=== PATIENT | male | born 1945 | race Caucasian/White ===

== ENCOUNTER 2018-10-17 07:55 | Inpatient (IN) ==
--- NOTE | 2018-10-09 17:42 | PAT Medication Instructions ---
Medication Instructions Date of Service October 09, 2018 Home Medications finasteride 5 mg PO QPM fluticasone furoate-vilanterol [Breo Ellipta] 1 inh INHALATION QAM meloxicam 15 mg PO DAILY PRN pantoprazole 40 mg PO QPM tamsulosin 0.8 mg PO QPM tiotropium bromide [Spiriva Respimat] 2 puff INHALATION QAM ASK your surgeon for instructions meloxicam 15 mg PO DAILY PRN Take morning of surgery OTHERWISE NOTHING TO EAT OR DRINK AFTER MIDNIGHT: fluticasone furoate-vilanterol [Breo Ellipta] 1 inh INHALATION QAM tiotropium bromide [Spiriva Respimat] 2 puff INHALATION QAM Take evening before surgery finasteride 5 mg PO QPM pantoprazole 40 mg PO QPM tamsulosin 0.8 mg PO QPM Other Notes If you have any questions please call us at [phone] or [phone] or [phone] or [phone]
--- NOTE | 2018-10-10 08:50 | Anesthesiology Consultation ---
Date of Service October 10, 2018 Assessment & Plan (1) Encounter for pre-operative examination: - Patient has transportation issues due to his only means of transportation being [place]. Knows that he can be here by 8:30 the day of surgery, and may be able to be here sooner, but cannot guarantee it and won't know for sure until the night before. This was discussed with OR scheduling office here at the hospital who will discuss with patient and plan accordingly. - No previous anesthesia records Chart Review Chart Review: Acceptable Risk for Surgery and Patient seen in Pre Admission Testing Consults Requested medical (Dr. Milian (10/15)) Patient was seen by his PCP on 10/15 for preoperative evaluation. Per note from that visit, his main issue is his pulmonary emphysema. "Due to the patient's history he is moderate to high risk for the proposed procedure. He has severe emphysema, and runs the risks of not being able to be weaned from the intubation. We did have a long discussion with the patient. He still would like to go through with the surgery, and understands the risks, which include ." Teaching & Discussion Pre-Anesthesia Teaching/Discussion Notes: Instructed NPO after midnight before surgery, except medications with 15 cc of water. Medication instructions provided according to the PAT guidelines. History Surgery Operation Date: 10/17/18 10:25 Proposed Procedures p C4 Corpectomy, C5-C6 Discectomy and Fusion, Spinal Cord Monitoring - Alli Mojica, Height/Weight Height: 5 ft 3 in Weight: 62.9 kg Allergies Allergy/AdvReac Type Severity Reaction Status Date / Time chlordiazepoxide Allergy Unknown Hives Verified 10/03/18 11:01 [From Librax (with clidinium)] clidinium Allergy Unknown Hives Verified 10/03/18 11:01 [From Librax (with clidinium)] nitroglycerin Allergy Unknown CARDIAC Verified 10/03/18 11:01 ARREST aspirin AdvReac Unknown GI BLEED Verified 10/03/18 11:01 Medications Home Medications Medication Instructions Recorded Confirmed Last Taken finasteride 5 mg PO QPM 10/03/18 10/03/18 Unknown fluticasone furoate-vilanterol 1 inh INHALATION QAM 10/03/18 10/03/18 Unknown [Breo Ellipta] meloxicam 15 mg PO DAILY PRN 10/03/18 10/03/18 Unknown pantoprazole 40 mg PO QPM 10/03/18 10/03/18 Unknown tamsulosin 0.8 mg PO QPM 10/03/18 10/03/18 Unknown tiotropium bromide [Spiriva 2 puff INHALATION QAM 10/03/18 10/03/18 Unknown Respimat] Past Medical History Medical History Abdominal aortic aneurysm Followed by PCP Ambulatory dysfunction BPH (benign prostatic hyperplasia) Cervical disc disease Chronic obstructive pulmonary disease EMPHYSEMA GERD (gastroesophageal reflux disease) Lung nodules 2 Stable, 2 new ones being followed Memory change PER DAUGHTER Neuropathy BLE Exercise / Class Metabolic Activity III < 4 Walking/Shop/Light housework (Walks outside 2-3 times per day. Walks around town. Denies CP or SOB. Able to climb FOS. ) Past Family History Family History Grandmother (Paternal) Family history of diabetes mellitus Past Surgical History Surgical History H/O colonoscopy History of bronchoscopy Hx of cardiac cath TYRA 2016 Past Anesthesia History No Hx of Anesthesia Complications and No Family Hx of Anesthesia Complications History of PONV No Hx of PONV and No Hx of Motion Sickness Social History Smoking Status: Former smoker Smoking cigarettes per day: 1ppd x 60 Do You Dip or Chew Tobacco: No Smoking End Date: 11/2016 Hx Alcohol Use: No Hx Substance Use: No Review of Systems Patient denies chest pain, shortness of breath, dyspnea on exertion, palpitations. + Joint Pain (Neck, Back) +Acid Reflux (Controlled with medications) +Cough/Wheezing (COPD) Physical Exam Vital Signs BP: 142/87 P: 85 R: 18 T: 98.2 SPO2: 96% on RA ENMT Mouth: + edentulous (On top ) and + poor dentition (few teeth on bottom) Thyromental Distance: < 3.5 Finger Breadths (3) Mallampati Class: I Neck normal visual inspection and + facial hair (Advised); neck extension not limited Respiratory normal respiratory effort Auscultation: + wheezes (rare scattered expiratory wheezes) Cardiovascular Rate/Rhythm: regular rate and regular rhythm Heart Sounds: no murmur Vessels: no carotid bruit Neurologic moves all extremities Psychiatric Orientation: alert and oriented x 3 Testing Laboratory Results 10/10/18 09:18 10/10/18 09:18 PT 11.0 Seconds (9.0-12.0) 10/10/18 09:18 INR 1.1 (0.9-1.1) 10/10/18 09:18 APTT 30.3 Seconds (21.0-31.0) 10/10/18 09:18 Urine Color Yellow 10/10/18 09:18 Urine Appearance Clear (Clear) 10/10/18 09:18 Urine pH 6.0 (4.5-7.5) 10/10/18 09:18 Ur Specific [place] 1.016 (1.000-1.030) 10/10/18 09:18 Urine Protein Negative (Negative) 10/10/18 09:18 Urine Glucose (UA) Negative (Negative) 10/10/18 09:18 Urine Ketones Negative (Negative) 10/10/18 09:18 Urine Nitrite Negative (Negative) 10/10/18 09:18 Ur Leukocyte Esterase Negative (Negative) 10/10/18 09:18 Blood Type A Positive 10/10/18 09:18 Antibody Screen NEGATIVE 10/10/18 09:18 Electrocardiogram Date: 10/10/18 Findings: + NSR @ (76) Rightward axis Chest X-Ray Date: 10/10/18 Findings: + NAD Echocardiogram Date: 04/03/18 EF: 55-59% The LV wall thickness is mildly increased (concentric). There is a moderate sized septal and anteroseptal wall motion abnormality with hypokinesis of the segments. The left ventricular diastolic function is mildly abnormal (grade I). Intermediate IVC size and collapsability. Right atrial pressure estimated at 8 mmHg. Normal pulmonary pressures are suggested by 2-D echo findings Cardiac Catheterization Date: 09/10/16 Conclusion: 1. Nonobstructive coronary artery disease as noted above. 2. Normal LV systolic function 3. Normal LV filling pressures 4. No significant MR by this technique. 5. No significant aortic stenosis by this technique. Recommendations: 1. Maximize medical therapy for primary prevention. 2. Diet exercise and lifestyle modification were discussed. Of particular importance is smoking cessation. 3. Consider noncardiac causes of chest pain. Included in the differential would be musculoskeletal, pericarditis, or pleuritis given the pleuritic nature. 4. Follow-up with cardiology within 4-6 weeks. Other Testing ABDOMINAL AORTA DUPLEX EXAMINATION 07/09/18: There is evidence of a 3.9cm abdominal aortic aneurysm. Color Doppler imaging demonstrates flow consistent with a patent lumen at and distal to the aortic aneurysm. CAROTID DUPLEX 11/09/17: Mild bilateral carotid system plaque, but without hemodynamically significant stenosis. Less than 50% proximal ICA narrowing on each side.
--- NOTE | 2018-10-10 09:38 | XRay Report ---
XR chest Pre-admission PA/Lat CLINICAL HISTORY: pat preoperative evaluation COMPARISON STUDY: No previous studies for comparison. FINDINGS: The bones soft tissues and hemidiaphragms are normal. The cardiomediastinal silhouette is n ormal. The lungs are clear. The pulmonary vasculature is normal. IMPRESSION: Negative chest. The above report was generated using voice recognition software. It may contain grammatical, syntax or spelling errors. Electronically signed by: Denny Butler M.D. 10/10/2018 9:37 AM
[2018-10-10 09:50] LABS: Basophils # (auto) 0.09 K/uL (0-0.2); Basophils % (auto) 0.8 %; Eosinophils # (auto) 0.11 K/uL (0-0.5); Eosinophils % (auto) 0.9 %; Hematocrit (blood only) 43.6 % (42-52); Hemoglobin 15.2 g/dL (14.0-18.0); Immature Granulocytes # (auto) 0.03 K/uL (0.00-0.02); Immature Granulocytes % (auto) 0.3 %; Lymphocytes % (auto) 12.9 %; Mean Corpuscular Hemoglobin 29.9 pg (25-34); Mean Corpuscular Hgb Conc 34.9 g/dL (32-36); Mean Corpuscular Volume 85.8 fL (80-100); Mean Platelet Volume 9.2 fL (7.4-10.4); Monocytes # (auto) 1.18 K/uL (0.11-0.59); Monocytes % (auto) 10.2 %; Neutrophils % (auto) 74.9 %; Platelet Count 266 K/uL (130-400); RDW Coefficient of Variation 13.6 % (11.5-14.5); RDW Standard Deviation 43.1 fL (36.4-46.3); Red Blood Count 5.08 M/uL (4.7-6.1); White Blood Count 11.61 K/uL (4.8-10.8)
[2018-10-10 09:55] LABS: Appearance Urine Clear (Clear); Bilirubin Urine Negative (Negative); Blood Urine Negative (Negative); Color Urine Yellow; Glucose Urine UA Negative (Negative); Ketones Urine Negative (Negative); Leukocyte Esterase Urine Negative (Negative); Nitrite Urine Negative (Negative); Protein Urine Negative (Negative); Specific Gravity Urine 1.016 (1.000-1.030); Urobilinogen Urine Negative (Negative)
[2018-10-10 10:02] LABS: INR 1.1 (0.9-1.1); Partial Thromboplastin Ratio 1.1; Partial Thromboplastin Time 30.3 Seconds (21.0-31.0)
[2018-10-10 11:57] LABS: BUN Creatinine Ratio 14.6 (10-20); Calcium 8.9 mg/dl (8.5-10.1); Creatinine Clr Calc Pharmacy 46.7 ml/min; Est GFR (African American) 73.3; Est GFR (Non-African American) 63.2; Potassium 4.3 mmol/L (3.5-5.1)
[~2018-10-17 07:55] MED LIST: CEFAZOLIN 1000MG 1,000 MG/7.5 ML SYR IV SCH; LR 15ML/HR IV SCH
[2018-10-17] MEDS ORDERED: HYDROmorphone INJ 2 MG/ML SYR/VIAL ONE ×2 (09:02→10:55)
[2018-10-17] MEDS ORDERED: fentaNYL citrate 100 MCG/2 ML VIAL ONE ×7 (09:02→13:18)
[2018-10-17] MEDS ORDERED: MIDAZOLAM HCL 1 MG/ML 2ML VIAL ONE (09:02)
[2018-10-17] MEDS ORDERED: ATROPINE SULFATE 0.1 MG/ML 10ML SYR IV PRN (10:00)
[2018-10-17] MEDS ORDERED: ePHEDrine sulfate 50 MG/ML AMP IV PRN (10:00)
[2018-10-17] MEDS ORDERED: ONDANSETRON INJ 2 MG/ML 2 ML VIAL IV PRN ×2 (10:00→15:10)
[2018-10-17] MEDS ORDERED: ALBUTEROL 0.083% NEBU SOLN 3 ML VIAL INH PRN (10:00)
[2018-10-17] MEDS ORDERED: HYDROmorphone INJ 2 MG/ML SYR/VIAL IV PRN (10:00)
[2018-10-17] MEDS ORDERED: ALBUTEROL 0.5% NEB SOLN 2.5 MG/0.5 ML VIAL NEB STA (10:18)
--- NOTE | 2018-10-17 10:40 | History & Physical Bridge Note ---
Date of Service October 17, 2018 History & Physical Bridge Note I have examined the patient, reviewed the History & Physical and in the interval since the performance of the History & Physical I have noted the following changes of clinical significance: no changes noted
--- NOTE | 2018-10-17 10:41 | History & Physical Report ---
Date of Service October 17, 2018 Assessment & Plan (1) Cervical stenosis of spinal canal: C4 corpectomy C5-6 discectomy and fusion C3-C6 Present on Admission?: Yes History of Present Illness Chief Complaint: Neck and arm pain Primary Care Provider: Korina Milian DO This is a 73-year-old male who presents with worsening neck and arm symptoms. After failing extensive course of nonoperative care is here for surgical intervention. Allergies Allergy/AdvReac Type Severity Reaction Status Date / Time chlordiazepoxide Allergy Unknown Hives Verified 10/17/18 08:26 [From Librax (with clidinium)] clidinium Allergy Unknown Hives Verified 10/17/18 08:26 [From Librax (with clidinium)] nitroglycerin Allergy Unknown CARDIAC Verified 10/17/18 08:26 ARREST aspirin AdvReac Unknown GI BLEED Verified 10/17/18 08:26 Home Medications Home Medications Medication Instructions Recorded Confirmed Type finasteride 5 mg PO QPM 10/03/18 10/17/18 History fluticasone furoate-vilanterol 1 inh INHALATION QAM 10/03/18 10/17/18 History [Breo Ellipta] meloxicam 15 mg PO DAILY PRN 10/03/18 10/17/18 History pantoprazole 40 mg PO QPM 10/03/18 10/17/18 History tamsulosin 0.8 mg PO QPM 10/03/18 10/17/18 History tiotropium bromide [Spiriva 2 puff INHALATION QAM 10/03/18 10/17/18 History Respimat] Past Med/Surg History Medical History Abdominal aortic aneurysm Followed by PCP BPH (benign prostatic hyperplasia) Cervical disc disease Chronic obstructive pulmonary disease EMPHYSEMA GERD (gastroesophageal reflux disease) Lung nodules 2 Stable, 2 new ones being followed Memory change PER DAUGHTER Neuropathy BLE Ambulatory dysfunction Surgical History Hx of cardiac cath TYRA 2016 H/O colonoscopy History of bronchoscopy Family History Grandmother (Paternal) Family history of diabetes mellitus Social History Preferred Language: Vietnamese Communication Ability: Effective Beliefs That Will Affect Care: None Current Living Situation: Family Feels Safe at Home: Yes Smoking Status: Former smoker Cigarettes Per Day: 1ppd x 60 ; Do You Dip or Chew Tobacco: No ; Smoking End Date: 11/2016 ; Second Hand Exposure: Yes (DAILY) ; Hx Alcohol Use: No Hx Substance Use: No Physical Exam Physical Exam: Patient is alert and oriented neurologically intact. Results & Data Vital Signs (Past 12 Hours) Vital Signs Temp Pulse Resp BP Pulse Ox 10/17/18 10:25 71 16 97 10/17/18 08:31 37 C 87 20 129/89 96
[2018-10-17] MEDS ORDERED: PROPOFOL IV EMULSION 10 MG/ML 100 ML VIAL IV ONE (10:55)
[2018-10-17] MEDS ORDERED: BACITRACIN INJ 50,000 UNIT VIAL ONE (10:59)
[2018-10-17] MEDS ORDERED: GLYCOPYRROLATE 0.2 MG/ML VIAL ONE (11:59)
[2018-10-17] MEDS ORDERED: LARYING-O-JET KIT (LTA) ONE (11:59)
[2018-10-17] MEDS ORDERED: ONDANSETRON INJ 2 MG/ML 2 ML VIAL ONE (11:59)
[2018-10-17] MEDS ORDERED: DEXAMETHASONE SOD INJ 4 MG/ML VIAL ONE (11:59)
[2018-10-17] MEDS ORDERED: LIDOCAINE HCL 2% 2 ML VIAL/AMP(20MG/ML) INFIL ONE (11:59)
[2018-10-17] MEDS ORDERED: PROPOFOL IV EMULSION 10 MG/ML 20 ML VIAL IV ONE (11:59)
[2018-10-17] MEDS ORDERED: NEOSTIGMINE METHYLSULFATE 1 MG/ML 10ML VIAL ONE (11:59)
[2018-10-17] MEDS ORDERED: ROCURONIUM BROMIDE 10 MG/ML 5 ML VIAL ONE (11:59)
[2018-10-17] MEDS ORDERED: SUCCINYLCHOLINE CHLORIDE 20 MG/ML 10 ML VIAL ONE (12:43)
[2018-10-17] MEDS ORDERED: ALBUTEROL HFA INHALER 8.5 GM ONE (13:07)
[2018-10-17] MEDS ORDERED: FLOSEAL HEMOSTATIC MATRIX 10ML TOP ONE (13:10)
--- NOTE | 2018-10-17 13:19 | Operative Report ---
Post Operative Report Pre & Post Diagnosis Operation Date: 10/17/18 10:25 Pre-Op Diagnosis: Other Spondylosis with Myelopathy, Cervical Region Post-Op Diagnosis: Other Spondylosis with Myelopathy, Cervical Region Procedure Operation Date: 10/17/18 10:25 Actual Procedures #1 anterior cervical corpectomy with bilateral foraminotomies C4. #2 anterior cervical discectomy with bilateral foraminotomies C5-6. #3 anterior cervical arthrodesis C3-C5 and C5-C6. #4 placement of titanium cage 27 mm in height C3- C5 and 7 mm at C5-C6. #5 placement of locally harvested morselized autograft combined with DBM and interbody cages. #6 placement of mary plate and screws from C3 to see 6. Surgeon Alli Mojica, Business Trainer Pat Jay Estimated Blood Loss 50 Findings Consistent with Post-Op Diagnosis Specimens None Indications This is a 73-year-old female that presents with above-mentioned diagnosis after failing extensive course of nonoperative care is here for surgical intervention. Description of Procedure Patient was met with identified and informed consent obtained. He was then taken to the operative suite underwent intubation placed in a supine position the Balaji table the head Shen gang head saw operator. All bony prominences well- padded eyes inspected to ensure no external pressure placed upon but this point the anterior cervical spine was prepped and draped in the normal sterile fashion. The assistance of fluoroscopy identified the see 4 5 disc patient placed a transverse incision along the right anterior aspect of the cervical spine overlying this region. Sharp dissection with the assistance of bipolar cautery was performed down to and exposing the anterior cervical spine from C3- C6. Self-retaining retractors placed. Then performed a complete discectomy of C3-4 out to the uncovertebral joints bilaterally followed by C4-5. [place] distracting pins were then placed in C3 and C5 distract across the C4 vertebral body. A complete corpectomy of C4 was then performed including removal of all posterior annular fibers longitudinal ligament bilateral foraminotomies. Endplates were then burred to subcortical bleeding bone and a 27 mm titanium cage filled with local autograft and DBM tapped in position. Then performed a complete discectomy of C5-6 to the uncovertebral joints bilaterally. Again [place] distracting pins utilized. Removed all posterior annular fibers longitudinal ligament bilateral foraminotomies were. Endplates were then burred to subcortical bleeding bone and a 7 mm titanium cage filled with local autograft and DBM tamped in position. Distraction apparatus was removed all anterior osteophytes burred with smooth cortical surface and a mary plate and screws applied with the assistance of fluoroscopy. Incision was then copiously irrigated explored to ensure no damage to surrounding structures remaining bleeding. 10 round NICOLE drain inserted. Incision was then closed with 2-0 Vicryl in the fashion of 4 Monocryl for final skin closure. Steri-Strip sterile dressings placed. Patient will continue to PACU stable condition. Please note Pat Jay present at the entire procedure involved in patient positioning complex portions of the surgery and final skin closure. Lastly spinal cord monitoring was utilized that procedure no changes noted. I attest to the content of the Intraoperative Record and any orders documented therein. Any exceptions are noted below.
[2018-10-17] MEDS ORDERED: ESMOLOL HCL INJ 10 MG/ML 10ML VIAL IV ONE (13:26)
--- NOTE | 2018-10-17 13:33 | Fluoroscopy Report ---
FL cervical 2-3V HISTORY: 73 years-old Male C4 CORPECTOMY, C3-C6 DISCECTOMY AND FUSION COMPARISON: None available TECHNIQUE: 2 spot fluoroscopic images of the cervical spine were obtained utilizing 10.8 seconds fluo roscopy time FINDINGS: Anterior plate and screw fusion is noted extending from the C3-C6 levels. Alignment appears satisfact ory. Corpectomy changes at C4. Discectomy changes at C5-C6. Alignment appears satisfactory on these 2 images. Multilevel spondylitic spurring and facet arthrosis. IMPRESSION: Fluoroscopic assistance as above. Please see operative report for further details. The above report was generated using voice recognition software. It may contain grammatical, syntax o r spelling errors. Electronically signed by: Teofilo Guevara M.D. 10/17/2018 1:32 PM
[2018-10-17] MEDS: fentaNYL citrate 100 MCG/2 ML VIAL IV PRN ×2 (13:48→13:56)
[2018-10-17] MEDS ORDERED: HYDROmorphone INJ 1 MG/ML SYRINGE ONE ×2 (14:01→14:22)
--- NOTE | 2018-10-17 14:27 | Anesthesiology Progress Note ---
Date of Service October 17, 2018 Anesthesia Post Procedure Vital Signs Vital Signs: Temp Pulse Pulse Resp BP Pulse Ox 10/17/18 14:10 89 11 L 146/87 H 99 10/17/18 14:00 90 12 157/93 H 100 10/17/18 13:50 90 12 165/85 H 100 10/17/18 13:40 92 H 17 155/92 H 100 10/17/18 13:32 36.4 C L 86 13 151/83 H 100 10/17/18 10:25 71 16 97 10/17/18 08:31 37 C 87 20 129/89 96 Pain Intensity Medial Neck: Pain Intensity: 5 Anterior Medial Neck: Pain Intensity: 5 Transfer of Care Handoff Completed per policy Notes Mental Status: alert / awake / arousable and participated in evaluation Patient Amnestic to Procedure: Yes Nausea / Vomiting: adequately controlled Pain: adequately controlled Airway Patency, RR, SpO2: stable & adequate BP & HR: stable & adequate Hydration State: stable & adequate Anesthetic Complications: no major complications apparent and Pt Satisfied with anesthetic care
[2018-10-17] MEDS ORDERED: MAGNESIUM HYDROXIDE SUSP 30 ML UDC PO PRN (15:10)
[2018-10-17] MEDS ORDERED: DO NOT ADMINISTER PNEUMOCOCCAL VACCINE PRN (15:10)
[2018-10-17] MEDS ORDERED: LORazepam 0.5 MG/1 ML VIAL IV PRN (15:10)
[2018-10-17] MEDS ORDERED: RACEPINEPHRINE 2.25% NEBU SOLN 0.5 ML VIAL INH PRN (15:10)
[2018-10-17] MEDS ORDERED: LORazepam 0.5 MG TAB PO PRN (15:10)
[2018-10-17] MEDS ORDERED: DO NOT ADMINISTER FLU VACCINE PRN (15:10)
[2018-10-17] MEDS ORDERED: NALOXONE HCL 0.4 MG/1 ML VIAL/CARP IV PRN (15:10)
[2018-10-17] MEDS ORDERED: OXYCODONE/ACETAMINOPHEN 5mg/325mg TAB PO PRN (15:10)
[2018-10-17] MEDS ORDERED: DEXAMETHASONE SOD PHOSPHATE 8 MG in SYRINGE 0 ML IV PRN (15:10)
[2018-10-17] MEDS ORDERED: SCOPOLAMINE 1.5 MG TDSY TD SCH (16:00)
[2018-10-17] MEDS: CHECK SCOPOLAMINE PATCH PLACEMENT SCH (17:16)
[2018-10-17] MEDS: CEFAZOLIN 1000MG 1,000 MG/7.5 ML SYR IV SCH (18:31)
[2018-10-17] MEDS: OXYCODONE HCL IR 5 MG TAB (IMMEDIATE RELEASE) PO PRN (18:33)
[2018-10-17] MEDS: LACTATED RINGER'S 1,000 ML IV SCH (18:33)
[2018-10-17] MEDS: TAMSULOSIN HCL 0.4 MG CAP PO SCH (20:12)
[2018-10-17] MEDS: PANTOprazole 40 MG TAB PO SCH (20:13)
[2018-10-17] MEDS: FINASTERIDE 5 MG TAB PO SCH (20:13)
[2018-10-17] MEDS ORDERED: ALBUTEROL HFA 8 GM INHALER INH PRN (20:42)
--- NOTE | 2018-10-17 21:03 | Consultation ---
Date of Consultation October 17, 2018 Assessment & Plan (1) S/P cervical spinal fusion: Post op day# 0 S/P C4 corpectomy, C5-C6 discectomy and fusion C3-C6 today by Dr Mojica [id number] Post op pt with neck pain, and some pain with swallowing with no reported choking -pain management per ortho -wound management per ortho -PT/OT as appropriate -DVT prophylaxis per ortho -incentive spirometry -monitor H&H for acute blood loss anemia (2) Chronic obstructive pulmonary disease: No SOB or wheezing -Continue Breo, Spiriva -Albuterol prn (3) BPH (benign prostatic hyperplasia): -Continue finasteride, tamsulosin (4) GERD (gastroesophageal reflux disease): -Continue PPI DVT Prophylaxis -SCDs Full Code as per discussion with pt Follows with Dr Milian for routine care Pt was seen and care coordinated with Dr Bunn. See addendum Supervising Physician Co-Signing Physician Notes Care coordinated with Ksenia Segovia PA-C. Agree with above note. Patient seen and examined. Please refer to her notes for full details. Vital signs reviewed. Physical exam: General exam: Alert and oriented. Not in acute distress. Neck: In collar CVS: S1 and S2 heard, regular rate and rhythm, no murmurs. RS: Clear to auscultation, no wheezing or crackles. ABD: Soft, bowel sounds present, nontender, no distention. CITRIX ARCHITECT: Nonfocal.speech clear, alert and oriented x 3 EXT: No edema, no erythema. Labs: Reviewed. Assessment and plan: s/p Cervical spine surgery management as per surgery dizziness dificulty swallowing says not able to swallow because of pain CITRIX ARCHITECT exam unremarkable CT head unremarkable CT soft tissue neck -mild anterior soft tissue edema(post surgical?) otherwise unremarkable Notified Ortho-plan to start on steroids. Other diagnosis and plan of care as per Ksenia Segovia PA-C. Enrique underwood MD. History of Present Illness Reason for Consultation: Post op medical management Attending Physician: Alli Mojica DO History of Present Illness Pt is 73 y/o M with PMH COPD, BPH, GERD seen in medical consultation for post op medical management s/p C4 corpectomy, C5-C6 discectomy and fusion C3-C6 today by Dr Mojica. Post op pt reports neck pain. He reports had left arm pain greater than right arm pain prior to surgery and post op pt states feels arm pain has decreased some but not completely resolved. Denies paresthesias. Is in [place] J collar and tolerating. Drinking clear fluids and reports no choking but some discomfort with swallowing. Denies fever/chills, diaphoresis, N/V/D/C, BIRD, dizziness, vision changes, CP, SOB, palpitations, cough, abdominal pain, extremity weakness, extremity edema, rashes, urinary symptoms. Allergies Allergy/AdvReac Type Severity Reaction Status Date / Time chlordiazepoxide Allergy Unknown Hives Verified 10/17/18 08:26 [From Librax (with clidinium)] clidinium Allergy Unknown Hives Verified 10/17/18 08:26 [From Librax (with clidinium)] nitroglycerin Allergy Unknown CARDIAC Verified 10/17/18 08:26 ARREST aspirin AdvReac Unknown GI BLEED Verified 10/17/18 08:26 Home Medications Home Medications Medication Instructions Recorded Confirmed Type finasteride 5 mg PO QPM 10/03/18 10/17/18 History fluticasone furoate-vilanterol 1 inh INHALATION QAM 10/03/18 10/17/18 History [Breo Ellipta] meloxicam 15 mg PO DAILY PRN 10/03/18 10/17/18 History pantoprazole 40 mg PO QPM 10/03/18 10/17/18 History tamsulosin 0.8 mg PO QPM 10/03/18 10/17/18 History tiotropium bromide [Spiriva 2 puff INHALATION QAM 10/03/18 10/17/18 History Respimat] albuterol sulfate 2 puff INHALATION QID PRN 10/17/18 10/17/18 History Patient History Medical History Chronic obstructive pulmonary disease (Chronic) EMPHYSEMA Lung nodules (Chronic) 2 Stable, 2 new ones being followed Memory change (Chronic) PER DAUGHTER GERD (gastroesophageal reflux disease) (Chronic) BPH (benign prostatic hyperplasia) (Chronic) Cervical disc disease (Chronic) Abdominal aortic aneurysm (Chronic) Followed by PCP Neuropathy (Chronic) BLE Ambulatory dysfunction (Chronic) Surgical History Hx of cardiac cath (Chronic) TYRA [id number] H/O colonoscopy (Chronic) History of bronchoscopy (Chronic) Family History Grandmother (Paternal) Family history of diabetes mellitus Social History Preferred Language: Mozambican Communication Ability: Effective Beliefs That Will Affect Care: None Current Living Situation: Family Feels Safe at Home: Yes Smoking Status: Former smoker Cigarettes Per Day: 1ppd x 60 ; Do You Dip or Chew Tobacco: No ; Smoking End Date: 11/2016 ; Second Hand Exposure: Yes (DAILY) ; Hx Alcohol Use: No Hx Substance Use: No Review of Systems Review of Systems: All systems reviewed & are unremarkable except as noted in HPI & below Physical Exam Physical Exam: General: chronic ill appearing in no distress, moderately developed, moderately nourished Head: normocephalic, atraumatic Eyes: conjunctiva non-injected, anicteric ENT: normal inspection external ears, nose, mucous membranes moist Neck: supple, trachea midline, in [place] J collar, +dressing anterior neck is dry and intact Lungs: clear, no respiratory distress, no wheezing/rhonchi/rales CV: RRR, no murmur, no pretibial edema Abd: normal BS, soft, non-tender Ext: no cyanosis, no calf tenderness; distal pulses palpable, upper and lower extremities with sensation to light touch intact Neuro: A&O x 3, no focal deficits noted, normal affect Skin: warm, dry Results & Data Vital Signs (Past 12 Hours) Vital Signs Temp Pulse Pulse Resp BP Pulse Ox Pulse Ox 10/17/18 20:36 159/97 H 10/17/18 20:15 36.1 C L 94 H 16 172/99 H 99 10/17/18 18:00 36.5 C 100 H 16 165/94 H 97 10/17/18 17:00 36.6 C 97 H 16 156/88 H 98 10/17/18 16:00 102 H 16 98 10/17/18 15:58 36.6 C 94 H 16 162/92 H 98 10/17/18 15:31 36.3 C L 98 H 16 147/82 H 98 10/17/18 15:00 36.6 C 88 16 139/87 96 96 10/17/18 14:40 36.7 C 88 15 139/92 100 10/17/18 14:30 90 16 148/86 H 100 10/17/18 14:20 89 16 146/87 H 100 10/17/18 14:10 89 11 L 146/87 H 99 10/17/18 14:00 90 12 157/93 H 100 10/17/18 13:50 90 12 165/85 H 100 10/17/18 13:40 92 H 17 155/92 H 100 10/17/18 13:32 36.4 C L 86 13 151/83 H 100 10/17/18 10:25 71 16 97
[2018-10-17] MEDS: HYDROmorphone INJ 0.5 MG/0.5 ML SYR IV PRN (21:16)
[2018-10-18] MEDS: CHECK SCOPOLAMINE PATCH PLACEMENT SCH ×2 (00:53→07:53)
[2018-10-18] MEDS: CEFAZOLIN 1000MG 1,000 MG/7.5 ML SYR IV SCH ×2 (02:04→09:38)
[2018-10-18] MEDS: HYDROmorphone INJ 0.5 MG/0.5 ML SYR IV PRN ×4 (04:44→21:39)
[2018-10-18] MEDS: LACTATED RINGER'S 1,000 ML IV SCH ×2 (04:47→16:51)
[2018-10-18] MEDS ORDERED: COUGH DROP (SUGAR FREE) LOZ 24 LOZ/1 BOX BUCCAL PRN (05:51)
--- NOTE | 2018-10-18 06:51 | CT Scan Report ---
CT soft tissue neck wo con CT DOSE: 1098.04 mGy.cm CLINICAL HISTORY: History of neck surgery. Difficulty swallowing. Possible hematoma. TECHNIQUE: The study was performed without intravenous contrast. Helical images were acquired in the transverse plane. A dose lowering technique was utilized adhering to the principles of ALARA. COMPARISON STUDY: None. FINDINGS: The visualized portions lung apices reveal pulmonary emphysema. No thyroid abnormalities are visualized in this noncontrast study. No salivary gland masses are visualized on this noncontrast study. There is no evidence of pathologic adenopathy. There is no evidence of airway compromise. No mucosal space masses are visualized in this noncontrast study. Trauma to soft tissue gas in the right neck, are likely postsurgical. There are postsurgical changes of a C4 corpectomy, and C5-C6 discectomy and interbody fusion. There i s a C3-C6 anterior cervical spinal fusion. There is anterior soft tissue edema likely postsurgical. T here is anterior cervical drainage catheter. There is no evidence for airway compromise IMPRESSION: 1. Examination limited due to the lack of intravenous contrast 2. Postsurgical changes within the cervical spine at C3-C6 level. Associated anterior soft tissue erica ma, likely postsurgical. 3. No evidence for abscess in this noncontrast study 4. No evidence of airway compromise 5. No evidence of pathologic adenopathy Electronically signed by: Abdoulaye Davila M.D. 10/18/2018 6:50 AM
--- NOTE | 2018-10-18 06:54 | CT Scan Report ---
CT OF THE HEAD WITHOUT CONTRAST CLINICAL HISTORY: Dizziness. Difficulty swallowing. Recent neck surgery. Evaluate for stroke. COMPARISON STUDY: No previous studies for comparison. TECHNIQUE: Helical axial images of the head were obtained without IV contrast. Automated exposure con trol was utilized for the study. A dose lowering technique was utilized adhering to the principles o f ALARA. FINDINGS: No acute intracranial hemorrhage, midline shift or mass effect is present. The ventricular system is unremarkable. The basilar cisterns are patent. No extra-axial collections are present. Ther e are no findings to suggest acute dural sinus thrombosis or acute territorial infarct. No significan t calvarial abnormalities are present. Visualized portions of the sinuses and mastoid air cells are c lear. IMPRESSION: No acute intracranial findings. Electronically signed by: Dashawn Lim M.D. 10/18/2018 6:53 AM
--- NOTE | 2018-10-18 07:42 | Anesthesiology Progress Note ---
Date of Service October 18, 2018 Anesthesia Post Procedure Vital Signs Vital Signs: Temp Pulse Pulse Resp BP Pulse Ox Pulse Ox 10/18/18 07:36 82 18 91 10/18/18 06:00 36.5 C 82 18 128/73 98 10/18/18 04:10 36.8 C 95 H 18 125/76 97 10/18/18 02:00 36.5 C 91 H 16 129/75 98 10/18/18 01:13 36.5 C 95 H 16 149/86 H 98 10/17/18 23:35 93 H 14 98 10/17/18 21:12 93 H 16 98 10/17/18 20:36 159/97 H 10/17/18 20:15 36.1 C L 94 H 16 172/99 H 99 10/17/18 20:05 98 10/17/18 18:00 36.5 C 100 H 16 165/94 H 97 10/17/18 17:00 36.6 C 97 H 16 156/88 H 98 10/17/18 16:00 102 H 16 98 10/17/18 15:58 36.6 C 94 H 16 162/92 H 98 10/17/18 15:31 36.3 C L 98 H 16 147/82 H 98 10/17/18 15:00 36.6 C 88 16 139/87 96 96 10/17/18 14:40 36.7 C 88 15 139/92 100 10/17/18 14:30 90 16 148/86 H 100 10/17/18 14:20 89 16 146/87 H 100 10/17/18 14:10 89 11 L 146/87 H 99 10/17/18 14:00 90 12 157/93 H 100 10/17/18 13:50 90 12 165/85 H 100 10/17/18 13:40 92 H 17 155/92 H 100 10/17/18 13:32 36.4 C L 86 13 151/83 H 100 10/17/18 10:25 71 16 97 10/17/18 08:31 37 C 87 20 129/89 96 Pain Intensity Medial Neck: Pain Intensity: 3 Anterior Medial Neck: Pain Intensity: 3 Notes Mental Status: alert / awake / arousable and participated in evaluation Patient Amnestic to Procedure: Yes Nausea / Vomiting: adequately controlled Pain: adequately controlled Airway Patency, RR, SpO2: stable & adequate BP & HR: stable & adequate Hydration State: stable & adequate Anesthetic Complications: no major complications apparent
--- NOTE | 2018-10-18 08:15 | Orthopedic Progress Note ---
Date of Service October 18, 2018 Assessment & Plan (1) S/P cervical spinal fusion: This time we will maintain the NICOLE drain. Have initiated IV Decadron to help with this as swallowing and swelling. I suspect he will require another 24 to 48 hours of sedation. Present on Admission?: Yes Subjective Patient states his arm symptoms are markedly improved. He still has some swallowing difficulty. Physical Exam Physical Exam: On exam is excellent strength testing. He does have some modest hoarseness when discuss his case. He does appear comfortable overall. Results & Data Vital Signs (Past 12 Hours) Vital Signs Temp Pulse Resp BP Pulse Ox 10/18/18 07:59 36.5 C 89 18 132/74 94 10/18/18 07:36 82 18 91 10/18/18 06:00 36.5 C 82 18 128/73 98 10/18/18 04:10 36.8 C 95 H 18 125/76 97 10/18/18 02:00 36.5 C 91 H 16 129/75 98 10/18/18 01:13 36.5 C 95 H 16 149/86 H 98 10/17/18 23:35 93 H 14 98 10/17/18 21:12 93 H 16 98 10/17/18 20:36 159/97 H 10/17/18 20:15 36.1 C L 94 H 16 172/99 H 99
[2018-10-18] MEDS: TIOTROPIUM BROMIDE 5 PUFF/90 MCG INH INH SCH (08:29)
[2018-10-18] MEDS ORDERED: Nursing to Pharmacy Communication ONE (08:50)
[2018-10-18] MEDS: DEXAMETHASONE SOD PHOSPHATE 8 MG in SYRINGE 0 ML IV SCH ×2 (09:31→16:49)
--- NOTE | 2018-10-18 10:46 | Hospitalist Progress Note ---
Date of Service October 18, 2018 Assessment & Plan (1) S/P cervical spinal fusion: Post op day# 1 S/P C4 corpectomy, C5-C6 discectomy and fusion C3-C6 today by Dr Mojica EBL 50ml; NICOLE drain 85ml Post op complains of difficulty swallowing CT soft tissue neck reveals anterior soft tissue edema, no airway comprise, post surgical changes, no abscess Started on decadron per surgery pain/wound management per ortho PT/OT as appropriate DVT prophylaxis per ortho incentive spirometry monitor H&H (2) Chronic obstructive pulmonary disease: No SOB or wheezing no acute exac Continue Breo, Spiriva Albuterol prn (3) BPH (benign prostatic hyperplasia): Continue finasteride, tamsulosin Pt required straight cath x 2, monitor may need to re-insert stevenson until up and ambulating more (4) GERD (gastroesophageal reflux disease): Continue PPI DVT Prophylaxis SCDs Disposition: per primary Follow up: PCP Dr Milian for routine care Patient was seen and examined in collaboration with Dr. Mallory, please see addendum Thank you for this consultation. We will follow the patient with you during their hospital stay. You [facility] via pager @ [phone]. Supervising Physician Co-Signing Physician Notes Care coordinated with Jeannine Zheng PA-C. Patient seen in his room this afternoon. He has been having neck discomfort and difficulty swallowing, but symptoms improved since initiation of dexamethasone. Occasional nonproductive cough. No shortness of breath. General-no distress Neck-wearing cervical collar Lungs-clear Heart-regular Abdomen-normal bowel sounds, soft, nontender Extremities-no edema or calf tenderness Assessment/Plan: Status post anterior cervical decompression. Receiving dexamethasone for postoperative edema and difficulty swallow. Please see ROGE Zheng's documentation regarding management of other problems. Thank you for this consultation. We will follow the patient with you during their hospital stay. My cell # is [phone]. You can reach a member of the [facility] Medicine Team 19/09 via pager @ [phone]. Subjective Patient was seen and examined in room 302-1 Follow-up C4 corpectomy, C3-C6 discectomy and fusion POD #[address] Mojica. Patient elicits continued difficulty swallowing and swelling of neck. Unchanged from last evening. Tolerating clear liquids. Denies fever, chills, sweats, chest pain, shortness of breath, nausea, vomiting or abdominal pain. Passing flatus. Was unable to urinate twice required straight catheterization. Review of Systems Review of Systems: All systems reviewed & are unremarkable except as noted in HPI & below Physical Exam Physical Exam: Gen: WD/WN, M, NAD, A&O x3, sitting up in bed HEENT: Normocephalic, atraumatic, conjunctivae moist, sclerae anicteric, mucous membranes moist, poor dentition. Neck: Anterior dressing in place, NICOLE drain with serosanginous drainage Lung: Clear to Auscultation bilaterally, no wheezes/rales/rhonchi Heart: Regular rate, regular rhythm, no murmurs, rubs, or gallops Abdomen: Soft, NT, ND +BS x 4 Extremities: No edema Skin: Warm, no rash, negative turgor. Results & Data Vital Signs (Past 12 Hours) Vital Signs Temp Pulse Resp BP Pulse Ox Pulse Ox 10/18/18 10:06 36.5 C 94 H 16 134/76 94 10/18/18 08:00 94 10/18/18 07:59 36.5 C 89 18 132/74 94 10/18/18 07:36 82 18 91 10/18/18 06:00 36.5 C 82 18 128/73 98 10/18/18 04:10 36.8 C 95 H 18 125/76 97 10/18/18 02:00 36.5 C 91 H 16 129/75 98 10/18/18 01:13 36.5 C 95 H 16 149/86 H 98 10/17/18 23:35 93 H [address] Neck: IMPRESSION: 1. Examination limited due to the lack of intravenous contrast 2. Postsurgical changes within the cervical spine at C3-C6 level. Associated anterior soft tissue edema, likely postsurgical. 3. No evidence for abscess in this noncontrast study 4. No evidence of airway compromise 5. No evidence of pathologic adenopathy Head CT: FINDINGS: No acute intracranial hemorrhage, midline shift or mass effect is present. The ventricular system is unremarkable. The basilar cisterns are patent. No extra-axial collections are present. There are no findings to suggest acute dural sinus thrombosis or acute territorial infarct. No significant calvarial abnormalities are present. Visualized portions of the sinuses and mastoid air cells are clear. IMPRESSION: No acute intracranial findings. Medications Administered Finasteride (Proscar) 5 mg PO QPM [facility] Stop: 11/16/18 20:59 Last Admin: 10/17/18 20:13 Dose: 5 mg Documented by: [id number] Hydromorphone HCl (Dilaudid) 0.5 mg IV Q3H PRN PRN Reason: moderate pain (scale 4-6) Stop: 10/31/18 15:09 Last Admin: 10/18/18 04:44 Dose: 0.5 mg Documented by: [id number] Admin: 10/17/18 21:16 Dose: 0.5 mg Documented by: [id number] Lactated Ringer's (Lr) 1,000 mls @ 80 mls/hr IV .[id number] [facility] Stop: 11/16/18 15:09 Last Admin: 10/18/18 04:47 Dose: 80 mls/hr Documented by: [id number] Infusion: 10/18/18 04:47 Dose: 80 mls/hr Documented by: [id number] Admin: 10/17/18 18:33 Dose: 80 mls/hr Documented by: [id number] Dexamethasone Sodium Phosphate (8 mg/ Syringe) 2 mls @ 1 mls/min IV Q8H [facility] Stop: 11/17/18 08:59 Last Admin: 10/18/18 09:31 Dose: 1 mls/min Documented by: [id number] Miscellaneous (Order Awaiting Action) 1 ea N/A QS [facility] Stop: 11/16/18 15:59 Last Admin: 10/18/18 07:53 Dose: Not Given Documented by: [id number] Admin: 10/18/18 00:53 Dose: Not Given Documented by: [id number] Admin: 10/17/18 17:15 Dose: Not Given Documented by: [id number] Ondansetron HCl (Zofran) 4 mg IV Q6H PRN PRN Reason: Nausea And Vomiting Stop: 11/16/18 15:09 Last Admin: 10/17/18 19:13 Dose: 4 mg Documented by: [id number] Oxycodone HCl (Roxicodone Immediate Rel) 5 - 10 mg PO Q4H PRN PRN Reason: Pain Stop: 10/31/18 15:09 Last Admin: 10/17/18 18:33 Dose: 10 mg Documented by: [id number] Pantoprazole Sodium (Protonix) 40 mg PO QPM [facility] Stop: 11/16/18 20:59 Last Admin: 10/17/18 20:13 Dose: 40 mg Documented by: [id number] Tamsulosin HCl (Flomax) 0.8 mg PO QPM [facility] Stop: 11/16/18 20:59 Last Admin: 10/17/18 20:12 Dose: 0.8 mg Documented by: [id number] Tiotropium [place] (Spiriva) 1 puffs INH DAILY [facility] Stop: 11/17/18 08:59 Last Admin: 10/18/18 08:29 Dose: 1 puffs Documented by: [id number] Discontinued Medications Albuterol (Ventolin 0.5% 2.5mg/0.5ml) 2.5 mg NEB NOW STA Stop: 10/17/18 10:19 Last Admin: 10/17/18 10:25 Dose: 2.5 mg Documented by: [id number] Bacitracin (Bacitracin) Confirm Administered Dose 50,000 units .ROUTE .STK-MED ONE Stop: 10/17/18 11:00 Last Admin: 10/17/18 15:16 Dose: Not Given Documented by: [id number] Fentanyl Citrate (Fentanyl Citrate) 50 mcg IV Q5M PRN PRN Reason: PACU Use Only-Pain Stop: 10/17/18 15:01 Last Admin: 10/17/18 13:56 Dose: 50 mcg Documented by: [id number] Admin: 10/17/18 13:48 Dose: 50 mcg Documented by: [id number] Hydromorphone HCl (Dilaudid) 0.5 mg IV Q5M PRN PRN Reason: PACU Use Only-Pain Stop: 10/17/18 15:17 Last Admin: 10/17/18 14:02 Dose: 0.5 mg Documented by: [id number] Hydromorphone HCl (Dilaudid) Confirm Administered Dose 1 mg .ROUTE .STK-MED ONE Stop: 10/17/18 14:02 Last Increment: 10/17/18 14:22 Dose: 0.5 mg Documented by: [id number] Increment: 10/17/18 14:13 Dose: 0.5 mg Documented by: [id number] Hydromorphone HCl (Dilaudid) Confirm Administered Dose 1 mg .ROUTE .STK-MED ONE Stop: 10/17/18 14:23 Last Admin: 10/17/18 15:17 Dose: Not Given Documented by: [id number] Lactated Ringer's (Lr) 1,000 mls @ 15 mls/hr IV .Q24H [facility] Stop: 10/18/18 05:59 Last Infusion: 10/17/18 11:15 Dose: 0 mls/hr Documented by: [id number] Admin: 10/17/18 09:11 Dose: 15 mls/hr Documented by: [id number] Cefazolin Sodium (Ancef 1000mg) 1,000 mg in 7.5 mls @ 2.5 mls/min IV PREOP [facility] Stop: 10/18/18 05:59 Last Admin: 10/17/18 11:12 Dose: 2.5 mls/min Documented by: [id number] Cefazolin Sodium (Ancef 1000mg) 1,000 mg in 7.5 mls @ 2.5 mls/min IV Q8H [facility]; Protocol Stop: 10/18/18 10:02 Last Admin: 10/18/18 09:38 Dose: 2.5 mls/min Documented by: [id number] Admin: 10/18/18 02:04 Dose: 2.5 mls/min Documented by: [id number] Admin: 10/17/18 18:31 Dose: 2.5 mls/min Documented by: [id number] Miscellaneous (Floseal Hemostatic Matrix 10ml) 10 ml TOP ONCE ONE Stop: 10/17/18 13:11 Last Admin: 10/17/18 15:18 Dose: Not Given Documented by: [id number] Carlinecellaneous (Check Scopolamine Patch Placement) 1 ea N/A QS [facility] Stop: 11/16/18 15:59 Last Admin: 10/18/18 07:53 Dose: 1 ea Documented by: [id number] Admin: 10/18/18 00:53 Dose: 1 ea Documented by: [id number] Admin: 10/17/18 17:16 Dose: 1 ea Documented by: [id number] Scopolamine (Transderm-Scop) 1.5 mg TD Q3D@0900 [facility] Stop: 11/16/18 15:59 Last Admin: 10/17/18 17:15 Dose: 1.5 mg Documented by: [id number]
[2018-10-18] MEDS: TAMSULOSIN HCL 0.4 MG CAP PO SCH (20:51)
[2018-10-18] MEDS: PANTOprazole 40 MG TAB PO SCH (20:51)
[2018-10-18] MEDS: FINASTERIDE 5 MG TAB PO SCH (20:51)
[2018-10-19] MEDS: DEXAMETHASONE SOD PHOSPHATE 8 MG in SYRINGE 0 ML IV SCH ×3 (00:53→18:00)
[2018-10-19] MEDS: LACTATED RINGER'S 1,000 ML IV SCH ×2 (05:21→18:00)
[2018-10-19] MEDS ORDERED: bisacodyL 5 MG TABEC PO PRN (06:00)
[2018-10-19 06:09] LABS: Hematocrit (blood only) 40.7 % (42-52); Hemoglobin 13.8 g/dL (14.0-18.0); Mean Corpuscular Hgb Conc 33.9 g/dL (32-36); Mean Corpuscular Volume 85.5 fL (80-100); Mean Platelet Volume 9.4 fL (7.4-10.4); Platelet Count 282 K/uL (130-400); RDW Coefficient of Variation 13.6 % (11.5-14.5); RDW Standard Deviation 42.8 fL (36.4-46.3); Red Blood Count 4.76 M/uL (4.7-6.1)
[2018-10-19 06:40] LABS: BUN Creatinine Ratio 18.3 (10-20); Calcium 8.7 mg/dl (8.5-10.1); Creatinine Clr Calc Pharmacy 55.4 ml/min; Est GFR (African American) 92.3; Est GFR (Non-African American) 79.7; Potassium 4.2 mmol/L (3.5-5.1)
[2018-10-19] MEDS: TIOTROPIUM BROMIDE 5 PUFF/90 MCG INH INH SCH (08:08)
--- NOTE | 2018-10-19 12:23 | Orthopedic Progress Note ---
Date of Service October 19, 2018 Assessment & Plan (1) S/P cervical spinal fusion: This time we will maintain his drain. He will be placed on n.p.o. He is having IV fluids. We will continue IV Decadron in hopes that the swelling is somewhat resolved the next 24 hours and we can begin starting a clear liquid diet. Present on Admission?: Yes Subjective Patient complaining of swelling. He is not really struggling with hoarseness. He states his arm symptoms and leg symptoms are markedly improved. Physical Exam Physical Exam: On exam is neck is soft there is no evidence of gross swelling. NICOLE drain is intact and still putting out some modest fluid. He is neurologically intact. Results & Data Vital Signs (Past 12 Hours) Vital Signs Temp Pulse Pulse Resp BP Pulse Ox Pulse Ox 10/19/18 11:15 86 18 93 10/19/18 11:00 36.5 C 85 18 172/89 H 93 10/19/18 07:36 36.6 C 87 16 163/88 H 92 10/19/18 07:31 107 H 18 92 10/19/18 07:10 92 10/19/18 03:27 72 15 93 10/19/18 03:10 36.4 C L 79 18 149/83 H 93
[2018-10-19] MEDS ORDERED: POLYETHYLENE (MIRALAX) 17 GM PACK PO PRN (13:23)
[2018-10-19] MEDS: HYDROmorphone INJ 0.5 MG/0.5 ML SYR IV PRN (13:24)
--- NOTE | 2018-10-19 18:58 | Hospitalist Progress Note ---
Date of Service October 19, 2018 Assessment & Plan (1) S/P cervical spinal fusion: POD # 2. Management per Ortho Spine. (2) Dysphagia: Unable to swallow saliva / clear liquids. No stridor or resp distress. Receiving IV dexamethasone. Best to keep NPO until postop swelling improved. (3) Chronic obstructive pulmonary disease: Pulmonary status stable. (4) GERD (gastroesophageal reflux disease): Continue PPI. (5) BPH (benign prostatic hyperplasia): Need to hold tamsulosin and finasteride while NPO. Has Saini cath. Voiding trial once BPH meds resumed. (6) DVT prophylaxis: Per Ortho protocol. (7) Encounter for consultation: Thank you for this consultation. We will follow the patient with you during their hospital stay. My cell # is [phone]. You can reach a member of the [facility] Medicine Team 19/09 via pager @ [phone]. Subjective Recheck for perioperative medical management. Patient seen in their room around 1100. Persistent difficulty swallowing. Coughs whenever he eats or drinks. No shortness of breath. Postoperative neck pain improved. Review of Systems: Constitutional- no fever. Cardiac- no chest pain. Pulmonary- as noted above. GI- no nausea, vomiting, diarrhea, melena, hematochezia. - no urinary symptoms. Otherwise, as noted above. Physical Exam Constitutional: no acute distress Neck: + abnormal visual inspection (mild postoperative swelling anteriorly; surgical drain) no stridor Respiratory: no respiratory distress Auscultation: lungs clear to auscultation bilaterally Cardiovascular: Rate/Rhythm: regular rate and regular rhythm Heart Sounds: no gallop, no murmur and no cardiac rub Vessels: no JVD Extremities: no calf tenderness and no edema Gastrointestinal (Abdomen): normal bowel sounds, soft, nontender, no hepatosplenomegaly Skin: no rashes, warm and dry Psychiatric: Orientation: alert and oriented x 3 Genitourinary: Saini cath Results & Data Vital Signs (Past 12 Hours) Vital Signs Temp Pulse Pulse Resp BP Pulse Ox Pulse Ox 10/19/18 15:30 36.6 C 82 20 162/93 H 93 10/19/18 14:51 78 18 94 10/19/18 14:18 81 157/95 H 10/19/18 11:15 86 18 93 10/19/18 11:00 36.5 C 85 18 172/89 H 93 10/19/18 07:36 36.6 C 87 16 163/88 H 92 10/19/18 07:31 107 H 18 92 10/19/18 07:10 92 Laboratory Results 10/19/18 05:48 10/19/18 05:48
[2018-10-19] MEDS: D5W AND LACTATED RINGERS 1,000 ML IV SCH (19:13)
--- NOTE | 2018-10-19 21:56 | XRay Report ---
XR chest 1V portable CLINICAL HISTORY: cough COMPARISON STUDY: Chest radiograph October 10, 2018. FINDINGS: Lung volumes are normal. Lungs are clear. There is no pneumothorax or pleural effusion. Car diac size is normal. Mediastinal contours are normal. There is no evidence for pulmonary edema. Anter ior cervical spine fusion is incidentally noted. Surgical drain is in place. IMPRESSION: No acute cardiopulmonary findings. Electronically signed by: Dashawn Lim M.D. 10/19/2018 9:55 PM
[2018-10-20] MEDS: DEXAMETHASONE SOD PHOSPHATE 8 MG in SYRINGE 0 ML IV SCH ×3 (00:51→17:05)
[2018-10-20] MEDS: HYDROmorphone INJ 0.5 MG/0.5 ML SYR IV PRN ×2 (01:04→14:11)
[2018-10-20] MEDS: D5W AND LACTATED RINGERS 1,000 ML IV SCH ×3 (02:41→18:37)
[2018-10-20 06:47] LABS: BUN Creatinine Ratio 20.2 (10-20); Calcium 8.7 mg/dl (8.5-10.1); Creatinine Clr Calc Pharmacy 56.6 ml/min; Est GFR (African American) 94.7; Est GFR (Non-African American) 81.7; Potassium 4.4 mmol/L (3.5-5.1)
[2018-10-20] MEDS: ACETAMINOPHEN 1,000 MG/100 ML VIAL IV PRN (07:41)
[2018-10-20] MEDS: TIOTROPIUM BROMIDE 5 PUFF/90 MCG INH INH SCH (09:19)
--- NOTE | 2018-10-20 10:10 | Orthopedic Progress Note ---
Date of Service October 20, 2018 Assessment & Plan (1) S/P cervical spinal fusion: At this time we will maintain n.p.o. and hydration. He may ambulate as tolerated. If he fails to improve over the next 24 hours we may consider exploration of the incision. We will maintain the NICOLE drain today. Present on Admission?: Yes Subjective Patient still struggling with swallowing today. His arm and leg symptoms are markedly improved. He has been ambulating with assistance. Physical Exam Physical Exam: On exam he sits up in bed without difficulty. I did have him attempt to swallow a small bit of water. He was unable to tolerate this. Neurologically intact. Results & Data Vital Signs (Past 12 Hours) Vital Signs Temp Pulse Pulse Resp BP Pulse Ox 10/20/18 08:41 165/91 H 10/20/18 07:28 36.6 C 74 16 176/91 H 95 10/20/18 06:58 76 16 93 10/20/18 04:30 36.4 C L 73 16 168/94 H 94 10/20/18 03:09 68 15 95 10/20/18 00:50 36.4 C L 76 16 169/90 H 94 10/19/18 23:07 88 18 94
--- NOTE | 2018-10-20 13:47 | Hospitalist Progress Note ---
Date of Service October 20, 2018 Assessment & Plan (1) S/P cervical spinal fusion: POD # 3. Management per Ortho Spine. (2) Dysphagia: Still unable to swallow saliva / clear liquids. No stridor or resp distress. Receiving IV dexamethasone. Best to keep NPO until postop swelling improved. (3) Chronic obstructive pulmonary disease: Pulmonary status stable. (4) GERD (gastroesophageal reflux disease): Continue PPI. (5) BPH (benign prostatic hyperplasia): Need to hold tamsulosin and finasteride while NPO. Has Saini cath. Voiding trial once BPH meds resumed. (6) DVT prophylaxis: Per Ortho protocol. (7) Encounter for consultation: Thank you for this consultation. We will follow the patient with you during their hospital stay. My cell # is [phone]. You can reach a member of the [facility] Medicine Team 19/09 via pager @ [phone]. Subjective Recheck for perioperative medical management. Patient seen in their room around 1130. Made NPO yesterday because of dysphagia and frequent coughing. Persistent difficulty swallowing. Cough somewhat better since NPO. No shortness of breath. Right neck more swollen. Feels hoarse. Ambulating. Review of Systems: Constitutional- no fever. Cardiac- no chest pain. Pulmonary- as noted above. GI- no nausea, vomiting, diarrhea, melena, hematochezia. - no urinary symptoms. Otherwise, as noted above. Physical Exam Constitutional: no acute distress Neck: + abnormal visual inspection (mild postoperative swelling anteriorly R > L; surgical drain) Respiratory: no respiratory distress Auscultation: lungs clear to auscultation bilaterally Cardiovascular: Rate/Rhythm: regular rate and regular rhythm Heart Sounds: no gallop, no murmur and no cardiac rub Vessels: no JVD Extremities: no calf tenderness and no edema Gastrointestinal (Abdomen): normal bowel sounds, soft, nontender, no hepatosplenomegaly Skin: no rashes, warm and dry Psychiatric: Orientation: alert and oriented x 3 Results & Data Vital Signs (Past 12 Hours) Vital Signs Temp Pulse Pulse Resp BP Pulse Ox 10/20/18 11:56 36.8 C 74 16 169/97 H 95 10/20/18 10:17 73 16 94 10/20/18 08:41 165/91 H 10/20/18 07:28 36.6 C 74 16 176/91 H 95 10/20/18 06:58 76 16 93 10/20/18 04:30 36.4 C L 73 16 168/94 H 94 10/20/18 03:09 68 15 95 Laboratory Results 10/19/18 05:48 10/20/18 05:49 Diagnostic Findings PORT CHEST X-RAY 10/19 FINDINGS: Lung volumes are normal. Lungs are clear. There is no pneumothorax or pleural effusion. Cardiac size is normal. Mediastinal contours are normal. There is no evidence for pulmonary edema. Anterior cervical spine fusion is incidentally noted. Surgical drain is in place. IMPRESSION: No acute cardiopulmonary findings. Electronically signed by: Dashawn Lim M.D. 10/19/2018 9:55 PM
[2018-10-21] MEDS: ACETAMINOPHEN 1,000 MG/100 ML VIAL IV PRN ×2 (00:14→18:47)
[2018-10-21] MEDS: DEXAMETHASONE SOD PHOSPHATE 8 MG in SYRINGE 0 ML IV SCH ×3 (00:39→17:39)
[2018-10-21] MEDS: D5W AND LACTATED RINGERS 1,000 ML IV SCH ×3 (02:52→18:46)
[2018-10-21] MEDS: HYDROmorphone INJ 0.5 MG/0.5 ML SYR IV PRN ×3 (04:28→23:14)
[2018-10-21 06:24] LABS: BUN Creatinine Ratio 19.8 (10-20); Calcium 8.3 mg/dl (8.5-10.1); Creatinine Clr Calc Pharmacy 62.7 ml/min; Est GFR (African American) 101.4; Est GFR (Non-African American) 87.5; Potassium 3.7 mmol/L (3.5-5.1)
[2018-10-21] MEDS: TIOTROPIUM BROMIDE 5 PUFF/90 MCG INH INH SCH (08:12)
--- NOTE | 2018-10-21 08:19 | Orthopedic Progress Note ---
Date of Service October 21, 2018 Assessment & Plan (1) Cervical disc disease: Patient is stable postoperative day #4 he is maintaining oxygen saturations however he still having difficulty swallowing. We will keep him n.p.o. at this point and the plan is to likely explore his incision tomorrow in the operating room. We will continue with GI DVT prophylaxis and will see him in the morning to make final decision in terms of the operative plan. Subjective Patient was seen bedside postoperative day #4 in room 302. He continues have difficulty swallowing. Is having a hard time handling his own secretions. The arm pain is much better than prior to surgery. He is not having too much in way of neck pain. He denies any other numbness, tingling, or paresthesias. Physical Exam Physical Exam: On exam the dressing is clean dry and intact. The NICOLE drain is holding suction as placed 20 cc out on this past shift and 10 on the previous. There is no noticeable swelling or ecchymosis around the incision itself. The patient is alert and oriented. Results & Data Vital Signs (Past 12 Hours) Vital Signs Temp Pulse Pulse Resp BP Pulse Ox 10/21/18 07:16 66 16 95 10/21/18 07:11 36.4 C L 63 18 166/92 H 96 10/21/18 04:15 36.3 C L 61 14 159/97 H 96 10/21/18 00:00 36.3 C L 89 16 167/95 H 96 10/20/18 23:15 64 14 94 10/20/18 23:05 36.7 C 67 18 167/99 H 95
--- NOTE | 2018-10-21 13:19 | Hospitalist Progress Note ---
Date of Service October 21, 2018 Assessment & Plan (1) S/P cervical spinal fusion: POD # 4. Management per Ortho Spine. (2) Dysphagia: Still unable to swallow saliva / clear liquids. No stridor or resp distress. Receiving IV dexamethasone. Best to keep NPO until postop swelling improved. (3) Chronic obstructive pulmonary disease: Pulmonary status stable. (4) GERD (gastroesophageal reflux disease): Continue PPI. (5) BPH (benign prostatic hyperplasia): Need to hold tamsulosin and finasteride while NPO. Has Saini cath. Voiding trial once BPH meds resumed. (6) Hyperglycemia: Fasting blood sugar today = 160. Steroid-induced hyperglycemia secondary to dexamethasone. No need for insulin coverage unless sugars rise further. Taper steroids as able. (7) DVT prophylaxis: Per Ortho protocol. (8) Encounter for consultation: Thank you for this consultation. We will follow the patient with you during their hospital stay. My cell # is [phone]. You can reach a member of the [facility] Medicine Team 19/09 via pager @ [phone]. Subjective Recheck for perioperative medical management. Patient seen in their room around 1125. Persistent difficulty swallowing. Still NPO. Coughing less. No shortness of breath. Right neck swelling about the same. Review of Systems: Constitutional- no fever. Cardiac- no chest pain. Pulmonary- as noted above. GI- + BM; no nausea, vomiting, diarrhea, melena, hematochezia. - no urinary symptoms. Otherwise, as noted above. Physical Exam Constitutional: no acute distress Neck: + abnormal visual inspection (mild postoperative swelling anteriorly R > L; surgical drain) cervical swelling about the same as yesterday Respiratory: no respiratory distress Auscultation: lungs clear to auscultation bilaterally Cardiovascular: Rate/Rhythm: regular rate and regular rhythm Heart Sounds: no gallop, no murmur and no cardiac rub Vessels: no JVD Extremities: no calf tenderness and no edema Gastrointestinal (Abdomen): normal bowel sounds, soft, nontender, no hepatosplenomegaly Skin: no rashes, warm and dry Psychiatric: Orientation: alert and oriented x 3 Results & Data Vital Signs (Past 12 Hours) Vital Signs Temp Pulse Resp BP Pulse Ox 10/21/18 12:41 36.3 C L 66 16 178/93 H 96 10/21/18 10:59 64 16 97 10/21/18 07:16 66 16 95 10/21/18 07:11 36.4 C L 63 18 166/92 H 96 10/21/18 04:15 36.3 C L 61 14 159/97 H 96 Laboratory Results 10/19/18 05:48 10/21/18 05:21
[2018-10-22] MEDS: DEXAMETHASONE SOD PHOSPHATE 8 MG in SYRINGE 0 ML IV SCH (00:54)
[2018-10-22] MEDS: D5W AND LACTATED RINGERS 1,000 ML IV SCH ×3 (02:57→19:31)
[2018-10-22] MEDS: ACETAMINOPHEN 1,000 MG/100 ML VIAL IV PRN ×2 (04:15→15:42)
[2018-10-22 05:19] LABS: BUN Creatinine Ratio 23.1 (10-20); Calcium 8.2 mg/dl (8.5-10.1); Creatinine Clr Calc Pharmacy 67.5 ml/min; Est GFR (African American) 104.5; Est GFR (Non-African American) 90.2; Potassium 3.9 mmol/L (3.5-5.1)
[2018-10-22] MEDS: TIOTROPIUM BROMIDE 5 PUFF/90 MCG INH INH SCH (08:08)
[2018-10-22] MEDS: HYDROmorphone INJ 0.5 MG/0.5 ML SYR IV PRN ×2 (08:08→18:52)
--- NOTE | 2018-10-22 12:44 | XRay Report ---
XR cervical spine 2 or 3V CLINICAL HISTORY: 73 years-old Male presenting with postop. TECHNIQUE: Lateral, frontal, and open mouth odontoid views of the cervical spine were obtained. COMPARISON: Comparison made to CT neck from 10/18/2018. FINDINGS: Postsurgical changes of anterior cervical discectomy and fusion of C3-C6 with C4 corpectomy and inter body cage placement. Alignment is unchanged from recent CT with normal cervical lordosis. Incomplete visualization of C6 and C7 limits evaluation. Allowing for this, no radiographic evidence of fracture or hardware malalignment. Normal predental interval. No prevertebral soft tissue swelling. Lateral m asses of C1 articulate normally with C2. IMPRESSION: Stable appearance of postsurgical changes of C3-C6 fusion. Limited evaluation due to incomplete visua lization of C6 and C7. Electronically signed by: Abram Marcano M.D. 10/22/2018 12:43 PM
--- NOTE | 2018-10-22 13:14 | Orthopedic Progress Note ---
Date of Service October 22, 2018 Assessment & Plan (1) Cervical stenosis of spinal canal: This time we will change his dressing DC drain. Obtain some x-rays of cervical spine that demonstrate no changes in alignment. Consult speech therapy. We are considering possible expiration of the surgical area perhaps revision of the plate. He understands and agrees. Present on Admission?: Yes Subjective Patient continues to complain of some swallowing difficulty. Is unable to tolerate even water at this time. He is up and ambulating with assistance. Physical Exam Physical Exam: On exam his voice is much improved. He is sitting up without difficulty. Is good strength testing. There is no evidence of swelling in the simeon-surgical area. He was unable to tolerate a sip of water today. Results & Data Vital Signs (Past 12 Hours) Vital Signs Temp Pulse Pulse Resp BP Pulse Ox 10/22/18 11:44 36.2 C L 59 L 16 171/98 H 97 10/22/18 07:23 36.2 C L 71 16 171/98 H 95 10/22/18 07:10 70 18 96 10/22/18 04:00 36.3 C L 59 L 14 164/94 H 95 10/22/18 03:18 56 L 14 94
--- NOTE | 2018-10-22 19:34 | Anesthesiology Consultation ---
Date of Service October 22, 2018 Assessment & Plan (1) Encounter for pre-operative examination: Chart Review Chart Review: Acceptable Risk for Surgery and Patient NOT seen in Pre Admission Testing Consults Requested none History Surgery Operation Date: 10/17/18 10:25 Proposed Procedures p C4 Corpectomy, C3-C6 Discectomy and Fusion, Spinal Cord Monitoring - Alli Mojica DO Operation Date: 10/23/18 07:00 Proposed Procedures p Incision and Drainage Cervical Spine Evacuation Hematoma - Alli Mojica DO Height/Weight Height: 5 ft 2.5 in Weight: 63.106 kg Allergies Allergy/AdvReac Type Severity Reaction Status Date / Time chlordiazepoxide Allergy Unknown Hives Verified 10/17/18 08:26 [From Librax (with clidinium)] clidinium Allergy Unknown Hives Verified 10/17/18 08:26 [From Librax (with clidinium)] nitroglycerin Allergy Unknown CARDIAC Verified 10/17/18 08:26 ARREST aspirin AdvReac Unknown GI BLEED Verified 10/17/18 08:26 Medications Home Medications Medication Instructions Recorded Confirmed Last Taken finasteride 5 mg PO QPM 10/03/18 10/17/18 10/16/18 23:00 fluticasone furoate-vilanterol 1 inh INHALATION QAM 10/03/18 10/17/18 10/16/18 11:00 [Breo Ellipta] meloxicam 15 mg PO DAILY PRN 10/03/18 10/17/18 10/13/18 pantoprazole 40 mg PO QPM 10/03/18 10/17/18 10/16/18 23:00 tamsulosin 0.8 mg PO QPM 10/03/18 10/17/18 10/16/18 23:00 tiotropium bromide [Spiriva 2 puff INHALATION QAM 10/03/18 10/17/18 10/16/18 11:00 Respimat] albuterol sulfate 2 puff INHALATION QID PRN 10/17/18 10/17/18 Unknown oxycodone-acetaminophen [Percocet] 1 tab PO Q4H PRN #20 tab 10/19/18 Unknown Active Medications Generic Name Dose Route Start Last Admin Trade Name Freq PRN Reason Stop Dose Admin Finasteride 5 mg 10/17/18 21:00 10/18/18 20:51 Proscar PO 11/16/18 20:59 5 mg QPM DAVID Administration Hydromorphone HCl 0.5 mg 10/17/18 15:10 10/22/18 18:52 Dilaudid IV 10/31/18 15:09 0.5 mg Q3H PRN Administration moderate pain (scale 4-6) Acetaminophen 1,000 mg in 100 mls @ 400 mls/hr 10/17/18 15:10 10/22/18 16:00 Ofirmev IV 11/16/18 15:09 Infused Q8H PRN Infusion pain rating 1-3 Dextrose/Lactated Ringer's 1,000 mls @ 125 mls/hr 10/19/18 19:00 10/22/18 19:31 D5w And Lactated Ringers IV 11/18/18 18:59 125 mls/hr .Q8H DAVID Administration Miscellaneous 1 ea 10/17/18 16:00 10/22/18 15:50 Order Awaiting Action N/A 11/16/18 15:59 Not Given QS DAVID Ondansetron HCl 4 mg 10/17/18 15:10 10/17/18 19:13 Zofran IV 11/16/18 15:09 4 mg Q6H PRN Administration Nausea And Vomiting Oxycodone HCl 5 - 10 mg 10/17/18 15:10 10/17/18 18:33 Roxicodone Immediate Rel PO 10/31/18 15:09 10 mg Q4H PRN Administration Pain Pantoprazole Sodium 40 mg 10/17/18 21:00 10/18/18 20:51 Protonix PO 11/16/18 20:59 40 mg QPM DAVID Administration Tamsulosin HCl 0.8 mg 10/17/18 21:00 10/18/18 20:51 Flomax PO 11/16/18 20:59 0.8 mg QPM DAVID Administration Tiotropium Marshall 1 puffs 10/18/18 09:00 10/22/18 08:08 Spiriva INH 11/17/18 08:59 Not Given DAILY DAVID NPO Date Last Intake of Fluids: 10/19/18 Time Last Intake of Fluids: 09:44 Date Last Intake of Solids: 10/16/18 Time Last Intake of Solids: 23:59 Past Medical History Medical History Chronic obstructive pulmonary disease (Chronic) EMPHYSEMA Lung nodules (Chronic) 2 Stable, 2 new ones being followed Memory change (Chronic) PER DAUGHTER GERD (gastroesophageal reflux disease) (Chronic) BPH (benign prostatic hyperplasia) (Chronic) Cervical disc disease (Chronic) Abdominal aortic aneurysm (Chronic) Followed by PCP Neuropathy (Chronic) BLE Ambulatory dysfunction (Chronic) Exercise / Class Metabolic Activity III < 4 Walking/Shop/Light housework Past Family History Family History Grandmother (Paternal) Family history of diabetes mellitus Past Surgical History Surgical History Hx of cardiac cath (Chronic) TYRA IVONE - 2016 H/O colonoscopy (Chronic) History of bronchoscopy (Chronic) H/O cervical spine surgery 10/17/2018. Anesthesia record not yet available. Past Anesthesia History No Hx of Anesthesia Complications and No Family Hx of Anesthesia Complications Social History Smoking Status: Former smoker Smoking cigarettes per day: 1ppd x 60 Do You Dip or Chew Tobacco: No Smoking End Date: 11/2016 Hx Alcohol Use: No Hx Substance Use: No Physical Exam Vital Signs Last Vital Signs Temp 36.3 C L 10/22/18 15:23 Pulse 64 10/22/18 15:39 Resp 18 10/22/18 15:39 BP 179/81 H 10/22/18 15:23 Pulse Ox 94 10/22/18 15:39 Testing Laboratory Results 10/19/18 05:48 10/22/18 04:42 PT 11.0 Seconds (9.0-12.0) 10/10/18 09:18 INR 1.1 (0.9-1.1) 10/10/18 09:18 APTT 30.3 Seconds (21.0-31.0) 10/10/18 09:18 Urine Color Yellow 10/10/18 09:18 Urine Appearance Clear (Clear) 10/10/18 09:18 Urine pH 6.0 (4.5-7.5) 10/10/18 09:18 Ur Specific [place] 1.016 (1.000-1.030) 10/10/18 09:18 Urine Protein Negative (Negative) 10/10/18 09:18 Urine Glucose (UA) Negative (Negative) 10/10/18 09:18 Urine Ketones Negative (Negative) 10/10/18 09:18 Urine Nitrite Negative (Negative) 10/10/18 09:18 Ur Leukocyte Esterase Negative (Negative) 10/10/18 09:18 Blood Type A Positive 10/17/18 08:41 Antibody Screen NEGATIVE 10/17/18 08:41 Electrocardiogram Date: 10/10/18 Findings: + NSR @ (76) Rightward axis Chest X-Ray Date: 10/10/18 Findings: + NAD Echocardiogram Date: 04/03/18 EF: 55-59% The LV wall thickness is mildly increased (concentric). There is a moderate sized septal and anteroseptal wall motion abnormality with hypokinesis of the segments. The left ventricular diastolic function is mildly abnormal (grade I). Intermediate IVC size and collapsability. Right atrial pressure estimated at 8 mmHg. Normal pulmonary pressures are suggested by 2-D echo findings Cardiac Catheterization Date: 09/10/16 Conclusion: 1. Nonobstructive coronary artery disease as noted above. 2. Normal LV systolic function 3. Normal LV filling pressures 4. No significant MR by this technique. 5. No significant aortic stenosis by this technique. Recommendations: 1. Maximize medical therapy for primary prevention. 2. Diet exercise and lifestyle modification were discussed. Of particular importance is smoking cessation. 3. Consider noncardiac causes of chest pain. Included in the differential would be musculoskeletal, pericarditis, or pleuritis given the pleuritic nature. 4. Follow-up with cardiology within 4-6 weeks. Other Testing ABDOMINAL AORTA DUPLEX EXAMINATION 07/09/18: There is evidence of a 3.9cm abdominal aortic aneurysm. Color Doppler imaging demonstrates flow consistent with a patent lumen at and distal to the aortic aneurysm. CAROTID DUPLEX 11/09/17: Mild bilateral carotid system plaque, but without hemodynamically significant stenosis. Less than 50% proximal ICA narrowing on each side.
--- NOTE | 2018-10-22 23:03 | Hospitalist Progress Note ---
Date of Service October 22, 2018 Assessment & Plan (1) S/P cervical spinal fusion: POD # 5. Management per Ortho Spine. (2) Dysphagia: Still unable to swallow saliva / clear liquids. No stridor or resp distress. Receiving IV dexamethasone. Best to keep NPO until postop swelling improved. Seen by THEATRICAL DRESSER. (3) Chronic obstructive pulmonary disease: Pulmonary status stable. (4) GERD (gastroesophageal reflux disease): Continue PPI. (5) BPH (benign prostatic hyperplasia): Need to hold tamsulosin and finasteride while NPO. Has Saini cath. Voiding trial once BPH meds resumed. (6) Hyperglycemia: Fasting blood sugar today = 154. Steroid-induced hyperglycemia secondary to dexamethasone. No need for insulin coverage unless sugars rise further. Taper steroids as able. (7) Nutritional assessment: Has been essentially NPO since surgery. Hopefully, dysphagia will resolve soon and PO diet can be resumed. May need nutritional support. Probably best to avoid NG enteral feedings in light of cervical surgery. Consider TPN. Will order baseline labs for TPN in case it is needed. (8) DVT prophylaxis: Per Ortho protocol. (9) Encounter for consultation: Thank you for this consultation. We will follow the patient with you during their hospital stay. My cell # is [phone]. You can reach a member of the [facility] Medicine Team 19/09 via pager @ [phone]. Subjective Recheck for perioperative medical management. Patient seen in their room around 1700. Persistent difficulty swallowing. Seen today by THEATRICAL DRESSER for bedside swallowing eval. Trying ice chips without too much difficulty. Coughing less. No shortness of breath. Right neck swelling about the same. Review of Systems: Constitutional- no fever. Cardiac- no chest pain. Pulmonary- as noted above. GI- + BM yesterday; no nausea, vomiting, diarrhea, melena, hematochezia. - no urinary symptoms. Otherwise, as noted above. Physical Exam Constitutional: no acute distress Neck: + abnormal visual inspection (mild postoperative swelling anteriorly R > L; surgical drain) Respiratory: no respiratory distress Auscultation: lungs clear to auscu ltation bilaterally Cardiovascular: Rate/Rhythm: regular rate and regular rhythm Heart Sounds: no gallop, no murmur and no cardiac rub Vessels: no JVD Extremities: no calf tenderness and no edema Gastrointestinal (Abdomen): normal bowel sounds, soft, nontender, no hepatosplenomegaly Skin: no rashes, warm and dry Psychiatric: Orientation: alert and oriented x 3 Genitourinary: + bladder abnormality (Saini cath) Results & Data Vital Signs (Past 12 Hours) Vital Signs Temp Pulse Pulse Resp BP Pulse Ox 10/22/18 20:20 61 18 95 10/22/18 15:39 64 18 94 10/22/18 15:23 36.3 C L 62 17 179/81 H 97 10/22/18 11:44 36.2 C L 59 L 16 171/98 H 97 Laboratory Results 10/19/18 05:48 10/22/18 04:42
[2018-10-23] MEDS: HYDROmorphone INJ 0.5 MG/0.5 ML SYR IV PRN ×4 (01:54→23:55)
[2018-10-23] MEDS: D5W AND LACTATED RINGERS 1,000 ML IV SCH ×3 (03:22→21:53)
[2018-10-23 05:12] LABS: Hematocrit (blood only) 44.2 % (42-52); Hemoglobin 15.2 g/dL (14.0-18.0); Mean Corpuscular Hemoglobin 29.1 pg (25-34); Mean Corpuscular Hgb Conc 34.4 g/dL (32-36); Mean Corpuscular Volume 84.7 fL (80-100); Mean Platelet Volume 9.8 fL (7.4-10.4); Platelet Count 251 K/uL (130-400); RDW Coefficient of Variation 13.2 % (11.5-14.5); RDW Standard Deviation 40.2 fL (36.4-46.3); Red Blood Count 5.22 M/uL (4.7-6.1); White Blood Count 13.12 K/uL (4.8-10.8)
[2018-10-23 05:33] LABS: Albumin Level 2.4 gm/dl (3.4-5.0); BUN Creatinine Ratio 19.9 (10-20); Bilirubin Direct 0.2 mg/dl (0-0.2); Calcium 7.8 mg/dl (8.5-10.1); Creatinine Clr Calc Pharmacy 62.7 ml/min; Est GFR (African American) 101.4; Est GFR (Non-African American) 87.5; Potassium 3.4 mmol/L (3.5-5.1)
[2018-10-23 05:36] LABS: Albumin Globulin Ratio 0.9 (0.9-2); Globulin 2.7 gm/dl (2.5-4.0); Phosphorus 2.1 mg/dl (2.5-4.9); Total Protein 5.1 gm/dl (6.4-8.2)
[2018-10-23] MEDS: ACETAMINOPHEN 1,000 MG/100 ML VIAL IV PRN (06:19)
[2018-10-23] MEDS: TIOTROPIUM BROMIDE 5 PUFF/90 MCG INH INH SCH (08:23)
--- NOTE | 2018-10-23 15:09 | History & Physical Bridge Note ---
Date of Service October 23, 2018 History & Physical Bridge Note I have examined the patient, reviewed the History & Physical and in the interval since the performance of the History & Physical I have noted the following changes of clinical significance: no changes noted
--- NOTE | 2018-10-23 15:09 | Orthopedic Progress Note ---
Date of Service October 23, 2018 Assessment & Plan (1) S/P cervical spinal fusion: This time he is failed to respond with the passage of time and a short course of Decadron. Subsequently we are electing to undergo exploration of the cervical incision. We will order to evacuate any hematoma identified possible revision of instrumentation. Patient understands and agrees. Present on Admission?: Yes Subjective Patient still notes marked improvement in his arm and leg symptoms but struggling with swallowing even modest amounts of liquid. Physical Exam Physical Exam: On exam he is neurologically intact. He did have some small small complex portions of water. He is unable to do so. Results & Data Vital Signs (Past 12 Hours) Vital Signs Temp Pulse Pulse Resp BP Pulse Ox 10/23/18 14:56 36.5 C 62 18 148/89 H 96 10/23/18 11:24 36.5 C 61 15 154/87 H 96 10/23/18 11:07 65 16 96 10/23/18 06:57 62 16 97 10/23/18 06:56 36.2 C L 62 16 141/89 H 98 10/23/18 03:14 57 L 16 98
[2018-10-23] MEDS ORDERED: fentaNYL citrate 100 MCG/2 ML VIAL ONE ×2 (15:28→17:11)
[2018-10-23] MEDS ORDERED: PROPOFOL IV EMULSION 10 MG/ML 20 ML VIAL IV ONE (15:29)
[2018-10-23] MEDS ORDERED: ONDANSETRON INJ 2 MG/ML 2 ML VIAL ONE (15:29)
[2018-10-23] MEDS ORDERED: ROCURONIUM BROMIDE 10 MG/ML 5 ML VIAL ONE (15:29)
[2018-10-23] MEDS ORDERED: LIDOCAINE HCL 2% 2 ML VIAL/AMP(20MG/ML) INFIL ONE (15:29)
[2018-10-23] MEDS ORDERED: DEXAMETHASONE SOD INJ 4 MG/ML VIAL ONE (15:29)
[2018-10-23] MEDS ORDERED: PROMETHAZINE HCL 6.25 MG in SODIUM CHLORIDE 0.9% 50 ML IV PRN (15:39)
[2018-10-23] MEDS ORDERED: ONDANSETRON INJ 2 MG/ML 2 ML VIAL IV PRN (15:39)
[2018-10-23] MEDS ORDERED: ePHEDrine sulfate 50 MG/ML AMP IV PRN (15:39)
[2018-10-23] MEDS ORDERED: ATROPINE SULFATE 0.1 MG/ML 10ML SYR IV PRN (15:39)
[2018-10-23] MEDS ORDERED: CEFAZOLIN 2,000 MG/15 ML IV PUSH IV ONE (15:44)
[2018-10-23] MEDS ORDERED: BACITRACIN INJ 50,000 UNIT VIAL ONE (15:47)
[2018-10-23] MEDS ORDERED: SODIUM CHLORIDE 0.9% INJ 10 ML VIAL ONE (16:16)
[2018-10-23] MEDS ORDERED: GENTAMICIN SULFATE 40 MG/ML 2 ML VIAL ONE ×2 (16:16→16:49)
[2018-10-23] MEDS ORDERED: ePHEDrine sulfate 50 MG/ML AMP ONE (16:16)
[2018-10-23] MEDS ORDERED: PHENYLEPHRINE 100MCG/ML 5ML SYR ONE (16:16)
[2018-10-23] MEDS ORDERED: VANCOMYCIN HCL 1000MG/20ML VIAL ONE ×2 (16:17→16:50)
[2018-10-23] MEDS ORDERED: NEOSTIGMINE METHYLSULFATE 1 MG/ML 10ML VIAL ONE (16:49)
[2018-10-23] MEDS ORDERED: GLYCOPYRROLATE 0.2 MG/ML VIAL ONE (16:49)
--- NOTE | 2018-10-23 17:21 | Operative Report ---
Post Operative Report Pre & Post Diagnosis Operation Date: 10/17/18 10:25 Pre-Op Diagnosis: Other Spondylosis with Myelopathy, Cervical Region Post-Op Diagnosis: Other Spondylosis with Myelopathy, Cervical Region Operation Date: 10/23/18 07:00 Pre-Op Diagnosis: Other Spondylosis with Myelopathy, Cervical Region Post-Op Diagnosis: Other Spondylosis with Myelopathy, Cervical Region Procedure Operation Date: 10/17/18 10:25 Actual Procedures p C4 Corpectomy, C3-C6 Discectomy and Fusion, Spinal Cord Monitoring, and Application of Xemplifi Allograft - Alli Mojica DO Operation Date: 10/23/18 07:00 Actual Procedures #1 removal of anterior cervical plate C3-C6. #2 revision C4 corpectomy. #3 fusion C3-C5. #4 placement of DBM in the interbody cage. #5 placement of mary plate and screws from C3-C6. #6 placement of stimulant beads impregnated with vancomycin and gentamicin in the incision. Surgeon Alli Mojica DO Customer Sales Specialist None Estimated Blood Loss 10 Findings Consistent with Post-Op Diagnosis Specimens None Indications Patient was brought back to the OR with concerns of postoperative swallowing issues. Description of Procedure Patient was met with identified and informed consent obtained. Was then taken to the operative suite underwent intubation placed in supine position Balaji table the head Shen morgan. Anterior cervical spine was then prepped and draped in normal sterile fashion. Utilizing the previous incision site I dissected down to and exposing the anterior cervical spine from C3-C6. Obvious displacement of the superior aspect of the plate was identified. No significant hematoma was noted. Structures were all intact without evidence of damage. I proceeded to remove the plate and the corpectomy cage at C4. The inferior endplate of C3 demonstrated evidence of collapse and I revised the endplate to a smooth surface. I then placed new DBM in the interbody Spira titanium cage and placed it back in the corpectomy site. With much better fit was noted. The plate was then reinserted with rescue screws from C3-C6. The incision was then copiously irrigated and approximately 3 cc of stimulant beads impregnated with gentamicin vancomycin sprinkled throughout the wound. A 10 round NICOLE drain was then inserted and incision was closed with 2-0 Vicryl in the fashion of 4 Monocryl for final skin closure. Steri-Strip sterile dressings placed. Patient awakened taken to PACU in stable condition. I attest to the content of the Intraoperative Record and any orders documented therein. Any exceptions are noted below.
--- NOTE | 2018-10-23 17:29 | Fluoroscopy Report ---
FL cervical 2-3V HISTORY: 73 years-old Male I D PLATE MANIPULATION chronic neck pain COMPARISON: Radiographs 10/22/2018 TECHNIQUE: One lateral spot fluoroscopic image of the cervical spine was obtained utilizing 4.8 secon ds fluoroscopy time FINDINGS: Anterior plate and screw fusion hardware with discectomy changes redemonstrated extending from what a ppears to be the to C3-C6 levels. Alignment is difficult to evaluate on this single image and also se condary to overlying soft tissue. IMPRESSION: Fluoroscopic assistance as above. Please see operative report for further details. The above report was generated using voice recognition software. It may contain grammatical, syntax o r spelling errors. Electronically signed by: Teofilo Guevara M.D. 10/23/2018 5:28 PM
[2018-10-23] MEDS: fentaNYL citrate 100 MCG/2 ML VIAL IV PRN ×2 (17:40→17:45)
--- NOTE | 2018-10-23 18:06 | Anesthesiology Progress Note ---
Date of Service October 23, 2018 Anesthesia Post Procedure Vital Signs Vital Signs: Temp Pulse Pulse Pulse Resp BP Pulse Ox 10/23/18 18:00 71 18 156/78 H 100 10/23/18 17:50 69 18 159/82 H 100 10/23/18 17:40 78 18 152/85 H 100 10/23/18 17:30 75 14 148/97 H 100 10/23/18 17:24 36.7 C 80 15 139/92 99 10/23/18 14:56 36.5 C 62 18 148/89 H 96 10/23/18 11:24 36.5 C 61 15 154/87 H 96 10/23/18 11:07 65 16 96 10/23/18 06:57 62 16 97 10/23/18 06:56 36.2 C L 62 16 141/89 H 98 10/23/18 03:14 57 L 16 98 10/22/18 23:29 62 18 95 10/22/18 20:20 61 18 95 Pain Intensity Medial Neck: Pain Intensity: 3 Anterior Medial Neck: Pain Intensity: 2 Bilateral Shoulder: Pain Intensity: 5 Anterior Neck: Pain Intensity: 7 Head: Pain Intensity: 0 Transfer of Care Handoff Completed per policy Notes Mental Status: alert / awake / arousable Patient Amnestic to Procedure: Yes Nausea / Vomiting: adequately controlled Pain: adequately controlled Airway Patency, RR, SpO2: stable & adequate BP & HR: stable & adequate Hydration State: stable & adequate Anesthetic Complications: no major complications apparent
[2018-10-23] MEDS: FINASTERIDE 5 MG TAB PO SCH (20:10)
[2018-10-23] MEDS: TAMSULOSIN HCL 0.4 MG CAP PO SCH (20:10)
--- NOTE | 2018-10-23 22:23 | Hospitalist Progress Note ---
Date of Service October 23, 2018 Assessment & Plan (1) S/P cervical spinal fusion: POD # 6. Management per Ortho Spine. (2) Dysphagia: Postop dysphagia. Received IV dexamethasone without significant improvement. Revision of anterior cervical decompression / fusion performed with improvement of symptoms. No stridor or resp distress. (3) Chronic obstructive pulmonary disease: Pulmonary status stable. (4) GERD (gastroesophageal reflux disease): Continue PPI. (5) BPH (benign prostatic hyperplasia): Holding tamsulosin and finasteride while NPO. Has Saini cath. Voiding trial once BPH meds resumed. (6) Hyperglycemia: Fasting blood sugar today = 119. Steroid-induced hyperglycemia secondary to dexamethasone. No need for insulin coverage unless sugars rise further. Taper steroids as able. (7) Nutritional assessment: Has been essentially NPO since initial surgery. Hopefully, dysphagia will resolve soon and PO diet can be resumed. May need nutritional support. Probably best to avoid NG enteral feedings in light of cervical surgery. Consider TPN. Will order baseline labs for TPN in case it is needed. (8) DVT prophylaxis: Per Ortho protocol. (9) Encounter for consultation: Thank you for this consultation. We will follow the patient with you during their hospital stay. My cell # is [phone]. You can reach a member of the [facility] Medicine Team 19/09 via pager @ [phone]. Subjective Recheck for perioperative medical management. Patient seen in their room this evening. Return to operating room today for exploration neck because of persistent postoperative dysphagia. Revision of anterior cervical decompression/fusion performed. Doing well postoperatively. No chest pain, cough, SOB, nausea, vomiting. Having some postoperative discomfort, but swallowing more easily. Review of Systems: Constitutional- no fever. Cardiac- no chest pain. Pulmonary- as noted above. GI- + BM yesterday; no nausea, vomiting, diarrhea, melena, hematochezia. - no urinary symptoms. Otherwise, as noted above. Physical Exam Constitutional: no acute distress Neck: + abnormal visual inspection (wearing cervical collar) Respiratory: no respiratory distress Auscultation: lungs clear to ausculta tion bilaterally Cardiovascular: Rate/Rhythm: regular rate and regular rhythm Heart Sounds: no gallop, no murmur and no cardiac rub Vessels: no JVD Extremities: no calf tenderness and no edema Gastrointestinal (Abdomen): normal bowel sounds, soft, nontender, no hepatosplenomegaly Skin: no rashes, warm and dry Psychiatric: Orientation: alert and oriented x 3 Genitourinary: + bladder abnormality (Saini cath) Results & Data Vital Signs (Past 12 Hours) Vital Signs Temp Pulse Pulse Resp BP Pulse Ox Pulse Ox 10/23/18 21:48 36.3 C L 81 18 150/84 H 100 10/23/18 20:46 36.3 C L 76 16 138/84 99 10/23/18 19:48 36.4 C L 70 18 146/86 H 98 10/23/18 19:29 72 16 99 10/23/18 19:22 36.3 C L 81 16 144/83 H 99 10/23/18 18:46 36.5 C 70 16 162/78 H 100 99 10/23/18 18:30 72 16 127/84 100 10/23/18 18:20 73 16 143/94 H 100 10/23/18 18:10 36.6 C 67 16 151/78 H 100 10/23/18 18:00 71 18 156/78 H 100 10/23/18 17:50 69 18 159/82 H 100 10/23/18 17:40 78 18 152/85 H 100 10/23/18 17:30 75 14 148/97 H 100 10/23/18 17:24 36.7 C 80 15 139/92 99 10/23/18 14:56 36.5 C 62 18 148/89 H 96 10/23/18 11:24 36.5 C 61 15 154/87 H 96 10/23/18 11:07 65 16 96 Laboratory Results 10/23/18 05:02 10/23/18 05:02
[2018-10-24] MEDS: D5W AND LACTATED RINGERS 1,000 ML IV SCH ×3 (05:28→20:12)
[2018-10-24 06:45] LABS: BUN Creatinine Ratio 18.1 (10-20); Calcium 8.1 mg/dl (8.5-10.1); Creatinine Clr Calc Pharmacy 54.3 ml/min; Est GFR (Non-African American) 77.7; Potassium 3.5 mmol/L (3.5-5.1)
[2018-10-24] MEDS: TIOTROPIUM BROMIDE 5 PUFF/90 MCG INH INH SCH (08:15)
[2018-10-24] MEDS ORDERED: DEXAMETHASONE SOD PHOSPHATE 8 MG in SYRINGE 0 ML IV ONE (09:45)
[2018-10-24] MEDS: HYDROmorphone INJ 0.5 MG/0.5 ML SYR IV PRN ×3 (10:12→19:35)
--- NOTE | 2018-10-24 14:21 | Orthopedic Progress Note ---
Date of Service October 24, 2018 Assessment & Plan (1) S/P cervical spinal fusion: At this time we will advance to clear liquid diet. Hopefully advance to a soft diet tomorrow. Present on Admission?: Yes Subjective Patient's feelings that his swallowing is improved. Neck pain is controlled. Arm symptoms and leg symptoms doing very well. Physical Exam Physical Exam: Patient is sitting up in bed. Dressings in place. Is good strength testing. Results & Data Vital Signs (Past 12 Hours) Vital Signs Temp Pulse Pulse Resp BP Pulse Ox 10/24/18 13:53 36.6 C 71 16 152/81 H 96 10/24/18 11:56 36.4 C L 78 16 149/78 H 97 10/24/18 10:53 77 20 98 10/24/18 09:45 36.4 C L 71 16 162/87 H 96 10/24/18 07:30 36.6 C 73 16 147/83 H 97 10/24/18 07:12 78 20 98 10/24/18 05:32 36.6 C 74 18 135/79 97 10/24/18 03:58 36.6 C 83 18 127/81 97 10/24/18 03:22 70 16 97
--- NOTE | 2018-10-24 16:00 | Hospitalist Progress Note ---
Date of Service October 24, 2018 Assessment & Plan (1) S/P cervical spinal fusion: S/P day # 7 cervical spinal fusion performed by Dr. Mojica Continue incentive spirometry aspiration precaution (2) Dysphagia: Postop dysphagia. Received IV dexamethasone without significant improvement. Revision of anterior cervical decompression / fusion performed with improvement of symptoms on 10/23 Tolerated clear liquid diet today improves (3) Chronic obstructive pulmonary disease: Pulmonary status stable. (4) GERD (gastroesophageal reflux disease): Continue PPI. (5) BPH (benign prostatic hyperplasia): Continue stevenson cath tamsulosin and finasteride resumed (6) Hyperglycemia: Steroid-induced hyperglycemia secondary to dexamethasone. No need for insulin coverage unless sugars rise further. BS stable (7) Nutritional assessment: Tolerated clear liquid diet Will advance to full or soft diet tomorrow (8) DVT prophylaxis: Per Ortho protocol. (9) Encounter for consultation: Thank you for this consultation. We will follow the patient with you during their hospital stay. You can reach a member of the [facility] Medicine Team 19/09 via pager @ [phone]. Subjective Pt was seen and examined Lying in bed with no distress Pt said that he feels much better today He said that he tolerated clear liquid diet He said that he does not feel that he has the choking sensation Denies any chest pain, palpitation, dizziness and SOB Physical Exam Physical Exam: General- No acute distress Head- atraumatic Eyes- PERRL, EOMI, ENT- wearing cervical collar Neck- supple, no JVD Lungs- clear to auscultation Heart- regular rhythm; no murmur Abdomen- normal bowel sounds, soft, nontender Extremities- no calf tenderness Neuro- alert, oriented x 3; PERRL, EOMI; no facial palsy; no dysarthria Skin- warm & dry Results & Data Vital Signs (Past 12 Hours) Vital Signs Temp Pulse Pulse Resp BP Pulse Ox 10/24/18 15:23 77 16 96 10/24/18 13:53 36.6 C 71 16 152/81 H 96 10/24/18 11:56 36.4 C L 78 16 149/78 H 97 10/24/18 10:53 77 20 98 10/24/18 09:45 36.4 C L 71 16 162/87 H 96 10/24/18 07:30 36.6 C 73 16 147/83 H 97 10/24/18 07:12 78 20 98 10/24/18 05:32 36.6 C 74 18 135/79 97
[2018-10-24] MEDS: FINASTERIDE 5 MG TAB PO SCH (20:08)
[2018-10-24] MEDS: TAMSULOSIN HCL 0.4 MG CAP PO SCH (20:08)
[2018-10-24] MEDS: OXYCODONE HCL IR 5 MG TAB (IMMEDIATE RELEASE) PO PRN (22:38)
[2018-10-25] MEDS: OXYCODONE HCL IR 5 MG TAB (IMMEDIATE RELEASE) PO PRN ×2 (04:36→10:51)
[2018-10-25] MEDS: TIOTROPIUM BROMIDE 5 PUFF/90 MCG INH INH SCH (08:24)
--- NOTE | 2018-10-25 08:39 | Orthopedic Progress Note ---
Date of Service October 25, 2018 Assessment & Plan (1) Cervical stenosis of spinal canal: Today we will advance his diet as tolerated. We will change his dressing DC drain. If he does well today we may consider discharge home tomorrow. Present on Admission?: Yes Subjective Patient's swelling is markedly improved. Again his arm and leg symptoms are doing very nicely. Physical Exam Physical Exam: On exam is good strength testing. He is swallowing without difficulty. Results & Data Vital Signs (Past 12 Hours) Vital Signs Temp Pulse Pulse Resp BP Pulse Ox Pulse Ox 10/25/18 07:15 36.4 C L 60 16 163/91 H 96 10/25/18 07:00 59 L 16 96 10/25/18 05:20 36.8 C 72 20 152/83 H 96 10/25/18 03:21 67 20 95 10/25/18 00:00 36.6 C 67 16 143/84 H 96 10/24/18 23:00 66 16 96 10/24/18 21:43 97 10/24/18 21:39 36.4 C L 60 16 172/83 H 97
--- NOTE | 2018-10-25 14:23 | Fluoroscopy Report ---
FL video swallow CLINICAL HISTORY: 73 years-old Male with assess for aspiration. Acute dysphasia TECHNIQUE: Video fluoroscopic evaluation of swallowing was performed in the AP and lateral projection s by the speech pathology staff. The patient is fed nectar-thick and thin liquid barium, a barium coa bill wafer, and barium pudding. FLUOROSCOPY TIME: 1.6 minutes. COMPARISON STUDY: CT soft tissue neck 10/18/2018 FINDINGS: Aspiration and cough with thin liquid barium. Aspiration with nectar thick and pudding cons istencies. Pooling of contrast noted within the vallecula and piriform sinuses. Post surgical changes redemonstrated at the C3-C6 levels. Mild prevertebral soft tissue swelling may be on a postsurgical basis. IMPRESSION: 1. Aspiration with multiple consistencies. 2. Please see the speech pathologist report for detailed findings and recommendations. 3. Mild prevertebral soft tissue swelling, likely postsurgical. Electronically signed by: Teofilo Guevara M.D. 10/25/2018 2:21 PM
[2018-10-25] MEDS: HYDROmorphone INJ 0.5 MG/0.5 ML SYR IV PRN ×2 (17:30→20:45)
[2018-10-25] MEDS ORDERED: TPN/PPN CONSULT PHARMACY PRN (19:02)
--- NOTE | 2018-10-25 19:02 | Hospitalist Progress Note ---
Date of Service October 25, 2018 Assessment & Plan (1) S/P cervical spinal fusion: S/P day # 8 cervical spinal fusion performed by Dr. Mojica Continue incentive spirometry Cervical collar removed aspiration precaution (2) Dysphagia: Postop dysphagia. Received IV dexamethasone without significant improvement. Revision of anterior cervical decompression / fusion performed with improvement of symptoms on 10/23 Video Swallow done today suggested aspiration with multiple consistencies. case discussed with speech and recommended to keep NPO for now Will consult ENT for eval ( Dr. Mojica was informed and agreed to consult ENT) Nutrition consult Aspiration precaution (3) Chronic obstructive pulmonary disease: Pulmonary status stable. (4) GERD (gastroesophageal reflux disease): Continue PPI. (5) BPH (benign prostatic hyperplasia): Continue stevenson cath tamsulosin and finasteride resumed (6) Hyperglycemia: Steroid-induced hyperglycemia secondary to dexamethasone. No need for insulin coverage unless sugars rise further. BS stable (7) Nutritional assessment: Tolerated clear liquid diet Will advance to full or soft diet tomorrow (8) DVT prophylaxis: Per Ortho protocol. (9) Encounter for consultation: Thank you for this consultation. We will follow the patient with you during their hospital stay. You can reach a member of the [facility] Medicine Team 19/09 via pager @ [phone]. Subjective Pt was seen and examined Lying in bed with no distress Pt said that he feels ok He failed his video swallow test today He said that he does not think his swallow is good yet Denies any chest pain, palpitation, dizziness and SOB Physical Exam Physical Exam: General- No acute distress Head- atraumatic Eyes- PERRL, EOMI, ENT- cervical collar removed, + dressing anterior neck Neck- supple, no JVD Lungs- clear to auscultation Heart- regular rhythm; no murmur Abdomen- normal bowel sounds, soft, nontender Extremities- no calf tenderness Neuro- alert, oriented x 3; PERRL, EOMI; no facial palsy; no dysarthria Skin- warm & dry Results & Data Vital Signs (Past 12 Hours) Vital Signs Temp Pulse Resp BP Pulse Ox 10/25/18 15:15 82 16 96 10/25/18 15:05 36.5 C 71 18 123/78 96 10/25/18 11:31 67 16 98 10/25/18 11:00 36.4 C L 71 16 137/77 98 10/25/18 07:15 36.4 C L 60 16 163/91 H 96 10/25/18 07:00 59 L 16 96
[2018-10-25] MEDS: FINASTERIDE 5 MG TAB PO SCH (19:31)
[2018-10-25] MEDS: TAMSULOSIN HCL 0.4 MG CAP PO SCH (19:31)
[2018-10-26] MEDS: HYDROmorphone INJ 0.5 MG/0.5 ML SYR IV PRN ×6 (02:46→23:19)
[2018-10-26 06:21] LABS: BUN Creatinine Ratio 24.4 (10-20); Calcium 8.2 mg/dl (8.5-10.1); Creatinine Clr Calc Pharmacy 53.2 ml/min; Est GFR (African American) 87.8; Est GFR (Non-African American) 75.8; Phosphorus 2.3 mg/dl (2.5-4.9); Potassium 3.6 mmol/L (3.5-5.1)
--- NOTE | 2018-10-26 08:06 | Orthopedic Progress Note ---
Date of Service October 26, 2018 Assessment & Plan (1) Dysphagia: Patient still having issues swallowing. He is n.p.o. at this point. We will continue with current care see with her conditions are through ENT. We will continue GI DVT prophylaxis as well as pain control in the interim. Subjective Patient seen bedside in room 302. He is still struggling with swallowing issues. He has swallow evaluation yesterday and was noted that he has high risk for aspiration. An ENT specialist was consulted and we are awaiting their recommendations. He is still n.p.o. at this point. Otherwise pain is controlled. He is able to maintain regular breathing. No other numbness, tingling, paresthesias noted. Physical Exam Physical Exam: On exam he is alert and oriented. There is some mild swelling around the neck itself. He is able to speak but has a bit of garbled speech. His upper extremity motor exam reveals no focal atrophy strength and sensation both intact. Results & Data Vital Signs (Past 12 Hours) Vital Signs Temp Pulse Pulse Resp BP Pulse Ox 10/26/18 06:59 58 L 18 97 10/26/18 06:46 36.4 C L 62 18 149/77 H 98 10/26/18 03:36 36.8 C 67 16 128/71 96 10/26/18 03:20 59 L 14 94 10/26/18 02:50 36.5 C 70 18 144/82 H 96 10/25/18 23:35 36.5 C 58 L 16 127/75 97 10/25/18 23:30 57 L 14 96
[2018-10-26] MEDS: TIOTROPIUM BROMIDE 5 PUFF/90 MCG INH INH SCH (09:27)
[2018-10-26] MEDS ORDERED: DEXTROSE 10% 1,000 ML IV SCH (16:00)
--- NOTE | 2018-10-26 16:23 | Hospitalist Progress Note ---
Date of Service October 26, 2018 Assessment & Plan (1) S/P cervical spinal fusion: S/P day # 9 cervical spinal fusion performed by Dr. Mojica Continue incentive spirometry Cervical collar removed aspiration precaution Stable (2) Dysphagia: Postop dysphagia. Received IV dexamethasone without significant improvement. Revision of anterior cervical decompression / fusion performed with improvement of symptoms on 10/23 Video Swallow done today suggested aspiration with multiple consistencies. case discussed with speech and recommended to keep NPO for now until eval by ENT ENT consulted and case discussed with Dr. Sibley Pharyngeal wall swelling and no vocal cord paralysis as per ENT Will have to wait for the swelling to improve Aspiration precaution Will start on PPN for now until able to take oral (3) Chronic obstructive pulmonary disease: Pulmonary status stable. (4) GERD (gastroesophageal reflux disease): Continue PPI. (5) BPH (benign prostatic hyperplasia): Will reinsert stevenson cath since pt has been required straight cath tamsulosin and finasteride on hold since unable to take any oral (6) Hyperglycemia: Steroid-induced hyperglycemia secondary to dexamethasone. No need for insulin coverage unless sugars rise further. BS stable (7) Nutritional assessment: Has been NPO Will start on PPN until able to tolerate diet (8) DVT prophylaxis: Per Ortho protocol. (9) Encounter for consultation: Thank you for this consultation. We will follow the patient with you during their hospital stay. You can reach a member of the [facility] Medicine Team 19/09 via pager @ [phone]. Subjective Pt was seen and examined Lying in bed with no distress Pt said that pain is controlled Continue to remain NPO since he failed video swallow yesterday Complaint of urinary retention and has been required straight cath Denies any chest pain, palpitation and SOB Physical Exam Physical Exam: General- No acute distress Head- atraumatic Eyes- PERRL, EOMI, ENT- cervical collar removed, + dressing anterior neck Neck- supple, no JVD Lungs- clear to auscultation Heart- regular rhythm; no murmur Abdomen- normal bowel sounds, soft, nontender Extremities- no calf tenderness Neuro- alert, oriented x 3; PERRL, EOMI; no facial palsy; no dysarthria Skin- warm & dry Results & Data Vital Signs (Past 12 Hours) Vital Signs Temp Pulse Pulse Resp BP Pulse Ox 10/26/18 15:25 36.4 C L 68 16 131/77 96 10/26/18 15:06 68 20 97 10/26/18 11:19 36.7 C 69 16 149/81 H 96 10/26/18 06:59 58 L 18 97 10/26/18 06:46 36.4 C L 62 18 149/77 H 98
--- NOTE | 2018-10-26 16:30 | ENT Consultation ---
Date of Consultation October 26, 2018 Assessment & Plan (1) Dysphagia: I spoke with Dr. Glen Dominguez shortly after seeing the patient, and share my findings. With Dr. Mojica's blessing, IV steroid administration (RECOMMEND DECADRON 10mg q 12 hours x two) may help. I suspect that with more time, his swelling will decrease and his dysphagia will resolve. Present on Admission?: No History of Present Illness Attending Physician: Alli Mojica, DO Consult requested by Dr. Glen Dominguez for dysphagia s/p cervical spine surgery 10/17/18 with revision 10/23/28. Patient failed swallowing evaluation. He last had IV steroids at revision surgery, according to Dr. Dominguez. Allergies Allergy/AdvReac Type Severity Reaction Status Date / Time chlordiazepoxide Allergy Unknown Hives Verified 10/17/18 08:26 [From Librax (with clidinium)] clidinium Allergy Unknown Hives Verified 10/17/18 08:26 [From Librax (with clidinium)] nitroglycerin Allergy Unknown CARDIAC Verified 10/17/18 08:26 ARREST aspirin AdvReac Unknown GI BLEED Verified 10/17/18 08:26 Home Medications Home Medications Medication Instructions Recorded Confirmed Type finasteride 5 mg PO QPM 10/03/18 10/17/18 History fluticasone furoate-vilanterol 1 inh INHALATION QAM 10/03/18 10/17/18 History [Breo Ellipta] meloxicam 15 mg PO DAILY PRN 10/03/18 10/17/18 History pantoprazole 40 mg PO QPM 10/03/18 10/17/18 History tamsulosin 0.8 mg PO QPM 10/03/18 10/17/18 History tiotropium bromide [Spiriva 2 puff INHALATION QAM 10/03/18 10/17/18 History Respimat] albuterol sulfate 2 puff INHALATION QID PRN 10/17/18 10/17/18 History oxycodone-acetaminophen [Percocet] 1 tab PO Q4H PRN #20 tab 10/19/18 Rx Patient History Medical History Chronic obstructive pulmonary disease (Chronic) EMPHYSEMA Lung nodules (Chronic) 2 Stable, 2 new ones being followed Memory change (Chronic) PER DAUGHTER GERD (gastroesophageal reflux disease) (Chronic) BPH (benign prostatic hyperplasia) (Chronic) Cervical disc disease (Chronic) Abdominal aortic aneurysm (Chronic) Followed by PCP Neuropathy (Chronic) BLE Ambulatory dysfunction (Chronic) Surgical History Hx of cardiac cath (Chronic) TYRA IVONE - 2016 H/O colonoscopy (Chronic) History of bronchoscopy (Chronic) H/O cervical spine surgery 10/17/2018. Anesthesia record not yet available. Family History Grandmother (Paternal) Family history of diabetes mellitus Social History Preferred Language: Slovenian Communication Ability: Effective Beliefs That Will Affect Care: None Current Living Situation: Family Feels Safe at Home: Yes Smoking Status: Former smoker Cigarettes Per Day: 1ppd x 60 ; Do You Dip or Chew Tobacco: No ; Smoking End Date: 11/2016 ; Second Hand Exposure: Yes (DAILY) ; Hx Alcohol Use: No Hx Substance Use: No Physical Exam Physical Exam: Patient was examined in room 302. He was awake and alert with no hoarseness and no stricor. Bandage on neck prevented visualization of neck. Palpation showed some edema with tenderness on the right. Exam of oral cavity showed poor dentition and hygeine with no trismus. Exam of oropharynx showed no uvular deviation or significant asymmetry in the oropharynx. Flexible fiberoptic laryngoscopy showed normal true vocal cord mobility ant appearance. MAJOR FINDING WAS EXTENSIVE EDEMA IN THE RIGHT LATERAL PHARYNGEAL WALL STARTING AT THE TONGUE BASE AND EXTENDING DOWN TO THE HYPOPHARYNX. Results & Data Vital Signs (Past 12 Hours) Vital Signs Temp Pulse Pulse Resp BP Pulse Ox 10/26/18 16:15 36.7 C 84 18 162/89 H 96 10/26/18 15:25 36.4 C L 68 16 131/77 96 10/26/18 15:06 68 20 97 10/26/18 11:19 36.7 C 69 16 149/81 H 96 10/26/18 06:59 58 L 18 97 10/26/18 06:46 36.4 C L 62 18 149/77 H 98
[2018-10-26] MEDS: FINASTERIDE 5 MG TAB PO SCH (21:20)
[2018-10-26] MEDS: TAMSULOSIN HCL 0.4 MG CAP PO SCH (21:20)
[2018-10-26] MEDS: ACETAMINOPHEN 1,000 MG/100 ML VIAL IV PRN (21:24)
[2018-10-27 06:16] LABS: BUN Creatinine Ratio 27.2 (10-20); Calcium 8.4 mg/dl (8.5-10.1); Creatinine Clr Calc Pharmacy 69.3 ml/min; Est GFR (African American) 105.6; Est GFR (Non-African American) 91.1; Magnesium 2.2 mg/dl (1.8-2.4); Potassium 3.4 mmol/L (3.5-5.1)
[2018-10-27 06:17] LABS: Phosphorus 2.5 mg/dl (2.5-4.9)
[2018-10-27] MEDS: HYDROmorphone INJ 0.5 MG/0.5 ML SYR IV PRN ×5 (06:25→21:32)
--- NOTE | 2018-10-27 07:24 | Orthopedic Progress Note ---
Date of Service October 27, 2018 Assessment & Plan (1) S/P cervical spinal fusion: Patient continues to have difficulty swallowing. No mechanical obstruction was noted. We will continue with IV Decadron 10 mg every 12 hours. We will continue with pain control measures and nutritional support. We will see how he does over the next couple of days and hopefully his swelling will return back down to normal baseline. Subjective Patient was seen bedside in room 302. He feels that the swelling is improved from yesterday. We appreciate the ENT consult input and recommendations. He has no new complaints. He has no significant pain. He denies any other numbness, tingling, paresthesias. Physical Exam Physical Exam: On exam he is alert and oriented. There is minimal swelling noticeable in the back itself. His upper extremity motor exam is without any focal atrophy strength and sensation grossly intact. Results & Data Vital Signs (Past 12 Hours) Vital Signs Temp Pulse Resp BP Pulse Ox 10/27/18 03:39 36.4 C L 71 16 137/91 97 10/27/18 03:16 77 16 96 10/26/18 23:34 36.4 C L 67 16 122/76 97 10/26/18 22:23 74 16 96 10/26/18 19:39 77 18 97 10/26/18 19:24 143/84 H
[2018-10-27] MEDS: TIOTROPIUM BROMIDE 5 PUFF/90 MCG INH INH SCH ×2 (08:20→08:29)
[2018-10-27] MEDS: DEXAMETHASONE SOD PHOSPHATE 10 MG in SYRINGE 0 ML IV SCH ×2 (08:20→21:31)
[2018-10-27] MEDS: POTASSIUM CHLORIDE / WTR 10 MEQ/100 ML PLCT IV SCH ×2 (08:29→09:39)
--- NOTE | 2018-10-27 17:25 | Hospitalist Progress Note ---
Date of Service October 27, 2018 Assessment & Plan (1) S/P cervical spinal fusion: S/P day # 10 cervical spinal fusion performed by Dr. Mojica Continue incentive spirometry Cervical collar removed aspiration precaution Stable (2) Dysphagia: Postop dysphagia. Received IV dexamethasone without significant improvement. Revision of anterior cervical decompression / fusion performed with improvement of symptoms on 10/23 Video Swallow done today suggested aspiration with multiple consistencies. Case discussed with speech and recommended to keep NPO for now until eval by ENT ENT consulted and case discussed with Dr. Sibley Pharyngeal wall swelling and no vocal cord paralysis as per ENT Continue IV decadron BID Will have to wait for the swelling to improve Aspiration precaution Continue PPN supplment for now until able to take oral (3) Chronic obstructive pulmonary disease: Pulmonary status stable. (4) GERD (gastroesophageal reflux disease): Continue PPI. (5) BPH (benign prostatic hyperplasia): Continue stevenson cath since pt has been required straight cath tamsulosin and finasteride on hold since unable to take any oral On (6) Hyperglycemia: Steroid-induced hyperglycemia secondary to dexamethasone. No need for insulin coverage unless sugars rise further. BS stable (7) Nutritional assessment: Has been NPO On PPN until able to tolerate diet (8) DVT prophylaxis: Per Ortho protocol. (9) Encounter for consultation: Thank you for this consultation. We will follow the patient with you during their hospital stay. You can reach a member of the [facility] Medicine Team 19/09 via pager @ [phone]. Subjective Pt was seen and examined Lying in bed with no distress Denies any chest pain, SOB, choking sensation and fever Physical Exam Physical Exam: General- No acute distress Head- atraumatic Eyes- PERRL, EOMI, ENT- cervical collar removed, + dressing anterior neck Neck- supple, no JVD Lungs- clear to auscultation Heart- regular rhythm; no murmur Abdomen- normal bowel sounds, soft, nontender Extremities- no calf tenderness Neuro- alert, oriented x 3; PERRL, EOMI; no facial palsy; no dysarthria Skin- warm & dry Results & Data Vital Signs (Past 12 Hours) Vital Signs Pulse Resp Pulse Ox Pulse Ox 10/27/18 15:27 97 10/27/18 15:05 81 20 97 10/27/18 07:37 79 20 96 10/27/18 07:20 95
[2018-10-27] MEDS: FINASTERIDE 5 MG TAB PO SCH (21:32)
[2018-10-27] MEDS: TAMSULOSIN HCL 0.4 MG CAP PO SCH (21:32)
[2018-10-27] MEDS: ACETAMINOPHEN 1,000 MG/100 ML VIAL IV PRN (23:35)
[2018-10-28] MEDS: HYDROmorphone INJ 0.5 MG/0.5 ML SYR IV PRN ×7 (00:32→23:45)
[2018-10-28 06:05] LABS: BUN Creatinine Ratio 29.5 (10-20); Calcium 8.3 mg/dl (8.5-10.1); Creatinine Clr Calc Pharmacy 66.6 ml/min; Est GFR (Non-African American) 89.7; Phosphorus 2.7 mg/dl (2.5-4.9); Potassium 4.1 mmol/L (3.5-5.1)
[2018-10-28] MEDS: TIOTROPIUM BROMIDE 5 PUFF/90 MCG INH INH SCH (08:23)
[2018-10-28] MEDS: DEXAMETHASONE SOD PHOSPHATE 10 MG in SYRINGE 0 ML IV SCH ×2 (08:23→20:43)
--- NOTE | 2018-10-28 11:34 | Orthopedic Progress Note ---
Date of Service October 28, 2018 Assessment & Plan (1) Dysphagia: Patient is steadily improving with the past of time and IV Decadron. We will see how he is doing tomorrow and likely be order a video swallow to determine if he is still with obscuration risk and if he can start back on regu lar foods. We will see how things go over the next 24 hours. We will continue GI DVT prophylaxis as well as pain control measures. Subjective Patient is feeling better today he feels that the swelling has gone down significantly. He still eating just ice chips and using IV nutrition. He denies any increased pain any numbness or tingling. Physical Exam Physical Exam: On exam he is alert and oriented. His voice is clearer today than it was yesterday. His upper extremity motor exam reveals no focal atrophy strength and sensation both intact. His abdomen soft nontender his calves are supple nontender. Results & Data Vital Signs (Past 12 Hours) Vital Signs Temp Pulse Resp BP Pulse Ox Pulse Ox 10/28/18 11:12 80 20 98 10/28/18 07:32 95 10/28/18 07:07 86 20 96 10/28/18 06:53 36.4 C L 72 18 163/88 H 94 10/28/18 04:00 36.6 C 63 14 146/83 H 95 10/28/18 03:25 75 18 96
[2018-10-28] MEDS: ACETAMINOPHEN 1,000 MG/100 ML VIAL IV PRN (14:38)
--- NOTE | 2018-10-28 14:58 | Hospitalist Progress Note ---
Date of Service October 28, 2018 Assessment & Plan (1) S/P cervical spinal fusion: S/P day # 11 cervical spinal fusion performed by Dr. Mojica Continue incentive spirometry Cervical collar removed aspiration precaution Stable (2) Dysphagia: Postop dysphagia. Received IV dexamethasone without significant improvement. Revision of anterior cervical decompression / fusion performed with improvement of symptoms on 10/23 Video Swallow done today suggested aspiration with multiple consistencies. Case discussed with speech and recommended to keep NPO for now until eval by ENT ENT consulted and case discussed with Dr. Sibley Pharyngeal wall swelling and no vocal cord paralysis as per ENT Continue IV decadron BID Will have to wait for the swelling to improve Aspiration precaution Continue PPN supplement for now until able to take oral Case discussed with Speech and plan to re-assess his swallow tomorrow (3) Chronic obstructive pulmonary disease: Pulmonary status stable. (4) GERD (gastroesophageal reflux disease): Continue PPI. (5) BPH (benign prostatic hyperplasia): Continue stevenson cath since pt has been required straight cath tamsulosin and finasteride on hold since unable to take any oral (6) Hyperglycemia: Steroid-induced hyperglycemia secondary to dexamethasone. No need for insulin coverage unless sugars rise further. BS stable Elevated BP If BP remains elevating, will consider to add a low dose IV prn BP med Continue to monitor (7) Nutritional assessment: Has been NPO On PPN until able to tolerate diet (8) DVT prophylaxis: Per Ortho protocol. (9) Encounter for consultation: Thank you for this consultation. We will follow the patient with you during their hospital stay. You can reach a member of the [facility] Medicine Team 19/09 via pager @ [phone]. Subjective Pt was seen and examined Lying in bed with no distress Pt said that he can feels that his throat his getting better He said that his able to control his saliva Denies any choking feeling, palpitation, chest pain and SOB Physical Exam Physical Exam: General- No acute distress Head- atraumatic Eyes- PERRL, EOMI, ENT- cervical collar removed, + dressing anterior neck Neck- supple, no JVD Lungs- clear to auscultation Heart- regular rhythm; no murmur Abdomen- normal bowel sounds, soft, nontender Extremities- no calf tenderness Neuro- alert, oriented x 3; PERRL, EOMI; no facial palsy; no dysarthria Skin- warm & dry Results & Data Vital Signs (Past 12 Hours) Vital Signs Temp Pulse Resp BP Pulse Ox Pulse Ox 10/28/18 11:12 80 20 98 10/28/18 07:32 95 10/28/18 07:07 86 20 96 10/28/18 06:53 36.4 C L 72 18 163/88 H 94 10/28/18 04:00 36.6 C 63 14 146/83 H 95 10/28/18 03:25 75 18 96
[2018-10-28] MEDS: FINASTERIDE 5 MG TAB PO SCH (20:37)
[2018-10-28] MEDS: TAMSULOSIN HCL 0.4 MG CAP PO SCH (20:37)
[2018-10-29] MEDS: HYDROmorphone INJ 0.5 MG/0.5 ML SYR IV PRN ×5 (03:46→22:39)
[2018-10-29 06:50] LABS: Calcium 8.6 mg/dl (8.5-10.1); Creatinine Clr Calc Pharmacy 72.1 ml/min; Est GFR (African American) 107.4; Est GFR (Non-African American) 92.7; Magnesium 2.2 mg/dl (1.8-2.4); Potassium 4.3 mmol/L (3.5-5.1)
[2018-10-29 06:51] LABS: Phosphorus 3.2 mg/dl (2.5-4.9)
[2018-10-29] MEDS: TIOTROPIUM BROMIDE 5 PUFF/90 MCG INH INH SCH (07:45)
[2018-10-29] MEDS: DEXAMETHASONE SOD PHOSPHATE 10 MG in SYRINGE 0 ML IV SCH ×2 (08:15→21:02)
--- NOTE | 2018-10-29 08:42 | Orthopedic Progress Note ---
Date of Service October 29, 2018 Assessment & Plan (1) S/P cervical spinal fusion: I have ordered a video swallow. This will be performed tomorrow due to the holiday. Therefore we will continue IV nutrition and n.p.o. with the exception of sips and chips. We will continue ambulation of the hallway. We will continue with IV steroids. ENT and speech are continuing to follow along. Supervising Physician Co-Signing Physician Notes Dr. Alli Mojica. Subjective Mr. Davenport is postop day 12 multilevel ACDF and postop day 6 revision I&D cervical spine. He is tolerating ice chips and sips. Notes some modest voice hoarseness. States he has no issues swallowing currently. Denies radicular arm pain. Denies any shortness of breath. He is satting 95% on room air. He is up and ambulatory around the hallways. He is receiving IV nutrition. Review of Systems Review of Systems: All systems reviewed & are unremarkable except as noted in HPI & below Physical Exam Physical Exam: He sitting in bed. He is in no obvious distress. Strength is 5 5 bilateral biceps, triceps, deltoid. Calves are soft nontender bilaterally. Cervical incision has very modest edema. No drainage. Results & Data Vital Signs (Past 12 Hours) Vital Signs Temp Pulse Pulse Resp BP Pulse Ox 10/29/18 07:35 59 L 16 95 10/29/18 07:19 36.4 C L 83 18 156/81 H 96 10/29/18 03:35 36.5 C 62 18 157/73 H 96 10/29/18 03:30 80 18 97 10/28/18 23:10 36.5 C 62 18 153/87 H 95 10/28/18 23:04 59 L 16 96
[2018-10-29] MEDS: ACETAMINOPHEN 1,000 MG/100 ML VIAL IV PRN (16:30)
--- NOTE | 2018-10-29 19:04 | Hospitalist Progress Note ---
Date of Service October 29, 2018 Assessment & Plan (1) S/P cervical spinal fusion: S/P day # 12 cervical spinal fusion performed by Dr. Mojica Continue incentive spirometry Cervical collar placed today by ortho aspiration precaution Stable (2) Dysphagia: Postop dysphagia. Received IV dexamethasone without significant improvement. Revision of anterior cervical decompression / fusion performed with improvement of symptoms on 10/23 Video Swallow done today suggested aspiration with multiple consistencies. Case discussed with speech and recommended to keep NPO for now until eval by ENT ENT consulted and case discussed with Dr. Sibley Pharyngeal wall swelling and no vocal cord paralysis as per ENT Continue IV decadron BID Will have to wait for the swelling to improve Aspiration precaution Continue PPN supplement for now until able to take oral Speech on board Failed bedside swallow again today Case discussed with speech and plan for video swallow tomorrow Will need to consider Peg placement in the week if no improvement in his swallowing Interested to go to rehab (3) Chronic obstructive pulmonary disease: Pulmonary status stable. (4) GERD (gastroesophageal reflux disease): Continue PPI. (5) BPH (benign prostatic hyperplasia): Continue stevenson cath since pt has been required straight cath tamsulosin and finasteride on hold since unable to take any oral (6) Hyperglycemia: Steroid-induced hyperglycemia secondary to dexamethasone. No need for insulin coverage unless sugars rise further. BS stable Elevated BP If BP remains elevating, will consider to add a low dose IV prn BP med Continue to monitor (7) Nutritional assessment: Has been NPO On PPN until able to tolerate diet (8) DVT prophylaxis: Per Ortho protocol. (9) Encounter for consultation: Thank you for this consultation. We will follow the patient with you during their hospital stay. You can reach a member of the [facility] Medicine Team 19/09 via pager @ [phone]. Subjective Pt was seen and examined Sitting in chair with no distress He failed bed side swallow with all consistences again today He is interested to go to rehab Denies any chest pain, palpitation and SOB Physical Exam Physical Exam: General- No acute distress Head- atraumatic Eyes- PERRL, EOMI, ENT- +cervical collar placed today Neck- supple, no JVD Lungs- clear to auscultation Heart- regular rhythm; no murmur Abdomen- normal bowel sounds, soft, nontender Extremities- no calf tenderness Neuro- alert, oriented x 3; PERRL, EOMI; no facial palsy; no dysarthria Skin- warm & dry Results & Data Vital Signs (Past 12 Hours) Vital Signs Temp Pulse Resp BP Pulse Ox Pulse Ox 10/29/18 16:22 36.5 C 66 18 153/80 H 94 10/29/18 15:33 94 10/29/18 15:22 68 18 94 10/29/18 11:23 57 L 18 92 10/29/18 07:35 59 L 16 95 10/29/18 07:19 36.4 C L 83 18 156/81 H 96
[2018-10-29] MEDS: FINASTERIDE 5 MG TAB PO SCH (21:02)
[2018-10-29] MEDS: TAMSULOSIN HCL 0.4 MG CAP PO SCH (21:02)
[2018-10-30] MEDS: HYDROmorphone INJ 0.5 MG/0.5 ML SYR IV PRN ×6 (02:27→23:15)
[2018-10-30] MEDS: TIOTROPIUM BROMIDE 5 PUFF/90 MCG INH INH SCH (08:45)
[2018-10-30] MEDS: DEXAMETHASONE SOD PHOSPHATE 10 MG in SYRINGE 0 ML IV SCH ×2 (08:45→20:51)
[2018-10-30 09:32] LABS: BUN Creatinine Ratio 31.2 (10-20); Calcium 8.4 mg/dl (8.5-10.1); Creatinine Clr Calc Pharmacy 67.5 ml/min; Est GFR (African American) 104.5; Est GFR (Non-African American) 90.2; Magnesium 2.3 mg/dl (1.8-2.4); Potassium 4.6 mmol/L (3.5-5.1)
[2018-10-30 09:33] LABS: Phosphorus 2.8 mg/dl (2.5-4.9)
--- NOTE | 2018-10-30 11:35 | Fluoroscopy Report ---
FL video swallow HISTORY: Dysphagia status post cervical surgery. TECHNIQUE: Video fluoroscopic evaluation of swallowing was performed in the AP and lateral projection s by the speech pathology staff. The patient is fed thin liquid barium FLUOROSCOPY TIME: 0.9 minutes. NUMBER OF FLUOROSCOPY IMAGES: 0 COMPARISON STUDY: 10/25/2018 FINDINGS: There are postsurgical changes present within the cervical spine. There is possible anterio r migration of the anterior cervical plate. Conventional radiographs of the cervical spine are recomm ended in follow-up. When swallowing thin liquid barium, there was vallecular residue and overflow asp iration. IMPRESSION: 1. Moderately extensive aspiration 2. Please see the speech pathologist report for detailed findings and recommendations. 3. Possible interval anterior migration of the anterior metallic plate. Conventional radiographs of t he cervical spine are recommended in follow-up. Electronically signed by: Abdoulaye Davila M.D. 10/30/2018 11:34 AM
--- NOTE | 2018-10-30 17:25 | Orthopedic Progress Note ---
Date of Service October 30, 2018 Assessment & Plan (1) S/P cervical spinal fusion: I did review his swallowing study today. Does demonstrate some evidence of migration of the proximal aspect of the cervical plate. This is a definite change from his postoperative imaging. After informed the patient of this finding. We will continue to watch it closely. Is to wear his collar at all times when out of bed. Present on Admission?: Yes Subjective Patient's continues to note marked improvement of his arms and lower extremities. Unfortunately his swallowing is still quite limited. Is able to tolerate ice cubes only at this time. He did undergo a swallowing study today and they are contemplating TPN Physical Exam Physical Exam: On exam he has no appreciable swelling to the neck. Is good strength testing. Is alert and oriented. He is controlling his secretions during our discussion today. Results & Data Vital Signs (Past 12 Hours) Vital Signs Temp Pulse Resp BP Pulse Ox 10/30/18 16:36 67 16 95 10/30/18 15:43 36.6 C 58 L 22 152/80 H 95 10/30/18 11:44 36.5 C 68 16 160/96 H 96 10/30/18 07:23 36.5 C 58 L 18 159/90 H 95 10/30/18 07:20 63 16 95
--- NOTE | 2018-10-30 18:23 | Hospitalist Progress Note ---
Date of Service October 30, 2018 Assessment & Plan (1) S/P cervical spinal fusion: S/P day # 13 cervical spinal fusion performed by Dr. Mojica Video swallow study demonstrate some evidence of migration of the proximal aspect of the cervical plate. Dr. Mojica was informed about the finding and recommended to continue wearing the cervical collar at all times when out of bed. Continue incentive spirometry aspiration precaution Stable (2) Dysphagia: Postop dysphagia. Received IV dexamethasone without significant improvement. Revision of anterior cervical decompression / fusion performed with improvement of symptoms on 10/23 Video Swallow done today suggested aspiration with multiple consistencies. Case discussed with speech and recommended to keep NPO for now until eval by ENT ENT consulted and case discussed with Dr. Sibley Pharyngeal wall swelling and no vocal cord paralysis as per ENT Continue IV decadron BID Will have to wait for the swelling to improve Continue PPN supplement for now until able to take oral Speech on board Failed bedside swallow again yesterday Repeat video swallow done today reveals moderately extensive aspiration Interested to go to rehab, will see if facility is willing to take him with TPN/PPN Might need a Peg tube placement if no improvement in his swallowing if unable to find a facility accept him with the TPN/PPN Aspiration precaution (3) Chronic obstructive pulmonary disease: Pulmonary status stable. (4) GERD (gastroesophageal reflux disease): Continue PPI. (5) BPH (benign prostatic hyperplasia): Continue stevenson cath since pt has been required straight cath tamsulosin and finasteride on hold since unable to take any oral (6) Hyperglycemia: Steroid-induced hyperglycemia secondary to dexamethasone. No need for insulin coverage unless sugars rise further. BS stable (7) Nutritional assessment: Has been NPO On PPN until able to tolerate diet Elevated BP If BP remains elevating, will consider to add a low dose IV prn BP med Will need to monitor BP closely (8) DVT prophylaxis: Per Ortho protocol. Disposition as per Ortho case management sent referral for inpatient rehab (9) Encounter for consultation: Thank you for this consultation. We will follow the patient with you during their hospital stay. You can reach a member of the [facility] Medicine Team 19/09 via pager @ [phone]. Subjective Pt was seen and examined Lying in bed with no distress Had video swallow done today Continue to be NPO Denies any chest pain, palpitation, dizziness and SOB Physical Exam Physical Exam: General- No acute distress Head- atraumatic Eyes- PERRL, EOMI, ENT- +cervical collar placed today Neck- supple, no JVD Lungs- clear to auscultation Heart- regular rhythm; no murmur Abdomen- normal bowel sounds, soft, nontender Extremities- no calf tenderness Neuro- alert, oriented x 3; PERRL, EOMI; no facial palsy; no dysarthria Skin- warm & dry Results & Data Vital Signs (Past 12 Hours) Vital Signs Temp Pulse Resp BP Pulse Ox 10/30/18 16:36 67 16 95 10/30/18 15:43 36.6 C 58 L 22 152/80 H 95 10/30/18 11:44 36.5 C 68 16 160/96 H 96 10/30/18 07:23 36.5 C 58 L 18 159/90 H 95 10/30/18 07:20 63 16 95
[2018-10-30] MEDS: TAMSULOSIN HCL 0.4 MG CAP PO SCH (20:37)
[2018-10-30] MEDS: FINASTERIDE 5 MG TAB PO SCH (20:37)
[2018-10-30] MEDS: ACETAMINOPHEN 1,000 MG/100 ML VIAL IV PRN (23:16)
[2018-10-31] MEDS: HYDROmorphone INJ 0.5 MG/0.5 ML SYR IV PRN ×2 (06:00→11:56)
[2018-10-31 07:49] LABS: BUN Creatinine Ratio 27.9 (10-20); Calcium 8.4 mg/dl (8.5-10.1); Creatinine Clr Calc Pharmacy 57.9 ml/min; Est GFR (African American) 97.2; Est GFR (Non-African American) 83.9; Magnesium 2.3 mg/dl (1.8-2.4); Potassium 4.5 mmol/L (3.5-5.1)
--- NOTE | 2018-10-31 08:28 | XRay Report ---
XR cervical spine 2 or 3V CLINICAL HISTORY: postop COMPARISON STUDY: 10/22/2018 FINDINGS: There are postsurgical changes of a C4 corpectomy with cage placement. There is a C5-6 disc ectomy and interbody fusion. There is anterior metallic plate with screws at the C3 C5 and C6 levels. There appears to be slight interval anterior displacement of the superior aspect of the metallic le[place] te when compared the preceding study. IMPRESSION: Slight interval anterior displacement of the superior aspect of the metallic plate when compared to the prior study. Electronically signed by: Abdoulaye Davila M.D. 10/31/2018 8:27 AM
[2018-10-31] MEDS: DEXAMETHASONE SOD PHOSPHATE 10 MG in SYRINGE 0 ML IV SCH ×2 (08:30→20:44)
[2018-10-31] MEDS: TIOTROPIUM BROMIDE 5 PUFF/90 MCG INH INH SCH ×2 (08:30→08:34)
--- NOTE | 2018-10-31 09:56 | Orthopedic Progress Note ---
Date of Service October 31, 2018 Assessment & Plan (1) S/P cervical spinal fusion: I did update x-rays of the patient's cervical spine this morning. I reviewed the findings with the patient. I am concerned he has had further collapse across the corpectomy site. This is created stress of the proximal aspect of his plate and its migrated forward several millimeters. I am concerned that this is contributing to his swallowing difficulties as it had last week. Our options are to consider revision of the plate. The most likely perform this next day or so. Subjective Patient struggling with swallowing only. Again arm and leg symptoms improved. Physical Exam Physical Exam: On exam he has no swelling appreciable to the neck. Good strength testing. Results & Data Vital Signs (Past 12 Hours) Vital Signs Temp Pulse Pulse Resp BP Pulse Ox Pulse Ox 10/31/18 07:55 95 10/31/18 07:35 36.5 C 62 18 160/70 H 95 10/31/18 07:21 66 95 10/31/18 03:42 56 L 16 95 10/30/18 23:24 58 L 16 94 10/30/18 23:05 36.4 C L 62 16 159/92 H 96
[2018-10-31] MEDS: ACETAMINOPHEN 1,000 MG/100 ML VIAL IV PRN (16:30)
[2018-10-31] MEDS ORDERED: HYDROmorphone INJ 0.5 MG/0.5 ML SYR IV STA (20:02)
[2018-10-31] MEDS: FINASTERIDE 5 MG TAB PO SCH (20:44)
[2018-10-31] MEDS: TAMSULOSIN HCL 0.4 MG CAP PO SCH (20:44)
--- NOTE | 2018-10-31 22:43 | Hospitalist Progress Note ---
Date of Service October 31, 2018 Assessment & Plan (1) S/P cervical spinal fusion: Management per Ortho Spine. (2) Dysphagia: Postop dysphagia. Received IV dexamethasone without significant improvement. Revision of anterior cervical decompression / fusion performed with transient improvement of symptoms. Seen by BARREL CUTTER and ENT. Video swallowing evaluation demonstrated pharyngeal dysphagia and aspiration. Remains NPO. (3) Chronic obstructive pulmonary disease: Pulmonary status stable. (4) GERD (gastroesophageal reflux disease): Continue PPI. (5) BPH (benign prostatic hyperplasia): Unable to take tamsulosin and finasteride because of dysphagia. Has Saini cath. Voiding trial once BPH meds resumed. (6) Hyperglycemia: Fasting blood sugar today = 150. Steroid-induced hyperglycemia secondary to dexamethasone. No need for insulin coverage unless sugars rise further. Taper steroids as able. (7) Nutritional assessment: Has been essentially NPO since initial surgery. Hopefully, dysphagia will resolve soon and PO diet can be resumed. Probably best to avoid NG or PEG enteral feedings at this time in light of cervical surgery. Receiving PPN; transition to TPN via PICC. (8) DVT prophylaxis: Per Ortho protocol. (9) Encounter for consultation: Thank you for this consultation. We will follow the patient with you during their hospital stay. My cell # is [phone]. You can reach a member of the [facility] Medicine Team 19/09 via pager @ [phone]. Subjective Recheck for perioperative medical management. Patient seen in their room around 1600. Persistent cough. No fever or SOB. No chest pain. Remains NPO because of aspiration concerns. Receiving PPN. Review of Systems: Constitutional- no fever. Cardiac- no chest pain. Pulmonary- as noted above. GI- no nausea, vomiting; passing flatus, but no stool - Saini cath. Otherwise, as noted above. Physical Exam Constitutional: no acute distress Neck: + abnormal visual inspection (bandage right anterior neck) Respiratory: no respiratory distress Auscultation: lungs clear to auscultation bilaterally Cardiovascular: Rate/Rhythm: regular rate and regular rhythm Heart Sounds: no gallop, no murmur and no cardiac rub Vessels: no JVD Extremities: no calf tenderness and no edema Gastrointestinal (Abdomen): normal bowel sounds, soft, nontender, no hepatosplenomegaly Skin: no rashes, warm and dry Psychiatric: Orientation: alert and oriented x 3 Genitourinary: + bladder abnormality (Saini cath) Results & Data Vital Signs (Past 12 Hours) Vital Signs Temp Pulse Resp BP Pulse Ox 10/31/18 19:40 62 16 96 10/31/18 19:37 68 175/99 H 96 10/31/18 15:36 66 18 97 10/31/18 15:20 36.5 C 60 18 174/85 H 97 10/31/18 11:35 64 18 96
[2018-11-01] MEDS: HYDROmorphone INJ 0.5 MG/0.5 ML SYR IV PRN ×7 (00:09→23:32)
[2018-11-01] MEDS ORDERED: DEXTROSE 10% 1,000 ML IV SCH (04:45)
[2018-11-01] MEDS ORDERED: DEXTROSE 10% 1,000 ML IV PRN (06:30)
[2018-11-01] MEDS ORDERED: TPN/PPN CONSULT PHARMACY PRN (07:27)
[2018-11-01] MEDS: DEXAMETHASONE SOD PHOSPHATE 10 MG in SYRINGE 0 ML IV SCH ×2 (07:29→20:18)
[2018-11-01] MEDS: TIOTROPIUM BROMIDE 5 PUFF/90 MCG INH INH SCH (07:30)
--- NOTE | 2018-11-01 09:05 | Orthopedic Progress Note ---
Date of Service November 01, 2018 Assessment & Plan (1) Cervical stenosis of spinal canal: Long discussion this patient regarding his updated imaging. At this time am concerned that the plate is migrated secondary to collapse of the interbody space. This undoubtedly is contributing to his swallowing difficulties. Subsequently we are going to revise the anterior cervical plate. We will plan for first thing in the morning. He understands and agrees. Present on Admission?: Yes Subjective Patient's struggling significant with swelling. Again his arm symptoms leg symptoms improved. Physical Exam Physical Exam: He has good strength testing. There is no appreciable swelling to the neck. Results & Data Vital Signs (Past 12 Hours) Vital Signs Temp Pulse Resp BP Pulse Ox Pulse Ox 11/01/18 07:30 95 11/01/18 07:23 81 18 94 11/01/18 07:17 36.4 C L 73 18 153/84 H 95 11/01/18 03:33 65 16 96 10/31/18 23:15 65 16 94 10/31/18 23:00 36.3 C L 57 L 18 158/82 H 94
[2018-11-01 09:17] LABS: BUN Creatinine Ratio 36.2 (10-20); Calcium 8.2 mg/dl (8.5-10.1); Creatinine Clr Calc Pharmacy 66.6 ml/min; Est GFR (Non-African American) 89.7; Magnesium 2.3 mg/dl (1.8-2.4); Phosphorus 2.6 mg/dl (2.5-4.9); Potassium 4.5 mmol/L (3.5-5.1)
--- NOTE | 2018-11-01 19:47 | Anesthesiology Consultation ---
Date of Service November 01, 2018 Assessment & Plan Chart Review Chart Review: Acceptable Risk for Surgery and Patient NOT seen in Pre Admission Testing Consults Requested none History Surgery Operation Date: 10/17/18 10:25 Proposed Procedures p C4 Corpectomy, C3-C6 Discectomy and Fusion, Spinal Cord Monitoring - Alli Mojica DO Operation Date: 10/23/18 07:00 Proposed Procedures p Incision and Drainage Cervical Spine Evacuation Hematoma - Alli Mojica DO Operation Date: 11/02/18 07:45 Proposed Procedures p C3-C6 Anterior Cervical Spine Revision of Hardware - Alli Mojica DO Height/Weight Height: 5 ft 2.5 in Weight: 56.1 kg Allergies Allergy/AdvReac Type Severity Reaction Status Date / Time chlordiazepoxide Allergy Unknown Hives Verified 10/17/18 08:26 [From Librax (with clidinium)] clidinium Allergy Unknown Hives Verified 10/17/18 08:26 [From Librax (with clidinium)] nitroglycerin Allergy Unknown CARDIAC Verified 10/17/18 08:26 ARREST aspirin AdvReac Unknown GI BLEED Verified 10/17/18 08:26 Medications Home Medications Medication Instructions Recorded Confirmed Last Taken finasteride 5 mg PO QPM 10/03/18 10/17/18 10/16/18 23:00 fluticasone furoate-vilanterol 1 inh INHALATION QAM 10/03/18 10/17/18 10/16/18 11:00 [Breo Ellipta] meloxicam 15 mg PO DAILY PRN 10/03/18 10/17/18 10/13/18 pantoprazole 40 mg PO QPM 10/03/18 10/17/18 10/16/18 23:00 tamsulosin 0.8 mg PO QPM 10/03/18 10/17/18 10/16/18 23:00 tiotropium bromide [Spiriva 2 puff INHALATION QAM 10/03/18 10/17/18 10/16/18 11:00 Respimat] albuterol sulfate 2 puff INHALATION QID PRN 10/17/18 10/17/18 Unknown oxycodone-acetaminophen [Percocet] 1 tab PO Q4H PRN #20 tab 10/19/18 Unknown Active Medications Generic Name Dose Route Start Last Admin Trade Name Freq PRN Reason Stop Dose Admin Finasteride 5 mg 10/17/18 21:00 11/01/18 20:15 Proscar PO 11/16/18 20:59 Not Given QPM DAVID Heparin Sodium (Beef Lung) 5 ml 10/31/18 22:56 11/02/18 06:56 Heparin Sod 10 Unit/Ml Flush FLUSH 11/30/18 22:55 5 ml PRN PRN Administration Flush Hydromorphone HCl 0.5 mg 10/31/18 19:49 11/02/18 05:03 Dilaudid IV 11/14/18 19:48 0.5 mg Q3H PRN Administration Severe Pain Acetaminophen 1,000 mg in 100 mls @ 400 mls/hr 10/17/18 15:10 10/31/18 16:49 Ofirmev IV 11/16/18 15:09 Infused Q8H PRN Infusion pain rating 1-3 Dexamethasone Sodium Phosphate 2.5 mls @ 1 mls/min 10/27/18 09:00 11/01/18 20:18 10 mg/ Syringe IV 11/26/18 08:59 1 mls/min Q12 DAVID Administration Nutrition (Parenteral) 1 bag 11/01/18 16:00 11/01/18 16:20 Custom Central Pn IV 11/02/18 15:59 1 bag 1600 DAVID Administration Protocol Ondansetron HCl 4 mg 10/17/18 15:10 10/17/18 19:13 Zofran IV 11/16/18 15:09 4 mg Q6H PRN Administration Nausea And Vomiting Pantoprazole Sodium 40 mg 10/17/18 21:00 10/18/18 20:51 Protonix PO 11/16/18 20:59 40 mg QPM DAVID Administration Tamsulosin HCl 0.8 mg 10/17/18 21:00 11/01/18 20:15 Flomax PO 11/16/18 20:59 Not Given QPM DAVID Tiotropium [place] 1 puffs 10/18/18 09:00 11/01/18 07:30 Spiriva INH 11/17/18 08:59 Not Given DAILY DAVID NPO Date Last Intake of Fluids: 10/16/18 Time Last Intake of Fluids: 18:00 Date Last Intake of Solids: 10/16/18 Time Last Intake of Solids: 18:00 Past Medical History Medical History Chronic obstructive pulmonary disease (Chronic) EMPHYSEMA Lung nodules (Chronic) 2 Stable, 2 new ones being followed Memory change (Chronic) PER DAUGHTER GERD (gastroesophageal reflux disease) (Chronic) BPH (benign prostatic hyperplasia) (Chronic) Cervical disc disease (Chronic) Abdominal aortic aneurysm (Chronic) Followed by PCP Neuropathy (Chronic) BLE Ambulatory dysfunction (Chronic) Exercise / Class Metabolic Activity II 4-5 Yardwork/Stairs/Walk up hill Past Family History Family History Grandmother (Paternal) Family history of diabetes mellitus Past Surgical History Surgical History Hx of cardiac cath (Chronic) TYRA IVONE - 2016 H/O colonoscopy (Chronic) History of bronchoscopy (Chronic) H/O cervical spine surgery 10/17/2018. Anesthesia record not yet available. Social History Smoking Status: Former smoker Smoking cigarettes per day: 1ppd x 60 Do You Dip or Chew Tobacco: No Smoking End Date: 11/2016 Hx Alcohol Use: No Hx Substance Use: No Physical Exam Vital Signs Last Vital Signs Temp 36.8 C 11/02/18 07:04 Pulse 71 11/02/18 07:04 Resp 18 11/02/18 07:04 BP 155/86 H 11/02/18 07:04 Pulse Ox 96 11/02/18 07:04 Testing Laboratory Results 11/02/18 05:57 11/02/18 05:57 PT 11.0 Seconds (9.0-12.0) 10/10/18 09:18 INR 1.1 (0.9-1.1) 10/10/18 09:18 APTT 30.3 Seconds (21.0-31.0) 10/10/18 09:18 Urine Color Yellow 10/10/18 09:18 Urine Appearance Clear (Clear) 10/10/18 09:18 Urine pH 6.0 (4.5-7.5) 10/10/18 09:18 Ur Specific [place] 1.016 (1.000-1.030) 10/10/18 09:18 Urine Protein Negative (Negative) 10/10/18 09:18 Urine Glucose (UA) Negative (Negative) 10/10/18 09:18 Urine Ketones Negative (Negative) 10/10/18 09:18 Urine Nitrite Negative (Negative) 10/10/18 09:18 Ur Leukocyte Esterase Negative (Negative) 10/10/18 09:18 Blood Type A Positive 10/17/18 08:41 Antibody Screen NEGATIVE 10/17/18 08:41 Electrocardiogram Date: 10/10/18 Findings: + NSR @ (76) Rightward axis Chest X-Ray Date: 10/10/18 Findings: + NAD Echocardiogram Date: 04/03/18 EF: 55-59% The LV wall thickness is mildly increased (concentric). There is a moderate sized septal and anteroseptal wall motion abnormality with hypokinesis of the segments. The left ventricular diastolic function is mildly abnormal (grade I). Intermediate IVC size and collapsability. Right atrial pressure estimated at 8 mmHg. Normal pulmonary pressures are suggested by 2-D echo findings Cardiac Catheterization Date: 09/10/16 Conclusion: 1. Nonobstructive coronary artery disease as noted above. 2. Normal LV systolic function 3. Normal LV filling pressures 4. No significant MR by this technique. 5. No significant aortic stenosis by this technique. Recommendations: 1. Maximize medical therapy for primary prevention. 2. Diet exercise and lifestyle modification were discussed. Of particular importance is smoking cessation. 3. Consider noncardiac causes of chest pain. Included in the differential would be musculoskeletal, pericarditis, or pleuritis given the pleuritic nature. 4. Follow-up with cardiology within 4-6 weeks. Other Testing ABDOMINAL AORTA DUPLEX EXAMINATION 07/09/18: There is evidence of a 3.9cm abdominal aortic aneurysm. Color Doppler imaging demonstrates flow consistent with a patent lumen at and distal to the aortic aneurysm. CAROTID DUPLEX 11/09/17: Mild bilateral carotid system plaque, but without hemodynamically significant stenosis. Less than 50% proximal ICA narrowing on each side.
[2018-11-01] MEDS: FINASTERIDE 5 MG TAB PO SCH (20:15)
[2018-11-01] MEDS: TAMSULOSIN HCL 0.4 MG CAP PO SCH (20:15)
--- NOTE | 2018-11-01 20:19 | Hospitalist Progress Note ---
Date of Service November 01, 2018 Assessment & Plan (1) S/P cervical spinal fusion: Management per Ortho Spine. Anticipated return to OR tomorrow for revision. (2) Dysphagia: Postop dysphagia. Received IV dexamethasone without significant improvement. Revision of anterior cervical decompression / fusion performed with transient improvement of symptoms. Seen by GED INSTRUCTOR and ENT. Video swallowing evaluation demonstrated pharyngeal dysphagia and aspiration. Remains NPO. (3) Chronic obstructive pulmonary disease: Pulmonary status stable. (4) GERD (gastroesophageal reflux disease): Continue PPI. (5) BPH (benign prostatic hyperplasia): Unable to take tamsulosin and finasteride because of dysphagia. Has Saini cath. Voiding trial once BPH meds resumed. (6) Hyperglycemia: Fasting blood sugar today = 142. Steroid-induced hyperglycemia secondary to dexamethasone. No need for insulin coverage unless sugars rise further. Taper steroids as able. (7) Nutritional assessment: Has been essentially NPO since initial surgery due to postop dysphagia- now about 15 days. Probably best to avoid NG or PEG enteral feedings at this time in light of cervical surgery. Severe malnutrition: PO caloric / protein intake < 10% required weight 63 kg --> 56 kg (down 11%) serum albumin 2.4 on 10/23 Continue TPN until able to resume enteral feedings. (8) DVT prophylaxis: Per Ortho protocol. (9) Encounter for consultation: Thank you for this consultation. We will follow the patient with you during their hospital stay. My cell # is [phone]. You can reach a member of the [facility] Medicine Team 19/09 via pager @ [phone]. Physical Exam Constitutional: no acute distress Neck: + abnormal visual inspection (bandage right anterior neck) Respiratory: no respiratory distress Auscultation: lungs clear to auscultation bilaterally Cardiovascular: Rate/Rhythm: regular rate and regular rhythm Heart Sounds: no gallop, no murmur and no cardiac rub Vessels: no JVD Extremities: no calf tenderness and no edema Gastrointestinal (Abdomen): normal bowel sounds, soft, nontender, no hepatosplenomegaly Skin: no rashes, warm and dry Psychiatric: Orientation: alert and oriented x 3 Genitourinary: + bladder abnormality (Saini cath) Results & Data Vital Signs (Past 12 Hours) Vital Signs Temp Pulse Pulse Resp BP Pulse Ox 11/01/18 20:00 80 16 95 11/01/18 15:56 68 16 94 11/01/18 15:00 36.4 C L 67 17 155/87 H 96 11/01/18 10:46 18 L 76 18 97 Laboratory Results Laboratory Results - last 24 hr 11/01/18 08:34 Sodium 138 Potassium 4.5 Chloride 104 Carbon Dioxide 29 Anion Gap 5.0 BUN 29 H Creatinine 0.79 Est Cr Clr Drug Dosing 66.6 Est GFR ( Amer) 104.0 Est GFR (Non-Af Amer) 89.7 BUN/Creatinine Ratio 36.2 H Glucose 142 H Calcium 8.2 L Phosphorus 2.6 Magnesium 2.3
[2018-11-02] MEDS: HYDROmorphone INJ 0.5 MG/0.5 ML SYR IV PRN ×5 (05:03→23:55)
[2018-11-02] MEDS ORDERED: ROCURONIUM BROMIDE 10 MG/ML 5 ML VIAL ONE (06:47)
[2018-11-02] MEDS ORDERED: ONDANSETRON INJ 2 MG/ML 2 ML VIAL ONE (06:47)
[2018-11-02] MEDS ORDERED: fentaNYL citrate 100 MCG/2 ML VIAL ONE (06:47)
[2018-11-02] MEDS ORDERED: LIDOCAINE HCL 2% 2 ML VIAL/AMP(20MG/ML) INFIL ONE (06:47)
[2018-11-02] MEDS ORDERED: PROPOFOL IV EMULSION 10 MG/ML 20 ML VIAL IV ONE (06:47)
[2018-11-02] MEDS ORDERED: MIDAZOLAM HCL 1 MG/ML 2ML VIAL ONE (06:47)
[2018-11-02] MEDS ORDERED: BACITRACIN INJ 50,000 UNIT VIAL ONE (06:54)
[2018-11-02 07:13] LABS: Hematocrit (blood only) 48.3 % (42-52); Hemoglobin 16.5 g/dL (14.0-18.0); Mean Corpuscular Hemoglobin 29.6 pg (25-34); Mean Corpuscular Hgb Conc 34.2 g/dL (32-36); Mean Corpuscular Volume 86.6 fL (80-100); Mean Platelet Volume 11.3 fL (7.4-10.4); Platelet Count 205 K/uL (130-400); RDW Coefficient of Variation 14.1 % (11.5-14.5); RDW Standard Deviation 43.7 fL (36.4-46.3); Red Blood Count 5.58 M/uL (4.7-6.1); White Blood Count 22.16 K/uL (4.8-10.8)
--- NOTE | 2018-11-02 07:24 | History & Physical Bridge Note ---
Date of Service November 02, 2018 History & Physical Bridge Note I have examined the patient, reviewed the History & Physical and in the interval since the performance of the History & Physical I have noted the following changes of clinical significance: no changes noted
[2018-11-02 07:30] LABS: Albumin Level 2.6 gm/dl (3.4-5.0); BUN Creatinine Ratio 40.1 (10-20); Calcium 7.9 mg/dl (8.5-10.1); Creatinine Clr Calc Pharmacy 69.3 ml/min; Est GFR (African American) 105.6; Est GFR (Non-African American) 91.1; Magnesium 2.2 mg/dl (1.8-2.4); Phosphorus 2.3 mg/dl (2.5-4.9); Potassium 4.2 mmol/L (3.5-5.1)
[2018-11-02] MEDS ORDERED: CEFAZOLIN 1000MG 1,000 MG/7.5 ML SYR IV SCH (07:40)
[2018-11-02] MEDS ORDERED: VANCOMYCIN HCL 1000MG/20ML VIAL ONE (07:49)
[2018-11-02] MEDS ORDERED: GENTAMICIN SULFATE 40 MG/ML 2 ML VIAL ONE (07:49)
[2018-11-02] MEDS ORDERED: ePHEDrine sulfate 50 MG/ML AMP IV PRN (08:16)
[2018-11-02] MEDS ORDERED: ATROPINE SULFATE 0.1 MG/ML 10ML SYR IV PRN (08:16)
[2018-11-02] MEDS ORDERED: HYDROmorphone INJ 2 MG/ML SYR/VIAL ONE (08:17)
--- NOTE | 2018-11-02 08:47 | Operative Report ---
Post Operative Report Pre & Post Diagnosis Operation Date: 10/17/18 10:25 Pre-Op Diagnosis: Other Spondylosis with Myelopathy, Cervical Region Post-Op Diagnosis: Other Spondylosis with Myelopathy, Cervical Region Operation Date: 10/23/18 07:00 Pre-Op Diagnosis: Other Spondylosis with Myelopathy, Cervical Region Post-Op Diagnosis: Other Spondylosis with Myelopathy, Cervical Region Operation Date: 11/02/18 07:45 Pre-Op Diagnosis: Other Spondylosis with Myelopathy, Cervical Region Post-Op Diagnosis: Other Spondylosis with Myelopathy, Cervical Region Procedure Operation Date: 10/17/18 10:25 Actual Procedures p C4 Corpectomy, C3-C6 Discectomy and Fusion, Spinal Cord Monitoring, and Application of Xemplifi Allograft - Alli Mojica DO Operation Date: 10/23/18 07:00 Actual Procedures s Incision and Drainage Cervical Spine (Not Applicable) - Alli Mojica DO p Revision of Hardware at C3-6(Not Applicable) - Alli Mojica DO Operation Date: 11/02/18 07:45 Actual Procedures Removal of anterior cervical instrumentation C3-C6. #2 application of new plate and screws C3-C6. Surgeon Alli Mojica DO Distribution Lead Kishan Smith Estimated Blood Loss 10 Findings Consistent with Post-Op Diagnosis Specimens None Indications To me that presents with displacement of the anterior cervical plate C3-C6. It is causing difficulty with swallowing subsequently we elected to undergo the above-mentioned procedure. Description of Procedure Patient was met with identified and informed consent obtained. Patient was then taken to the operative suite underwent ablation placed in supine position Balaji table the head Shen head custodian. All bony prominences well-padded eyes inspected to ensure no external pressure placed upon the peer at this point the anterior cervical spine was prepped and draped in a sterile fashion. Sharp dissection with the assistance of bipolar cautery was then performed on down to and exposing the anterior cervical spine in plate from C3-C6. Obvious loosening of the proximal screws were identified with anterior displacement of the plate. The plate was then removed. A new plate was then placed contoured and placed into position. Was able to get much better purchase with the screws proximally and distally with new positioning. Incision was then copiously irrigated. Approximately 2 cc of stimulant beads placed throughout the incision. A 10 round NICOLE drain inserted. The incision was then closed with 2 Vicryl in the fascia and a Prolene for final skin closure. Patient was then we continue PACU stable condition. Please note my coworker present at the entire procedure involved in patient positioning complex portions of the surgery and final skin closure. I attest to the content of the Intraoperative Record and any orders documented therein. Any exceptions are noted below.
[2018-11-02] MEDS: HYDROmorphone INJ 1 MG/ML SYRINGE IV PRN ×7 (09:15→09:49)
--- NOTE | 2018-11-02 10:17 | Anesthesiology Progress Note ---
Date of Service November 02, 2018 Anesthesia Post Procedure Vital Signs Vital Signs: Temp Pulse Pulse Pulse Resp BP Pulse Ox 11/02/18 10:05 60 19 158/80 H 100 11/02/18 09:55 66 12 169/87 H 100 11/02/18 09:45 68 21 168/93 H 100 11/02/18 09:35 69 18 170/100 H 100 11/02/18 09:25 67 14 163/90 H 100 11/02/18 09:15 77 16 171/93 H 100 11/02/18 09:05 81 14 174/108 H 100 11/02/18 08:59 36.5 C 86 18 183/97 H 100 11/02/18 07:04 36.8 C 71 18 155/86 H 96 11/02/18 06:45 36.5 C 69 16 159/77 H 96 11/02/18 03:18 36.2 C L 66 14 161/80 H 95 11/02/18 03:13 61 16 95 11/01/18 23:11 60 16 95 11/01/18 22:50 36.3 C L 66 16 161/79 H 96 11/01/18 20:00 80 16 95 11/01/18 15:56 68 16 94 11/01/18 15:00 36.4 C L 67 17 155/87 H 96 11/01/18 10:46 18 L 76 18 97 Pain Intensity Medial Neck: Pain Intensity: 3 Anterior Medial Neck: Pain Intensity: 2 Bilateral Shoulder: Pain Intensity: 7 Anterior Neck: Pain Intensity: 3 Head: Pain Intensity: 7 Transfer of Care Handoff Completed per policy Notes Mental Status: alert / awake / arousable Patient Amnestic to Procedure: Yes Nausea / Vomiting: adequately controlled Pain: adequately controlled Airway Patency, RR, SpO2: stable & adequate BP & HR: stable & adequate Hydration State: stable & adequate Anesthetic Complications: no major complications apparent and Pt Satisfied with anesthetic care
[2018-11-02] MEDS: TIOTROPIUM BROMIDE 5 PUFF/90 MCG INH INH SCH (11:05)
[2018-11-02] MEDS: DEXAMETHASONE SOD PHOSPHATE 10 MG in SYRINGE 0 ML IV SCH ×2 (11:42→21:18)
[2018-11-02 13:19] LABS: Bilirubin,Total 1.8 mg/dl (0.2-1); Prealbumin 33.5 mg/dl (20-40)
--- NOTE | 2018-11-02 13:52 | Pharmacy Report ---
PHA: Parenteral Nutrition Con - Date of Service November 02, 2018 - Scope Pharmacy was consulted on 10/25/18 to manage parenteral nutrition orders for this patient. - Subjective The patient is currently on day [#] of [peripheral or central] parenteral nutrition for [INDICATION]. - Objective Height: 5 ft 2.5 in Weight: 56.9 kg Diet: NPO Vascular Access:: PICC line Intake & Output (24hrs):: Intake & Output 10/31/18 11/01/18 11/02/18 11/03/18 06:59 06:59 06:59 06:59 Intake Total 200 / 200 100 / 100 1000 / 1000 Output Total 1650 / 1650 2000 / 2000 1170 / 1170 340 / 340 Balance -1450 / -1450 -1900 / -1900 -1170 / -1170 660 / 660 Weight 56.1 kg 56.9 kg 56.9 kg Laboratory Data (Last 24 Hr):: 11/02/18 11/02/18 05:57 12:29 Sodium 137 Potassium 4.2 Chloride 103 Carbon Dioxide 30 BUN 30 H Creatinine 0.76 Glucose 132 H Calcium 7.9 L Phosphorus 2.3 L Magnesium 2.2 Total Bilirubin 1.8 H AST 26 ALT 98 H Alkaline Phosphatase 75 Albumin 2.6 L Prealbumin 33.5 Nutrition Assessment:: Please refer to the Notes section of the EMR for the most recent side laster staple note. - Assessment Mr. Davenport is a 73 yr old on day 8 of parenteral nutrition for failed swallow eval and dysphagia. Unable to place NG tube. * PICC line has been placed. Peripheral PN changed to central PN on 11/01 * Kcals are able to be maximized with central access * Of note, patient only received partial bag of TPN on 11/01 due to procedure - Plan For day 8 of PN administration, the following will be ordered: Macronutrients Amino acids 90 grams/day Dextrose 225 grams/day Lipids 50 grams/day Micronutrients Combined electrolytes 20 mL - contains 35 mEq Na, 20 meq K, 4.5 mEq Ca, 5 mEq Mg, 35 mEq Cl, 29.5 mEq acetate per 20 mL Sodium chloride 30 mEq Potassium phosphate 24 mMol (increase) Multivitamins 10 mL Trace Elements 1 mL Additional additives: folic acid 1 mg, thiamine 100 mg, pepcid 20 mg Total volume mL to be infused over 1800 hrs will provide 1625 kcal/day Labs, as indicated, will be ordered per protocol Pharmacy will continue to follow and adjust parenteral nutrition orders on a daily basis. Thank you for allowing us to participate in the care of this patient.
--- NOTE | 2018-11-02 14:54 | Fluoroscopy Report ---
Cervical SPINE, INTRAOPERATIVE FLUOROSCOPY HISTORY: C3 C6 ACDF. FLUOROSCOPY TIME: 15 second. FINDINGS: Intraoperative fluoroscopy was provided for the spine. A total of 2 fluoroscopic spot image s were obtained. Anterior cervical discectomy and fusion from C3 through C7 with a C4-C5 corpectomy a nd intervertebral cage. The hardware appears intact. IMPRESSION: Fluoroscopy provided for a C3-C7 ACDF.. Electronically signed by: Vikram German M.D. 11/02/2018 2:53 PM
--- NOTE | 2018-11-02 19:26 | Hospitalist Progress Note ---
Date of Service November 02, 2018 Assessment & Plan (1) S/P cervical spinal fusion: Management per Ortho Spine. S/P revision. (2) Dysphagia: Postop dysphagia. Received IV dexamethasone without significant improvement. Revision of anterior cervical decompression / fusion performed with transient improvement of symptoms. Seen by FLAT MACHINE CUTTER and ENT. Video swallowing evaluation demonstrated pharyngeal dysphagia and aspiration. Remains NPO except for ice chips and sips. (3) Chronic obstructive pulmonary disease: Pulmonary status stable. (4) GERD (gastroesophageal reflux disease): Continue PPI. (5) BPH (benign prostatic hyperplasia): Unable to take tamsulosin and finasteride because of dysphagia. Has Saini cath. Voiding trial once BPH meds resumed. (6) Hyperglycemia: Fasting blood sugar today = 132. Steroid-induced hyperglycemia secondary to dexamethasone. No need for insulin coverage unless sugars rise further. Taper steroids as able. (7) Nutritional assessment: Has been essentially NPO since initial surgery due to postop dysphagia- now about 15 days. Probably best to avoid NG or PEG enteral feedings at this time in light of cervical surgery. Severe malnutrition: PO caloric / protein intake < 10% required weight 63 kg --> 56 kg (down 11%) serum albumin 2.4 on 10/23 Continue TPN until able to resume enteral feedings. (8) Leukocytosis: WBC today = 22,160. Leukocytosis probably secondary to steroid therapy with dexamethasone. No fever. Cough unchanged. Check chest x-ray and UA. Taper steroids as possible. Follow. (9) DVT prophylaxis: Per Ortho protocol. (10) Encounter for consultation: Thank you for this consultation. We will follow the patient with you during their hospital stay. My cell # is [phone]. You can reach a member of the [facility] Medicine Team 19/09 via pager @ [phone]. Subjective Recheck for medical management. Patient seen in their room around 1630. Taken to OR today for revision of cervical procedure. Having some postop discomfort. Able to swallow sips from ice chips. Occasional cough, no SOB. Review of Systems: Constitutional- no fever. Cardiac- no chest pain. Pulmonary- as noted above. GI- no nausea, vomiting, diarrhea, melena, hematochezia. - Saini cath for urinary retention. Otherwise, as noted above. Physical Exam Physical Exam: Constitutional- afebrile, no acute distress Eyes- sclerae anicteric Neck- cervical collar Respiratory- clear to auscultation, no respiratory distress Cardiovascular- cardiac rhythm regular, no murmurs or gallops appreciated, no JVD, no pretibial edema or calf tenderness Gastrointestinal- normal bowel sounds, soft, nondistended, nontender - Saini cath Extremities- mild swelling right forearm Skin- warm and dry, no rash Psychiatric- alert, oriented Results & Data Vital Signs (Past 12 Hours) Vital Signs Temp Pulse Pulse Resp BP Pulse Ox 11/02/18 19:05 72 16 98 11/02/18 18:59 36.4 C L 69 16 150/79 H 99 11/02/18 16:44 36.4 C L 63 16 141/81 H 98 11/02/18 15:43 63 16 97 11/02/18 14:32 36.5 C 64 13 127/82 97 11/02/18 13:35 63 13 133/78 98 11/02/18 12:35 71 15 147/82 H 98 11/02/18 11:38 60 16 135/80 98 11/02/18 11:19 62 16 99 11/02/18 11:05 36.5 C 69 17 152/83 H 98 11/02/18 10:35 36.4 C L 62 16 160/90 H 99 11/02/18 10:15 36.3 C L 62 12 154/77 H 100 11/02/18 10:05 60 19 158/80 H 100 11/02/18 09:55 66 12 169/87 H 100 11/02/18 09:45 68 21 168/93 H 100 11/02/18 09:35 69 18 170/100 H 100 11/02/18 09:25 67 14 163/90 H 100 11/02/18 09:15 77 16 171/93 H 100 11/02/18 09:05 81 14 174/108 H 100 11/02/18 08:59 36.5 C 86 18 183/97 H 100 Laboratory Results Laboratory Results - last 24 hr 11/02/18 11/02/18 11/02/18 05:57 05:57 12:29 WBC 22.16 H RBC 5.58 Hgb 16.5 Hct 48.3 MCV 86.6 MCH 29.6 MCHC 34.2 RDW Std Deviation 43.7 RDW Coeff of Barbara 14.1 Plt Count 205 MPV 11.3 H Sodium 137 Potassium 4.2 Chloride 103 Carbon Dioxide 30 Anion Gap 4.0 BUN 30 H Creatinine 0.76 Est Cr Clr Drug Dosing 69.3 Est GFR ( Amer) 105.6 Est GFR (Non-Af Amer) 91.1 BUN/Creatinine Ratio 40.1 H Glucose 132 H Calcium 7.9 L Phosphorus 2.3 L Magnesium 2.2 Total Bilirubin 1.8 H AST 26 ALT 98 H Alkaline Phosphatase 75 Albumin 2.6 L Prealbumin 33.5
[2018-11-02] MEDS: TAMSULOSIN HCL 0.4 MG CAP PO SCH (20:25)
[2018-11-02] MEDS: PANTOprazole 40 MG TAB PO SCH (20:26)
[2018-11-02] MEDS: FINASTERIDE 5 MG TAB PO SCH (20:26)
[2018-11-02 22:30] LABS: Appearance Urine Clear (Clear); Bacteria Urine Automated Negative (Negative); Bilirubin Urine Negative (Negative); Blood Urine 3+ (Negative); Cast Urine Automated 0 /lpf (0-5); Color Urine Orange; Glucose Urine UA Negative (Negative); Ketones Urine Negative (Negative); Leukocyte Esterase Urine 2+ (Negative); Nitrite Urine Negative (Negative); Protein Urine Negative (Negative); RBC Urine Automated >30 /hpf (0-4); Specific Gravity Urine 1.022 (1.000-1.030); Urobilinogen Urine Positive (Negative)
[2018-11-03] MEDS: HYDROmorphone INJ 0.5 MG/0.5 ML SYR IV PRN ×6 (03:12→21:09)
[2018-11-03 07:13] LABS: BUN Creatinine Ratio 39.9 (10-20); Calcium 7.9 mg/dl (8.5-10.1); Creatinine Clr Calc Pharmacy 72.1 ml/min; Est GFR (African American) 107.4; Est GFR (Non-African American) 92.7; Magnesium 2.3 mg/dl (1.8-2.4); Phosphorus 2.5 mg/dl (2.5-4.9); Potassium 4.4 mmol/L (3.5-5.1)
--- NOTE | 2018-11-03 07:15 | XRay Report ---
XR chest 1V portable CLINICAL HISTORY: cough COMPARISON STUDY: 10/19/2018 FINDINGS: The cardiac and mediastinal contours remain stable. There is no failure. There is no focal pulmonary consolidation. There are no pleural effusions. Postsurgical changes are present within the cervical spine. There has been interval placement of a right-sided A-Port catheter, tip of which proj ects over the superior vena cava. There is a small right paramediastinal lucency. A loculated pneumot horax, or mediastinal air cannot be excluded.[ IMPRESSION: 1. Interval insertion of a right-sided PICC catheter, the tip of which projects over the superior karan a cava 2. Small right paramediastinal lucency. While nonspecific, a small loculated pneumothorax or mediasti nal air cannot be excluded Electronically signed by: Abdoulaye Davila M.D. 11/03/2018 7:14 AM
[2018-11-03] MEDS: TIOTROPIUM BROMIDE 5 PUFF/90 MCG INH INH SCH (08:47)
[2018-11-03] MEDS: DEXAMETHASONE SOD PHOSPHATE 10 MG in SYRINGE 0 ML IV SCH (08:48)
--- NOTE | 2018-11-03 09:21 | Pharmacy Report ---
PHA: Parenteral Nutrition Con - Date of Service November 03, 2018 - Scope Pharmacy was consulted to manage parenteral nutrition orders for this patient. - Subjective . - Objective Height: 5 ft 2.5 in Weight: 57 kg Diet: NPO Intake & Output (24hrs):: Intake & Output 11/01/18 11/02/18 11/03/18 11/04/18 06:59 06:59 06:59 06:59 Intake Total 100 / 100 1392.5 / 1392.5 Output Total 1999 / 1999 1170 / 1170 1610 / 1610 Balance -1900 / -1900 -1170 / -1170 -217.5 / -217.5 Weight 56.1 kg 56.9 kg 57 kg Laboratory Data (Last 24 Hr):: 11/02/18 11/03/18 12:29 05:24 Sodium 136 Potassium 4.4 Chloride 102 Carbon Dioxide 31 BUN 29 H Creatinine 0.73 Glucose 160 H Calcium 7.9 L Phosphorus 2.5 Magnesium 2.3 Total Bilirubin 1.8 H AST 33 ALT 114 H Alkaline Phosphatase 75 Prealbumin 33.5 Nutrition Assessment:: Please refer to the Notes section of the EMR for the most recent burlap worker note. - Assessment Mr. Davenport is a 73 yr old on day 9 of parenteral nutrition for failed swallow eval and dysphagia. Unable to place NG tube. * PICC line has been placed. Peripheral PN changed to central PN on 11/01 * Kcals are able to be maximized with central access * Adjust micronutrients per labs - Plan For day 9 of PN administration, the following will be ordered, no changes need, same formulation as 11/02/18: Macronutrients Amino acids 90 grams/day Dextrose 225 grams/day Lipids 50 grams/day Micronutrients Combined electrolytes 20 mL - contains 35 mEq Na, 20 meq K, 4.5 mEq Ca, 5 mEq Mg, 35 mEq Cl, 29.5 mEq acetate per 20 mL Sodium chloride 30 mEq Potassium phosphate 24 mMol Multivitamins 10 mL Trace Elements 1 mL Additional additives: folic acid 1 mg, thiamine 100 mg, pepcid 20 mg Total volume mL to be infused over 1800 hrs will provide 1625 kcal/day Labs, as indicated, will be ordered per protocol Pharmacy will continue to follow and adjust parenteral nutrition orders on a daily basis. Thank you for allowing us to participate in the care of this patient.
--- NOTE | 2018-11-03 10:01 | Orthopedic Progress Note ---
Date of Service November 03, 2018 Assessment & Plan (1) Cervical stenosis of spinal canal: At this time we will attempt to advance his diet to a clear liquid diet. He will maintain his collar at all times. He is going to be getting a CAT scan of his chest to assess his lungs. Present on Admission?: Yes Subjective Patient feels that the swelling has improved. He is tolerating small sips of water. Physical Exam Physical Exam: On exam collar is in place NICOLE drain functioning. Strength is intact. Results & Data Vital Signs (Past 12 Hours) Vital Signs Temp Pulse Resp BP Pulse Ox Pulse Ox 11/03/18 08:35 36.5 C 62 12 151/81 H 96 11/03/18 06:55 36.6 C 71 16 135/76 94 11/03/18 06:40 36.4 C L 64 18 145/81 H 96 11/03/18 04:16 36.4 C L 61 16 135/87 95 11/03/18 03:28 70 18 96 11/03/18 03:17 95 11/03/18 02:00 36.5 C 67 16 160/83 H 96 11/03/18 00:00 36.5 C 66 18 154/74 H 96 11/02/18 23:43 64 18 95 11/02/18 22:41 36.5 C 61 14 134/80 95
[2018-11-03] MEDS: CEFAZOLIN 2000MG 2,000 MG/15 ML SYR IV SCH ×2 (11:24→17:51)
--- NOTE | 2018-11-03 11:28 | CT Scan Report ---
CT chest wo con CLINICAL HISTORY: Cough. Abnormal chest x-ray. RIGHT PARAMEDIASTINAL LUCENCY. COMPARISON STUDY: Chest x-ray dated 11/03/2018 CT DOSE: 239.21 mGy.cm TECHNIQUE: CT of the thorax was performed from the thoracic inlet to the lung bases. Images are revi ewed in the axial, sagittal, and coronal planes. IV contrast was not administered for this examinatio n. A dose lowering technique was utilized adhering to the principles of ALARA. FINDINGS: A right-sided central venous catheter is visualized, the tip of which terminates within the superior vena cava. Thyroid: Imaged portions of the thyroid gland are normal in appearance. Thoracic aorta: The thoracic aorta is normal in course and caliber, noting standard 3 vessel arch elma mildred. Heart: The heart is normal in size. There are coronary artery calcifications present. Lungs and pleural spaces: No pleural effusions are visualized. There is pulmonary emphysema. There is no pneumothorax. There is no pneumomediastinum. The prior chest x-ray finding likely represented a p rojectional artifact. There is mild right lower lobe bronchial wall thickening and mucous plugging. T here are areas of linear parenchymal scarring. There is a thin-walled 22 mm cavitary lesion within th e left upper lobe anterior medially. Mediastinum: There is no mediastinal lymphadenopathy. Yuki: There is no evidence of pathologic hilar adenopathy given the limitations of a noncontrast stud y Axilla: There is no evidence of pathologic axillary lymphadenopathy Upper abdomen: Partially visualized upper abdominal viscera is within normal limits. Skeletal structures: There are no lytic or blastic osseous lesions. IMPRESSION: 1. No evidence of pneumothorax. No evidence of pneumomediastinum. The chest x-ray findings are felt t o represent a projectional artifact 2. Pulmonary emphysema 3. Scattered areas of cortical scarring 4. Right lower lobe bronchial wall thickening and mucous plugging 5. Thin-walled 22 mm cavitary lesion within the left upper lobe. A postinflammatory focus is favored over neoplasm although the lesion is indeterminate. A six-month follow-up CT scan is recommended. Electronically signed by: Abdoulaye Davila M.D. 11/03/2018 11:27 AM
--- NOTE | 2018-11-03 19:45 | Hospitalist Progress Note ---
Date of Service November 03, 2018 Assessment & Plan (1) S/P cervical spinal fusion: Management per Ortho Spine. S/P revision. (2) Dysphagia: Postop dysphagia. Received IV dexamethasone without significant improvement. Revision of anterior cervical decompression / fusion performed with transient improvement of symptoms. Seen by DEVELOPER SUPPORT ENGINEER and ENT. Video swallowing evaluation demonstrated pharyngeal dysphagia and aspiration. Being followed by DEVELOPER SUPPORT ENGINEER. (3) Chronic obstructive pulmonary disease: Pulmonary status stable. (4) GERD (gastroesophageal reflux disease): Continue PPI. (5) BPH (benign prostatic hyperplasia): Unable to take tamsulosin and finasteride because of dysphagia. Has Saini cath. Voiding trial once BPH meds resumed. (6) Hyperglycemia: Fasting blood sugar today = 160. Hyperglycemia secondary to TPN + teroid-induced hyperglycemia secondary to dexamethasone. Taper steroids as able. (7) Nutritional assessment: Has been essentially NPO since initial surgery due to postop dysphagia- now about 15 days. Probably best to avoid NG or PEG enteral feedings at this time in light of cervical surgery. Severe malnutrition: PO caloric / protein intake < 10% required weight 63 kg --> 56 kg (down 11%) serum albumin 2.4 on 10/23 Continue TPN until able to resume enteral feedings. (8) Leukocytosis: WBC 11/02 was 22,160. Leukocytosis probably secondary to steroid therapy with dexamethasone. No fever. Cough unchanged. UA- few WBCs, no bacteria. Chest x-ray- no infiltrates. Follow. (9) Abnormal CT scan, chest: Chest x-ray done 11/03 for evaluation of cough, leukocytosis. Possible pneumomediastinum was noted. CT of chest did not show pneumomediastinum. 22 mm cavitary lesion PARRISH noted. Post-inflammatory process favored, but f/u CT in 6 months recommended. (10) DVT prophylaxis: SCDs ordered. (11) Encounter for consultation: Thank you for this consultation. We will follow the patient with you during their hospital stay. My cell # is [phone]. You can reach a member of the [facility] Medicine Team 19/09 via pager @ [phone]. Subjective Recheck for medical management. Patient seen in their room around 1600. Less postop discomfort. Occasional cough, no SOB. Seen at bedside by DEVELOPER SUPPORT ENGINEER. Tried clear liquids this afternoon, but had problems with aspiration. Review of Systems: Constitutional- no fever. Cardiac- no chest pain. Pulmonary- as noted above. GI- no nausea, vomiting, diarrhea, melena, hematochezia. - Saini cath for urinary retention. Otherwise, as noted above. Physical Exam Physical Exam: Constitutional- afebrile, no acute distress Eyes- sclerae anicteric Neck- cervical collar Respiratory- clear to auscultation, no respiratory distress Cardiovascular- cardiac rhythm regular, no murmurs or gallops appreciated, no JVD, no pretibial edema or calf tenderness Gastrointestinal- normal bowel sounds, soft, nondistended, nontender - Saini cath Extremities- mild swelling right forearm, no erythema or warmth Skin- warm and dry, no rash Psychiatric- alert, oriented Results & Data Vital Signs (Past 12 Hours) Vital Signs Temp Pulse Resp BP Pulse Ox 11/03/18 16:50 36.7 C 68 18 160/84 H 95 11/03/18 15:30 68 18 96 11/03/18 15:12 36.7 C 66 16 142/86 H 96 11/03/18 12:30 85 14 165/90 H 96 11/03/18 11:49 36.7 C 68 18 143/86 H 11/03/18 11:42 74 16 95 11/03/18 10:35 36.6 C 64 14 138/72 96 11/03/18 08:35 36.5 C 62 12 151/81 H 96 Laboratory Results Laboratory Results - last 24 hr 11/02/18 11/03/18 Unknown 05:24 Sodium 136 Potassium 4.4 Chloride 102 Carbon Dioxide 31 Anion Gap 4.0 BUN 29 H Creatinine 0.73 Est Cr Clr Drug Dosing 72.1 Est GFR ( Amer) 107.4 Est GFR (Non-Af Amer) 92.7 BUN/Creatinine Ratio 39.9 H Glucose 160 H Calcium 7.9 L Phosphorus 2.5 Magnesium 2.3 AST 33 ALT 114 H Urine Color [place] Urine Appearance Clear Urine pH 7.0 Ur Specific [place] 1.022 Urine Protein Negative Urine Glucose (UA) Negative Urine Ketones Negative Urine Blood 3+ H Urine Nitrite Negative Urine Bilirubin Negative Urine Urobilinogen Positive H Ur Leukocyte Esterase 2+ H Urine WBC (Auto) 5-10 H Urine RBC (Auto) >30 H U Hyaline Cast (Auto) 0 U Epithel Cells (Auto) 5-10 H Urine Bacteria (Auto) Negative Diagnostic Findings PORTABLE CHEST X-RAY FINDINGS: The cardiac and mediastinal contours remain stable. There is no failure. There is no focal pulmonary consolidation. There are no pleural effusions. Postsurgical changes are present within the cervical spine. There has been interval placement of a right-sided A-Port catheter, tip of which projects over the superior vena cava. There is a small right paramediastinal lucency. A loculated pneumothorax, or mediastinal air cannot be excluded.[ IMPRESSION: 1. Interval insertion of a right-sided PICC catheter, the tip of which projects over the superior vena cava 2. Small right paramediastinal lucency. While nonspecific, a small loculated pneumothorax or mediastinal air cannot be excluded Electronically signed by: Abdoulaye Davila M.D. 11/03/2018 7:[address] CHEST IMPRESSION: 1. No evidence of pneumothorax. No evidence of pneumomediastinum. The chest x- ray findings are felt to represent a projectional artifact 2. Pulmonary emphysema 3. Scattered areas of cortical scarring 4. Right lower lobe bronchial wall thickening and mucous plugging 5. Thin-walled 22 mm cavitary lesion within the left upper lobe. A postinflammatory focus is favored over neoplasm although the lesion is indeterminate. A six-month follow-up CT scan is recommended. Electronically signed by: Abdoulaye Davila M.D. 11/03/2018 11:27 AM
[2018-11-03] MEDS: FINASTERIDE 5 MG TAB PO SCH (20:11)
[2018-11-03] MEDS: TAMSULOSIN HCL 0.4 MG CAP PO SCH (20:11)
[2018-11-03] MEDS: PANTOprazole 40 MG TAB PO SCH (20:11)
[2018-11-04] MEDS: HYDROmorphone INJ 0.5 MG/0.5 ML SYR IV PRN ×7 (00:55→23:54)
[2018-11-04] MEDS: CEFAZOLIN 2000MG 2,000 MG/15 ML SYR IV SCH (00:57)
[2018-11-04 06:44] LABS: BUN Creatinine Ratio 43.6 (10-20); Calcium 7.9 mg/dl (8.5-10.1); Creatinine Clr Calc Pharmacy 73.1 ml/min; Est GFR (Non-African American) 93.2; Magnesium 2.1 mg/dl (1.8-2.4); Phosphorus 2.2 mg/dl (2.5-4.9); Potassium 4.1 mmol/L (3.5-5.1)
[2018-11-04] MEDS: TIOTROPIUM BROMIDE 5 PUFF/90 MCG INH INH SCH (08:07)
[2018-11-04] MEDS: DEXAMETHASONE SOD PHOSPHATE 8 MG in SYRINGE 0 ML IV SCH (08:08)
--- NOTE | 2018-11-04 08:49 | Hospitalist Progress Note ---
Date of Service November 04, 2018 Assessment & Plan (1) S/P cervical spinal fusion: Management per Ortho Spine. S/P revision. (2) Dysphagia: Postop dysphagia. Received IV dexamethasone without significant improvement. Revision of anterior cervical decompression / fusion performed with transient improvement of symptoms. Seen by PURCHASE ORDER CHECKER and ENT. Video swallowing study 10/30 demonstrated pharyngeal dysphagia and aspiration. Being followed by PURCHASE ORDER CHECKER. (3) Chronic obstructive pulmonary disease: Pulmonary status stable. (4) GERD (gastroesophageal reflux disease): Continue PPI. (5) BPH (benign prostatic hyperplasia): Unable to take tamsulosin and finasteride because of dysphagia. Has Saini cath. Voiding trial once BPH meds resumed. (6) Hyperglycemia: Fasting blood sugar today = 105. Hyperglycemia secondary to TPN + teroid-induced hyperglycemia secondary to dexamethasone. Taper steroids as able. (7) Nutritional assessment: Has been essentially NPO since initial surgery due to postop dysphagia- now about 15 days. Probably best to avoid NG or PEG enteral feedings at this time in light of cervical surgery. Severe malnutrition: PO caloric / protein intake < 10% required weight 63 kg --> 56 kg (down 11%) serum albumin 2.4 on 10/23 Continue TPN until able to resume enteral feedings. (8) Leukocytosis: WBC 11/02 was 22,160. Leukocytosis probably secondary to steroid therapy with dexamethasone. No fever. Cough unchanged. UA- few WBCs, no bacteria. Chest x-ray- no infiltrates. Follow. (9) Abnormal CT scan, chest: Chest x-ray done 11/03 for evaluation of cough, leukocytosis. Possible pneumomediastinum was noted. CT of chest did not show pneumomediastinum. 22 mm cavitary lesion PARRISH noted. Post-inflammatory process favored, but f/u CT in 6 months recommended. (10) DVT prophylaxis: SCDs ordered. Ambulating. (11) Encounter for consultation: Thank you for this consultation. We will follow the patient with you during their hospital stay. My cell # is [phone]. You can reach a member of the [facility] Medicine Team 19/09 via pager @ [phone]. Subjective Recheck for medical management. Patient seen in their room around 0840. Surgical drain came out inadvertently yesterday. Less postop discomfort. Occasional cough, no SOB. NPO again because of apparent aspiration yesterday with clear liquids. Review of Systems: Constitutional- no fever. Cardiac- no chest pain. Pulmonary- as noted above. GI- passing flatus; no nausea, vomiting, diarrhea, melena, hematochezia. - Saini cath for urinary retention. Otherwise, as noted above. Physical Exam Physical Exam: Constitutional- afebrile, no acute distress Eyes- sclerae anicteric Neck- cervical collar Respiratory- clear to auscultation, no respiratory distress Cardiovascular- cardiac rhythm regular, no murmurs or gallops appreciated, no JVD, no pretibial edema or calf tenderness Gastrointestinal- normal bowel sounds, soft, nondistended, nontender - Saini cath Extremities- mild swelling right forearm, no erythema or warmth Skin- warm and dry, no rash Psychiatric- alert, oriented Results & Data Vital Signs (Past 12 Hours) Vital Signs Temp Pulse Resp BP Pulse Ox 11/04/18 07:32 63 15 96 11/04/18 06:54 36.5 C 67 18 135/83 97 11/04/18 03:33 36.4 C L 66 18 145/84 H 96 11/04/18 03:05 66 16 96 11/04/18 00:00 35.9 C L 61 18 145/75 H 96 11/03/18 23:35 60 16 97 Laboratory Results Abnormal Lab Results 11/04/18 05:32 Sodium 138 Potassium 4.1 Chloride 103 Carbon Dioxide 31 Anion Gap 4.0 BUN 31 H Creatinine 0.72 Est Cr Clr Drug Dosing 73.1 Est GFR ( Amer) 108.0 Est GFR (Non-Af Amer) 93.2 BUN/Creatinine Ratio 43.6 H Glucose 105 H Calcium 7.9 L Phosphorus 2.2 L Magnesium 2.1 AST 33 ALT 138 H
--- NOTE | 2018-11-04 09:00 | Pharmacy Report ---
PHA: Parenteral Nutrition Con - Date of Service November 04, 2018 - Objective Height: 5 ft 2.5 in Weight: 57 kg Diet: NPO Intake & Output (24hrs):: Intake & Output 11/02/18 11/03/18 11/04/18 11/05/18 06:59 06:59 06:59 06:59 Intake Total 1392.5 / 1392.5 Output Total 1170 / 1170 1610 / 1610 1510 / 1510 Balance -1170 / -1170 -217.5 / -217.5 -1510 / -1510 Weight 56.9 kg 57 kg Laboratory Data (Last 24 Hr):: 11/04/18 05:32 Sodium 138 Potassium 4.1 Chloride 103 Carbon Dioxide 31 BUN 31 H Creatinine 0.72 Glucose 105 H Calcium 7.9 L Phosphorus 2.2 L Magnesium 2.1 AST 33 ALT 138 H Nutrition Assessment:: Please refer to the Notes section of the EMR for the most recent hydraulic specialist note. - Assessment Mr. Davenport is a 73 yr old on day 10 of parenteral nutrition for failed swallow eval and dysphagia. Unable to place NG tube. * PICC line has been placed. Peripheral PN changed to central PN on 11/01 * Kcals are able to be maximized with central access * Has been receiving 50g lipid emulsion x 9 days. TG WNL on 10/29/18 but havent been re-assessed. Will decrease today and check TG tomorrow to reassess. * Adjust micronutrients per labs - Plan For day 10 of PN administration, the following will be ordered: decreased lipids and increased KPhos Macronutrients Amino acids 90 grams/day Dextrose 225 grams/day Lipids 25 grams/day Micronutrients Combined electrolytes 20 mL - contains 35 mEq Na, 20 meq K, 4.5 mEq Ca, 5 mEq Mg, 35 mEq Cl, 29.5 mEq acetate per 20 mL Sodium chloride 30 mEq Potassium phosphate 30 mMol Multivitamins 10 mL Trace Elements 1 mL Additional additives: folic acid 1 mg, thiamine 100 mg, pepcid 20 mg Total volume mL to be infused over 1800 hrs will provide 1625 kcal/day Labs, as indicated, will be ordered per protocol. Ordered TG level for tomorrow with AM labs Pharmacy will continue to follow and adjust parenteral nutrition orders on a daily basis. Thank you for allowing us to participate in the care of this patient.
--- NOTE | 2018-11-04 09:12 | Orthopedic Progress Note ---
Date of Service November 04, 2018 Assessment & Plan (1) S/P cervical spinal fusion: Due to his abnormal chest CT he needs follow-up for repeat scan in roughly 6 months time per radiologist recommendations. We will continue n.p.o. status. Continue Saini catheter and TPN nutrition. Will order cervical spine x-rays within the next day or 2 to assess hardware. Supervising Physician Co-Signing Physician Notes Dr. Alli Mojica Subjective Patient is postoperative day 2 revision ACDF and I&D. Original surgery was October 17. He had a chest CT yesterday. He is n.p.o. currently. has TPN nutrition. PICC line is in place for this. Denies radicular arm pain. Notes some tenderness around the incision and posterior cervical area. He is tolerating his secretions. Does note some dysphonia which is unchanged. Very little coughing. He is maintaining his sats. No shortness of breath. He is currently 96% on room air. Saini catheter intact. Review of Systems Review of Systems: All systems reviewed & are unremarkable except as noted in HPI & below Physical Exam Physical Exam: Magdalena J collar is intact. Cervical dressing is clean dry and intact. He sitting up alert and oriented without obvious distress. Speech is appropriate. Strength is 5 5 bilateral biceps, triceps, deltoid. Calves are soft nontender bilaterally. Results & Data Vital Signs (Past 12 Hours) Vital Signs Temp Pulse Resp BP Pulse Ox 11/04/18 07:32 63 15 96 11/04/18 06:54 36.5 C 67 18 135/83 97 11/04/18 03:33 36.4 C L 66 18 145/84 H 96 11/04/18 03:05 66 16 96 11/04/18 00:00 35.9 C L 61 18 145/75 H 96 11/03/18 23:35 [address] Scan Report Patient: KELLY THOMPSON Date: 10/17/18 MR#: [id number]: [address] [facility] Acct ID:[id number]: [facility]: 1945[facility] Zip[facility] [place] [address] Age: 73Location: 3E Sex: M Room/Bed: Banner Att Phy: Galina, Alli M.,D.O.Diagnosis: Other Spondylosis with Myelopathy, Cervical Region Xenia Phy: Maicol Korina Shar, DOService Date: 11/03/18 Fam Phy:Interpreting Phy: Abdoulaye Davila MD Admit Phy: Alli MojicaDIoanaO. Ordering Phy: Johnathon Mallory MD cc: ~ CT chest wo con CLINICAL HISTORY: Cough. Abnormal chest x-ray. RIGHT PARAMEDIASTINAL LUCENCY. COMPARISON STUDY: Chest x-ray dated 11/03/2018 CT DOSE: 239.21 mGy.cm TECHNIQUE: CT of the thorax was performed from the thoracic inlet to the lung bases. Images are reviewed in the axial, sagittal, and coronal planes. IV contrast was not administered for this examination. A dose lowering technique was utilized adhering to the principles of ALARA. FINDINGS: A right-sided central venous catheter is visualized, the tip of which terminates within the superior vena cava. Thyroid: Imaged portions of the thyroid gland are normal in appearance. Thoracic aorta: The thoracic aorta is normal in course and caliber, noting standard 3 vessel arch anatomy. Heart: The heart is normal in size. There are coronary artery calcifications present. Lungs and pleural spaces: No pleural effusions are visualized. There is pulmonary emphysema. There is no pneumothorax. There is no pneumomediastinum. The prior chest x-ray finding likely represented a projectional artifact. There is mild right lower lobe bronchial wall thickening and mucous plugging. There are areas of linear parenchymal scarring. There is a thin-walled 22 mm cavitary lesion within the left upper lobe anterior medially. Mediastinum: There is no mediastinal lymphadenopathy. Yuki: There is no evidence of pathologic hilar adenopathy given the limitations of a noncontrast study Axilla: There is no evidence of pathologic axillary lymphadenopathy Upper abdomen: Partially visualized upper abdominal viscera is within normal limits. Skeletal structures: There are no lytic or blastic osseous lesions. IMPRESSION: 1. No evidence of pneumothorax. No evidence of pneumomediastinum. The chest x- ray findings are felt to represent a projectional artifact 2. Pulmonary emphysema 3. Scattered areas of cortical scarring 4. Right lower lobe bronchial wall thickening and mucous plugging 5. Thin-walled 22 mm cavitary lesion within the left upper lobe. A postinflammatory focus is favored over neoplasm although the lesion is indeterminate. A six-month follow-up CT scan is recommended. Electronically signed by: Abdoulaye Davila M.D. 11/03/2018 11:27 AM
[2018-11-04] MEDS: PANTOprazole 40 MG TAB PO SCH (20:13)
[2018-11-04] MEDS: TAMSULOSIN HCL 0.4 MG CAP PO SCH (20:13)
[2018-11-04] MEDS: FINASTERIDE 5 MG TAB PO SCH (20:13)
[2018-11-05] MEDS: HYDROmorphone INJ 0.5 MG/0.5 ML SYR IV PRN ×6 (03:18→23:26)
[2018-11-05 06:32] LABS: BUN Creatinine Ratio 45.3 (10-20); Calcium 7.7 mg/dl (8.5-10.1); Creatinine Clr Calc Pharmacy 82.3 ml/min; Est GFR (African American) 113.4; Est GFR (Non-African American) 97.8; Phosphorus 2.3 mg/dl (2.5-4.9); Potassium 4.1 mmol/L (3.5-5.1)
[2018-11-05] MEDS: TIOTROPIUM BROMIDE 5 PUFF/90 MCG INH INH SCH (07:56)
[2018-11-05] MEDS: DEXAMETHASONE SOD PHOSPHATE 8 MG in SYRINGE 0 ML IV SCH (07:56)
--- NOTE | 2018-11-05 08:06 | Anesthesiology Progress Note ---
Date of Service November 05, 2018 Anesthesia Post Procedure Vital Signs Vital Signs: Temp Pulse Resp BP Pulse Ox 11/05/18 07:31 60 18 96 11/05/18 06:48 36.5 C 64 18 136/81 97 11/05/18 03:15 64 16 96 11/04/18 23:03 36.4 C L 65 16 144/80 H 98 11/04/18 23:02 64 16 98 11/04/18 19:09 66 18 96 11/04/18 15:57 36.6 C 68 16 135/83 96 11/04/18 15:13 67 17 97 11/04/18 11:55 36.3 C L 62 16 124/79 97 11/04/18 11:14 16 96 Pain Intensity Anterior Neck: Pain Intensity: 0 Notes Mental Status: alert / awake / arousable and participated in evaluation Nausea / Vomiting: adequately controlled Pain: adequately controlled Airway Patency, RR, SpO2: stable & adequate BP & HR: stable & adequate Hydration State: stable & adequate
--- NOTE | 2018-11-05 11:47 | Fluoroscopy Report ---
MODIFIED BARIUM SWALLOW CLINICAL HISTORY: r/o aspiration COMPARISON STUDY: Modified barium swallow October 30, 2018. FLUOROSCOPY TIME: 1.6 minutes. TECHNIQUE: A modified barium swallow was performed in conjunction with Speech Pathology. The patient ingested varying consistencies of barium containing material. Video fluoroscopy was performed. FINDINGS: Multiple episodes of tracheal aspiration were noted with swallows of thin liquids as well a s nectar thick liquids. Residuals were noted within the vallecula and piriform sinuses. No additional consistencies were tested. Postoperative findings within the cervical spine are noted. IMPRESSION: 1. Multiple episodes of tracheal aspiration with swallows of thin liquids and nectar thick liquids. 2. Full recommendations by speech pathology to follow. Electronically signed by: Dashawn Lim M.D. 11/05/2018 11:46 AM
--- NOTE | 2018-11-05 13:17 | Orthopedic Progress Note ---
Date of Service November 05, 2018 Assessment & Plan (1) Cervical disc disease: At this time we will continue physical therapy. He is working with speech pathology. Were hoping for rehab placement next few days. Present on Admission?: Yes Subjective Patient is neck pain is well controlled on symptoms improving. He states is able to swallow swallow water without difficulty. Physical Exam Physical Exam: On exam he has good strength testing his collar is in place. Results & Data Vital Signs (Past 12 Hours) Vital Signs Temp Pulse Resp BP Pulse Ox 11/05/18 11:25 60 18 96 11/05/18 07:31 60 18 96 11/05/18 06:48 36.5 C 64 18 136/81 97 11/05/18 03:15 64 16 96
--- NOTE | 2018-11-05 19:19 | Hospitalist Progress Note ---
Date of Service November 05, 2018 Assessment & Plan (1) S/P cervical spinal fusion: Management per Ortho Spine. S/P revision. (2) Dysphagia: Postop dysphagia. Received IV dexamethasone without significant improvement. Revision of anterior cervical decompression / fusion performed with transient improvement of symptoms. Seen by SOFTWARE SALES MANAGER and ENT. Video swallowing study 10/30 demonstrated pharyngeal dysphagia and aspiration. Being followed by SOFTWARE SALES MANAGER. Follow-up assessment today demonstrated persistent aspiration. Consideration of PEG recommended. (3) Chronic obstructive pulmonary disease: Pulmonary status stable. (4) GERD (gastroesophageal reflux disease): Continue PPI. (5) BPH (benign prostatic hyperplasia): Unable to take tamsulosin and finasteride because of dysphagia. Has Saini cath. Voiding trial once BPH meds resumed. (6) Hyperglycemia: Blood sugars as high as 160. Hyperglycemia secondary to TPN + teroid-induced hyperglycemia secondary to dexamethasone. Fasting blood sugar today = 104. Taper steroids as able. (7) Nutritional assessment: Has been essentially NPO since initial surgery due to postop dysphagia- now about 15 days. Probably best to avoid NG or PEG enteral feedings at this time in light of cer vical surgery. Severe malnutrition: PO caloric / protein intake < 10% required weight 63 kg --> 56 kg (down 11%) serum albumin 2.4 on 10/23 Continue TPN until able to resume enteral feedings. Follow-up SOFTWARE SALES MANAGER evaluation today with repeat video swallow showed persistent aspiration. PEG recommended. Will discuss with Ortho. (8) Leukocytosis: WBC 11/02 was 22,160. Leukocytosis probably secondary to steroid therapy with dexamethasone. No fever. Cough unchanged. UA- few WBCs, no bacteria. Chest x-ray- no infiltrates. Follow. (9) Abnormal CT scan, chest: Chest x-ray done 11/03 for evaluation of cough, leukocytosis. Possible pneumomediastinum was noted. CT of chest did not show pneumomediastinum. 22 mm cavitary lesion PARRISH noted. Post-inflammatory process favored, but f/u CT in 6 months recommended. (10) DVT prophylaxis: SCDs ordered. Ambulating. (11) Encounter for consultation: Thank you for this consultation. We will follow the patient with you during their hospital stay. My cell # is [phone]. You can reach a member of the [facility] Medicine Team 19/09 via pager @ [phone]. Subjective Recheck for medical management. Patient seen in their room around 1510. No fever. Occasional cough. No SOB. Re-evaluated by SOFTWARE SALES MANAGER. Persistent aspiration noted on video swallow. Ambulating. Review of Systems: Constitutional- no fever. Cardiac- no chest pain. Pulmonary- as noted above. GI- passing flatus; no nausea, vomiting, diarrhea, melena, hematochezia. - Saini cath for urinary retention. Otherwise, as noted above. Physical Exam Physical Exam: Constitutional- afebrile, no acute distress Eyes- sclerae anicteric Neck- cervical collar Respiratory- clear to auscultation, no respiratory distress Cardiovascular- cardiac rhythm regular, no murmurs or gallops appreciated, no JVD, no pretibial edema or calf tenderness Gastrointestinal- normal bowel sounds, soft, nondistended, nontender - Saini cath Extremities- mild swelling right forearm, no erythema or warmth; PICC site OK Skin- warm and dry, no rash Psychiatric- alert, oriented Results & Data Vital Signs (Past 12 Hours) Vital Signs Temp Pulse Resp BP Pulse Ox 11/05/18 15:27 75 16 97 11/05/18 15:04 36.5 C 71 16 133/79 97 11/05/18 11:25 60 18 96 11/05/18 07:31 60 18 96 Laboratory Results Laboratory Results - last 24 hr 11/05/18 05:26 Sodium 138 Potassium 4.1 Chloride 102 Carbon Dioxide 30 Anion Gap 6.0 BUN 29 H Creatinine 0.64 Est Cr Clr Drug Dosing 82.3 Est GFR ( Amer) 113.4 Est GFR (Non-Af Amer) 97.8 BUN/Creatinine Ratio 45.3 H Glucose 104 H Calcium 7.7 L Phosphorus 2.3 L Magnesium 2.0 AST 22 ALT 110 H Triglycerides 70
[2018-11-05] MEDS: TAMSULOSIN HCL 0.4 MG CAP PO SCH (19:29)
[2018-11-05] MEDS: FINASTERIDE 5 MG TAB PO SCH (19:30)
[2018-11-05] MEDS: PANTOprazole 40 MG TAB PO SCH (19:30)
[2018-11-06] MEDS: HYDROmorphone INJ 0.5 MG/0.5 ML SYR IV PRN ×6 (03:22→23:52)
[2018-11-06 06:47] LABS: Calcium 8.2 mg/dl (8.5-10.1); Creatinine Clr Calc Pharmacy 84.9 ml/min; Est GFR (African American) 114.9; Est GFR (Non-African American) 99.1; Magnesium 2.1 mg/dl (1.8-2.4); Potassium 4.2 mmol/L (3.5-5.1)
[2018-11-06 06:55] LABS: Phosphorus 2.9 mg/dl (2.5-4.9)
[2018-11-06] MEDS: DEXAMETHASONE SOD PHOSPHATE 8 MG in SYRINGE 0 ML IV SCH (08:18)
[2018-11-06] MEDS: TIOTROPIUM BROMIDE 5 PUFF/90 MCG INH INH SCH (08:19)
--- NOTE | 2018-11-06 09:54 | Orthopedic Progress Note ---
Date of Service November 06, 2018 Assessment & Plan (1) S/P cervical spinal fusion: This time we had a lengthy discussion regarding a possible PEG placement. Patient understands and agrees. He will maintain his collar as requested. Present on Admission?: Yes Subjective Patient still able to tolerate some small amounts of liquid for swelling. Arm symptoms leg symptoms still improved. He is ambulate in halls with therapy. Physical Exam Physical Exam: The collar is in place. Is good strength testing. Results & Data Vital Signs (Past 12 Hours) Vital Signs Temp Pulse Resp BP Pulse Ox 11/06/18 07:32 62 16 97 11/06/18 07:13 36.4 C L 65 16 134/79 98 11/06/18 02:34 60 16 98 11/05/18 23:08 69 18 97 11/05/18 23:05 36.3 C L 68 14 148/82 H 98
[2018-11-06] MEDS: PANTOprazole 40 MG TAB PO SCH ×2 (20:08→20:11)
[2018-11-06] MEDS: TAMSULOSIN HCL 0.4 MG CAP PO SCH ×2 (20:08→20:10)
[2018-11-06] MEDS: FINASTERIDE 5 MG TAB PO SCH ×2 (20:08→20:10)
--- NOTE | 2018-11-06 20:50 | Hospitalist Progress Note ---
Date of Service November 06, 2018 Assessment & Plan (1) S/P cervical spinal fusion: Management per Ortho Spine. S/P revision. (2) Dysphagia: Postop dysphagia. Received IV dexamethasone without significant improvement. Revision of anterior cervical decompression / fusion performed with transient improvement of symptoms. Seen by PEDIATRIC LICENSED PRACTICAL NURSE and ENT. Video swallowing study 10/30 demonstrated pharyngeal dysphagia and aspiration. Being followed by PEDIATRIC LICENSED PRACTICAL NURSE. Follow-up assessment 11/05 demonstrated persistent aspiration. (3) Chronic obstructive pulmonary disease: Pulmonary status stable. (4) GERD (gastroesophageal reflux disease): Continue PPI. (5) BPH (benign prostatic hyperplasia): Unable to take tamsulosin and finasteride because of dysphagia. Has Saini cath. Voiding trial once BPH meds resumed. (6) Hyperglycemia: Blood sugars as high as 160. Hyperglycemia secondary to TPN + teroid-induced hyperglycemia secondary to dexamethasone. Fasting blood sugar today = 109. Taper steroids as able. (7) Nutritional assessment: Has been essentially NPO since initial surgery due to postop dysphagia- now about 15 days. Probably best to avoid NG or PEG enteral feedings at this time in light of cervical surgery. Severe malnutrition: PO caloric / protein intake < 10% required weight 63 kg --> 56 kg (down 11%) serum albumin 2.4 on 10/23 Continue TPN until able to resume enteral feedings. PEG recommended for enteral nutritional support pending follow-up swallowing evaluation in 3-4 weeks. PEG discussed with Ortho and GI- should be able to do procedure with cervical collar applied. Discussed with patient- he would like to proceed. Taper TPN as enteral feedings initiated. (8) Leukocytosis: WBC 11/02 was 22,160. Leukocytosis probably secondary to steroid therapy with dexamethasone. No fever. Cough unchanged. UA- few WBCs, no bacteria. Chest x-ray- no infiltrates. Follow. (9) Abnormal CT scan, chest: Chest x-ray done 11/03 for evaluation of cough, leukocytosis. Possible pneumomediastinum was noted. CT of chest did not show pneumomediastinum. 22 mm cavitary lesion PARRISH noted. Post-inflammatory process favored, but f/u CT in 6 months recommended. Discussed with pt. He has been followed by Pulmonary Medicine for abnormal CT of chest. Requested that images be copied to CD and sent to his youth program director Dr. Rivas at [facility]. (10) DVT prophylaxis: SCDs ordered. Ambulating. (11) Encounter for consultation: Thank you for this consultation. We will follow the patient with you during their hospital stay. My cell # is [phone]. You can reach a member of the [facility] Medicine Team 19/09 via pager @ [phone]. Subjective Recheck for medical management. Patient seen in their room around 1530. No fever. NPO except for sips / ice chips. Doing exercises for dysphagia as instructed by PEDIATRIC LICENSED PRACTICAL NURSE. Occasional cough. No SOB. Ambulating. Review of Systems: Constitutional- no fever. Cardiac- no chest pain. Pulmonary- as noted above. GI- passing flatus, occasional stool; no nausea, vomiting, diarrhea, melena, hematochezia. - Saini cath for urinary retention. Otherwise, as noted above. Physical Exam Constitutional: no acute distress Neck: + abnormal visual inspection (cervical collar) Respiratory: no respiratory distress Auscultation: lungs clear to auscultation bilaterally Cardiovascular: Rate/Rhythm: regular rate and regular rhythm Heart Sounds: no gallop, no murmur and no cardiac rub Vessels: no JVD Extremities: no calf tenderness and no edema Gastrointestinal (Abdomen): normal bowel sounds, soft, nontender, no hepatosplenomegaly Musculoskeletal: SCD's applied Skin: no rashes, warm and dry Psychiatric: Orientation: alert and oriented x 3 Genitourinary: + bladder abnormality (Saini cath) Results & Data Vital Signs (Past 12 Hours) Vital Signs Temp Pulse Resp BP Pulse Ox 11/06/18 18:52 82 18 99 11/06/18 16:02 36.4 C L 85 16 135/85 97 11/06/18 15:41 72 20 97 11/06/18 11:40 81 20 96 Laboratory Results Laboratory Results - last 24 hr 11/06/18 05:36 Sodium 139 Potassium 4.2 Chloride 103 Carbon Dioxide 32 Anion Gap 3.0 BUN 27 H Creatinine 0.62 Est Cr Clr Drug Dosing 84.9 Est GFR ( Amer) 114.9 Est GFR (Non-Af Amer) 99.1 BUN/Creatinine Ratio 43.0 H Glucose 109 H Calcium 8.2 L Phosphorus 2.9 Magnesium 2.1 AST 14 L ALT 90 H
[2018-11-07] MEDS: HYDROmorphone INJ 0.5 MG/0.5 ML SYR IV PRN ×6 (04:30→22:02)
[2018-11-07 07:10] LABS: BUN Creatinine Ratio 43.9 (10-20); Calcium 7.9 mg/dl (8.5-10.1); Creatinine Clr Calc Pharmacy 89.2 ml/min; Est GFR (African American) 117.2; Est GFR (Non-African American) 101.1; Phosphorus 2.9 mg/dl (2.5-4.9); Potassium 4.4 mmol/L (3.5-5.1)
[2018-11-07] MEDS ORDERED: CEFAZOLIN 2000MG 2,000 MG/15 ML SYR IV ONE (08:30)
[2018-11-07] MEDS: TIOTROPIUM BROMIDE 5 PUFF/90 MCG INH INH SCH (08:35)
[2018-11-07 09:03] LABS: Basophils # (auto) 0.02 K/uL (0-0.2); Basophils % (auto) 0.1 %; Eosinophils # (auto) 0.12 K/uL (0-0.5); Eosinophils % (auto) 0.6 %; Hematocrit (blood only) 46.7 % (42-52); Hemoglobin 15.5 g/dL (14.0-18.0); Immature Granulocytes # (auto) 0.32 K/uL (0.00-0.02); Immature Granulocytes % (auto) 1.6 %; Lymphocytes % (auto) 6.8 %; Mean Corpuscular Volume 87.3 fL (80-100); Mean Platelet Volume 11.4 fL (7.4-10.4); Monocytes # (auto) 1.98 K/uL (0.11-0.59); Monocytes % (auto) 9.7 %; Neutrophils # (auto) 16.62 K/uL (1.4-6.5); Neutrophils % (auto) 81.2 %; Platelet Count 194 K/uL (130-400); RDW Coefficient of Variation 14.6 % (11.5-14.5); RDW Standard Deviation 45.9 fL (36.4-46.3); Red Blood Count 5.35 M/uL (4.7-6.1); White Blood Count 20.46 K/uL (4.8-10.8)
[2018-11-07 09:08] LABS: Mean Corpuscular Hgb Conc 33.2 g/dL (32-36)
[2018-11-07 09:15] LABS: INR 1.2 (0.9-1.1)
--- NOTE | 2018-11-07 09:29 | Orthopedic Progress Note ---
Date of Service November 07, 2018 Assessment & Plan (1) Cervical disc disease: This time will maintain the cervical collar at all times. He is scheduled for possible PEG tube placement the next day or so. We are hoping for acute hospital placement in the next day or so. Present on Admission?: Yes Subjective Patient tolerating small sips of water only. Arm and leg symptoms continue to improve. He has been cooperative with his cervical mobilization. Physical Exam Physical Exam: On exam is good strength testing collar is in place. Results & Data Vital Signs (Past 12 Hours) Vital Signs Temp Pulse Resp BP Pulse Ox 11/07/18 07:17 36.4 C L 80 18 145/81 H 98 11/07/18 07:10 87 18 99 11/07/18 03:30 70 16 97 11/06/18 23:50 78 16 97 11/06/18 23:30 36.4 C L 69 15 137/85 98
[2018-11-07] MEDS: DEXAMETHASONE SOD PHOSPHATE 8 MG in SYRINGE 0 ML IV SCH (09:48)
--- NOTE | 2018-11-07 10:02 | Pharmacy Report ---
PHA: Parenteral Nutrition Con - Date of Service November 07, 2018 - Scope Pharmacy was consulted on 10/26 to manage parenteral nutrition orders for this patient. - Subjective The patient is currently on day 12 of central parenteral nutrition for failed swallow eval s/p cervical surgery, prolonged NPO status and initial inability to place NG or PEG tube d/t recent surgery. - Objective Height: 5 ft 2.5 in Weight: 56.3 kg Diet: NPO Vascular Access:: PICC Intake & Output (24hrs):: Intake & Output 11/05/18 11/06/18 11/07/18 11/08/18 06:59 06:59 06:59 06:59 Intake Total 100 / 100 Output Total 1650 / 1650 2275 / 2275 2150 / 2150 Balance -1550 / -1550 -2275 / -2275 -2150 / -2150 Weight 56.9 kg 56.3 kg Laboratory Data (Last 24 Hr):: 11/07/18 05:32 Sodium 139 Potassium 4.4 Chloride 104 Carbon Dioxide 29 BUN 26 H Creatinine 0.59 L Glucose 102 H Calcium 7.9 L Phosphorus 2.9 Magnesium 2.0 AST 14 L ALT 77 Nutrition Assessment:: Please refer to the Notes section of the EMR for the most recent dentistry teacher note. - Assessment * Plan for PEG tube placement tomorrow, 11/08, so PN can be titrated off once patient tolerating at least 50-75% of estimated needs * Current macronutrient allotment in PN provides > 30% of NPC as lipids. Will adjust this today to provide closer to 30%. * Patient with good urine output (2275 mL) yesterday. No other significant ou tput. * Electrolytes remain stable - only minor changes made to K for today - Plan For day 13 of PN administration, the following will be ordered: Macronutrients Amino acids 90 grams/day Dextrose 250 grams/day (3.2 mg/kg/min) Lipids 40 grams/day Micronutrients Sodium chloride 65 mEq Potassium phosphate 42 mMol Magnesium sulfate 4.06 mEq Calcium gluconate 4.65 mEq Multivitamins 10 mL Trace Elements 1 mL Additional additives: Thiamine 100 mg Folic acid 1 mg Pepcid 20 mg - appears this was added as patient unable to take po Protonix Total volume 1800 mL to be infused over 24 hrs will provide 1610 kcal/day Labs, as indicated, will be ordered per protocol Pharmacy will continue to follow and adjust parenteral nutrition orders on a daily basis. Thank you for allowing us to participate in the care of this patient.
--- NOTE | 2018-11-07 12:06 | Gastrointestinal Consultation ---
Date of Consultation November 07, 2018 Assessment & Plan (1) S/P cervical spinal fusion: (2) Dysphagia: Pt is a 73 y/o male w hx of cervical disc disease s/p decompression, discectomy, fusion on 10/17, 10/23, 11/02. Since post op has issues w dysphagia and swallow study reveals aspirations. - Keep NPO; continue TPN - Plan for EGD w PEG placement by Dr. Novak on 11/08. Ancef 2g IV antibx to be sent down to endoscopy holding on day of procedure Supervising Physician Co-Signing Physician Notes I performed a history and physical examination of the patient, including specifically on physical exam - soft, nontender abdomen. I have discussed the patient's management with Aleisha. Please refer to the nurse practitioner's note for the documented findings and plan of care. PEG tube placement tomorrow. Patient agreed. History of Present Illness Reason for Consultation: Dysphagia, request for PEG placement Requesting Physician: Dr. Johnathon Mallory Attending Physician: Dr. Tana Novak History of Present Illness Pt is a 73 y/o male w hx of cervical disc disease, s/p discectomy, decompression and fusion on 10/17, 10/23, 11/02. Post op he started to notice having trouble swallowing even water and saliva - kept spitting/coughing them up and having pain on throat. He denies any reflux, heartburn, trouble chocking on foods or coughing prior to his surgeries. He had been evaluated by ENT, Speech Therapy. Trial of Dexamethasone to help w cervical area swelling w/o improvement in swallowing function. His swallow studies shows signs of aspiration. He is currently NPO, on TPN. He is tolerating small amts of ice chips. He denies any hx of upper endoscopy. Hx of appendectomy. Allergies Allergy/AdvReac Type Severity Reaction Status Date / Time chlordiazepoxide Allergy Unknown Hives Verified 10/17/18 08:26 [From Librax (with clidinium)] clidinium Allergy Unknown Hives Verified 10/17/18 08:26 [From Librax (with clidinium)] nitroglycerin Allergy Unknown CARDIAC Verified 10/17/18 08:26 ARREST aspirin AdvReac Unknown GI BLEED Verified 10/17/18 08:26 Home Medications Home Medications Medication Instructions Recorded Confirmed Type finasteride 5 mg PO QPM 10/03/18 10/17/18 History fluticasone furoate-vilanterol 1 inh INHALATION QAM 10/03/18 10/17/18 History [Breo Ellipta] meloxicam 15 mg PO DAILY PRN 10/03/18 10/17/18 History pantoprazole 40 mg PO QPM 10/03/18 10/17/18 History tamsulosin 0.8 mg PO QPM 10/03/18 10/17/18 History tiotropium bromide [Spiriva 2 puff INHALATION QAM 10/03/18 10/17/18 History Respimat] albuterol sulfate 2 puff INHALATION QID PRN 10/17/18 10/17/18 History oxycodone-acetaminophen [Percocet] 1 tab PO Q4H PRN #20 tab 10/19/18 Rx Patient History Medical History Abnormal CT scan, chest (Chronic) Chronic obstructive pulmonary disease (Chronic) EMPHYSEMA Lung nodules (Chronic) 2 Stable, 2 new ones being followed Memory change (Chronic) PER DAUGHTER GERD (gastroesophageal reflux disease) (Chronic) BPH (benign prostatic hyperplasia) (Chronic) Cervical disc disease (Chronic) Abdominal aortic aneurysm (Chronic) Followed by PCP Neuropathy (Chronic) BLE Ambulatory dysfunction (Chronic) Surgical History Hx of cardiac cath (Chronic) TYRA IVONE - 2016 H/O colonoscopy (Chronic) History of bronchoscopy (Chronic) H/O cervical spine surgery 10/17/2018. Anesthesia record not yet available. Family History Grandmother (Paternal) Family history of diabetes mellitus Social History Preferred Language: Chinese Communication Ability: Effective Beliefs That Will Affect Care: None Current Living Situation: Family Feels Safe at Home: Yes Smoking Status: Former smoker Cigarettes Per Day: 1ppd x 60 ; Do You Dip or Chew Tobacco: No ; Smoking End Date: 11/2016 ; Second Hand Exposure: Yes (DAILY) ; Hx Alcohol Use: No Hx Substance Use: No Review of Systems Review of Systems: All systems reviewed & are unremarkable except as noted in HPI & below Physical Exam Constitutional: WD/WN, vitals as above well groomed, cooperative and comfortable Eyes: PERRL, conjunctivae normal, anicteric sclerae ENMT: external ear and nose normal, oropharynx normal Respiratory: normal respiratory effort, lungs clear to auscultation Cardiovascular: RRR, no murmur, no edema Gastrointestinal (Abdomen): normal bowel sounds, soft, nontender, no hepatosplenomegaly Skin: no rashes, warm and dry no jaundice Psychiatric: A+Ox3, euthymic affect Lymphatic: no lymphedema Results & Data Vital Signs (Past 12 Hours) Vital Signs Temp Pulse Resp BP Pulse Ox 11/07/18 11:18 81 16 97 11/07/18 07:17 36.4 C L 80 18 145/81 H 98 11/07/18 07:10 87 18 99 11/07/18 03:30 70 16 97
--- NOTE | 2018-11-07 14:11 | XRay Report ---
XR cervical spine 2 or 3V HISTORY: Pain. assess cervical hardware COMPARISON: 10/31/2018 FINDINGS: The cervical spine is visualized from C1 through the superior endplate of T1. There is no f racture. No subluxation. Postoperative changes consistent with anterior cervical fusion and corpecto my changes previously described are again noted. There is now grade contact and normal alignment of the anterior fixating plate. There appears to been advancement of the screw retention components at the C3 level. Prevertebral soft tissues and the susan antodens interval are intact. IMPRESSION: 1. Anatomic alignment post anterior cervical fusion and corpectomy. 2. Metallic hardware is intact and now appears to be aligned anatomically. 3. The previously described plate separation at the anterior aspect of C3 is no longer present. 4. Hardware now is appropriately aligned and is intact. The above report was generated using voice recognition software. It may contain grammatical, syntax or spelling errors. Electronically signed by: Denny Butler M.D. 11/07/2018 2:10 PM
[2018-11-07] MEDS: TAMSULOSIN HCL 0.4 MG CAP PO SCH (19:09)
[2018-11-07] MEDS: PANTOprazole 40 MG TAB PO SCH (19:10)
[2018-11-07] MEDS: FINASTERIDE 5 MG TAB PO SCH (19:10)
--- NOTE | 2018-11-07 19:23 | Hospitalist Progress Note ---
Date of Service November 07, 2018 Assessment & Plan (1) S/P cervical spinal fusion: Management per Ortho Spine. S/P revision. (2) Dysphagia: Per Dr. Mallory notes: Postop dysphagia. Seen by DEVELOPMENT MECHANIC and ENT. Video swallowing study 10/30 demonstrated pharyngeal dysphagia and aspiration. Being followed by DEVELOPMENT MECHANIC. Follow-up assessment 11/05 demonstrated persistent aspiration. --For PEG tube placement tomorrow No medical contra indication for planned procedure (3) Chronic obstructive pulmonary disease: Pulmonary status stable. (4) GERD (gastroesophageal reflux disease): Continue PPI. (5) BPH (benign prostatic hyperplasia): Per Dr. Mallory notes: Unable to take tamsulosin and finasteride because of dysphagia. Has Saini cath. Voiding trial once BPH meds resumed. (6) Hyperglycemia: Dr. Mallory notes: Blood sugars as high as 160. Hyperglycemia secondary to TPN + teroid-induced hyperglycemia secondary to dexamethasone. Taper steroids as able. (7) Nutritional assessment: Per Dr. Mallory notes: N.p.o. since initial surgery Severe malnutrition: PO caloric / protein intake < 10% required weight 63 kg --> 56 kg (down 11%) serum albumin 2.4 on 10/23 PEG recommended for enteral nutritional support pending follow-up swallowing ev aluation in 3-4 weeks. PEG tube placement tomorrow Taper TPN as enteral feedings initiated. (8) Leukocytosis: WBC 11/02 was 22,160. Leukocytosis probably secondary to steroid therapy with dexamethasone. No clear focus of infection at this time. Monitor closely (9) Abnormal CT scan, chest: Dr. Mallory notes: Chest x-ray done 11/03 for evaluation of cough, leukocytosis. Possible pneumomediastinum was noted. CT of chest did not show pneumomediastinum. 22 mm cavitary lesion PARRISH noted. Post-inflammatory process favored, but f/u CT in 6 months recommended. Discussed with pt. He has been followed by Pulmonary Medicine for abnormal CT of chest. Requested that images be copied to CD and sent to his billet assembler Dr. Rivas at [facility]. (10) DVT prophylaxis: SCDs ordered. Ambulating. (11) Encounter for consultation: Thank you for this consultation. We will follow the patient with you during their hospital stay. My cell # is [phone] You can reach a member of the [facility] Medicine Team 19/09 via pager @ [phone]. Subjective ff up for dysphasia, postop cervical spine surgery Seen resting in bed, comfortable, sitting up, not in distress States he feels fine overall, has tolerable neck pain Denies nausea, abdominal pain, chest pain, shortness of breath, palpitations, dizziness Tolerating ice chips well No other symptoms Review of Systems Review of Systems: All systems reviewed & are unremarkable except as noted in HPI & below Physical Exam Physical Exam: General- oriented x 3, not in distress, speaks in sentences with no effort or accessory muscle use Eyes- anicteric Neck-cervical collar in place Lungs- clear breath sounds bilaterally, no rales/wheezes Heart- normal rate, regular rhythm; no murmurs Abdomen- normal bowel sounds, nondistended, soft, nontender Extremities- no pretibial edema, no calf tenderness Neuro- alert, oriented x 3; no gross focal neurologic deficits Skin- warm & dry Results & Data Vital Signs (Past 12 Hours) Vital Signs Temp Pulse Resp BP Pulse Ox 11/07/18 18:56 74 16 97 11/07/18 15:37 72 14 97 11/07/18 15:21 35.8 C L 78 20 103/68 98 11/07/18 13:04 98 11/07/18 11:18 81 16 97
[2018-11-08] MEDS: HYDROmorphone INJ 0.5 MG/0.5 ML SYR IV PRN ×7 (01:17→21:21)
[2018-11-08 06:46] LABS: BUN Creatinine Ratio 49.2 (10-20); Calcium 7.7 mg/dl (8.5-10.1); Creatinine Clr Calc Pharmacy 84.9 ml/min; Est GFR (African American) 114.9; Est GFR (Non-African American) 99.1; Potassium 4.4 mmol/L (3.5-5.1)
[2018-11-08] MEDS: DEXAMETHASONE SOD PHOSPHATE 8 MG in SYRINGE 0 ML IV SCH (07:38)
[2018-11-08] MEDS ORDERED: CEFAZOLIN 2000MG 2,000 MG/15 ML SYR IV ONE (08:00)
[2018-11-08] MEDS: TIOTROPIUM BROMIDE 5 PUFF/90 MCG INH INH SCH (08:16)
--- NOTE | 2018-11-08 09:48 | History & Physical Bridge Note ---
Date of Service November 08, 2018 History & Physical Bridge Note I have examined the patient, reviewed the History & Physical and in the interval since the performance of the History & Physical I have noted the following changes of clinical significance: no changes noted No acute events overnight, denies any abd pain, n/v. On TPN and been NPO. VS, labs reviewed. Exam: - Pt in C collar, in NAD, AAOx3. - CTA bilateral lungs - HRR - Abd soft, non tender, BS present GI will give further recs after EGD w PEG placement is completed Supervising Physician Co-Signing Physician Notes I performed a history and physical examination of the patient, including specifically on physical exam - soft, nontender abdomen. I have discussed the patient's management with Aleisha. Please refer to the nurse practitioner's note for the documented findings and plan of care. PEG today.
[2018-11-08] MEDS: ACETAMINOPHEN 1,000 MG/100 ML VIAL IV PRN (11:39)
--- NOTE | 2018-11-08 12:28 | Orthopedic Progress Note ---
Date of Service November 08, 2018 Assessment & Plan (1) Cervical stenosis of spinal canal: Patient is to undergo PEG tube placement today. We will continue ambulation as tolerated. Hopefully be stable for discharge in the next few days. Present on Admission?: Yes Subjective Patient has noted improvement with swallowing his ice chips. He is been ambulating the halls as requested. Arm symptoms continue to be improved. He is scheduled for a PEG tube placement today. Physical Exam Physical Exam: Patient is in bed has good strength testing. Results & Data Vital Signs (Past 12 Hours) Vital Signs Temp Pulse Resp BP Pulse Ox 11/08/18 11:10 74 16 98 11/08/18 07:36 36.4 C L 71 16 125/75 99 11/08/18 07:10 68 16 98 11/08/18 03:35 58 L 16 98
[2018-11-08] MEDS ORDERED: LIDOCAINE HCL 2% 2 ML VIAL/AMP(20MG/ML) INFIL ONE (13:24)
[2018-11-08] MEDS ORDERED: PROPOFOL IV EMULSION 10 MG/ML 20 ML VIAL IV ONE (13:24)
--- NOTE | 2018-11-08 13:55 | Anesthesiology Consultation ---
Date of Service November 08, 2018 Assessment & Plan (1) Encounter for pre-operative examination: Chart Review Chart Review: Acceptable Risk for Surgery and Patient NOT seen in Pre Admission Testing Consults Requested none ASA ASA3 Proposed Anesthesia Anesthesia Type: MAC Risk / Benefits Reviewed With: PT / POA / Parent / Guardian, Accepts Plan and I nformed Consent Obtained History Surgery Operation Date: 10/17/18 10:25 Proposed Procedures p C4 Corpectomy, C3-C6 Discectomy and Fusion, Spinal Cord Monitoring - Alli Mojica DO Operation Date: 10/23/18 07:00 Proposed Procedures p Incision and Drainage Cervical Spine Evacuation Hematoma - Alli Mojica DO Operation Date: 11/02/18 07:45 Proposed Procedures p C3-C6 Anterior Cervical Spine Revision of Hardware - Alli Mojica DO Operation Date: 11/08/18 08:30 Proposed Procedures p Esophagogastroduodenoscopy Dr Scarlet Novak MD s Peg Tube Placement Dr Scarlet Novak MD Height/Weight Height: 5 ft 2.5 in Weight: 56.3 kg Allergies Allergy/AdvReac Type Severity Reaction Status Date / Time chlordiazepoxide Allergy Unknown Hives Verified 10/17/18 08:26 [From Librax (with clidinium)] clidinium Allergy Unknown Hives Verified 10/17/18 08:26 [From Librax (with clidinium)] nitroglycerin Allergy Unknown CARDIAC Verified 10/17/18 08:26 ARREST aspirin AdvReac Unknown GI BLEED Verified 10/17/18 08:26 Medications Home Medications Medication Instructions Recorded Confirmed Last Taken finasteride 5 mg PO QPM 10/03/18 10/17/18 10/16/18 23:00 fluticasone furoate-vilanterol 1 inh INHALATION QAM 10/03/18 10/17/18 10/16/18 11:00 [Breo Duniata] meloxicam 15 mg PO DAILY PRN 10/03/18 10/17/18 10/13/18 pantoprazole 40 mg PO QPM 10/03/18 10/17/18 10/16/18 23:00 tamsulosin 0.8 mg PO QPM 10/03/18 10/17/18 10/16/18 23:00 tiotropium bromide [Spiriva 2 puff INHALATION QAM 10/03/18 10/17/18 10/16/18 11:00 Respimat] albuterol sulfate 2 puff INHALATION QID PRN 10/17/18 10/17/18 Unknown oxycodone-acetaminophen [Percocet] 1 tab PO Q4H PRN #20 tab 10/19/18 Unknown Active Medications Generic Name Dose Route Start Last Admin Trade Name Freq PRN Reason Stop Dose Admin Finasteride 5 mg 10/17/18 21:00 11/07/18 19:10 Proscar PO 11/16/18 20:59 Not Given QPM DAVID Heparin Sodium (Beef Lung) 5 ml 10/31/18 22:56 11/08/18 12:02 Heparin Sod 10 Unit/Ml Flush FLUSH 11/30/18 22:55 5 ml PRN PRN Administration Flush Hydromorphone HCl 0.5 mg 10/31/18 19:49 11/08/18 11:16 Dilaudid IV 11/14/18 19:48 0.5 mg Q3H PRN Administration Severe Pain Acetaminophen 1,000 mg in 100 mls @ 400 mls/hr 10/17/18 15:10 11/08/18 11:56 Ofirmev IV 11/16/18 15:09 Infused Q8H PRN Infusion pain rating 1-3 Dextrose 1,000 mls @ 75 mls/hr 11/01/18 06:30 11/02/18 16:20 D10w IV 12/01/18 04:44 Infused .[id number] PRN Infusion .TPN Dexamethasone Sodium Phosphate 2 mls @ 1 mls/min 11/04/18 09:00 11/08/18 07:38 8 mg/ Syringe IV 12/04/18 08:59 1 mls/min DAILY@0900 [facility] Administration Nutrition (Parenteral) 1 bag 11/07/18 16:00 11/07/18 16:05 Custom Central Pn IV 11/08/18 15:59 1 bag 1600 [facility] Administration Protocol Ondansetron HCl 4 mg 10/17/18 15:10 10/17/18 19:13 Zofran IV 11/16/18 15:09 4 mg Q6H PRN Administration Nausea And Vomiting Pantoprazole Sodium 40 mg 10/17/18 21:00 11/07/18 19:10 Protonix PO 11/16/18 20:59 Not Given QPM DAVID Tamsulosin HCl 0.8 mg 10/17/18 21:00 11/07/18 19:09 Flomax PO 11/16/18 20:59 Not Given QPM DAVID Tiotropium Glady 1 puffs 10/18/18 09:00 11/08/18 08:16 Spiriva INH 11/17/18 08:59 Not Given DAILY DAVID NPO Date Last Intake of Fluids: 11/02/18 Time Last Intake of Fluids: 23:59 Last Intake of Fluids Comment: sips and chips Date Last Intake of Solids: 10/17/18 Time Last Intake of Solids: 18:00 Past Medical History Medical History Abnormal CT scan, chest (Chronic) Chronic obstructive pulmonary disease (Chronic) EMPHYSEMA Lung nodules (Chronic) 2 Stable, 2 new ones being followed Memory change (Chronic) PER DAUGHTER GERD (gastroesophageal reflux disease) (Chronic) BPH (benign prostatic hyperplasia) (Chronic) Cervical disc disease (Chronic) Abdominal aortic aneurysm (Chronic) Followed by PCP Neuropathy (Chronic) BLE Ambulatory dysfunction (Chronic) Exercise / Class Metabolic Activity II 4-5 Yardwork/Stairs/Walk up hill Past Family History Family History Grandmother (Paternal) Family history of diabetes mellitus Past Surgical History Surgical History Hx of cardiac cath (Chronic) TYRA IVONE - 2016 H/O colonoscopy (Chronic) History of bronchoscopy (Chronic) H/O cervical spine surgery 10/17/2018. Anesthesia record not yet available. Past Anesthesia History No Hx of Anesthesia Complications and No Family Hx of Anesthesia Complications History of PONV No Hx of PONV and No Hx of Motion Sickness Social History Smoking Status: Former smoker Smoking cigarettes per day: 1ppd x 60 Do You Dip or Chew Tobacco: No Smoking End Date: 11/2016 Hx Alcohol Use: No Hx Substance Use: No Physical Exam Vital Signs Last Vital Signs Temp 36.5 C 11/08/18 13:47 Pulse 67 11/08/18 13:47 Resp 20 11/08/18 13:47 BP 132/81 11/08/18 13:47 Pulse Ox 99 11/08/18 13:47 ENMT Mouth: + poor dentition Thyromental Distance: > or= 3.5 Finger Breadths Mallampati Class: II Neck + limited neck extension C spine collar in place Respiratory normal respiratory effort Auscultation: lungs clear to auscultation bilaterally Cardiovascular Rate/Rhythm: regular rate and regular rhythm Neurologic moves all extremities Psychiatric Orientation: alert Testing Laboratory Results 11/07/18 08:38 11/08/18 05:39 PT 12.0 Seconds (9.0-12.0) 11/07/18 08:38 INR 1.2 (0.9-1.1) H 11/07/18 08:38 APTT 30.3 Seconds (21.0-31.0) 10/10/18 09:18 Urine Color [place] 11/02/18 Unknown Urine Appearance Clear (Clear) 11/02/18 Unknown Urine pH 7.0 (4.5-7.5) 11/02/18 Unknown Ur Specific [place] 1.022 (1.000-1.030) 11/02/18 Unknown Urine Protein Negative (Negative) 11/02/18 Unknown Urine Glucose (UA) Negative (Negative) 11/02/18 Unknown Urine Ketones Negative (Negative) 11/02/18 Unknown Urine Nitrite Negative (Negative) 11/02/18 Unknown Ur Leukocyte Esterase 2+ (Negative) H 11/02/18 Unknown Urine WBC (Auto) 5-10 /hpf (0-5) H 11/02/18 Unknown Urine RBC (Auto) >30 /hpf (0-4) H 11/02/18 Unknown U Hyaline Cast (Auto) 0 /lpf (0-5) 11/02/18 Unknown U Epithel Cells (Auto) 5-10 /lpf (0-5) H 11/02/18 Unknown Urine Bacteria (Auto) Negative (Negative) 11/02/18 Unknown Blood Type A Positive 10/17/18 08:41 Antibody Screen NEGATIVE 10/17/18 08:41
--- NOTE | 2018-11-08 14:28 | GI REPORT ---
Patient Name: Virgil Davenport Procedure Date: 11/08/2018 1:55 PM Date of : 1945 Admit Type: Inpatient Age: 73 Gender: Male Attending MD: Tana Novak MD Procedure: Upper GI endoscopy Providers: Tana Novak MD Referring MD: Korina Bobby d.o. Indications: Place PEG because patient is unable to eat, Place PEG due to dysphagia, Place PEG due to impaired swallowing Medicines: Monitored Anesthesia Care Complications: No immediate complications. Estimated Blood Loss: Estimated blood loss: none. Procedure: Pre-Anesthesia Assessment: - Prior to the procedure, a History and Physical was performed, and patient medications and allergies were reviewed. The patient is competent. The risks and benefits of the procedure and the sedation options and risks were discussed with the patient. All questions were answered and informed consent was obtained. Patient identification and proposed procedure were verified by the physician and the nurse in the procedure room. Mental Status Examination: alert and oriented. Airway Examination: normal oropharyngeal airway and neck mobility. Respiratory Examination: clear to auscultation. CV Examination: normal. ASA Grade Assessment: III - A patient with severe systemic disease. After reviewing the risks and benefits, the patient was deemed in satisfactory condition to undergo the procedure. The anesthesia plan was to use monitored anesthesia care (MAC). Immediately prior to administration of medications, the patient was re-assessed for adequacy to receive sedatives. The heart rate, respiratory rate, oxygen saturations, blood pressure, adequacy of pulmonary ventilation, and response to care were monitored throughout the procedure. The physical status of the patient was re-assessed after the procedure. After obtaining informed consent, the endoscope was passed under direct vision. Throughout the procedure, the patient's blood pressure, pulse, and oxygen saturations were monitored continuously. The Scope was introduced through the mouth, and advanced to the second part of duodenum. The upper GI endoscopy was accomplished without difficulty. The patient tolerated the procedure well. Findings: The examined esophagus was normal. The entire examined stomach was normal. The patient was placed in the supine position for PEG placement. The stomach was insufflated to appose gastric and abdominal reeder. A site was located in the body of the stomach with excellent transillumination and manual external pressure for placement. The abdominal wall was marked and prepped in a sterile manner. The area was anesthetized with 2 mL of 1% lidocaine. The trocar needle was introduced through the abdominal wall and into the stomach under direct endoscopic view. A snare was introduced through the endoscope and opened in the gastric lumen. The guide wire was passed through the trocar and into the open snare. The snare was closed around the guide wire. The endoscope and snare were removed, pulling the wire out through the mouth. A skin incision was made at the site of needle insertion. The externally removable 20 Fr Perez-Cook gastrostomy tube was lubricated. The G-tube was tied to the guide wire and pulled through the mouth and into the stomach. The trocar needle was removed, and the gastrostomy tube was pulled out from the stomach through the skin. The external bumper was attached to the gastrostomy tube, and the tube was cut to remove the guide wire. The final position of the gastrostomy tube was confirmed by relook endoscopy, and skin marking noted to be 2 cm at the external bumper. The final tension and compression of the abdominal wall by the PEG tube and external bumper were checked and revealed that the bumper was moderately tight and mildly deforming the skin. The feeding tube was capped, and the tube site cleaned and dressed. The duodenal bulb and second portion of the duodenum were normal. Impression: - Normal esophagus. - Normal stomach. - Normal duodenal bulb and second portion of the duodenum. - An externally removable PEG placement was successfully completed. - No specimens collected. Recommendation: - Return patient to [facility] for ongoing care. - Nutrition consult for formula and volume. - Dry dressing only. - NPO until checked by me tomorrow. Tana Novak MD 11/08/2018 2:27:52 PM This report has been signed electronically. Note Initiated On: 11/08/2018 1:55 PM Number of Addenda: 0 I attest to the content of the Intraoperative Record and orders documented therein, exceptions below {[id number]}
--- NOTE | 2018-11-08 14:33 | Hospitalist Progress Note ---
Date of Service November 08, 2018 Assessment & Plan (1) S/P cervical spinal fusion: Management per Ortho Spine. S/P revision. Presently on dexamethasone IV daily (2) Dysphagia: Per Dr. Mallory notes: Postop dysphagia. Seen by UNION CONTRACT REPRESENTATIVE and ENT. Video swallowing study 10/30 demonstrated pharyngeal dysphagia and aspiration. Being followed by UNION CONTRACT REPRESENTATIVE. Follow-up assessment 11/05 demonstrated persistent aspiration. --For PEG tube placement No medical contra indication for planned procedure (3) Chronic obstructive pulmonary disease: Pulmonary status stable. (4) GERD (gastroesophageal reflux disease): Continue PPI. (5) BPH (benign prostatic hyperplasia): Per Dr. Mallory notes: Unable to take tamsulosin and finasteride because of dysphagia. Has Saini cath. Voiding trial once BPH meds resumed. (6) Hyperglycemia: Dr. Mallory notes: Blood sugars as high as 160. Hyperglycemia secondary to TPN + teroid-induced hyperglycemia secondary to dexamethasone. Taper steroids as able. (7) Nutritional assessment: Per Dr. Mallory notes: N.p.o. since initial surgery Severe malnutrition: PO caloric / protein intake < 10% required weight 63 kg --> 56 kg (down 11%) serum albumin 2.4 on 10/23 PEG recommended for enteral nutritional support pending follow-up swallowing evaluation in 3-4 weeks. PEG tube placement Taper TPN as enteral feedings initiated. (8) Leukocytosis: WBC 11/02 was 22,160. Leukocytosis probably secondary to steroid therapy with dexamethasone. No clear focus of infection at this time. Monitor closely (9) Abnormal CT scan, chest: Dr. Mallory notes: Chest x-ray done 11/03 for evaluation of cough, leukocytosis. Possible pneumomediastinum was noted. CT of chest did not show pneumomediastinum. 22 mm cavitary lesion PARRISH noted. Post-inflammatory process favored, but f/u CT in 6 months recommended. Discussed with pt. He has been followed by Pulmonary Medicine for abnormal CT of chest. Requested that images be copied to CD and sent to his tax accountant Dr. Rivas at [facility]. (10) DVT prophylaxis: SCDs ordered. Ambulating. (11) Encounter for consultation: Thank you for this consultation. We will follow the patient with you during their hospital stay. My cell # is [phone] You can reach a member of the [facility] Medicine Team 19/09 via pager @ [phone]. Subjective Follow-up for dysphasia, status post cervical spine surgery Seen in the wheelchair, about to be transported to the OR Comfortable, not in distress Denies abdominal pain, nausea No chest pain, shortness of breath and palpitations, dizziness No other symptoms Review of Systems Review of Systems: All systems reviewed & are unremarkable except as noted in HPI & below Physical Exam Physical Exam: General- oriented x 3, not in distress, speaks in sentences with no effort or accessory muscle use Eyes- anicteric Neck-cervical collar in place Lungs- clear BS, no crackles, no wheezing bilaterally Heart- normal rate, regular rhythm; no murmurs Abdomen- normal bowel sounds, nondistended, soft, nontender Extremities- no pretibial edema, no calf tenderness Neuro- alert, oriented x 3; no gross focal neurologic deficits Skin- warm & dry Results & Data Vital Signs (Past 12 Hours) Vital Signs Temp Pulse Resp BP Pulse Ox 11/08/18 13:47 36.5 C 67 20 132/81 99 11/08/18 11:10 74 16 98 11/08/18 07:36 36.4 C L 71 16 125/75 99 11/08/18 07:10 68 16 98 11/08/18 03:35 58 L 16 98 Laboratory Results Laboratory Results - last 24 hr 11/08/18 05:39 Sodium 138 Potassium 4.4 Chloride 104 Carbon Dioxide 30 Anion Gap 4.0 BUN 31 H Creatinine 0.62 Est Cr Clr Drug Dosing 84.9 Est GFR ( Amer) 114.9 Est GFR (Non-Af Amer) 99.1 BUN/Creatinine Ratio 49.2 H Glucose 114 H Calcium 7.7 L
[2018-11-08] MEDS ORDERED: fentaNYL citrate 100 MCG/2 ML VIAL IV ONE (14:44)
--- NOTE | 2018-11-08 14:45 | Anesthesiology Progress Note ---
Date of Service November 08, 2018 Anesthesia Post Procedure Vital Signs Vital Signs: Temp Pulse Resp BP Pulse Ox 11/08/18 14:22 67 16 137/77 100 11/08/18 13:47 36.5 C 67 20 132/81 99 11/08/18 11:10 74 16 98 11/08/18 07:36 36.4 C L 71 16 125/75 99 11/08/18 07:10 68 16 98 11/08/18 03:35 58 L 16 98 11/07/18 23:41 36.5 C 61 16 143/80 H 98 11/07/18 23:05 60 16 97 11/07/18 18:56 74 16 97 11/07/18 15:37 72 14 97 11/07/18 15:21 35.8 C L 78 20 103/68 98 Pain Intensity Medial Neck: Pain Intensity: 3 Anterior Medial Neck: Pain Intensity: 2 Bilateral Shoulder: Pain Intensity: 7 Anterior Neck: Pain Intensity: 7 Head: Pain Intensity: 7 Transfer of Care Handoff Completed per policy Notes Mental Status: alert / awake / arousable Patient Amnestic to Procedure: Yes Nausea / Vomiting: adequately controlled Pain: adequately controlled Airway Patency, RR, SpO2: stable & adequate BP & HR: stable & adequate Hydration State: stable & adequate Anesthetic Complications: no major complications apparent
[2018-11-08] MEDS ORDERED: fentaNYL citrate 100 MCG/2 ML VIAL ONE (14:46)
[2018-11-08] MEDS: FINASTERIDE 5 MG TAB PO SCH (18:36)
[2018-11-08] MEDS: PANTOprazole 40 MG TAB PO SCH (18:36)
[2018-11-08] MEDS: TAMSULOSIN HCL 0.4 MG CAP PO SCH (18:36)
[2018-11-09] MEDS: HYDROmorphone INJ 0.5 MG/0.5 ML SYR IV PRN ×7 (01:23→20:31)
[2018-11-09 06:54] LABS: BUN Creatinine Ratio 43.5 (10-20); Calcium 7.9 mg/dl (8.5-10.1); Creatinine Clr Calc Pharmacy 77.4 ml/min; Est GFR (African American) 110.6; Est GFR (Non-African American) 95.4; Magnesium 1.9 mg/dl (1.8-2.4); Potassium 4.5 mmol/L (3.5-5.1)
--- NOTE | 2018-11-09 07:42 | Anesthesiology Progress Note ---
Date of Service November 09, 2018 Anesthesia Post Procedure Vital Signs Vital Signs: Temp Pulse Resp BP Pulse Ox 11/09/18 07:20 74 18 97 11/09/18 03:55 36.3 C L 67 15 135/77 99 11/09/18 03:39 61 14 97 11/08/18 23:27 36.3 C L 66 15 152/82 H 98 11/08/18 23:25 63 16 98 11/08/18 22:32 36.3 C L 63 14 136/76 99 11/08/18 19:50 68 16 97 11/08/18 18:29 36.5 C 76 20 116/74 98 11/08/18 17:38 36.3 C L 66 15 120/72 98 11/08/18 16:34 72 16 157/88 H 99 11/08/18 15:57 36.6 C 68 16 143/80 H 98 11/08/18 15:38 65 18 99 11/08/18 15:30 36.4 C L 67 16 158/78 H 99 11/08/18 15:00 65 18 147/84 H 97 11/08/18 14:50 61 16 157/83 H 98 11/08/18 14:22 67 16 137/77 100 11/08/18 13:47 36.5 C 67 20 132/81 99 11/08/18 11:10 74 16 98 Pain Intensity Medial Neck: Pain Intensity: 3 Anterior Medial Neck: Pain Intensity: 2 Bilateral Shoulder: Pain Intensity: 7 Anterior Neck: Pain Intensity: 7 Head: Pain Intensity: 7 Lower Abdomen: Pain Intensity: 8 Notes Mental Status: alert / awake / arousable and participated in evaluation Nausea / Vomiting: adequately controlled Pain: adequately controlled Airway Patency, RR, SpO2: stable & adequate BP & HR: stable & adequate Hydration State: stable & adequate
[2018-11-09] MEDS: TIOTROPIUM BROMIDE 5 PUFF/90 MCG INH INH SCH (08:51)
[2018-11-09] MEDS: DEXAMETHASONE SOD PHOSPHATE 8 MG in SYRINGE 0 ML IV SCH (08:51)
--- NOTE | 2018-11-09 08:52 | Gastroenterology Progress Note ---
Date of Service November 09, 2018 Assessment & Plan (1) Dysphagia: (2) PEG (percutaneous endoscopic gastrostomy) status: Pt had PEG (20Fr Perez- Cook) placement yesterday. Peg checked by myself and Dr. Novak this AM. PEG site w/o erythema, discharge, bleeding. PEG placement confirmed via air auscultation prior to flushing. PEG flushing well w/o leakage. It is ready to be used. Please follow PEG protocol for meds/flushing/feeding. Results & Data Vital Signs (Past 12 Hours) Vital Signs Temp Pulse Resp BP Pulse Ox 11/09/18 07:30 36.4 C L 78 14 123/75 98 11/09/18 07:20 74 18 97 11/09/18 03:55 36.3 C L 67 15 135/77 99 11/09/18 03:39 61 14 97 11/08/18 23:27 36.3 C L 66 15 152/82 H 98 11/08/18 23:25 63 16 98 11/08/18 22:32 36.3 C L 63 14 136/76 99
[2018-11-09] MEDS ORDERED: FIBERSOURCE HN 1.2 CAL 1000 ML BAG GT SCH (09:15)
[2018-11-09] MEDS: FIBERSOURCE HN 1.2 CAL 1000 ML BAG GT SCH (12:02)
--- NOTE | 2018-11-09 12:13 | Pharmacy Report ---
PHA: Parenteral Nutrition Con - Date of Service November 09, 2018 - Scope Pharmacy was consulted on 10/26 to manage parenteral nutrition orders for this patient. - Subjective The patient is currently on day 15 of central parenteral nutrition for failed swallow eval s/p cervical surgery, prolonged NPO status and initial inability to place NG or PEG tube d/t recent surgery. - Objective Height: 5 ft 2.5 in Weight: 56.3 kg Diet: Tube Feed Intake & Output (24hrs):: Intake & Output 11/07/18 11/08/18 11/09/18 11/10/18 06:59 06:59 06:59 06:59 Intake Total 100 / 100 Output Total 2150 / 2150 1250 / 1250 1750 / 1750 Balance -2150 / -2150 -1250 / -1250 -1650 / -1650 Weight 56.3 kg 56.3 kg 56.3 kg Laboratory Data (Last 24 Hr):: 11/09/18 05:50 Sodium 138 Potassium 4.5 Chloride 104 Carbon Dioxide 32 BUN 30 H Creatinine 0.68 Glucose 103 H Calcium 7.9 L Phosphorus 3.0 Magnesium 1.9 Nutrition Assessment:: Please refer to the Notes section of the EMR for the most recent chemical plant manager note. - Plan For day 15 of PN administration, the following will be ordered: * PEG tube placed by GI yesterday, patient evaluated this morning and okay to starting using PEG tube today * Orders in for enteral feedings starting at 10 ml/hr - increasing by 10 ml's/hr Q8 hrs as tolerated to max of 60 ml/hr for 24hr/day * Will start decreasing macronutrients in TPN for today to about ~70% of kcal goal * Will assess tolerance of tube feedings, likely could discontinue TPN if patient tolerates feeds Macronutrients Amino acids 60 grams/day Dextrose 175 grams/day Lipids 30 grams/day Micronutrients Sodium chloride 65 mEq Potassium phosphate 42 mMol Magnesium sulfate 4.06 mEq Calcium gluconate 4.65 mEq Multivitamins 10 mL Trace Elements 1 mL Additional additives: Thiamine 100 mg Folic acid 1 mg Pepcid 20 mg - appears this was added as patient unable to take po Protonix Total volume 1800 mL to be infused over 24 hrs will provide 1135 kcal/day Labs, as indicated, will be ordered per protocol Pharmacy will continue to follow and adjust parenteral nutrition orders on a daily basis. Thank you for allowing us to participate in the care of this patient.
--- NOTE | 2018-11-09 15:26 | Orthopedic Progress Note ---
Date of Service November 09, 2018 Assessment & Plan (1) Cervical stenosis of spinal canal: At this time he will begin using his PEG tube. We are waiting acute stay placement. Present on Admission?: Yes Subjective Patient feels that his swelling is somewhat improved. He tolerated the PEG tube placement without issue yesterday. Has been walking the halls regularly. Physical Exam Physical Exam: Patient has good strength testing. Appears comfortable. Results & Data Vital Signs (Past 12 Hours) Vital Signs Temp Pulse Resp BP Pulse Ox 11/09/18 15:12 81 20 95 11/09/18 15:02 35.9 C L 67 12 125/72 96 11/09/18 13:24 68 16 137/77 98 11/09/18 11:29 36.3 C L 79 16 105/71 99 11/09/18 11:13 73 18 96 11/09/18 07:30 36.4 C L 78 14 123/75 98 11/09/18 07:20 74 18 97 11/09/18 03:55 36.3 C L 67 15 135/77 99 11/09/18 03:39 61 14 97
[2018-11-09] MEDS: PANTOprazole 40 MG in SYRINGE 0 ML IV SCH ×2 (15:52→20:25)
--- NOTE | 2018-11-09 19:04 | Hospitalist Progress Note ---
Date of Service November 09, 2018 Assessment & Plan (1) S/P cervical spinal fusion: Management per Ortho Spine. S/P revision. Presently on dexamethasone IV daily (2) Dysphagia: Per Dr. Mallory notes: Postop dysphagia. Seen by COMPUTING SERVICES DIRECTOR and ENT. Video swallowing study 10/30 demonstrated pharyngeal dysphagia and aspiration. Being followed by COMPUTING SERVICES DIRECTOR. Follow-up assessment 11/05 demonstrated persistent aspiration. --Status post PEG tube placement 11/08/2018 Reporting severe epigastric burning sensation 2 hours after PEG tube initiation We will order IV Protonix, maintain tube feeding rate 10 cc/h x 24 hours, recommend holding tube feeding for half hour every 1 and 1/2 hours Will monitor closely (3) Chronic obstructive pulmonary disease: Pulmonary status stable. (4) GERD (gastroesophageal reflux disease): IV Protonix twice daily started Monitor (5) BPH (benign prostatic hyperplasia): Per Dr. Mallory notes: Unable to take tamsulosin and finasteride because of dysphagia. Has Saini cath. Voiding trial once BPH meds resumed. (6) Hyperglycemia: Dr. Mallory notes: Blood sugars as high as 160. Hyperglycemia secondary to TPN + steroid-induced hyperglycemia secondary to dexamethasone. Taper steroids as able. (7) Nutritional assessment: Per Dr. Mallory notes: N.p.o. since initial surgery Severe malnutrition: PO caloric / protein intake < 10% required weight 63 kg --> 56 kg (down 11%) serum albumin 2.4 on 10/23 PEG recommended for enteral nutritional support pending follow-up swallowing evaluation in 3-4 weeks. Status post PEG tube placement Continue TPN for now until patient tolerating PEG tube feedings well (8) Leukocytosis: WBC 11/02 was 22,160. Leukocytosis probably secondary to steroid therapy with dexamethasone. No clear focus of infection at this time. Monitor closely (9) Abnormal CT scan, chest: Dr. Mallory notes: Chest x-ray done 11/03 for evaluation of cough, leukocytosis. Possible pneumomediastinum was noted. CT of chest did not show pneumomediastinum. 22 mm cavitary lesion PARRISH noted. Post-inflammatory process favored, but f/u CT in 6 months recommended. Discussed with pt. He has been followed by Pulmonary Medicine for abnormal CT of chest. Requested that images be copied to CD and sent to his dialysis nurse Dr. Rivas at [facility]. (10) DVT prophylaxis: SCDs ordered. Ambulating. (11) Encounter for consultation: Thank you for this consultation. We will follow the patient with you during their hospital stay. My cell # is [phone] You can reach a member of the [facility] Medicine Team 19/09 via pager @ [phone]. Subjective Follow-up for dysphasia, status post cervical spine surgery Status post PEG tube placement today About 2 hours after PEG tube feeding initiation, reported to RN burning epigastric discomfort No significant residual upon checking, no problems with the PEG tube site Seen resting in bed, appears concerned States he developed severe epigastric burning discomfort about 2 hours after starting PEG tube feeding Denies nausea, chest pain, shortness of breath Denies other symptoms Review of Systems Review of Systems: All systems reviewed & are unremarkable except as noted in HPI & below Physical Exam Physical Exam: General- oriented x 3, not in distress, speaks in sentences with no effort or accessory muscle use Eyes- anicteric Neck- no JVD Lungs- clear breath sounds bilaterally, no crackles, no wheezing Heart- normal rate, regular rhythm; no murmurs Abdomen-PEG tube in place, PEG tube insertion site with no issues, nondistended, hypoactive bowel sounds, mild tenderness around PEG tube site Extremities- no pretibial edema, no calf tenderness Neuro- alert, oriented x 3; no gross focal neurologic deficits Skin- warm & dry Results & Data Vital Signs (Past 12 Hours) Vital Signs Temp Pulse Resp BP Pulse Ox 11/09/18 15:36 36.4 C L 11/09/18 15:12 81 20 95 11/09/18 15:02 35.9 C L 67 12 125/72 96 11/09/18 13:24 68 16 137/77 98 11/09/18 11:29 36.3 C L 79 16 105/71 99 11/09/18 11:13 73 18 96 11/09/18 07:30 36.4 C L 78 14 123/75 98 11/09/18 07:20 74 18 97 Laboratory Results Laboratory Results - last 24 hr 11/09/18 05:50 Sodium 138 Potassium 4.5 Chloride 104 Carbon Dioxide 32 Anion Gap 2.0 L BUN 30 H Creatinine 0.68 Est Cr Clr Drug Dosing 77.4 Est GFR ( Amer) 110.6 Est GFR (Non-Af Amer) 95.4 BUN/Creatinine Ratio 43.5 H Glucose 103 H Calcium 7.9 L Phosphorus 3.0 Magnesium 1.9
[2018-11-09] MEDS: TAMSULOSIN HCL 0.4 MG CAP PO SCH (19:48)
[2018-11-09] MEDS: FINASTERIDE 5 MG TAB PO SCH (19:49)
[2018-11-10] MEDS: ACETAMINOPHEN 1,000 MG/100 ML VIAL IV PRN ×3 (01:06→20:35)
[2018-11-10 07:03] LABS: Calcium 8.1 mg/dl (8.5-10.1); Creatinine Clr Calc Pharmacy 75.2 ml/min; Est GFR (African American) 109.3; Est GFR (Non-African American) 94.3; Phosphorus 3.4 mg/dl (2.5-4.9); Potassium 4.2 mmol/L (3.5-5.1)
--- NOTE | 2018-11-10 08:12 | Orthopedic Progress Note ---
Date of Service November 10, 2018 Assessment & Plan (1) Cervical disc disease: This time we are going to discontinue his IV Dilaudid. Hopefully is able to tolerate this. Is making him quite sedate. He seems to be tolerating his PEG tube and awaiting placement. Present on Admission?: Yes Subjective Patient resting comfortably no complaints this morning. Physical Exam Physical Exam: Patient is neurologically intact. Tolerating his PEG tube. Results & Data Vital Signs (Past 12 Hours) Vital Signs Temp Pulse Resp BP Pulse Ox 11/10/18 07:24 78 20 96 11/10/18 07:08 36.6 C 57 L 16 121/75 97 11/10/18 03:25 78 16 98 11/09/18 23:30 66 18 97 11/09/18 23:26 36.4 C L 70 16 136/75 98
[2018-11-10] MEDS: DEXAMETHASONE SOD PHOSPHATE 8 MG in SYRINGE 0 ML IV SCH (08:56)
[2018-11-10] MEDS: PANTOprazole 40 MG in SYRINGE 0 ML IV SCH (08:57)
[2018-11-10] MEDS: TIOTROPIUM BROMIDE 5 PUFF/90 MCG INH INH SCH (08:57)
[2018-11-10] MEDS: FIBERSOURCE HN 1.2 CAL 1000 ML BAG GT SCH (11:44)
[2018-11-10] MEDS ORDERED: CHLORASEPTIC 1.4% SOLN 180 ML BTL MT PRN (11:57)
--- NOTE | 2018-11-10 15:59 | Hospitalist Progress Note ---
Date of Service November 10, 2018 Assessment & Plan (1) S/P cervical spinal fusion: Management per Ortho Spine. S/P revision. Presently on dexamethasone IV daily (2) Dysphagia: Per Dr. Mallory notes: Postop dysphagia. Seen by PHOTO OPTICS TECHNICIAN and ENT. Video swallowing study 10/30 demonstrated pharyngeal dysphagia and aspiration. Being followed by PHOTO OPTICS TECHNICIAN. Follow-up assessment 11/05 demonstrated persistent aspiration. --Status post PEG tube placement 11/08/2018 epigastric discomfort improved increase rate to 15cc/hr, recommend holding tube feeding for half hour every 1 and 1/2 hours Will monitor closely (3) Chronic obstructive pulmonary disease: Pulmonary status stable. (4) GERD (gastroesophageal reflux disease): Famotidine increased (5) BPH (benign prostatic hyperplasia): Per Dr. Mallory notes: Unable to take tamsulosin and finasteride because of dysphagia. Has Saini cath. Voiding trial once BPH meds resumed. (6) Hyperglycemia: Dr. Mallory notes: Blood sugars as high as 160. Hyperglycemia secondary to TPN + steroid-induced hyperglycemia secondary to dexamethasone. Taper steroids as able. (7) Nutritional assessment: Per Dr. Mallory notes: N.p.o. since initial surgery Severe malnutrition: PO caloric / protein intake < 10% required weight 63 kg --> 56 kg (down 11%) serum albumin 2.4 on 10/23 PEG recommended for enteral nutritional support pending follow-up swallowing evaluation in 3-4 weeks. Status post PEG tube placement Continue TPN for now until patient tolerating PEG tube feedings well (8) Leukocytosis: WBC 11/02 was 22,160. Leukocytosis probably secondary to steroid therapy with dexamethasone. No clear focus of infection at this time. Monitor closely (9) Abnormal CT scan, chest: Dr. Mallory notes: Chest x-ray done 11/03 for evaluation of cough, leukocytosis. Possible pneumomediastinum was noted. CT of chest did not show pneumomediastinum. 22 mm cavitary lesion PARRISH noted. Post-inflammatory process favored, but f/u CT in 6 months recommended. Discussed with pt. He has been followed by Pulmonary Medicine for abnormal CT of chest. Requested that images be copied to CD and sent to his asphalt distributor tender Dr. Rivas at [facility]. (10) DVT prophylaxis: SCDs ordered. Ambulating. (11) Encounter for consultation: Thank you for this consultation. We will follow the patient with you during their hospital stay. My cell # is [phone] You can reach a member of the [facility] Medicine Team 19/09 via pager @ [phone]. Subjective ff up for dysphagia, s/p cervical spine surgery appears drowsy not in distress, comfortable epigastric discomfort has improved, tolerated peg tube feeding better no nausea no chest pain, dyspnea, palpitations no other symptoms Review of Systems Review of Systems: All systems reviewed & are unremarkable except as noted in HPI & below Physical Exam Physical Exam: General- oriented x 3, not in distress, speaks in sentences with no effort or accessory muscle use Eyes- anicteric Neck- no JVD Lungs- clear BS BL Heart- normal rate, regular rhythm; no murmurs Abdomen- normal bowel sounds, nondistended,PEG tube site benign- no bleeding, discharge, leakage, soft, nontender Extremities- no pretibial edema, no calf tenderness Neuro- alert, oriented x 3; no gross focal neurologic deficits Skin- warm & dry Results & Data Vital Signs (Past 12 Hours) Vital Signs Temp Pulse Resp BP Pulse Ox 11/10/18 15:02 36.4 C L 79 16 125/78 98 11/10/18 11:12 79 18 96 11/10/18 07:24 78 20 96 11/10/18 07:08 36.6 C 57 L 16 121/75 97
[2018-11-10] MEDS: HYDROmorphone INJ 0.5 MG/0.5 ML SYR IV PRN (16:38)
[2018-11-10] MEDS: TAMSULOSIN HCL 0.4 MG CAP PO SCH (20:39)
[2018-11-10] MEDS: FINASTERIDE 5 MG TAB PO SCH (20:39)
[2018-11-11] MEDS ORDERED: LEVALBUTEROL HCL 1.25 MG/3 ML NEB NEB PRN (00:06)
[2018-11-11] MEDS ORDERED: DiphenhydrAMINE HCL 50 MG/ML VIAL IV STA (00:07)
[2018-11-11] MEDS: HYDROmorphone INJ 0.5 MG/0.5 ML SYR IV PRN ×2 (00:37→13:35)
[2018-11-11] MEDS: ACETAMINOPHEN 1,000 MG/100 ML VIAL IV PRN ×2 (06:30→19:24)
[2018-11-11] MEDS: DEXAMETHASONE SOD PHOSPHATE 8 MG in SYRINGE 0 ML IV SCH (08:11)
[2018-11-11] MEDS: DiphenhydrAMINE HCL 50 MG/ML VIAL IV PRN (08:11)
[2018-11-11] MEDS: TIOTROPIUM BROMIDE 5 PUFF/90 MCG INH INH SCH (08:11)
--- NOTE | 2018-11-11 09:30 | XRay Report ---
XR chest 1V portable CLINICAL HISTORY: cough COMPARISON STUDY: Chest radiograph and chest CT November 03, 2018. FINDINGS: Severe emphysema is noted. Tip of right PICC projects over the distal SVC. Anterior cervica l spine fusion is noted. There is no evidence for pneumonia or pulmonary edema. The appearance of the chest is unchanged. Cardiomediastinal silhouette is normal. IMPRESSION: 1. No acute cardiopulmonary findings. 2. Emphysema. Electronically signed by: Dahsawn Lim M.D. 11/11/2018 9:29 AM
--- NOTE | 2018-11-11 10:27 | Orthopedic Progress Note ---
Date of Service November 11, 2018 Assessment & Plan (1) Cervical stenosis of spinal canal: At this time would like to obtain an x-ray of the cervical spine to assess his instrumentation. Unfortunately he has been declined inpatient rehab. We will look into some other options. Planning to DC [facility] in a.m. Present on Admission?: Yes Subjective Patient states he is tolerating ice chips and light fluids well. Arm symptoms continue to be improved. He is sore in his abdomen. Physical Exam Physical Exam: Patient is in the chair at the bedside. Is good strength testing. Appears comfortable. Results & Data Vital Signs (Past 12 Hours) Vital Signs Temp Pulse Resp BP Pulse Ox 11/11/18 07:33 36.3 C L 76 16 121/80 96 11/11/18 03:05 71 16 98 11/10/18 23:18 75 18 97 11/10/18 23:00 36.5 C 79 18 133/87 97
--- NOTE | 2018-11-11 10:55 | XRay Report ---
XR cervical spine 2 or 3V CLINICAL HISTORY: Postoperative evaluation. COMPARISON STUDY: Cervical spine radiographs November 07, 2018. FINDINGS: These images demonstrate a C4 corpectomy. Anterior plate and screw fusion is noted with a 1 level discectomy. Exact localization is difficult on this exam. Hardware is intact. There are no une xpected radiopaque foreign bodies. No fracture is identified. IMPRESSION: Expected findings following revision anterior discectomy and fusion. Electronically signed by: Dashawn Lim M.D. 11/11/2018 10:53 AM
[2018-11-11] MEDS: FIBERSOURCE HN 1.2 CAL 1000 ML BAG GT SCH (11:01)
--- NOTE | 2018-11-11 13:20 | Hospitalist Progress Note ---
Date of Service November 11, 2018 Assessment & Plan (1) S/P cervical spinal fusion: Management per Ortho Spine. S/P revision. Presently on dexamethasone IV daily (2) Dysphagia: Per Dr. Mallory notes: Postop dysphagia. Seen by CRITICAL CARE SPECIALIST and ENT. Video swallowing study 10/30 demonstrated pharyngeal dysphagia and aspiration. Being followed by CRITICAL CARE SPECIALIST. Follow-up assessment 11/05 demonstrated persistent aspiration. --Status post PEG tube placement 11/08/2018 Tolerating PEG tube feeding better, advance tube feeding rate to 10 cc/h every 8 hours to goal rate of 60 cc/h (3) Chronic obstructive pulmonary disease: Patient reporting cough with clear sputum Chest x-ray: No pneumonia Of note has not been using Breo or Spiriva while admitted Will order Advair Patient advised to use Advair and Spiriva while admitted, he verbalized understanding and agreement (4) GERD (gastroesophageal reflux disease): Famotidine increased Discomfort resolved (5) BPH (benign prostatic hyperplasia): Per Dr. Mallory notes: Unable to take tamsulosin and finasteride because of dysphagia. Has Saini cath. Voiding trial once BPH meds resumed. (6) Hyperglycemia: Dr. Mallory notes: Blood sugars as high as 160. Hyperglycemia secondary to TPN + steroid-induced hyperglycemia secondary to dexamethasone. Taper steroids as able. (7) Nutritional assessment: Per Dr. Mallory notes: N.p.o. since initial surgery Severe malnutrition: PO caloric / protein intake < 10% required weight 63 kg --> 56 kg (down 11%) serum albumin 2.4 on 10/23 PEG recommended for enteral nutritional support pending follow-up swallowing evaluation in 3-4 weeks. Status post PEG tube placement TPN to be discontinued today (8) Leukocytosis: WBC 11/02 was 22,160. Leukocytosis probably secondary to steroid therapy with dexamethasone. No clear focus of infection at this time. Monitor closely (9) Abnormal CT scan, chest: Dr. Mallory notes: Chest x-ray done 11/03 for evaluation of cough, leukocytosis. Possible pneumomediastinum was noted. CT of chest did not show pneumomediastinum. 22 mm cavitary lesion PARRISH noted. Post-inflammatory process favored, but f/u CT in 6 months recommended. Discussed with pt. He has been followed by Pulmonary Medicine for abnormal CT of chest. 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 (10) DVT prophylaxis: SCDs ordered. Ambulating. (11) Encounter for consultation: Thank you for this consultation. We will follow the patient with you during their hospital stay. My cell # is [phone] You can reach a member of the [facility] Medicine Team 19/09 via pager @ [phone]. Subjective Follow-up for dysphagia status post cervical spine surgery Seen sitting up in bed, watching TV, comfortable Epigastric discomfort is improved, tolerating PEG tube feeding well so far Reports cough with intermittent clear sputum No dyspnea No other symptoms Review of Systems Review of Systems: All systems reviewed & are unremarkable except as noted in HPI & below Physical Exam Physical Exam: General- oriented x 3, not in distress, speaks in sentences with no effort or accessory muscle use Eyes- anicteric Neck- no JVD Lungs- clear breath sounds, no wheezing, no crackles bilaterally Heart- normal rate, regular rhythm; no murmurs Abdomen- normal bowel sounds, nondistended, PEG tube site with no bleeding, discharge, leakage, soft, nontender Extremities- no pretibial edema, no calf tenderness Neuro- alert, oriented x 3; no gross focal neurologic deficits Skin- warm & dry Results & Data Vital Signs (Past 12 Hours) Vital Signs Temp Pulse Resp BP Pulse Ox 11/11/18 11:16 80 16 99 11/11/18 07:33 36.3 C L 76 16 121/80 96 11/11/18 03:05 71 16 98 Laboratory Results Speech Therapy Interventions CRITICAL CARE SPECIALIST (Inpt) - Discharge Instructions Start: 11/06/18 14:50 Freq: Status: Active Protocol: Document 11/06/18 14:50 MG (Rec: 11/06/18 14:51 MG [email or web address]) CRITICAL CARE SPECIALIST Discharge Instructions Patient Instructions Speech Therapy Discharge Instructions This patient continues to present with severe dysphagia, some of which is likely due to post-op edema from his anterial cervical spine surgery, generalized weakness, and possible neurological component. It is still uncertain at this time how long the healing process will be. Recommendations are as follows: 1. NPO status including meds. May have ice chips and sips for comfort only. Stop consuming these items with any increased coughing or discomfort. 2. Aspiration precautions. Stringent mouth care. 3. Alternative means of nutrition and hydration via PEG tube. 4. Would benefit from aggressive dysphagia therapy upon discharge. 5. Repeat video swallow in 3- 4 weeks pending progress in dysphagia therapy. The patient has a strong sensory response in the form of a cough when he is aspirating. When this is no longer happening in therapy a repeat study would be indicated at that time to assess swallow function and rule out possible silent aspiration as a possible factor. Aspiration Precautions Oral Hygiene CRITICAL CARE SPECIALIST (Inpt) - Evaluation* Start: 10/22/18 10:30 Text: swallowing eval Status: Active Freq: ONCE Protocol: Document 10/22/18 11:29 MG (Rec: 10/22/18 11:44 MG [email or web address]) CRITICAL CARE SPECIALIST - Evaluation Therapy Times Therapy Start Time 12:35 Therapy End Time 12:52 Type of Evaluation Evaluation Completed Yes Rehab Assessment Type Speech/Language Eval CRITICAL CARE SPECIALIST Evaluation Type Bedside Swallowing Assess Medical History Admission Date 10/17/18 Admission Diagnosis Other spondylosis with Myelopathy, cervical region Events Leading to Admission This patient is S/P cervical spinal fusion: C4 corpectomy, C5-C6 discectomy and fusion C3-C6 today by Dr Mojica He presents with ongoing swallowing difficulty where he is unable to swallow saliva or liquids. Other Past Medical Hx (Including Prior Abdominal aortic aneurysm CRITICAL CARE SPECIALIST Intervention) Followed by PCP BPH (benign prostatic hyperplasia) Cervical disc disease Chronic obstructive pulmonary disease EMPHYSEMA GERD (gastroesophageal reflux disease) Lung nodules 2 Stable, 2 new ones being followed Memory change PER DAUGHTER Neuropathy BLE Ambulatory dysfunction No previous CRITICAL CARE SPECIALIST services at [facility]. Current Diet NPO Imaging Studies Results of Imaging Studies CT soft tissue neck wo con CT DOSE: 1098.04 mGy.cm CLINICAL HISTORY: History of neck surgery. Difficulty swallowing. Possible hematoma. TECHNIQUE: The study was performed without intravenous contrast. Helical images were acquired in the transverse plane. A dose lowering technique was utilized adhering to the principles of ALARA. COMPARISON STUDY: None. FINDINGS: The visualized portions lung apices reveal pulmonary emphysema. No thyroid abnormalities are visualized in this noncontrast study. No salivary gland masses are visualized on this noncontrast study. There is no evidence of pathologic adenopathy. There is no evidence of airway compromise. No mucosal space masses are visualized in this noncontrast study. Trauma to soft tissue gas in the right neck, are likely postsurgical. There are postsurgical changes of a C4 corpectomy, and C5-C6 discectomy and interbody fusion. There is a C3-C6 anterior cervical spinal fusion. There is anterior soft tissue edema likely postsurgical. There is anterior cervical drainage catheter. There is no evidence for airway compromise IMPRESSION: 1. Examination limited due to the lack of intravenous contrast 2. Postsurgical changes within the cervical spine at C3-C6 level. Associated anterior soft tissue edema, likely postsurgical. 3. No evidence for abscess in this noncontrast study 4. No evidence of airway compromise 5. No evidence of pathologic adenopathy Electronically signed by: Abdoulaye Davila M.D. 10/18/2018 6:50 AM XR chest 1V portable CLINICAL HISTORY: cough COMPARISON STUDY: Chest radiograph October 10, 2018. FINDINGS: Lung volumes are normal. Lungs are clear. There is no pneumothorax or pleural effusion. Cardiac size is normal. Mediastinal contours are normal. There is no evidence for pulmonary edema. Anterior cervical spine fusion is incidentally noted. Surgical drain is in place. IMPRESSION: No acute cardiopulmonary findings. Electronically signed by: Dashawn Lim M.D. 10/19/2018 9:55 PM Report Report Speech evaluation completed at the bedside today. The patient was alert and oriented . He voices frustration with his inability to swallow s/p his surgery. He states that he will often cough up saliva and will cough with sips of water, and then have to suction himself. Oral motor assessment was wnl with strength and ROM of the articulators. He does not have any upper dentition. He only has front lower dentition but these are sparse. He denies having any chewing or swallowing issues prior to this surgery. Upon inspection of his neck, the right side which is where the surgery was completed was noted to be much more swollen than his left. He reports that the swelling overall has improved in particular with the left. However he continues to have difficulty with swallowing. The patient took ice chips x2 for the assessment. Upon palpation, he was able to produce a swallow that was effortful. He swallowed many times per ice chip and then produced a hard wet gurgly cough which resulted in him using his suction machine to clear. He states this happens at rimes with his saliva as well. No further trials given . At this point the patient is unsafe for p.o. intake as he is not able to safely swallow his secretions or ice chips without overt aspiration and suctioning. This is likely due to post-op swelling from his surgery and per CT of the neck. The patient was educated that the swelling will need to subside further before any sort of intake can be initiated but that CRITICAL CARE SPECIALIST services will conrinue to follow for this. He was educated to try to swallow his saliva as much as possible and can continue with small ice chips for comfort as he can tolerate. Aslo educated on aggressive oral care. In agreement. Results and recommendations given to Kelly SOLARES as well with verbal understanding. Plan/Recommendation Will Follow-up Yes Aspiration Precautions Oral Hygiene Recommendations 1. NPO 2. Aspiration precautions as outlined 3. Speech will follow for readiness to initiate oral intake. Document 10/29/18 11:54 EKT (Rec: 10/29/18 12:[id number]) CRITICAL CARE SPECIALIST - Evaluation Therapy Times Therapy Start Time 10:15 Therapy End Time 10:45 Type of Evaluation Evaluation Completed Yes Rehab Assessment Type Speech/Language Eval CRITICAL CARE SPECIALIST Evaluation Type Bedside Swallowing Assess Medical History Admission Date 10/17/18 Admission Diagnosis other spondylosis Events Leading to Admission see original CRITICAL CARE SPECIALIST assessment Pt admitted for elective C4 corpectomy C5-6 discectomy and fusion C3-C6 Other Past Medical Hx (Including Prior Abdominal aortic aneurysm CRITICAL CARE SPECIALIST Intervention) Followed by PCP BPH (benign prostatic hyperplasia) Cervical disc disease Chronic obstructive pulmonary disease EMPHYSEMA GERD (gastroesophageal reflux disease) Lung nodules 2 Stable, 2 new ones being followed Memory change PER DAUGHTER Neuropathy BLE Ambulatory dysfunction Current Diet NPO x sips and chips Imaging Studies Results of Imaging Studies FL video swallow CLINICAL HISTORY: 73 years-old Male with assess for aspiration. Acute dysphasia TECHNIQUE: Video fluoroscopic evaluation of swallowing was performed in the AP and lateral projections by the speech pathology staff. The patient is fed nectar-thick and thin liquid barium, a barium coated wafer, and barium pudding. FLUOROSCOPY TIME: 1.6 minutes. COMPARISON STUDY: CT soft tissue neck 10/18/2018 FINDINGS: Aspiration and cough with thin liquid barium. Aspiration with nectar thick and pudding consistencies. Pooling of contrast noted within the vallecula and piriform sinuses. Post surgical changes redemonstrated at the C3-C6 levels. Mild prevertebral soft tissue swelling may be on a postsurgical basis. IMPRESSION: 1. Aspiration with multiple consistencies. 2. Please see the speech pathologist report for detailed findings and recommendations. 3. Mild prevertebral soft tissue swelling, likely postsurgical. Electronically signed by: Teofilo Guevara M.D. 10/25/2018 2:21 PM Report Report Pt coming off several days of IV steroid administration to address the swelling found during laryngoscopy by ENT (" Flexible fiberoptic laryngoscopy showed normal true vocal cord mobility ant appearance. MAJOR FINDING WAS EXTENSIVE EDEMA IN THE RIGHT LATERAL PHARYNGEAL WALL STARTING AT THE TONGUE BASE AND EXTENDING DOWN TO THE HYPOPHARYNX.) Providers wanted the patient's swallowing reassessed at bedside after having had several dosed of steroids. Pt was seen this morning. He was awake and alert and upright in bed. Pt with gurgly vocal quality and trash can full of tissues in which he has been spitting his own secretions. Pt cleared his throat and spit out secretions prior to being given oral intake. Voicing was clear immediately prior to any bolus administration. Pt wanted a sip of water. He self-presented a single, very small sip. (+) throat- clearing and wet vocal quality after swallowing. No overt cough. Pt wanted an ice chip. (+) OVERT S/S ASPIRATION WITH PROLONGED COUGH AND WET/ GURGLING VOCAL QUALITY. There is movement of the hyolaryngeal musculature on palpation but I suspect there is no epiglottic inversion protecting the airway. Talked to patient at length about results, prognosis and next steps. I beleive that it could be months until the patient's swallowing abilities are restored. This is clearly more than an issue of swelling. There is airway protection/reflexive neuro issues that are occurring. Dr Ioana Dominguez given report. A new VFSS s/p completion of steroids is being requested to document any change. That can be completed 10/30/18. The patient is aware of the outcome of today's attempts at swallowing. He is aware of the CRITICAL CARE SPECIALIST's prediction (based on previous cases) re: possible length of time this could take to resolve. He is agreeable to inpatient intensive dysphagia therapy if his insurance will cover it. He is looking forward to coordinating his care with Case Management and Rosi Cano. Plan/Recommendation Will Follow-up Yes Aspiration Precautions Oral Hygiene Recommendations Continue NPO except sips and chips ORAL HYGIENE several times per day THIS PATIENT WILL ASPIRATE LIQUIDS IF GIVEN P.O. LIQUIDS ARE NOT SAFER THAN SOLIDS FOR THIS PATIENT. HE SHOULD REMAIN NPO. VFSS 10/30/18 (time TBD) -- should have RN present for suction in case it is needed Document 11/03/18 10:25 LUCINDA (Rec: 11/03/18 10:[email or web address]) CRITICAL CARE SPECIALIST - Evaluation Therapy Times Therapy Start Time 10:00 Therapy End Time 10:20 Type of Evaluation Evaluation Completed Yes Rehab Assessment Type Speech/Language Eval CRITICAL CARE SPECIALIST Evaluation Type Bedside Swallowing Assess Medical History Admission Date 10/17/18 Admission Diagnosis Other spondylosis with Myelopathy, cervical region Events Leading to Admission see original CRITICAL CARE SPECIALIST assessment Pt admitted for elective C4 corpectomy C5-6 discectomy and fusion C3-C6 Other Past Medical Hx (Including Prior Abdominal aortic aneurysm CRITICAL CARE SPECIALIST Intervention) Followed by PCP BPH (benign prostatic hyperplasia) Cervical disc disease Chronic obstructive pulmonary disease EMPHYSEMA GERD (gastroesophageal reflux disease) Lung nodules 2 Stable, 2 new ones being followed Memory change PER DAUGHTER Neuropathy BLE Ambulatory dysfunction [ End ] Imaging Studies Results of Imaging Studies FL video swallow CLINICAL HISTORY: 73 years-old Male with assess for aspiration. Acute dysphasia TECHNIQUE: Video fluoroscopic evaluation of swallowing was performed in the AP and lateral projections by the speech pathology staff. The patient is fed nectar-thick and thin liquid barium, a barium coated wafer, and barium pudding. FLUOROSCOPY TIME: 1.6 minutes. COMPARISON STUDY: CT soft tissue neck 10/18/2018 FINDINGS: Aspiration and cough with thin liquid barium. Aspiration with nectar thick and pudding consistencies. Pooling of contrast noted within the vallecula and piriform sinuses. Post surgical changes redemonstrated at the C3-C6 levels. Mild prevertebral soft tissue swelling may be on a postsurgical basis. Report Report Pt. underwent additional surgery to repair cervical spinal fusion secondary to hardware movement. CRITICAL CARE SPECIALIST presented to pts room this am. Pt. alert and awake and very knowledgeable of his situation and condition with a positive attitude. Pt. was able to complete vocalizations and conversation with clear vocal quality and no secretions. Pt. reports that he continues to feel phlegm occasionally however he is able to manage it without having to expel it into a tissue or basin. Pt. stated Dr. Mojica was to place on clear liquid diet this date. CRITICAL CARE SPECIALIST concerned for any p.o. intake give result of last video swallow resulting in aspiration of all textures tested. Pt. stated he has been eating ice chips with no difficulty. CRITICAL CARE SPECIALIST provided pt. with ice chips which he accepted and successfully swallowed with no overt s/s of aspiration. No coughing, no throat clear and no change in vocal quality. This is significantly improved from video swallow study and previous bedside swallow evals where pt was presenting with overt s/s of aspiration and could not functionally swallow tested items which resulted in expulsion from oral cavity. Pt. accepted several small sips of thins with no overt difficulty or s/s of aspiration. At this time Dr. Mallory presented into pts room. CRITICAL CARE SPECIALIST reviewed results of bedside swallow. CRITICAL CARE SPECIALIST, physician, and pt. in agreement to begin clear liquid diet. CRITICAL CARE SPECIALIST expressed concern for the possibility of increased edema to present tomorrow given that has been the course of recovery after the previous 2 procedures. CRITICAL CARE SPECIALIST, physician and Pt. all aware of this concern and are highly guarded in all p.o. intake at this time. CRITICAL CARE SPECIALIST extensively educated pt. on discontinuation of any and all p.o. intake if any s/s of aspiration or difficulty occur . Pt. verbalized understanding. CRITICAL CARE SPECIALIST spoke with Dr. Mojica in regards to bedside swallow and guarded p.o. diet of clear liquids. Dr. Archer in agreement and aware of concern for edema. Also in agreement that no diet advancement will be completed until completion of additional video swallow study to ensure no aspiration is occurring. CRITICAL CARE SPECIALIST will monitor closely. Plan/Recommendation Will Follow-up Yes Aspiration Precautions Supervise Meals Fully Alert and Upright Oral Hygiene Single Bites/Small Sips/Slow Rate NO Straws Recommendations Recommending 1.Clear liquid diet 2.NPO if any s/s of difficulty or aspiration noted. 3. Oral hygiene 4. Completion of video swallow on Monday if pt. continues to tolerate p.o. intake and no medical setback occurs. 5. NO diet advancement until completion of video swallow study CRITICAL CARE SPECIALIST (Inpt) - Treatment Start: 10/22/18 14:17 Freq: Status: Active Protocol: Document 10/23/18 12:39 MG (Rec: 10/23/18 12:42 MG [email or web address]) CRITICAL CARE SPECIALIST - Treatment Treatment Type CRITICAL CARE SPECIALIST Treatment Type Productivity Query Text: *Treatment for speech, language, voice, communication, and/or auditory processing disorder; individual *Treatment of swallowing dysfunction and /or oral function for feeding Reason Patient not Evaluated for Rehab Procedure Chart Review EMR Reviewed Yes Notes Note EMR reviewed and spoke with the patient today. He is scheduled to return to the OR today with Dr. Mojica for expiration of the surgical area/revision of the plate. The patient reports that he continues to have swallowing difficulty but that it may have improved slightly from yesterday, in that he can tolerate very small ice chips and suctioned less. Despite this he continues to have to suction thicker secretions. Speech will follow up after his surgery. Plan/Recommendation Aspiration Precautions Oral Hygiene Recommendations 1. NPO 2. Aspiration precautions 3. Speech will follow up after surgical procedure and assess for readiness for p.o. intake. Document 10/24/18 10:58 MG (Rec: 10/24/18 11:08 MG [id number]) CRITICAL CARE SPECIALIST - Treatment Therapy Times Therapy Start Time 10:34 Therapy End Time 10:50 Treatment Type CRITICAL CARE SPECIALIST Treatment Type Treat Swallow Dysfunction Query Text: *Treatment for speech, language, voice, communication, and/or auditory processing disorder; individual *Treatment of swallowing dysfunction and /or oral function for feeding Chart Review EMR Reviewed Yes EMR Review Changes Patient participated in suregry yesterday for revision of the anterior cervical decompression/fusion performed . The patient reports improvement overall with his ability to swallow following this revision. Notes Note Speech treatment completed at the bedside today. He was positioned upright in bed. Was tolerating secretions better today and was therefore ordered a clear liquid tray. CRITICAL CARE SPECIALIST arrived while the patient was consuming his breakfast. The patient reports he is feeling much better and that his swallowing has improved. He has not had to use the suction much this morning ( only x2). He is tolerating his secretions much better per his report as well. The patient was served broth, Jello, and orange juice. He was finishing his Jello when CRITICAL CARE SPECIALIST arrived. He was able to swallow small bites of this without overt aspiration. He did not have to suction after the swallow, which is an improvement from the intiial assessment as was was suctioning immediately after the swallow with ice chips. He also took small single sips of orange juice. No significant difficulty. He did have several episodes of throat clearing but in general this was effective to clear any wet vocal quality and for the most part his voice was clear. No evidence of stridor or SOB. VSS. Improving. Educated the patient on on aspiration precautions and safe swallow strategies with verbal understanding. Also in agreement. He reports that should he continue to tolerate liquids that his diet may be upgraded tomorrow to soft foods per Dr. Mojica. Will follow for tolerance. Spoke with Justyna SOLARES with results. Plan/Recommendation Aspiration Precautions Fully Alert and Upright Oral Hygiene Single Bites/Small Sips/Slow Rate NO Straws Recommendations 1. Clear liquid diet 2. Aspiration precautions 3. Speech will follow for tolerance. Document 10/25/18 12:44 MG (Rec: 10/25/18 12:54 MG [email or web address]) CRITICAL CARE SPECIALIST - Treatment Therapy Times Therapy Start Time 12:05 Therapy End Time 12:27 Treatment Type CRITICAL CARE SPECIALIST Treatment Type Treat Swallow Dysfunction Query Text: *Treatment for speech, language, voice, communication, and/or auditory processing disorder; individual *Treatment of swallowing dysfunction and /or oral function for feeding Chart Review EMR Reviewed Yes EMR Review Changes Tolerated clear liquids last evening per the EMR. Diet was advanced to soft bite size by Dr. Mojica. CRITICAL CARE SPECIALIST was contacted by ALICIA re: coughing with solid foods at breakfast. Diet was modified to minced and moist and CRITICAL CARE SPECIALIST services to follow at lunch. Notes Note Speech treatment completed at the bedside today. The patient reported he had difficulty swallowing eggs today and that he has a sore throat when he swallows. He agreed to try the chopped minced and moist diet at lunch . The patient was served minced and moist chicken, mashed potatoes, green beans, and peaches. Of note, the patient did not have any coughing at baseline and he was tolerating saliva as evidenced by clear vocal quality and no suctioning. [place] producing a swallow, the patient presented with increased wet coughing episodes with the chicken and green beans. Less coughing noted with mashed potatoes. He also took sips of room temperature water, no overt aspiration. He feels as though he needs to swallow 2-3 times per bite and sip for it to go down. Given the patient is presenting with coughing with solids and his plan for discharge may be tomorrow or this weekend, a video swallow study was recommended. Patient was in agreement. Scheduled for 1330 today. Plan/Recommendation Recommendations Video swallow study today at 1330 Diet recommendations to follow pending study results. Document 10/26/18 13:06 MG (Rec: 10/26/18 13:24 MG [id number]) CRITICAL CARE SPECIALIST - Treatment Treatment Type CRITICAL CARE SPECIALIST Treatment Type Productivity Query Text: *Treatment for speech, language, voice, communication, and/or auditory processing disorder; individual *Treatment of swallowing dysfunction and /or oral function for feeding Chart Review EMR Reviewed Yes Notes Note EMR reviewed. Spoke with Dr. Dominguez. ENT has been consulted and to assess today. Nutrition has also been consulted for PPN to be initiated. Patient is reporting that his swallowing has not improved today. Continues to have significant difficulty. Speech will follow for outcome of ENT assessment. Plan/Recommendation Recommendations This patient presents with severe dysphagia, likely due to post-op edema from his anterial cervical spine surgery and hardware placement /revision. It is uncertain at this time how long the healing process will be with regard to the edema subsiding. Recommendations are as follows: 1. NPO status including meds. May have ice chips and sips for comfort only. Stop consuming these items with any increased coughing or discomfort. 2. Aspiration precautions. Stringent mouth care. 3. Alternative means of nutrition and hydration will need to be considered for this patient (PPN to be initiated) . 4. Will follow for plan of care. Consideration for a PEG tube may also need to be discussed with the patient as again it is uncertain as to the length of time it will take for the edema to subside. Discharge Instructions Discharge Instructions Entered No Time Spent with Patient (Minutes) Productivity - Each 15 min 10 Billing (Units) Productivity Units 1 Query Text: *1 unit = 8-22 Min *2 units = 23-37 Min *3 units = 38-52 Min *4 units = 53-67 Min *5 units = 68-82 Min *6 units = 83-97 Min *7 units = 98-112 Min *8 units = 113-127 Min Document 10/27/18 16:11 AB (Rec: 10/27/18 16:17 AB [id number]) CRITICAL CARE SPECIALIST - Treatment Treatment Type CRITICAL CARE SPECIALIST Treatment Type Productivity Query Text: *Treatment for speech, language, voice, communication, and/or auditory processing disorder; individual *Treatment of swallowing dysfunction and /or oral function for feeding Other Reason Not Completed not indicated Chart Review EMR Reviewed Yes EMR Review Changes Pt NPO with aspiration precautions and PPN initiated in the setting of severe dysphagia s/p post-op edema from his anterior cervical spine surgery and hardware placement/revision. ENT consult completed 10/26. IV steroids initiated to assist in decreasing swelling. ENT suspects that with more time, swelling with decrease and dysphagia will resolve. Notes Note IV Steroid now ordered following ENT consult to assist in decreasing swelling. CRITICAL CARE SPECIALIST will follow up to reassess pt's secretion management and ability to swallow to tolerate PO as swelling abates. Plan/Recommendation Recommendations 1. NPO status including meds. May have ice chips and sips for comfort only. Stop consuming these items with any increased coughing or discomfort. 2. Aspiration precautions. Stringent mouth care. 3. Alternative means of nutrition and hydration will need to be considered for this patient (PPN to be initiated) . 4. Will follow to reassess as swelling abates. Discharge Instructions Discharge Instructions Entered No Time Spent with Patient (Minutes) Productivity - Each 15 min 10 Billing (Units) Productivity Units 1 Query Text: *1 unit = 8-22 Min *2 units = 23-37 Min *3 units = 38-52 Min *4 units = 53-67 Min *5 units = 68-82 Min *6 units = 83-97 Min *7 units = 98-112 Min *8 units = 113-127 Min Document 10/28/18 10:27 EKT (Rec: 10/28/18 10:[id number]) CRITICAL CARE SPECIALIST - Treatment Treatment Type CRITICAL CARE SPECIALIST Treatment Type Productivity Query Text: *Treatment for speech, language, voice, communication, and/or auditory processing disorder; individual *Treatment of swallowing dysfunction and /or oral function for feeding Reason Patient not Evaluated for Rehab Other Other Reason Not Completed getting remaining doses of IV Decadron then will reassess Chart Review EMR Reviewed Yes EMR Review Changes ENT consultation completed. Notes Note Spoke to Dr Dominguez. Plan is to let patient finish IV Decadron (2 doses today) and then reassess swallow tomorrow at bedside. Plan/Recommendation Recommendations see above for plan Time Spent with Patient (Minutes) Productivity - Each 15 min 10 Billing (Units) Productivity Units 1 Query Text: *1 unit = 8-22 Min *2 units = 23-37 Min *3 units = 38-52 Min *4 units = 53-67 Min *5 units = 68-82 Min *6 units = 83-97 Min *7 units = 98-112 Min *8 units = 113-127 Min Document 10/31/18 12:02 MG (Rec: 10/31/18 12:13 MG [email or web address]) CRITICAL CARE SPECIALIST - Treatment Therapy Times Therapy Start Time 10:24 Therapy End Time 10:41 Treatment Type CRITICAL CARE SPECIALIST Treatment Type Treat Swallow Dysfunction Query Text: *Treatment for speech, language, voice, communication, and/or auditory processing disorder; individual *Treatment of swallowing dysfunction and /or oral function for feeding Chart Review EMR Reviewed Yes EMR Review Changes Patient was assessed by Dr. Mojica. A new cervical x-ray confirmed the following: IMPRESSION: Slight interval anterior displacement of the superior aspect of the metallic plate when compared to the prior study. Notes Note Speech treatment completed at the bedside today. The patient was cooperative. He reports he spoke with Dr. Mojica this morning with planned revision of the displaced plate either or Monday. Reviewed swallowing exercises with the patient to include the Anastasia Maneuver for improved tongue base retraction/strength, and the Vijaya Maneuver for improved anterior hyoid excursion/PES opening. The patient is able to complete the Anastasia Maneuver well per his report but felt he had increased trouble with the Vijaya as he felt as though his swallow got "stuck" and felt apprehensive to continue this. Patient educated to no longer complete that exercise at this time but to focus on the Anastasia. He was able to complete ~ 10 with CRITICAL CARE SPECIALIST with rest breaks. After the final one he felt as though he needed a longer rest as his tongue felt sore. He was in agreement to continue with these exercises. Per EMR and patient report, will determine swallowing function after this next revision as it is felt that some of the hardware movement may be impinging upon the ability of the esophagus to open properly. Will continue with PPN. If there are no changes in function following the revision, a PEG tube will be further considered. Report given to SUJATHA Gonzalez with verbal understanding. Plan/Recommendation Aspiration Precautions Oral Hygiene Recommendations 1. NPO status including meds. May have ice chips and sips for comfort only. Stop consuming these items with any increased coughing or discomfort. 2. Aspiration precautions. Stringent mouth care. 3. Will follow. Document 11/01/18 12:04 MG (Rec: 11/01/18 12:10 MG [id number]) CRITICAL CARE SPECIALIST - Treatment Therapy Times Therapy Start Time 11:21 Therapy End Time 11:42 Treatment Type CRITICAL CARE SPECIALIST Treatment Type Treat Swallow Dysfunction Query Text: *Treatment for speech, language, voice, communication, and/or auditory processing disorder; individual *Treatment of swallowing dysfunction and /or oral function for feeding Chart Review EMR Reviewed Yes Notes Note Speech treatment completed at the bedside today. Patient is to participate in surgery tomorrow. All current hardware is going to be removed and replaced by Dr. Mojica. Receiving PPN. The patient has been attempting to complete the Anastasia Maneuver 10 times over each hour. He states it becomes quite taxing and that his throat begins to feel sore /tight. He was educated to scale back to 5 an hour (or as tolerated) and he was in agreement. He was able to complete 5 with CRITICAL CARE SPECIALIST present with rest breaks between each repetition. Reduced hyolaryngeal elevation noted, with minimal to no anterior hyoid excursion upon palpation . He did have noted wet vocal quality today with a cough being effective to clear this. Speech will follow in the EMR for outcome of surgery and readiness for p.o. intake following surgery. Plan/Recommendation Aspiration Precautions Oral Hygiene Recommendations 1. NPO status including meds. May have ice chips and sips for comfort only. Stop consuming these items with any increased coughing or discomfort. 2. Aspiration precautions. Stringent mouth care. 3. Will follow after surgery is completed. Document 11/02/18 11:38 MG (Rec: 11/02/18 11:47 MG [id number]) CRITICAL CARE SPECIALIST - Treatment Treatment Type CRITICAL CARE SPECIALIST Treatment Type Productivity Query Text: *Treatment for speech, language, voice, communication, and/or auditory processing disorder; individual *Treatment of swallowing dysfunction and /or oral function for feeding Reason Patient not Evaluated for Rehab Procedure Chart Review EMR Reviewed Yes Notes Note Patient is participating in surgery today with Dr. Mojica for removal and replacement of his cervical hardware. Speech will follow up for readiness to be released to a p.o. diet. It is highly recommended that the patient participate in a speech evaluation PRIOR TO initiating a p.o. diet. Plan/Recommendation Aspiration Precautions Oral Hygiene Recommendations 1. NPO status including meds. 2. Aspiration precautions. Stringent mouth care. 3. Will follow after surgery is completed. Time Spent with Patient (Minutes) Productivity - Each 15 min 10 Billing (Units) Productivity Units 1 Query Text: *1 unit = 8-22 Min *2 units = 23-37 Min *3 units = 38-52 Min *4 units = 53-67 Min *5 units = 68-82 Min *6 units = 83-97 Min *7 units = 98-112 Min *8 units = 113-127 Min Document 11/04/18 11:32 KLB (Rec: 11/04/18 11:[email or web address]) CRITICAL CARE SPECIALIST - Treatment Therapy Times Therapy Start Time 09:35 Therapy End Time 09:50 Treatment Type CRITICAL CARE SPECIALIST Treatment Type Treat Swallow Dysfunction Query Text: *Treatment for speech, language, voice, communication, and/or auditory processing disorder; individual *Treatment of swallowing dysfunction and /or oral function for feeding Chart Review EMR Reviewed Yes Notes Note EMR reviewed. CRITICAL CARE SPECIALIST spoke with current RN and RN with pt. yesterday. Pt. was given clear liquids for lunch meal under direct supervision of RN . His initial 2 spoon sips were WFL however on his 3rd sip of broth he began to cough and demonstrate overt s/s of aspiration. RN removed food items from pt. at that point. Pt. requested attempt at jello which RN allowed and pt. demonstrated immediate coughing with overt s/s of aspiration and delated red residue expelled orally. At that time RN educated pt. on returning to NPO status secondary to overt aspiration. Pt. understood and in agreement. RN then states that she realized that a tray of minced and moist food items was placed in pts room and pt had consumed a few bites of mashed potatoes before RN had realized. Pt. had no reported difficulty however RN removed tray and reconfirmed NPO status in EMR and with Kitchen. At this time CRITICAL CARE SPECIALIST recommending continuation of NPO status with allowance for ice chips. Orders confirmed in EMR. Completion of Video swallow study to determine if any consistency appropriate to be consumed without aspiration. RN and Pt. in agreement with plan. Video Swallow Study orders placed with request to complete in AM if possible in radiology schedule. Plan/Recommendation Recommendations NPO - allowance for ice chips. Video Swallow study Monday (11/05/18) Discharge Instructions Discharge Instructions Entered No Document 11/06/18 14:34 MG (Rec: 11/06/18 14:50 MG [email or web address]) CRITICAL CARE SPECIALIST - Treatment Treatment Type CRITICAL CARE SPECIALIST Treatment Type Productivity Query Text: *Treatment for speech, language, voice, communication, and/or auditory processing disorder; individual *Treatment of swallowing dysfunction and /or oral function for feeding Chart Review EMR Reviewed Yes Notes Note EMR reviewed. Dr. Mojica discussed PEG tube placement with the patient and he was in agreement to have this placed . When the procedure is to occur is TBD. Discharge plan at this time is for LT[facility], following PEG placement and insurance approval. Spoke with the patient today. He is very compliant with completion of his swallowing exercises to include the Anastasia maneuver, the Vijaya maneuver, and effortful swallow. He reports that he often feels as though he has a "glob" in his throat and has a hard time bringing it up. It is suspected and likely this is a collection of saliva. He had several episodes with CRITICAL CARE SPECIALIST present where he would have a wet vocal quality and coughed up clear secretions. He was in agreement to continue completion of the pharyngeal strength exercises and was able to demonstrate them for the CRITICAL CARE SPECIALIST independently . At this point, speech will follow 3 times/week for progress with completion of pharyngeal strengthening exercises. Plan/Recommendation Aspiration Precautions Oral Hygiene Recommendations Recommendations are as follows : 1. NPO status including meds. May have ice chips and sips for comfort only. Stop consuming these items with any increased coughing or discomfort. 2. Aspiration precautions. Stringent mouth care. 3. Alternative means of nutrition and hydration via PEG tube. PEG tube feeds will also assist in using the GI tract as opposed to PPN. 4. Continued CRITICAL CARE SPECIALIST services for dysphagia therapy as an inpatient. Would benefit from aggressive dysphagia therapy upon discharge as well ( possible placement to LTAC- pending insurance approval). 5. Repeat video swallow in 3- 4 weeks pending progress in dysphagia therapy. The patient has a strong sensory response in the form of a cough when he is aspirating. When this is no longer happening in therapy a repeat study would be indicated at that time to assess swallow function and rule out possible silent aspiration as a possible factor as well. Discharge Instructions Discharge Instructions Entered Yes Time Spent with Patient (Minutes) Productivity - Each 15 min 10 Billing (Units) Productivity Units 1 Query Text: *1 unit = 8-22 Min *2 units = 23-37 Min *3 units = 38-52 Min *4 units = 53-67 Min *5 units = 68-82 Min *6 units = 83-97 Min *7 units = 98-112 Min *8 units = 113-127 Min Document 11/07/18 12:02 MG (Rec: 11/07/18 12:03 MG [email or web address]) CRITICAL CARE SPECIALIST - Treatment Treatment Type CRITICAL CARE SPECIALIST Treatment Type Productivity Query Text: *Treatment for speech, language, voice, communication, and/or auditory processing disorder; individual *Treatment of swallowing dysfunction and /or oral function for feeding Chart Review EMR Reviewed Yes Notes Note Patient is scheduled for placement of a PEG tube today. Will follow up on 11/08/18 for pharyngeal strengthening exercises progress. Plan/Recommendation Aspiration Precautions Oral Hygiene Recommendations Recommendations are as follows : 1. NPO status including meds. May have ice chips and sips for comfort only. Stop consuming these items with any increased coughing or discomfort. 2. Aspiration precautions. Stringent mouth care. 3. Alternative means of nutrition and hydration via PEG tube. 4. Continued CRITICAL CARE SPECIALIST services for dysphagia therapy as an inpatient. Would benefit from aggressive dysphagia therapy upon discharge as well ( possible placement to LTAC- pending insurance approval). 5. Repeat video swallow in 3- 4 weeks pending progress in dysphagia therapy. The patient has a strong sensory response in the form of a cough when he is aspirating. When this is no longer happening in therapy a repeat study would be indicated at that time to assess swallow function and rule out possible silent aspiration as a possible factor as well. Discharge Instructions Discharge Instructions Entered Yes Time Spent with Patient (Minutes) Productivity - Each 15 min 8 Billing (Units) Productivity Units 1 Query Text: *1 unit = 8-22 Min *2 units = 23-37 Min *3 units = 38-52 Min *4 units = 53-67 Min *5 units = 68-82 Min *6 units = 83-97 Min *7 units = 98-112 Min *8 units = 113-127 Min Document 11/08/18 13:37 MG (Rec: 11/08/18 13:43 MG [email or web address]) CRITICAL CARE SPECIALIST - Treatment Treatment Type CRITICAL CARE SPECIALIST Treatment Type Productivity Query Text: *Treatment for speech, language, voice, communication, and/or auditory processing disorder; individual *Treatment of swallowing dysfunction and /or oral function for feeding Chart Review EMR Reviewed Yes EMR Review Changes New hardware is noted to be stable and has not indicated any shifting: XR cervical spine 2 or 3V HISTORY: Pain. assess cervical hardware COMPARISON: 10/31/2018 FINDINGS: The cervical spine is visualized from C1 through the superior endplate of T1. There is no fracture. No subluxation. Postoperative changes consistent with anterior cervical fusion and corpectomy changes previously described are again noted. There is now grade contact and normal alignment of the anterior fixating plate. There appears to been advancement of the screw retention components at the C3 level. Prevertebral soft tissues and the atlantodens interval are intact. IMPRESSION: 1. Anatomic alignment post anterior cervical fusion and corpectomy. 2. Metallic hardware is intact and now appears to be aligned anatomically. 3. The previously described plate separation at the anterior aspect of C3 is no longer present. 4. Hardware now is appropriately aligned and is intact. The above report was generated using voice recognition software. It may contain grammatical, syntax or spelling errors. Electronically signed by: Denny Butler M.D. 11/07/2018 2:10 PM Notes Note CRITICAL CARE SPECIALIST spoke with the patient at the bedside today. Patient was originally scheduled to have a PEG tube placed on 11/07 but this was moved to today. Patient continues to complete pharyngeal strengthening exercises throughout the day and was also reportedly showing and teaching family and Nursing staff how to complete as he was practicing them with various persons present. He continues to cough up and expectorate saliva at this time. Discharge plan continues to be for [facility] pending insurance approval. Speech does not plan to follow further as an inpatient as the patient is able to complete his exercises idenpendently at this time. Recommend continued CRITICAL CARE SPECIALIST services at discharge. Plan/Recommendation Aspiration Precautions Oral Hygiene Recommendations Recommendations are as follows : 1. NPO status including meds. May have ice chips and sips for comfort only. Stop consuming these items with any increased coughing or discomfort. 2. Aspiration precautions. Stringent mouth care. 3. Alternative means of nutrition and hydration via PEG tube. 4. Would benefit from aggressive dysphagia therapy upon discharge as well ( possible placement to LTAC- pending insurance approval). 5. Repeat video swallow in 3- 4 weeks pending progress in dysphagia therapy. The patient has a strong sensory response in the form of a cough when he is aspirating. When this is no longer happening in therapy a repeat study would be indicated at that time to assess swallow function and rule out possible silent aspiration as a possible factor as well. 6. Speech does not plan to follow further as an inpatient at this time. Discharge Instructions Discharge Instructions Entered Yes Time Spent with Patient (Minutes) Productivity - Each 15 min 15 Billing (Units) Productivity Units 1 Query Text: *1 unit = 8-22 Min *2 units = 23-37 Min *3 units = 38-52 Min *4 units = 53-67 Min *5 units = 68-82 Min *6 units = 83-97 Min *7 units = 98-112 Min *8 units = 113-127 Min CRITICAL CARE SPECIALIST (Inpt) - Video Swallow Start: 10/25/18 14:52 Text: Status: Active Freq: Protocol: Document 10/25/18 14:52 MG (Rec: 10/25/18 15:15 MG [id number]) Electronically Signed By PAOLA Sunshine 10/25/18 14:52 Video Swallow - Procedure Evaluation Video Swallow Evaluation Completed Yes CRITICAL CARE SPECIALIST Study Completed Fluoro Swallow Study History History This 73 year old man was referred to [facility] ([facility]) for a Video Fluoroscopic Swallow Study (VFSS) in order to rule out aspiration, and identify the safest consistencies for oral intake. Procedure Procedure The patient was seen in the Radiology Department of [facility] for the VFSS. The patient was positioned upright in a wheelchair for the procedure and was viewed in the Lateral plane. The Anterior-Posterior (A-P) was deferred julio cesar to cervical hardware. In the lateral plane, the patient was given the following boluses: 1 tsp. thin liquid barium x 1, single swallow thin liquid barium self-presented from a cup x2, single swallow nectar-thick liquid barium self-presented from a cup, and 1 tsp. barium pudding. No further trials were given due to safety concerns. Video Swallow - Oral Impairment Oral Impairment Lip Closure No Labial Escape Tongue Control during Bolus Hold Cohesive Bolus between Tongue to Palatal Seal Bolus Preparation / Mastication Slow Prolonged Chewing / Mashing with Complete Re- collection Bolus Transport / Lingual Motion Delayed Init of Tongue Motion; Once it Starts Bolus Swallowed Normally Oral Residue Residue Collection on Oral Structures; Could Scoop out of Mouth Initiation of Pharyngeal Swallow Bolus Head in Pyriforms Other Oral Impairment Observations Mild oral stage dysphagia. Swallow reflex was delayed. Video Swallow - Pharyngeal Pharyngeal Impairment Soft Palate Elevation No Bolus between Soft Palate / Pharyngeal Wall Laryngeal Elevation Minimal Superior Movement of Thyroid Cartilage Anterior Hyoid Excursion Partial Anterior Movement Epiglottic Movement Partial Inversion Laryngeal Vestibular Closure (Judged at Incomplete; Narrow Column Air Height of Swallow) / Contrast in Laryngeal Vestibule Pharyngeal Stripping Wave Present - Diminished Pharyngoesophageal Segment Opening Minimal Distention / Minimal Duration; Marked Obstruction of Flow Tongue Base Retraction Wide Column of Contrast or Air between Tongue Base & Pharyngeal Wall Pharyngeal Residue Majority of Contrast within or on Pharyngeal Structures Pharyngeal Impairment Other Observations Severe pharyngeal stage dysphagia. The patient was found to have aspiration with all consistencies administered , despite bolus size. Aspiration was found with thin liquids, nectar thick liquids , and pudding. He did have a sensory response to this aspiration in the form of a cough however this did not clear his airway fully. There was only trace amount of aspiration noted with small sips of thin liquids from a cup. Heavy retention located in the pyrifoms would also spill over into the open airway, with a large amount of pudding found to begin falling into the airway which triggered a cough. Verbal cues to produce multiple effortful swallows, hard coughing, and hard throat clearing were also not fully effective to clear the retention and aspiration. The patient eventually coughed up and expectorated all of the barium given. Aspiration and retenion is likely due to post op edema, which is contributing to reduced ROM of the swallowing mechanism providing very little airway protection with p.o. intake. CRITICAL CARE SPECIALIST was unable to attempt safe swallow strategies such as a chin tuck etc, due to his recent suregry and need to wear a [place] J collar when OOB . Video Swallow - Summary/Recommendations Summary/Recommendations Summary / Recommendations This patient presents with severe dysphagia, likely due to post-op edema from his anterial cervical spine surgery and hardware placement /revision. It is uncertain at this time how long the healing process will be with regard to the edema subsiding. CRITICAL CARE SPECIALIST spoke with Dr. Dominguez at length with results. Dr. Dominguez is to speak wirh Dr. Mojica as well. Recommendations are as follows : 1. NPO status including meds. May have ice chips and sips for comfort only. Stop consuming these items with any increased coughing or discomfort. 2. Aspiration precautions. Stringent mouth care. 3. Alternative means of nutrition and hydration will need to be considered for this patient. 4. Will follow for plan of care. In speaking with Dr. Dominguez, plan of care will include possible consultation with ENT as appropritae and initiation of TPN for nutrition/ hydration as a NGT would not be the best option for this patient given his surgery and edema. Consideration for a PEG tube may also need to be discussed with the patient as again it is uncertain as to the length of time it will take for the edema to subside. Report was given to the patient, Dr. Dominguez, and Rajwinder SOLARES with verbal understanding. Aspiration Precautions Oral Hygiene Document 10/30/18 12:37 MG (Rec: 10/30/18 13:20 MG [id number]) Electronically Signed By AMARI [facility] 10/30/18 12:37 Video Swallow - Procedure Evaluation Video Swallow Evaluation Completed Yes CRITICAL CARE SPECIALIST Study Completed Fluoro Swallow Study History History This 73 year old man was referred to [facility] ([facility]) for a repeat Video Fluoroscopic Swallow Study (VFSS) in order to rule out aspiration, and identify the safest consistencies for oral intake. The patient was treated with several doses of steroids due to noted pharyngeal edema. Please refer to initial speech therapy notes dated 10/23- for full details. Procedure Procedure The patient was seen in the Radiology Department of [facility] for the VFSS. The patient was positioned upright in a wheelchair for the procedure and was viewed in the Lateral plane. The Anterior-Posterior (A-P) was deferred due to cervical hardware. In the lateral plane, the patient was given the following boluses: 1 tsp. thin liquid barium x 1, single swallow thin liquid barium self-presented from a cup x2, and a single swallow nectar- thick liquid barium self- presented from a cup. No further trials were given due to safety concerns. Video Swallow - Oral Impairment Oral Impairment Lip Closure No Labial Escape Tongue Control during Bolus Hold Posterior Escape of Less than Half of Bolus Bolus Transport / Lingual Motion Delayed Init of Tongue Motion; Once it Starts Bolus Swallowed Normally Oral Residue Trace Residue Lining Oral Structures; Outline Only of Oral Structure Initiation of Pharyngeal Swallow Bolus Head in Pyriforms Other Oral Impairment Observations Mild oral stage dysphagia continued to be noted. Swallow reflex time remains delayed. Video Swallow - Pharyngeal Pharyngeal Impairment Soft Palate Elevation No Bolus between Soft Palate / Pharyngeal Wall Laryngeal Elevation Partial Superior Movement of Thyroid Cartilage Anterior Hyoid Excursion Partial Anterior Movement Epiglottic Movement Partial Inversion Laryngeal Vestibular Closure (Judged at Incomplete; Narrow Column Air Height of Swallow) / Contrast in Laryngeal Vestibule Pharyngeal Stripping Wave Present - Diminished Pharyngoesophageal Segment Opening Minimal Distention / Minimal Duration; Marked Obstruction of Flow Tongue Base Retraction Wide Column of Contrast or Air between Tongue Base & Pharyngeal Wall Pharyngeal Residue Collection of Residue within or on Pharyngeal Structures Pharyngeal Impairment Other Observations The patient continues to present with severe pharyngeal stage dysphagia. There was noted edema and suspected movement of the patient's cervical hardware (also noted on the radiology report- possible anterior migration). This appeared to impact PES opening of the esophagus more so from the previous study. There was laryngeal penetration and aspiration of all consistencies administered despite bolus size. The Vijaya maneuver was also attempted which did not assist in preventing aspiration. The patient has very limited airway protection at this point. The patient also expectorated all retention into a tissue that remained in the pharynx after the swallow , and also anytime he coughed following an episode of aspiration. The study was concluded at that time. No other safe swallow stratgeis such as a chin tuck were attempted as again, the patient is required to wear a [place] J collar when OOB. Video Swallow - Summary/Recommendations Summary/Recommendations Summary / Recommendations This patient presents with severe dysphagia, likely due to post-op edema from his anterial cervical spine surgery and hardware placement . It is also suspected that there could be a neurological component to this patient's dysphagia as well from the surgery. It is still uncertain at this time how long the healing process will be. Recommendations are as follows: 1. NPO status including meds. May have ice chips and sips for comfort only. Stop consuming these items with any increased coughing or discomfort. 2. Aspiration precautions. Stringent mouth care. 3. Alternative means of nutrition and hydration via PEG tube will need to be considered for this patient. 4. Will follow for plan of care. Results and recommendations given to the patient and Dr. Dominguez who is to contact Dr. Mojica regarding current findings. CRITICAL CARE SPECIALIST strongly recommends the patient be considered for PEG tube placement at this time. Initiated education on completion of pharyngeal strengthening exercises to include the Anastasia Maneuver and Vijaya Maneuvers. He was able to complete both independently. Educated to complete several at a time throughout the day with a goal of reaching 15-20 of each total as he can tolerate to which he agreed. Aspiration Precautions Oral Hygiene Document 11/05/18 13:48 MG (Rec: 11/05/18 14:15 [address]-[id number]) Electronically Signed By AMARI SunshineCCC 11/05/18 13:48 Video Swallow - Procedure Evaluation Video Swallow Evaluation Completed Yes CRITICAL CARE SPECIALIST Study Completed Fluoro Swallow Study History History This patient was referred for a repeat video swallow study to rule out aspiration and determine the safest consistencies for possible release to oral intake. The patient has been NPO due to ongoing dysphagia following cervical spine surgery, anterior approach. Following the last revision on 11/02/18, he was initially swallowing liquids well but this has worsened and a new study was ordered. Procedure Procedure The patient was seen in the Radiology Department of [facility] for the VFSS. The patient was positioned upright in a wheelchair for the procedure and was viewed in the Lateral plane. The Anterior-Posterior (A-P) was deferred due to cervical hardware. In the lateral plane, the patient was given the following boluses: 1 tsp. thin liquid barium x 1, single swallow thin liquid barium self-presented from a cup x3 ( with an effortful swallow), 1 tsp. nectar thick liquid barium, and a single swallow nectar-thick liquid barium self-presented from a cup. No further trials were given due to safety concerns. Video Swallow - Oral Impairment Oral Impairment Lip Closure No Labial Escape Tongue Control during Bolus Hold Cohesive Bolus between Tongue to Palatal Seal Bolus Transport / Lingual Motion Delayed Init of Tongue Motion; Once it Starts Bolus Swallowed Normally Oral Residue Trace Residue Lining Oral Structures; Outline Only of Oral Structure Initiation of Pharyngeal Swallow Bolus Head in Pyriforms Other Oral Impairment Observations No significant change. Mild oral stage dysphagia continued to be noted. Swallow reflex time remains delayed. Video Swallow - Pharyngeal Pharyngeal Impairment Soft Palate Elevation No Bolus between Soft Palate / Pharyngeal Wall Laryngeal Elevation Partial Superior Movement of Thyroid Cartilage Anterior Hyoid Excursion Partial Anterior Movement Epiglottic Movement Partial Inversion Laryngeal Vestibular Closure (Judged at Incomplete; Narrow Column Air Height of Swallow) / Contrast in Laryngeal Vestibule Pharyngeal Stripping Wave Present - Diminished Pharyngoesophageal Segment Opening Minimal Distention / Minimal Duration; Marked Obstruction of Flow Tongue Base Retraction Wide Column of Contrast or Air between Tongue Base & Pharyngeal Wall Pharyngeal Residue Collection of Residue within or on Pharyngeal Structures Pharyngeal Impairment Other Observations The patient continues to present with severe pharyngeal stage dysphagia. He continues to present with laryngeal penetration and aspiration of all consistencies administered, which for this study, were thin and nectar thick liquids. There was some improved ROM of the pharyngeal musculature however the opening to the PES remains significantly compromised. The most significant aspiration occurs from retention in the pharynx that will spill into the open airway. He does have a strong cough reflex in response to the aspiration and in addition to this, he will expectorate what he aspirated and retention. An effortful swallow was also attempted which assisted with airway protection and clearing some retention but not effective to prevent aspiration. The Vijaya maneuver was not attempted as the patient was apprehensive to try this strategy due to difficulty with it's completion. Video Swallow - Summary/Recommendations Summary/Recommendations Summary / Recommendations This patient continues to present with severe dysphagia, some of which is likely due to post-op edema from his anterial cervical spine surgery, generalized weakness, and possible neurological component. It is still uncertain at this time how long the healing process will be. Recommendations are as follows: 1. NPO status including meds. May have ice chips and sips for comfort only. Stop consuming these items with any increased coughing or discomfort. 2. Aspiration precautions. Stringent mouth care. 3. Alternative means of nutrition and hydration via PEG tube. PEG tube feeds will also assist in using the GI tract as opposed to PPN. 4. Continued CRITICAL CARE SPECIALIST services for dysphagia therapy as an inpatient. Would benefit from aggressive dysphagia therapy upon discharge as well ( possible placement to LTAC- pending insurance approval). 5. Repeat video swallow in 3- 4 weeks pending progress in dysphagia therapy. The patient has a strong sensory response in the form of a cough when he is aspirating. When this is no longer happening in therapy a repeat study would be indicated at that time to assess swallow function and rule out possible silent aspiration as a possible factor as well. Results and recommendations given to the patient, Kelly SOLARES and Dr. Mallory with verbal understanding. Dr. Mallory is to speak with Dr. Mojica as well. CRITICAL CARE SPECIALIST strongly recommends the patient be considered for PEG tube placement at this time. The patient was also re- educated on the completion of the Anastasia Maneuver, effortful swallow with verbal understanding.
[2018-11-11] MEDS: FLUTICASONE/SALMETEROL 250/50 (ADVAIR) 14 PUFF/1 INHALER INH SCH ×2 (14:08→20:45)
[2018-11-11] MEDS: TAMSULOSIN HCL 0.4 MG CAP PO SCH (20:45)
[2018-11-11] MEDS: FINASTERIDE 5 MG TAB PO SCH (20:45)
[2018-11-12] MEDS: ACETAMINOPHEN 1,000 MG/100 ML VIAL IV PRN ×2 (06:14→15:05)
[2018-11-12] MEDS: FLUTICASONE/SALMETEROL 250/50 (ADVAIR) 14 PUFF/1 INHALER INH SCH ×2 (07:53→20:58)
[2018-11-12] MEDS: DEXAMETHASONE SOD PHOSPHATE 8 MG in SYRINGE 0 ML IV SCH (07:54)
[2018-11-12] MEDS: TIOTROPIUM BROMIDE 5 PUFF/90 MCG INH INH SCH (07:55)
--- NOTE | 2018-11-12 10:09 | Orthopedic Progress Note ---
Date of Service November 12, 2018 Assessment & Plan (1) Cervical stenosis of spinal canal: This time he has been turned down from acute rehab. We are hoping to acquire a skilled facility for him. We will discontinue his Decadron. Will ask speech pathology to see him one more time to see if his diet could be advanced. Present on Admission?: Yes Subjective Patient overall is doing very well. Is been ambulating the halls regularly. Swallowing is still compromised. Physical Exam Physical Exam: On exam is in the chair at the bedside. Incision is healing well. Is good strength testing. Results & Data Vital Signs (Past 12 Hours) Vital Signs Temp Pulse Resp BP Pulse Ox 11/12/18 06:14 36.3 C L 85 18 124/77 98 11/12/18 03:43 68 16 98 11/11/18 23:10 36.5 C 73 18 124/76 97 11/11/18 23:06 69 18 96
[2018-11-12] MEDS: FIBERSOURCE HN 1.2 CAL 1000 ML BAG GT SCH (11:17)
--- NOTE | 2018-11-12 12:49 | Hospitalist Progress Note ---
Date of Service November 12, 2018 Assessment & Plan (1) S/P cervical spinal fusion: Management per Ortho Spine. S/P revision. Presently on dexamethasone IV daily (2) Dysphagia: Per Dr. Mallory notes: Postop dysphagia. Seen by HISTOTECHNICIAN and ENT. Video swallowing study 10/30 demonstrated pharyngeal dysphagia and aspiration. Being followed by HISTOTECHNICIAN. Follow-up assessment 11/05 demonstrated persistent aspiration. --Status post PEG tube placement 11/08/2018 Tolerating PEG tube feeding well so far Continue increasing tube feeding rate to achieve goal of 60 cc/h x 24 hours (3) Chronic obstructive pulmonary disease: Patient reporting cough with clear sputum Chest x-ray: No pneumonia Patient advised to use Advair and Spiriva while admitted, he verbalized understanding and agreement Improving (4) GERD (gastroesophageal reflux disease): Famotidine increased Discomfort resolved (5) BPH (benign prostatic hyperplasia): Per Dr. Mallory notes: Unable to take tamsulosin and finasteride because of dysphagia. Has Saini cath. Voiding trial once BPH meds resumed. (6) Hyperglycemia: Dr. Mallory notes: Blood sugars as high as 160. Hyperglycemia secondary to TPN + steroid-induced hyperglycemia secondary to dexamethasone. Taper steroids as able. (7) Nutritional assessment: Per Dr. Mallory notes: N.p.o. since initial surgery Severe malnutrition: PO caloric / protein intake < 10% required weight 63 kg --> 56 kg (down 11%) serum albumin 2.4 on 10/23 PEG recommended for enteral nutritional support pending follow-up swallowing evaluation in 3-4 weeks. Status post PEG tube placement TPN discontinued (8) Leukocytosis: WBC 11/02 was 22,160. Leukocytosis probably secondary to steroid therapy with dexamethasone. No clear focus of infection at this time. Monitor closely (9) Abnormal CT scan, chest: Dr. Mallory notes: Chest x-ray done 11/03 for evaluation of cough, leukocytosis. Possible pneumomediastinum was noted. CT of chest did not show pneumomediastinum. 22 mm cavitary lesion PARRISH noted. Post-inflammatory process favored, but f/u CT in 6 months recommended. Discussed with pt. He has been followed by Pulmonary Medicine for abnormal CT of chest. Requested that images be copied to CD and sent to his library clerk talking books Dr. Rivas at [facility]. (10) DVT prophylaxis: SCDs ordered. Ambulating. (11) Encounter for consultation: Thank you for this consultation. We will follow the patient with you during their hospital stay. My cell # is [phone] You can reach a member of the [facility] Medicine Team 19/09 via pager @ [phone]. Subjective Follow-up for dysphasia, status post cervical spine surgery Seen sitting up in bed, watching TV, not in distress, comfortable Denies pain on the epigastric area, tolerating PEG tube feeding well overall No nausea Cough improving, no shortness of breath, sputum production, no fevers or chills No other symptoms Review of Systems Review of Systems: All systems reviewed & are unremarkable except as noted in HPI & below Physical Exam Physical Exam: General- oriented x 3, not in distress, speaks in sentences with no effort or accessory muscle use Eyes- anicteric Neck- no JVD Lungs- clear sounds, no crackles, no wheezing bilaterally Heart- normal rate, regular rhythm; no murmurs Abdomen- normal bowel sounds, nondistended, PEG tube site,-no erythema/bleeding/discharge/leakage, soft, no tenderness Extremities- no pretibial edema, no calf tenderness Neuro- alert, oriented x 3; no gross focal neurologic deficits Skin- warm & dry Results & Data Vital Signs (Past 12 Hours) Vital Signs Temp Pulse Resp BP Pulse Ox 11/12/18 11:14 67 20 98 11/12/18 08:00 79 22 96 11/12/18 06:14 36.3 C L 85 18 124/77 98 11/12/18 03:43 68 16 98
[2018-11-12] MEDS: TAMSULOSIN HCL 0.4 MG CAP PO SCH (20:57)
[2018-11-12] MEDS: FINASTERIDE 5 MG TAB PO SCH (20:57)
[2018-11-12] MEDS ORDERED: LORazepam 0.25 MG/0.5 ML VIAL IV ONE (21:45)
[2018-11-13] MEDS: DiphenhydrAMINE HCL 50 MG/ML VIAL IV PRN ×2 (02:52→11:53)
[2018-11-13] MEDS: FLUTICASONE/SALMETEROL 250/50 (ADVAIR) 14 PUFF/1 INHALER INH SCH ×2 (08:46→20:14)
--- NOTE | 2018-11-13 09:14 | Orthopedic Progress Note ---
Date of Service November 13, 2018 Assessment & Plan (1) Cervical disc disease: Speech therapies does continue to recommend n.p.o. status. I relayed this to the patient. We are awaiting skilled facility placement. Present on Admission?: Yes Subjective Patient states his pain is well controlled. He is ambulate well. He feels that the swelling is his much improved. Physical Exam Physical Exam: Patient is in the chair at the bedside is. He is neurologically intact. Results & Data Vital Signs (Past 12 Hours) Vital Signs Temp Pulse Resp BP Pulse Ox 11/13/18 07:09 90 16 98 11/13/18 06:49 36.5 C 94 H 18 106/71 97 11/12/18 23:00 36.4 C L 84 16 124/79 97 11/12/18 22:55 79 12 97
[2018-11-13] MEDS: ACETAMINOPHEN 1,000 MG/100 ML VIAL IV PRN (11:52)
[2018-11-13] MEDS: TIOTROPIUM BROMIDE 5 PUFF/90 MCG INH INH SCH (11:54)
[2018-11-13] MEDS: FIBERSOURCE HN 1.2 CAL 1000 ML BAG GT SCH (12:45)
[2018-11-13] MEDS: TAMSULOSIN HCL 0.4 MG CAP PO SCH (12:59)
[2018-11-13 15:00] LABS: Appearance Urine Turbid (Clear); Bacteria Urine Automated 4+ (Negative); Bilirubin Urine Negative (Negative); Blood Urine 3+ (Negative); Color Urine Dark Yellow; Epithelial Cell Urine Auto >30 /lpf (0-5); Glucose Urine UA Negative (Negative); Ketones Urine Trace (Negative); Leukocyte Esterase Urine 3+ (Negative); Nitrite Urine Positive (Negative); Protein Urine 1+ (Negative); Specific Gravity Urine 1.022 (1.000-1.030); Urobilinogen Urine Negative (Negative); WBC Urine Automated >30 /hpf (0-5); pH Urine 5.5 (4.5-7.5)
[2018-11-13 15:23] LABS: Mucus Urine Present (None Prsent); RBC Urine Automated >30 /hpf (0-4)
[2018-11-13] MEDS ORDERED: SODIUM CHLORIDE 0.9% 1000ML 1,000 ML IV SCH ×2 (15:42→18:45)
[2018-11-13 17:24] LABS: Basophils # (auto) 0.01 K/uL (0-0.2); Eosinophils # (auto) 0.02 K/uL (0-0.5); Eosinophils % (auto) 0.1 %; Hematocrit (blood only) 40.1 % (42-52); Hemoglobin 13.3 g/dL (14.0-18.0); Immature Granulocytes # (auto) 0.15 K/uL (0.00-0.02); Immature Granulocytes % (auto) 0.7 %; Lymphocytes # (auto) 0.81 K/uL (1.2-3.4); Lymphocytes % (auto) 3.7 %; Mean Corpuscular Hemoglobin 29.1 pg (25-34); Mean Corpuscular Hgb Conc 33.2 g/dL (32-36); Mean Corpuscular Volume 87.7 fL (80-100); Mean Platelet Volume 10.7 fL (7.4-10.4); Monocytes # (auto) 1.26 K/uL (0.11-0.59); Monocytes % (auto) 5.8 %; Neutrophils # (auto) 19.46 K/uL (1.4-6.5); Neutrophils % (auto) 89.7 %; Platelet Count 204 K/uL (130-400); RDW Coefficient of Variation 15.6 % (11.5-14.5); RDW Standard Deviation 48.9 fL (36.4-46.3); Red Blood Count 4.57 M/uL (4.7-6.1); White Blood Count 21.71 K/uL (4.8-10.8)
[2018-11-13 17:55] LABS: BUN Creatinine Ratio 32.6 (10-20); Calcium 7.7 mg/dl (8.5-10.1); Creatinine Clr Calc Pharmacy 42.4 ml/min; Est GFR (African American) 66.9; Est GFR (Non-African American) 57.7; Potassium 4.6 mmol/L (3.5-5.1)
--- NOTE | 2018-11-13 18:41 | Hospitalist Progress Note ---
Date of Service November 13, 2018 Assessment & Plan (1) S/P cervical spinal fusion: Management per Ortho Spine. S/P revision. -- recommend to taper Decadron to avoid hypotension started on Decadron 4mg IV x 2 days, then 2 mg x 2 days, then stop (2) Dysphagia: Per Dr. Mallory notes: Postop dysphagia. Seen by WATER MECHANIC and ENT. Video swallowing study 10/30 demonstrated pharyngeal dysphagia and aspiration. Being followed by WATER MECHANIC. Follow-up assessment 11/05 demonstrated persistent aspiration. --Status post PEG tube placement 11/08/2018 Tolerating PEG tube feeding well Continue increasing tube feeding rate to achieve goal of 60 cc/h x 24 hours (3) Hypotension: likely from volume depletion possible adrenal insufficiency IV NSS 75cc/hr Decadron taper as outlined in #1 monitor (4) Chronic obstructive pulmonary disease: Patient reporting cough with clear sputum Chest x-ray: No pneumonia Patient advised to use Advair and Spiriva while admitted, he verbalized unders tanding and agreement cough resolved (5) GERD (gastroesophageal reflux disease): Famotidine increased Discomfort resolved (6) BPH (benign prostatic hyperplasia): Per Dr. Mallory notes: Unable to take tamsulosin and finasteride because of dysphagia. Has Saini cath. Voiding trial once BPH meds resumed. (7) Hyperglycemia: Dr. Mallory notes: Blood sugars as high as 160. Hyperglycemia secondary to TPN + steroid-induced hyperglycemia secondary to dexamethasone. Taper steroids as able. (8) Nutritional assessment: Per Dr. Mallory notes: N.p.o. since initial surgery Severe malnutrition: PO caloric / protein intake < 10% required weight 63 kg --> 56 kg (down 11%) serum albumin 2.4 on 10/23 PEG recommended for enteral nutritional support pending follow-up swallowing evaluation in 3-4 weeks. Status post PEG tube placement TPN discontinued (9) Leukocytosis: WBC 11/02 was 22,160. Leukocytosis probably secondary to steroid therapy with dexamethasone. No clear focus of infection at this time. Monitor closely (10) Abnormal CT scan, chest: Dr. Mallory notes: Chest x-ray done 11/03 for evaluation of cough, leukocytosis. Possible pneumomediastinum was noted. CT of chest did not show pneumomediastinum. 22 mm cavitary lesion PARRISH noted. Post-inflammatory process favored, but f/u CT in 6 months recommended. Discussed with pt. He has been followed by Pulmonary Medicine for abnormal CT of chest. Requested that images be copied to CD and sent to his strip machine tender Dr. Rivas at [facility]. (11) DVT prophylaxis: SCDs ordered. Ambulating. (12) Encounter for consultation: Thank you for this consultation. We will follow the patient with you during their hospital stay. My cell # is [phone] You can reach a member of the [facility] Medicine Team 19/09 via pager @ [phone]. Subjective ff up for dysphagia, s/p PEG tube placement noted to be hypotensive earlier, systolic 89 1 L IV NSS ordered BP improved to systolic 100 seen resting in bed, watching TV, comfortable states he feels fine no abdominal discomfort, nausea, ongoing tube feeding (+) small BMs , soft today denies dizziness, chest pain, palpitations, dyspnea no other symptoms Review of Systems Review of Systems: All systems reviewed & are unremarkable except as noted in HPI & below Physical Exam Physical Exam: General- oriented x 3, not in distress, speaks in sentences with no effort or accessory muscle use Eyes- anicteric Neck- no JVD Lungs- clear breath sounds bilaterally, no wheezing, no rales Heart- normal rate, regular rhythm; no murmurs Abdomen- normal bowel sounds, nondistended, PEG tube site: dressingin place, no bleeding/discharge, soft, nontender Extremities- no pretibial edema, no calf tenderness Neuro- alert, oriented x 3; no gross focal neurologic deficits Skin- warm & dry Results & Data Vital Signs (Past 12 Hours) Vital Signs Temp Pulse Resp BP Pulse Ox 11/13/18 16:49 101/65 11/13/18 15:32 91 H 16 96 11/13/18 15:26 36.3 C L 92 H 18 89/61 L 97 11/13/18 11:30 101 H 16 96 11/13/18 07:09 90 16 98 11/13/18 06:49 36.5 C 94 H 18 106/71 97 Laboratory Results Laboratory Results - last 24 hr 11/13/18 11/13/18 11/13/18 14:50 17:09 17:09 WBC 21.71 H RBC 4.57 L Hgb 13.3 L Hct 40.1 L MCV 87.7 MCH 29.1 MCHC 33.2 RDW Std Deviation 48.9 H RDW Coeff of Barbara 15.6 H Plt Count 204 MPV 10.7 H Immature Gran % (Auto) 0.7 Neut % (Auto) 89.7 Lymph % (Auto) 3.7 [place] % (Auto) 5.8 Eos % (Auto) 0.1 Baso % (Auto) 0.0 Immature Gran # (Auto) 0.15 H Neut # (Auto) 19.46 H Lymph # (Auto) 0.81 L [place] # (Auto) 1.26 H Eos # (Auto) 0.02 Baso # (Auto) 0.01 Sodium 137 Potassium 4.6 Chloride 105 Carbon Dioxide 27 Anion Gap 5.0 BUN 40 H Creatinine 1.24 Est Cr Clr Drug Dosing 42.4 Est GFR ( Amer) 66.9 Est GFR (Non-Af Amer) 57.7 BUN/Creatinine Ratio 32.6 H Glucose 111 H Calcium 7.7 L Urine Color Dark Yellow Urine Appearance Turbid A Urine pH 5.5 Ur Specific [place] 1.022 Urine Protein 1+ H Urine Glucose (UA) Negative Urine Ketones Trace H Urine Blood 3+ H Urine Nitrite Positive A Urine Bilirubin Negative Urine Urobilinogen Negative Ur Leukocyte Esterase 3+ H Urine WBC (Auto) >30 H Urine RBC (Auto) >30 H U Hyaline Cast (Auto) 5-10 H U Epithel Cells (Auto) >30 H Urine Bacteria (Auto) 4+ H Urine Mucus Present A Urine Yeast Present A
[2018-11-13] MEDS ORDERED: DEXAMETHASONE SOD PHOSPHATE 4 MG in SYRINGE 0 ML IV ONE (19:00)
[2018-11-13] MEDS: FINASTERIDE 5 MG TAB PO SCH (20:33)
[2018-11-14] MEDS ORDERED: CEFEPIME 2,000 MG in SYRINGE 7.5 ML IV STA (06:57)
[2018-11-14] MEDS ORDERED: CEFEPIME CONSULT ACTIVE PRN (06:57)
[2018-11-14] MEDS ORDERED: SODIUM CHLORIDE 0.9% 1000ML 1,000 ML IV ONE (06:59)
--- NOTE | 2018-11-14 07:06 | Hospitalist Progress Note ---
Date of Service November 14, 2018 Subjective Made aware by RN of abnormal UA results. Transient hypotension, borderline BP as per RN. AP Complicated UTI hx BPH Possible sepsis given progressive leukocytosis on blood work Blood cultures, check lactic acid IVF bolus IV Cefepime for now We relay to AM provider. Results & Data Vital Signs (Past 12 Hours) Vital Signs Temp Pulse Resp BP Pulse Ox 11/14/18 06:50 36.5 C 87 18 109/66 97 11/14/18 04:00 107/66 11/14/18 03:29 86 16 96 11/13/18 23:23 76 14 97 11/13/18 22:55 36.4 C L 83 16 101/66 96 11/13/18 20:00 87 16 94
[2018-11-14] MEDS: FLUTICASONE/SALMETEROL 250/50 (ADVAIR) 14 PUFF/1 INHALER INH SCH ×2 (07:45→20:40)
[2018-11-14] MEDS: TIOTROPIUM BROMIDE 5 PUFF/90 MCG INH INH SCH (07:47)
[2018-11-14] MEDS ORDERED: HYDROCORTISONE SOD SUCCINATE 100 MG/2 ML VIAL IV STA (07:53)
[2018-11-14] MEDS ORDERED: CONSULT PHARMACY STA (07:55)
[2018-11-14] MEDS ORDERED: HYDROCORTISONE 50 MG *12cc Syringe IV SCH (08:15)
[2018-11-14 08:23] LABS: Calcium 7.9 mg/dl (8.5-10.1); Creatinine Clr Calc Pharmacy 72.1 ml/min; Est GFR (African American) 107.4; Est GFR (Non-African American) 92.7; Magnesium 1.9 mg/dl (1.8-2.4); Potassium 4.4 mmol/L (3.5-5.1)
[2018-11-14] MEDS: SODIUM CHLORIDE 0.9% 1000ML 1,000 ML IV SCH ×2 (09:52→23:15)
--- NOTE | 2018-11-14 10:32 | Orthopedic Progress Note ---
Date of Service November 14, 2018 Assessment & Plan (1) Cervical disc disease: At this time he had to have his Saini reinserted. He does have a UTI. We will begin antibiotic therapy. [facility] in the next few days. Present on Admission?: Yes Subjective Neck pain controlled arm symptoms markedly improved. Is walking regularly with his collar. Physical Exam Physical Exam: Patient is bed at this time. He has good strength testing. There is notable swelling to the right forearm. An ultrasound has been ordered. Results & Data Vital Signs (Past 12 Hours) Vital Signs Temp Pulse Resp BP Pulse Ox 11/14/18 07:33 86 16 97 11/14/18 06:50 36.5 C 87 18 109/66 97 11/14/18 04:00 107/66 11/14/18 03:29 86 16 96 11/13/18 23:23 76 14 97 11/13/18 22:55 36.4 C L 83 16 101/66 96
[2018-11-14] MEDS: FIBERSOURCE HN 1.2 CAL 1000 ML BAG GT SCH (10:40)
[2018-11-14 10:45] LABS: Basophils # (auto) 0.01 K/uL (0-0.2); Hematocrit (blood only) 38.5 % (42-52); Hemoglobin 12.7 g/dL (14.0-18.0); Immature Granulocytes % (auto) 0.5 %; Lymphocytes # (auto) 0.61 K/uL (1.2-3.4); Mean Corpuscular Volume 87.9 fL (80-100); Mean Platelet Volume 11.2 fL (7.4-10.4); Monocytes # (auto) 0.69 K/uL (0.11-0.59); Monocytes % (auto) 3.4 %; Neutrophils # (auto) 18.84 K/uL (1.4-6.5); Neutrophils % (auto) 93.1 %; Platelet Count 195 K/uL (130-400); RDW Coefficient of Variation 15.5 % (11.5-14.5); RDW Standard Deviation 49.2 fL (36.4-46.3); Red Blood Count 4.38 M/uL (4.7-6.1); White Blood Count 20.25 K/uL (4.8-10.8)
--- NOTE | 2018-11-14 14:58 | Ultrasound Report ---
RIGHT UPPER EXTREMITY VENOUS DOPPLER HISTORY: Right arm swelling. r/o dvt COMPARISON STUDY: None. FINDINGS: The right internal jugular vein is patent. There is a PICC identified within the subclavian vein. There is a nonocclusive thrombus surrounding the PICC within the subclavian vein. There is nor mal flow and compressibility within the right axillary, brachial, radial, ulnar, and visualized cepha lic veins. There is also nonocclusive thrombus within the right basilic vein proximal to the PICC ins ertion. IMPRESSION: Thrombus identified within the right subclavian vein and right basilic vein as described above. Electronically signed by: Vikram German M.D. 11/14/2018 2:57 PM
[2018-11-14] MEDS ORDERED: ENOXAPARIN INJ 60 MG/0.6 ML SYR SQ ONE (17:15)
--- NOTE | 2018-11-14 17:26 | Hospitalist Progress Note ---
Date of Service November 14, 2018 Assessment & Plan (1) S/P cervical spinal fusion: Management per [facility] Sp[facility]. S/P revision. -- recommend to taper Decadron to avoid hypotension November 13, 2018, started on Decadron 4mg IV x 2 days, then 2 mg x 2 days, then stop (2) Dysphagia: Per Dr. Mallory notes: Postop dysphagia. Seen by AUTOMATIC TRANSMISSION MECHANIC and ENT. Video swallowing study 10/30 demonstrated pharyngeal dysphagia and aspiration. Being followed by AUTOMATIC TRANSMISSION MECHANIC. Follow-up assessment 11/05 demonstrated persistent aspiration. --Status post PEG tube placement 11/08/2018 Tolerating PEG tube feeding well Continue increasing tube feeding rate to achieve goal of 60 cc/h x 24 hours (3) UTI (urinary tract infection): Urine culture: pending Blood cultures pending Continue cefepime IV day #1 (4) DVT (deep venous thrombosis): Right upper extremity Doppler: Positive for nonocclusive thrombus in the subclavian vein, around PICC line, nonocclusive thrombus in the right basilic vein near PICC line insertion site Discussed with Dr. Ma-food assembler commissary kitchen, recommend therapeutic anticoagulation with Lovenox Lovenox 60 mg subcutaneous every 12 ordered Will need at least 3 months of treatment, risk factor is recent recent cervical spine surgery (5) Chronic obstructive pulmonary disease: Patient reporting cough with clear sputum Chest x-ray: No pneumonia Patient advised to use Advair and Spiriva while admitted, he verbalized understanding and agreement cough resolved (6) GERD (gastroesophageal reflux disease): Famotidine increased Discomfort resolved (7) BPH (benign prostatic hyperplasia): Per Dr. Mallory notes: Unable to take tamsulosin and finasteride because of dysphagia. Has Saini cath. Voiding trial once BPH meds resumed. (8) Hyperglycemia: Dr. Mallory notes: Blood sugars as high as 160. Hyperglycemia secondary to TPN + steroid-induced hyperglycemia secondary to dexamethasone. Taper steroids as able. (9) Nutritional assessment: Per Dr. Mallory notes: N.p.o. since initial surgery Severe malnutrition: PO caloric / protein intake < 10% required weight 63 kg --> 56 kg (down 11%) serum albumin 2.4 on 10/23 PEG recommended for enteral nutritional support pending follow-up swallowing evaluation in 3-4 weeks. Status post PEG tube placement TPN discontinued (10) Leukocytosis: WBC 11/02 was 22,160. Leukocytosis probably secondary to steroid therapy with dexamethasone. No clear focus of infection at this time. Monitor closely (11) Abnormal CT scan, chest: Dr. Mallory notes: Chest x-ray done 11/03 for evaluation of cough, leukocytosis. Possible pneumomediastinum was noted. CT of chest did not show pneumomediastinum. 22 mm cavitary lesion PARRISH noted. Post-inflammatory process favored, but f/u CT in 6 months recommended. Discussed with pt. He has been followed by Pulmonary Medicine for abnormal CT of chest. Requested that images be copied to CD and sent to his accounts payables clerk Dr. Rivas at [facility]. (12) DVT prophylaxis: Now on therapeutic Lovenox (13) Encounter for consultation: Thank you for this consultation. We will follow the patient with you during their hospital stay. My cell # is [phone] You can reach a member of the [facility] Medicine Team 19/09 via pager @ [phone]. Subjective Follow-up for dysphagia, status post cervical spine surgery, status post PEG tube placement Blood pressure noted to be in the lower side this morning UA suggestive of UTI Seen sitting up in bed, comfortable, not in distress States he feels okay overall Denies abdominal pain, nausea, tolerating PEG tube feeding well Reports mild burning sensation over the suprapubic area Denies cough, sputum, change in breathing No other symptoms Review of Systems Review of Systems: All systems reviewed & are unremarkable except as noted in HPI & below Physical Exam Physical Exam: General- oriented x 3, not in distress, speaks in sentences with no effort or accessory muscle use Eyes- anicteric Neck- no JVD Lungs- clear breath sounds bilaterally, crackles bilaterally, no wheezing Heart- normal rate, regular rhythm; no murmurs Abdomen- normal bowel sounds, nondistended, soft, nontender PEG tube insertion site no signs of infection Extremities- no pretibial edema, no calf tenderness Right upper extremity: Positive edema, no warmth or tenderness Neuro- alert, oriented x 3; no gross focal neurologic deficits Skin- warm & dry Results & Data Vital Signs (Past 12 Hours) Vital Signs Temp Pulse Resp BP Pulse Ox 11/14/18 16:27 91 H 16 97 11/14/18 15:12 36.4 C L 86 16 114/71 99 11/14/18 11:27 83 16 98 11/14/18 07:33 86 16 97 11/14/18 06:50 36.5 C 87 18 109/66 97 Laboratory Results Laboratory Results - last 24 hr 11/13/18 11/14/18 11/14/18 17:09 07:28 07:28 WBC RBC Hgb Hct MCV MCH MCHC RDW Std Deviation RDW Coeff of Barbara Plt Count MPV Immature Gran % (Auto) Neut % (Auto) Lymph % (Auto) [place] % (Auto) Eos % (Auto) Baso % (Auto) Immature Gran # (Auto) Neut # (Auto) Lymph # (Auto) [place] # (Auto) Eos # (Auto) Baso # (Auto) Sodium 137 139 Potassium 4.6 4.4 Chloride 105 106 Carbon Dioxide 27 25 Anion Gap 5.0 7.0 BUN 40 H 34 H Creatinine 1.24 0.73 D Est Cr Clr Drug Dosing 42.4 72.1 Est GFR ( Amer) 66.9 107.4 Est GFR (Non-Af Amer) 57.7 92.7 BUN/Creatinine Ratio 32.6 H 46.0 H Glucose 111 H 144 H Lactate 1.2 Calcium 7.7 L 7.9 L Magnesium 1.9 11/14/18 07:32 WBC 20.25 H RBC 4.38 L Hgb 12.7 L Hct 38.5 L MCV 87.9 MCH 29.0 MCHC 33.0 RDW Std Deviation 49.2 H RDW Coeff of Barbara 15.5 H Plt Count 195 MPV 11.2 H Immature Gran % (Auto) 0.5 Neut % (Auto) 93.1 Lymph % (Auto) 3.0 [place] % (Auto) 3.4 Eos % (Auto) 0.0 Baso % (Auto) 0.0 Immature Gran # (Auto) 0.10 H Neut # (Auto) 18.84 H Lymph # (Auto) 0.61 L [place] # (Auto) 0.69 H Eos # (Auto) 0.00 Baso # (Auto) 0.01 Sodium Potassium Chloride Carbon Dioxide Anion Gap BUN Creatinine Est Cr Clr Drug Dosing Est GFR ( Amer) Est GFR (Non-Af Amer) BUN/Creatinine Ratio Glucose Lactate Calcium Magnesium
[2018-11-14] MEDS: HYDROCORTISONE SOD 25 MG in SYRINGE 0 ML IV SCH ×2 (17:35→20:41)
[2018-11-14] MEDS: CEFEPIME 2,000 MG in SYRINGE 7.5 ML IV SCH (20:33)
[2018-11-14] MEDS: FINASTERIDE 5 MG TAB PO SCH (20:40)
[2018-11-14] MEDS: TAMSULOSIN HCL 0.4 MG CAP PO SCH (20:41)
[2018-11-15] MEDS: HYDROCORTISONE SOD 25 MG in SYRINGE 0 ML IV SCH ×3 (05:54→21:01)
[2018-11-15] MEDS: ENOXAPARIN INJ 60 MG/0.6 ML SYR SQ SCH ×2 (05:54→17:58)
[2018-11-15] MEDS: FIBERSOURCE HN 1.2 CAL 1000 ML BAG GT SCH ×2 (06:38→23:39)
--- NOTE | 2018-11-15 08:58 | Hospitalist Progress Note ---
Date of Service November 15, 2018 Assessment & Plan (1) S/P cervical spinal fusion: Management per [facility] Sp[facility]. S/P revision. -- recommend to taper Decadron to avoid hypotension November 13, 2018, started on Decadron 4mg IV x 2 days, then 2 mg x 2 days, then stop (2) Dysphagia: Per Dr. Mallory notes: Postop dysphagia. Seen by INCUBATOR TENDER and ENT. Video swallowing study 10/30 demonstrated pharyngeal dysphagia and aspiration. Being followed by INCUBATOR TENDER. Follow-up assessment 11/05 demonstrated persistent aspiration. --Status post PEG tube placement 11/08/2018 Tolerating PEG tube feeding well Continue increasing tube feeding rate to achieve goal of 60 cc/h x 24 hours (3) UTI (urinary tract infection): Urine culture: pending Blood cultures pending Continue cefepime IV day #1 (4) DVT (deep venous thrombosis): Right upper extremity Doppler: Positive for nonocclusive thrombus in the subclavian vein, around PICC line, nonocclusive thrombus in the right basilic vein near PICC line insertion site Discussed with Dr. Moraes-turning machine set up operator, recommend therapeutic anticoagulation with Lovenox Lovenox 60 mg subcutaneous every 12 ordered Will need at least 3 months of treatment, risk factor is recent recent cervical spine surgery (5) Chronic obstructive pulmonary disease: Patient reporting cough with clear sputum Chest x-ray: No pneumonia Patient advised to use Advair and Spiriva while admitted, he verbalized understanding and agreement cough resolved (6) GERD (gastroesophageal reflux disease): Famotidine increased Discomfort resolved (7) BPH (benign prostatic hyperplasia): Per Dr. Mallory notes: Unable to take tamsulosin and finasteride because of dysphagia. Has Stevenson cath. Voiding trial once BPH meds resumed. pt says he needs 14 days of flomax and proscar before stevenson pulled (8) Hyperglycemia: Dr. Mallory notes: Blood sugars as high as 160. Hyperglycemia secondary to TPN + steroid-induced hyperglycemia secondary to dexamethasone. Taper steroids as able. (9) Nutritional assessment: Per Dr. Mallory notes: N.p.o. since initial surgery Severe malnutrition: PO caloric / protein intake < 10% required weight 63 kg --> 56 kg (down 11%) serum albumin 2.4 on 10/23 PEG recommended for enteral nutritional support pending follow-up swallowing evaluation in 3-4 weeks. Status post PEG tube placement TPN discontinued (10) Leukocytosis: WBC 11/02 was 22,160. Leukocytosis probably secondary to steroid therapy with dexamethasone. No clear focus of infection at this time. Monitor closely (11) Abnormal CT scan, chest: Dr. Mallory notes: Chest x-ray done 11/03 for evaluation of cough, leukocytosis. Possible pneumomediastinum was noted. CT of chest did not show pneumomediastinum. 22 mm cavitary lesion PARRISH noted. Post-inflammatory process favored, but f/u CT in 6 months recommended. Discussed with pt. He has been followed by Pulmonary Medicine for abnormal CT of chest. Requested that images be copied to CD and sent to his tower hand Dr. Rivas at [facility]. (12) DVT prophylaxis: Now on therapeutic Lovenox (13) Encounter for consultation: DC Stevenson after 14 days of proscar and flomax, voiding trial the dc ROS-No Headache, No Visual Changes, No Nausea, No Vomiting, No Fever, No Chills, No Neck Pain or Stiffness, No Chest Pain, No Palpitations, No SOB, No MORA, No Cough, No Sputum, No Wheezing, No Abdominal Pain, No Diarrhea, No Hematemesis, No Hemoptysis, No Unexpected Weight Loss, No Flank pain, No Melena, No Hematochezia, No Frequency, No Urgency, No Burning, No Hematuria, No Rashes, No Diaphoresis. Appetite is Normal Physical Exam Gen-AAO x 3, NAD, Afebrile, +Peg and +Stevenson Head-NCAT, EOMI, PERRLA, Anicteric Sclera, No Posterior Pharyngeal Erythema Neck-Supple, No JVD, No Thyromegaly, No Masses, No LAD, No Bruits, incision CDI Lungs-Clear to Auscultation Bilaterally, No Rales, No Rhonchi, No Wheezing, No Crepitus Chest-No S4, +S1, +S2, No S3, No Murmurs, No Rubs, No Gallops, No Ectopy Abdomen-Soft, Bowel Sounds Present, Non Tender, Non Distended, No Hepatomegaly, No Splenomegaly, No Palpable Masses, No Rebound, No Rigidity, No Guarding Musculoskeletal-Full Range of Motion Bilaterally, No CVAT Extremities-No Cyanosis, No Clubbing, No Edema Nuero-Cranial Nerves II-XII grossly intact, Motor WNL, DTRs WNL, Strength WNL, Non Focal Psych-Normal Mood Results & Data Vital Signs (Past 12 Hours) Vital Signs Temp Pulse Resp BP Pulse Ox 11/15/18 07:03 84 16 97 11/15/18 06:58 36.4 C L 88 18 120/74 97 11/15/18 03:58 89 18 97 11/14/18 22:54 92 H 16 96 11/14/18 22:52 36.7 C 89 16 114/69 97 Current Diagnoses Elevated white blood cell count, unspecified (10/17/18) Acute embolism and thrombosis of unspecified deep veins of unspecified lower extremity (10/17/18) Hypotension, unspecified (10/17/18) Chronic obstructive pulmonary disease, unspecified (10/17/18) Gastro-esophageal reflux disease without esophagitis (10/17/18) Spinal stenosis, cervical region (10/17/18) Cervical disc disorder, unspecified, unspecified cervical region (10/17/18) Urinary tract infection, site not specified (10/17/18) Benign prostatic hyperplasia without lower urinary tract symptoms (10/17/18) Dysphagia, unspecified (10/17/18) Hyperglycemia, unspecified (10/17/18) Abnormal findings on diagnostic imaging of other specified body structures (10/17/18) Encounter for other general examination (10/17/18) Encounter for other preprocedural examination (10/17/18) Encounter for prophylactic measures, unspecified (10/17/18) Counseling, unspecified (10/17/18) Gastrostomy status (10/17/18) Arthrodesis status (10/17/18) Allergies chlordiazepoxide [From Librax (with clidinium)] Allergy (Unknown, Verified 10/17/18 08:26) Hives clidinium [From Librax (with clidinium)] Allergy (Unknown, Verified 10/17/18 08:26) Hives nitroglycerin Allergy (Unknown, Verified 10/17/18 08:26) CARDIAC ARREST aspirin Adverse Reaction (Unknown, Verified 10/17/18 08:26) GI BLEED Height/Weight/Isolation Height 5 ft 2.5 in Weight 55.7 kg Chemistry 11/13/18 11/14/18 17:09 07:28 Sodium 137 139 Potassium 4.6 4.4 Chloride 105 106 Carbon Dioxide 27 25 Anion Gap 5.0 7.0 BUN 40 H 34 H Creatinine 1.24 0.73 D Glucose 111 H 144 H Urinalysis 11/13/18 14:50 Urine Color Dark Yellow Urine Appearance Turbid A Urine pH 5.5 Ur Specific [place] 1.022 Urine Protein 1+ H Urine Glucose (UA) Negative Urine Ketones Trace H Urine Blood 3+ H Urine Nitrite Positive A Urine Bilirubin Negative Microbiology 11/14/18 07:28 Blood Aerobic Blood Culture - Preliminary No growth in Aerobic bottle after 24 hours. 11/14/18 07:28 Blood Anaerobic Blood Culture - Preliminary No growth in Anaerobic bottle after 24 hours. 11/14/18 07:16 Blood Aerobic Blood Culture - Preliminary No growth in Aerobic bottle after 24 hours. 11/14/18 07:16 Blood Anaerobic Blood Culture - Preliminary No growth in Anaerobic bottle after 24 hours. 11/13/18 14:50 Urine,Straight Cath Urine Culture - Preliminary Citrobacter amalonaticus
--- NOTE | 2018-11-15 09:20 | Orthopedic Progress Note ---
Date of Service November 15, 2018 Assessment & Plan (1) Cervical stenosis of spinal canal: This time we will awaiting SNF placement. Hopefully this will be as soon as tomorrow. Present on Admission?: Yes Subjective Patient pain is well controlled. He is been able to ambulate regularly. Physical Exam Physical Exam: Patient has good strength testing except in bed. He is tolerating ice chips without difficulty. Results & Data Vital Signs (Past 12 Hours) Vital Signs Temp Pulse Resp BP Pulse Ox 11/15/18 07:03 84 16 97 11/15/18 06:58 36.4 C L 88 18 120/74 97 11/15/18 03:58 89 18 97 11/14/18 22:54 92 H 16 96 11/14/18 22:52 36.7 C 89 16 114/69 97
[2018-11-15] MEDS: SODIUM CHLORIDE 0.9% 1000ML 1,000 ML IV SCH ×2 (09:59→21:01)
[2018-11-15] MEDS: FLUTICASONE/SALMETEROL 250/50 (ADVAIR) 14 PUFF/1 INHALER INH SCH ×2 (10:06→21:01)
[2018-11-15] MEDS: CEFEPIME 2,000 MG in SYRINGE 7.5 ML IV SCH ×2 (10:06→21:01)
[2018-11-15] MEDS: TIOTROPIUM BROMIDE 5 PUFF/90 MCG INH INH SCH (10:06)
[2018-11-15] MEDS: ACETAMINOPHEN 1,000 MG/100 ML VIAL IV PRN ×2 (11:04→23:46)
[2018-11-15] MEDS ORDERED: KETOROLAC TROMETHAMINE 15 MG/ML VIAL IV ONE (16:21)
[2018-11-15] MEDS ORDERED: KETOROLAC TROMETHAMINE 15 MG/ML VIAL IV PRN (18:49)
[2018-11-15] MEDS: FINASTERIDE 5 MG TAB PO SCH (19:14)
[2018-11-15] MEDS: TAMSULOSIN HCL 0.4 MG CAP PO SCH (21:01)
[2018-11-16] MEDS: HYDROCORTISONE SOD 25 MG in SYRINGE 0 ML IV SCH ×2 (05:05→14:24)
[2018-11-16] MEDS: ENOXAPARIN INJ 60 MG/0.6 ML SYR SQ SCH ×2 (05:05→17:28)
[2018-11-16 06:10] LABS: Hematocrit (blood only) 34.1 % (42-52); Hemoglobin 11.2 g/dL (14.0-18.0); Mean Corpuscular Hemoglobin 28.9 pg (25-34); Mean Corpuscular Hgb Conc 32.8 g/dL (32-36); Mean Corpuscular Volume 87.9 fL (80-100); Platelet Count 177 K/uL (130-400); RDW Coefficient of Variation 15.6 % (11.5-14.5); RDW Standard Deviation 49.8 fL (36.4-46.3); Red Blood Count 3.88 M/uL (4.7-6.1); White Blood Count 7.37 K/uL (4.8-10.8)
[2018-11-16 07:02] LABS: BUN Creatinine Ratio 41.7 (10-20); Calcium 7.2 mg/dl (8.5-10.1); Creatinine Clr Calc Pharmacy 101.2 ml/min; Est GFR (African American) 123.5; Est GFR (Non-African American) 106.5; Potassium 3.4 mmol/L (3.5-5.1)
[2018-11-16] MEDS: FLUTICASONE/SALMETEROL 250/50 (ADVAIR) 14 PUFF/1 INHALER INH SCH (08:05)
[2018-11-16] MEDS: TIOTROPIUM BROMIDE 5 PUFF/90 MCG INH INH SCH (08:05)
[2018-11-16] MEDS: CEFEPIME 2,000 MG in SYRINGE 7.5 ML IV SCH (08:40)
--- NOTE | 2018-11-16 08:41 | Hospitalist Progress Note ---
Date of Service November 16, 2018 Assessment & Plan (1) S/P cervical spinal fusion: Management per Ortho Spine. S/P revision. -- recommend to taper Decadron to avoid hypotension November 13, 2018, started on Decadron 4mg IV x 2 days, then 2 mg x 2 days, then stop (2) Dysphagia: Per Dr. Mallory notes: Postop dysphagia. Seen by HOT TAR ROOFER and ENT. Video swallowing study 10/30 demonstrated pharyngeal dysphagia and aspiration. Being followed by HOT TAR ROOFER. Follow-up assessment 11/05 demonstrated persistent aspiration. --Status post PEG tube placement 11/08/2018 Tolerating PEG tube feeding well Continue increasing tube feeding rate to achieve goal of 60 cc/h x 24 hours (3) UTI (urinary tract infection): Urine culture: pending Blood cultures pending Continue cefepime IV day #1 (4) DVT (deep venous thrombosis): Right upper extremity Doppler: Positive for nonocclusive thrombus in the subclavian vein, around PICC line, nonocclusive thrombus in the right basilic vein near PICC line insertion site Discussed with Dr. Moraes-senior housekeeper, recommend therapeutic anticoagulation with Lovenox Lovenox 60 mg subcutaneous every 12 ordered Will need at least 3 months of treatment, risk factor is recent recent cervical spine surgery (5) Chronic obstructive pulmonary disease: Patient reporting cough with clear sputum Chest x-ray: No pneumonia Patient advised to use Advair and Spiriva while admitted, he verbalized understanding and agreement cough resolved (6) GERD (gastroesophageal reflux disease): Famotidine increased Discomfort resolved (7) BPH (benign prostatic hyperplasia): Per Dr. Mallory notes: Unable to take tamsulosin and finasteride because of dysphagia. Has Stevenson cath. Voiding trial once BPH meds resumed. pt says he needs 14 days of flomax and proscar before stevenson pulled (8) Hyperglycemia: Dr. Mallory notes: Blood sugars as high as 160. Hyperglycemia secondary to TPN + steroid-induced hyperglycemia secondary to dexamethasone. Taper steroids as able. (9) Nutritional assessment: Per Dr. Mallory notes: N.p.o. since initial surgery Severe malnutrition: PO caloric / protein intake < 10% required weight 63 kg --> 56 kg (down 11%) serum albumin 2.4 on 10/23 PEG recommended for enteral nutritional support pending follow-up swallowing evaluation in 3-4 weeks. Status post PEG tube placement TPN discontinued (10) Leukocytosis: WBC 11/02 was 22,160. No clear focus of infection at this time. (11) Abnormal CT scan, chest: Dr. Mallory notes: Chest x-ray done 11/03 for evaluation of cough, leukocytosis. Possible pneumomediastinum was noted. CT of chest did not show pneumomediastinum. 22 mm cavitary lesion PARRISH noted. Post-inflammatory process favored, but f/u CT in 6 months recommended. He has been followed by Pulmonary Medicine for abnormal CT of chest. Requested that images be copied to CD and sent to his relations mgr Dr. Rivas at [facility]. (12) DVT prophylaxis: Per SNF (13) Encounter for consultation: DC Stevenson after 14 days of proscar and flomax, voiding trial soon Transfer to SNF today from IM standpoint ROS-No Headache, No Visual Changes, No Nausea, No Vomiting, No Fever, No Chills, No Neck Pain or Stiffness, No Chest Pain, No Palpitations, No SOB, No MORA, No Cough, No Sputum, No Wheezing, No Abdominal Pain, No Diarrhea, No Hematemesis, No Hemoptysis, No Unexpected Weight Loss, No Flank pain, No Melena, No Hematochezia, No Frequency, No Urgency, No Burning, No Hematuria, No Rashes, No Diaphoresis. Appetite is Normal Physical Exam Gen-AAO x 3, NAD, Afebrile, +Peg and +Stevenson Head-NCAT, EOMI, PERRLA, Anicteric Sclera, No Posterior Pharyngeal Erythema Neck-Supple, No JVD, No Thyromegaly, No Masses, No LAD, No Bruits, incision CDI Lungs-Clear to Auscultation Bilaterally, No Rales, No Rhonchi, No Wheezing, No Crepitus Chest-No S4, +S1, +S2, No S3, No Murmurs, No Rubs, No Gallops, No Ectopy Abdomen-Soft, Bowel Sounds Present, Non Tender, Non Distended, No Hepatomegaly, No Splenomegaly, No Palpable Masses, No Rebound, No Rigidity, No Guarding Musculoskeletal-Full Range of Motion Bilaterally, No CVAT Extremities-No Cyanosis, No Clubbing, No Edema Nuero-Cranial Nerves II-XII grossly intact, Motor WNL, DTRs WNL, Strength WNL, Non Focal Psych-Normal Mood Results & Data Vital Signs (Past 12 Hours) Vital Signs Temp Pulse Resp BP Pulse Ox 11/16/18 08:00 72 14 98 11/16/18 07:03 36.4 C L 79 16 110/68 97 11/16/18 04:15 76 15 98 11/16/18 00:01 80 18 98 11/15/18 22:13 36.7 C 80 16 97/56 L 97
--- NOTE | 2018-11-16 11:06 | Discharge Summary ---
Date of Service November 16, 2018 Admission HPI Per Admitting Provider This is a 73-year-old male who presents with worsening neck and arm symptoms. After failing extensive course of nonoperative care is here for surgical intervention. Principal Diagnosis Cervical spinal stenosis with myeloradiculopathy Discharge Data Allergies Allergy/AdvReac Type Severity Reaction Status Date / Time chlordiazepoxide Allergy Unknown Hives Verified 10/17/18 08:26 [From Librax (with clidinium)] clidinium Allergy Unknown Hives Verified 10/17/18 08:26 [From Librax (with clidinium)] nitroglycerin Allergy Unknown CARDIAC Verified 10/17/18 08:26 ARREST aspirin AdvReac Unknown GI BLEED Verified 10/17/18 08:26 Consultations 10/17/18 15:10 Consult Hospitalist Routine 10/25/18 18:47 Consult Otolaryngology (Head and Neck) Routine 11/06/18 20:56 Burn CD for patient Routine 11/07/18 07:00 Consult Gastroenterology Routine Procedures Performed Operation Date: 10/17/18 10:25 Actual Procedures p C4 Corpectomy, C3-C6 Discectomy and Fusion, Spinal Cord Monitoring, and Application of Xemplifi Allograft - Alli Mojica DO Operation Date: 10/23/18 07:00 Actual Procedures s Incision and Drainage Cervical Spine (Not Applicable) - Alli Mojica DO p Revision of Hardware at C3-6(Not Applicable) - Alli Mojica DO Operation Date: 11/02/18 07:45 Actual Procedures p C3-C6 Anterior Cervical Spine Revision of Hardware(Not Applicable) - Alli Mojica DO Operation Date: 11/08/18 08:30 Actual Procedures p EGD Gastric Tube Placement - Tana Novak MD Ordered Studies 10/17/18 10:25 FL cervical 2-3V Routine FL fluoroscopy <1hr Routine 10/18/18 04:14 CT head/brain wo con Urgent 10/18/18 04:20 CT soft tissue neck wo con Urgent 10/23/18 15:00 FL cervical 2-3V Routine FL fluoroscopy <1hr Routine 10/25/18 13:30 FL video swallow Routine 10/30/18 11:00 FL video swallow Routine 11/02/18 07:45 FL cervical 2-3V Routine FL fluoroscopy <1hr Routine 11/03/18 10:00 CT chest wo con Urgent 11/05/18 11:00 FL video swallow Routine 11/14/18 11:42 US venous doppler UE RT Stat Hospital Course (1) Cervical disc disease: Patient underwent anterior cervical corpectomy and ACDF tolerated this well was taken to orthopedic for postoperative. Unfortunately postop day #1 he began having trouble swallowing. Further imaging demonstrated concern about proximal migration of the superior aspect of the plate. I did elect to take him back to surgery to advise the fixation. He tolerated the second procedure very nicely but again postop day 3 and for swallowing difficulties resumed. Further imaging demonstrated again migration of the implants. Subsequently we went for third procedure revising the entire plate. He does have a significant osteoporosis with secondary to age and long-standing history of smoking. This contributed to loss of fixation. This did create swallowing difficulty difficulties both from multiple procedures manipulation of the esophagus and probably direct compression from that migrated plate. Subsequently the difficulty swallowing on several video evaluations and ultimately underwent PEG tube placement. He tolerated this well. He continued no improvement neurologically of his balance and upper extremities. Unfortunately did develop a DVT of the right subclavian vein and was started on Lovenox. Eventually accepted at this a [place] [facility] and discharged. Discharge orders and instructions can be found the chart for further review. Upon discharge he had excellent strength detailed testing bilateral upper extremities lower extremities was ambulate in halls without difficulty and wearing his collar as requested. Total Time Total Time Spent Total Time Spent (In Minutes): 60 minutes Discharge Plan Discharge Items Patient Disposition: Home - Self-Care Reason For Visit: Other Spondylosis with Myelopathy, Cervical Region Discharge Diagnosis: Cervical spinal stenosis with myeloradiculopathy Activity: Per Instructions section Non-emergency contact: Primary Care Provider Call non-emergency contact if: you have any medication questions Follow-up/Referrals: Korina Milian, DO [Primary Care Provider] - Diet: Clear liquid Diet Comment: Ice chips only Addtl Attending Provider Instructions: ACTIVITY RECOMMENDATIONS: SELF CARE INSTRUCTIONS AFTER CERVICAL FUSIONS 1. No smoking. Smoking drastically decreases the chance of a solid fusion. 2. No bending, lifting more than 5 pounds, or twisting (roll like a log when turning in bed). 3. You may shower 3 days after surgery. Thoroughly dry wound. Do not soak in the tub. 4. Cervical collar: Must be worn at all times including sleeping. You may remove the brace only to bath, eat and if you are sitting in a recliner. 5. Please walk as much as you can for exercise. Gradually increase the distance that you walk as your endurance increases. SPECIAL CARE INSTRUCTIONS: VERY IMPORTANT TO READ AND REVIEW A. Do not take any anti-inflammatory medications (i.e. Indocin, Advil, Aspirin, Naprosyn, Aleve, Motrin, etc.) as these may inhibit the chance of a solid fusion. Tylenol is okay to take. B. Your surgical incision has been closed with a cosmetic suture under the skin that will dissolve in about 6 weeks. In 14 days, you can use a pair of clean scissors and cut the suture that is left outside of the skin at the ends of your incision. C. Complications are uncommon, but please contact us if you have any signs or symptoms of: 1. wound infection (fever higher than 102.5 degrees F, redness, separation of wound, drainage, or increasing pain from the incision) 2. blood clots in legs (pain, swelling, redness and warmth in legs) 3. urinary tract infection (fever higher than 102.5 degrees, burning upon urination or increased frequency of urination) 4. nerve problems (inability to walk on your toes or heels, numbness, loss of bowel or bladder control) 5. any other symptoms that concern you. D. Please call the office at if you have any concerns or questions about your operation or recovery. MANAGING PAIN AFTER SPINAL SURGERY 1. Narcotic medication is intended for short-term use and will be provided for surgical pain. Surgical pain usually lasts for a period of 4-6 weeks. Narcotic medication includes Percocet, Vicodin, Darvocet, Tylenol #3 or Lortab. 2. Longer-term pain is more appropriately treated with non-narcotic medication such as Tylenol ES. 3. Muscle spasm is not appropriately treated with narcotics. Muscle relaxers such as Soma, Flexeril or Skelaxin can be used along with Tylenol ES. 4. Remember that we all live with some "aches and pains". This is not unusual or uncommon after an injury or as we get older. 5. We will provide appropriate medication within the normal guidelines of their prescribed use. We will also be very cautious and aware of potential abuse and extended duration of patients' medication needs. 6. Please allow 2-3 days to process refills. Prescriptions will not be mailed but must be picked up at the office. FOLLOW UP VISIT: Keep your scheduled follow-up appointment. Any questions, please call the office at . 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 No smoking. Smoking drastically decreases the chance of a solid fusion. 2. No bending, lifting more than 5 pounds, or twisting (roll like a log when turning in bed). 3. You may shower 3 days after surgery. Thoroughly dry wound. Do not soak in the tub. 4. Cervical collar: Must be worn at all times including sleeping. You may remove the brace only to bath, eat and if you are sitting in a recliner. 5. Please walk as much as you can for exercise. Gradually increase the distance that you walk as your endurance increases. SPECIAL CARE INSTRUCTIONS: VERY IMPORTANT TO READ AND REVIEW A. Do not take any anti-inflammatory medications (i.e. Indocin, Advil, Aspirin, Naprosyn, Aleve, Motrin, etc.) as these may inhibit the chance of a solid fusion. Tylenol is okay to take. B. Your surgical incision has been closed with a cosmetic suture under the skin that will dissolve in about 6 weeks. In 14 days, you can use a pair of clean scissors and cut the suture that is left outside of the skin at the ends of your incision. C. Complications are uncommon, but please contact us if you have any signs or symptoms of: 1. wound infection (fever higher than 102.5 degrees F, redness, separation of wound, drainage, or increasing pain from the incision) 2. blood clots in legs (pain, swelling, redness and warmth in legs) 3. urinary tract infection (fever higher than 102.5 degrees, burning upon urination or increased frequency of urination) 4. nerve problems (inability to walk on your toes or heels, numbness, loss of bowel or bladder control) 5. any other symptoms that concern you. D. Please call the office at if you have any concerns or questions about your operation or recovery. MANAGING PAIN AFTER SPINAL SURGERY 1. Narcotic medication is intended for short-term use and will be provided for surgical pain. Surgical pain usually lasts for a period of 4-6 weeks. Narcotic medication includes Percocet, Vicodin, Darvocet, Tylenol #3 or Lortab. 2. Longer-term pain is more appropriately treated with non-narcotic medication such as Tylenol ES. 3. Muscle spasm is not appropriately treated with narcotics. Muscle relaxers such as Soma, Flexeril or Skelaxin can be used along with Tylenol ES. 4. Remember that we all live with some "aches and pains". This is not unusual or uncommon after an injury or as we get older. 5. We will provide appropriate medication within the normal guidelines of their prescribed use. We will also be very cautious and aware of potential abuse and extended duration of patients' medication needs. 6. Please allow 2-3 days to process refills. Prescriptions will not be mailed but must be picked up at the office. FOLLOW UP VISIT: Keep your scheduled follow-up appointment. Any questions, please call the office at . Pending Studies at Discharge: No Stand-Alone Forms: My [facility] Medications and DC Order Prescriptions: New oxycodone-acetaminophen [Percocet] 5-325 mg Tablet 1 tab PO Q4H PRN (Reason: Pain) Qty: 20 RF: 0 Continued meloxicam 15 mg Tablet 15 mg PO DAILY PRN (Reason: Pain) RF: 0 tamsulosin 0.4 mg Capsule 0.8 mg PO QPM RF: 0 pantoprazole 40 mg Tablet,Delayed Release (Dr/Ec) 40 mg PO QPM RF: 0 finasteride 5 mg Tablet 5 mg PO QPM RF: 0 Spiriva Respimat 2.5 mcg/actuation Mist 2 puff INHALATION QAM RF: 0 Breo Ellipta 200-25 mcg/dose Blister With Device 1 inh INHALATION QAM RF: 0 albuterol sulfate 90 mcg/actuation Hfa Aerosol Inhaler 2 puff INHALATION QID PRN (Reason: Shortness Of Breath Or Wheezing) RF: 0 Discharge Orders: Discharge Order (Routine); Ordered 11/16/18 Ordered By: Alli Mojica Admission Data Admit Date/Time: 10/17/18 13:23 Attending Provider: Alli Mojica Admit Provider: Alli Mojica Primary Care Provider: Korina Milian Other Providers: Glen Dominguez ; Johnathon Mallory ; Morgan Sibley ; Tana Novak ; Boston Harvey Other Interventions: Discharge Summary Assessment (RN) Last Done: 11/08/18 15:07
[2018-11-16] MEDS: SODIUM CHLORIDE 0.9% 1000ML 1,000 ML IV SCH (14:28)
[2018-11-16] MEDS: FIBERSOURCE HN 1.2 CAL 1000 ML BAG GT SCH (14:28)
== END 2018-11-16 17:42 | DRG 471 ==
LOC: ASU 07:55 → 3E 13:23 → 3N 10-28 17:05 → 3E 11-02 07:26

== ENCOUNTER 2020-08-05 10:38 | Observation (INO) ==
[2020-08-05] MEDS ORDERED: ASPIRIN 325 MG ECTAB PO SCH (11:00)
[2020-08-05 11:16] LABS: Basophils # (auto) 0.04 K/uL (0-0.2); Basophils % (auto) 0.4 %; Eosinophils % (auto) 1.8 %; Hematocrit (blood only) 38.3 % (42-52); Immature Granulocytes # (auto) 0.05 K/uL (0.00-0.02); Immature Granulocytes % (auto) 0.5 %; Lymphocytes # (auto) 2.03 K/uL (1.2-3.4); Lymphocytes % (auto) 18.7 %; Mean Corpuscular Hemoglobin 24.4 pg (25-34); Mean Corpuscular Hgb Conc 31.3 g/dL (32-36); Mean Platelet Volume 9.5 fL (7.4-10.4); Monocytes # (auto) 1.05 K/uL (0.11-0.59); Monocytes % (auto) 9.7 %; Neutrophils # (auto) 7.48 K/uL (1.4-6.5); Neutrophils % (auto) 68.9 %; Platelet Count 264 K/uL (130-400); RDW Coefficient of Variation 16.8 % (11.5-14.5); RDW Standard Deviation 47.3 fL (36.4-46.3); Red Blood Count 4.91 M/uL (4.7-6.1); White Blood Count 10.85 K/uL (4.8-10.8)
[2020-08-05 11:28] LABS: Partial Thromboplastin Ratio 1.1; Partial Thromboplastin Time 29.4 Seconds (21.0-31.0); Prothrombin Time 10.6 Seconds (9.0-12.0)
--- NOTE | 2020-08-05 11:40 | XRay Report ---
XR chest 1V portable HISTORY: Atypical Chest Pain COMPARISON: Chest 11/10/2018. FINDINGS: Cervical spinal fusion hardware is again noted. The heart is normal in size. The lungs are clear. No pleural effusions. No pneumothorax. IMPRESSION: No acute process. ACT 112: Negative or not required by law. Electronically signed by: Vikram German M.D. 08/05/2020 11:39 AM
[2020-08-05 11:44] LABS: BUN Creatinine Ratio 16.2 (10-20); Blood Urea Nitrogen 15 mg/dl (7-18); Carbon Dioxide 26 mmol/L (21-32); Chloride 112 mmol/L (98-107); Creatinine Clr Calc Pharmacy 79.5 ml/min; Est GFR (African American) 98.3 ml/min; Est GFR (Non-African American) 84.8 ml/min; Glucose 99 mg/dl (70-99); Lipase 129 U/L (73-393); Potassium 4.2 mmol/L (3.5-5.1); Sodium 143 mmol/L (136-145)
[2020-08-05 11:48] LABS: Troponin I < 0.015 ng/ml (0-0.045)
--- NOTE | 2020-08-05 11:59 | Ultrasound Report ---
RIGHT UPPER EXTREMITY VENOUS DOPPLER HISTORY: Right forearm edema. COMPARISON STUDY: None. FINDINGS: The right internal jugular vein is patent. There is normal flow within the right subclavian vein. There is normal flow and compressibility within the right axillary, basilic, brachial, radial, ulnar, and visualized cephalic veins. IMPRESSION: No DVT within the right upper extremity. ACT 112: Negative or not required by law. Electronically signed by: Vikram German M.D. 08/05/2020 11:58 AM
--- NOTE | 2020-08-05 12:51 | History & Physical Report ---
Date of Service August 05, 2020 Assessment & Plan (1) CAD (coronary artery disease): (2) Chest pain: Pt is 74 y/o M with PMH CAD, HTN, dyslipidemia, AAA s/p repair in 2019 at [facility], COPD, h/o upper extremity DVT, GERD presented to ER from cardiology clinic for ongoing chest pressure. H/O pharmacologic stress test on 07/21/[address] [facility] with EF 53%, normal wall motion, small, mild intensity reversible MPI defect of apex, distal septum and distal inferior myocardium. Since cardiac cath having constant left sided chest pressure and left arm pain H/O cardiac catheterization on 08/02 which showed predominantly nonobstructive CAD, 80% lesion to RCA at AV groove that was not amendable by PCI. Continued constant left-sided chest pressure with intermittent stabbing sensation to chest with SOB, intermittent diaphoresis In ER afebrile, P: 74, BP: 170/94, R: 20, 98% on RA In ER was given 325mg aspirin. Negative initial troponin. EKG with nonspecific ST changes. -Admit tele -Repeat EKG in am -Will trend troponin -lipid panel in am, Continue atorvastatin, however may need to increase to high intensity given his underlying CAD -Continue aspirin -Nitro prn CP and repeat EKG for CP -Cardiology consult. Spoke with Dr Cote who recommends starting Plavix and Metoprolol tartrate 25mg BID. Will hold on Heparin IV for now -Contacted radiology department and stress test and cardiac cath images are to be pushed to [facility] (3) Cellulitis of right upper extremity: S/P cardiac cath RUE venous doppler negative for DVT -Start Rocephin -MRSA swab (4) HTN (hypertension): In ER BP 170/94 down to 158/93 -Continue losartan -Monitor BP, may need to adjust medications (5) Dyslipidemia: -Continue atorvastatin (6) Chronic obstructive pulmonary disease: No signs acute exacerbation at this time -Continue home inhalers, albuterol as needed (7) History of DVT (deep vein thrombosis): History right upper extremity DVT to subclavian in 2019 during prolonged hospitalization. Was treated with Lovenox (8) BPH (benign prostatic hyperplasia): -Continue tamsulosin, finasteride (9) GERD (gastroesophageal reflux disease): -Continue PPI, Carafate DVT Prophylaxis -Heparin SQ Full Code as per discussion with pt Follows with Dr Korina Milian for routine care Pt was seen and care coordinated with Dr Kenny. See addendum History of Present Illness Chief Complaint: CP Primary Care Provider: Korina Milian, Pt is 74 y/o M with PMH CAD, HTN, dyslipidemia, AAA s/p repair in 2019 at [facility], COPD, h/o upper extremity DVT, GERD presented to ER from cardiology clinic for ongoing chest pressure. Patient reports intermittent left-sided chest pressure and shortness of breath with exertion. He had pharmacologic stress test on 07/21/[address] [facility] with EF 53%, normal wall motion, small, mild intensity reversible MPI defect of apex, distal septum and distal inferior myocardium. Since cardiac cath having constant left sided chest pressure and sometimes left arm pain but do not occur at same times. He was seen at ER at [facility] and underwent cardiac catheterization on 08/02 which showed predominantly nonobstructive CAD, 80% lesion to RCA at AV groove that was not amendable by PCI. Patient reports has continued constant left-sided chest pressure. He reports will have intermittent stabbing sensation to chest and will have SOB. Intermittent diaphoresis with pain. Patient states following cardiac cath following day noted a lump to right wrist at site of cardiac cath and has since noted progressive swelling to right forearm with erythema and pain. Denies any discharge. Denies any fever or chills. Patient does not have nitroglycerin as he reports history of hypertension in the past from nitroglycerin. In cardiology clinic today patient denied nitro. He did receive 2 sprays of nitro by EMS today and states decreased chest pressure slightly however chest pressure still present. Denies any shortness of breath currently. He does have COPD and uses his albuterol inhaler twice daily. Denies any increased cough. Denies palpitation, vomiting, fever/chills, BIRD, dizziness, syncope, vision changes, neck pain, orthopnea, sore throat, choking, otalgia, rhinorrhea, abdominal pain, paresthesias, weakness, extremity weakness, lower extremity edema, rashes, urinary symptoms. In ER was given 325mg aspirin. Negative initial troponin. EKG with nonspecific ST changes. Pt admitted for further evaluation and treatment. Allergies Allergy/AdvReac Type Severity Reaction Status Date / Time chlordiazepoxide Allergy Unknown Hives Verified 08/05/20 12:02 [From Librax (with clidinium)] clidinium Allergy Unknown Hives Verified 08/05/20 12:02 [From Librax (with clidinium)] nitroglycerin Allergy Unknown hypotension Verified 08/05/20 12:49 aspirin AdvReac Unknown GI BLEED Verified 08/05/20 12:02 Home Medications Medication Instructions Recorded Confirmed Type finasteride 5 mg PO QPM 10/03/18 08/05/20 History tamsulosin 0.8 mg PO QPM 10/03/18 08/05/20 History albuterol sulfate 2 puff INHALATION QID PRN 10/17/18 08/05/20 History aspirin 81 mg PO DAILY 08/05/20 08/05/20 History atorvastatin 40 mg PO DAILY 08/05/20 08/05/20 History [id number]-emvphdkku-mtoivsuv 1 inh INHALATION DAILY 08/05/20 08/05/20 History [Trelegy Ellipta] losartan 50 mg PO DAILY 08/05/20 08/05/20 History omeprazole 40 mg PO BID 08/05/20 08/05/20 History sucralfate 1 g PO QID 08/05/20 08/05/20 History Past Med/Surg History Medical History Abdominal aortic aneurysm S/P repair [address] scan, chest Ambulatory dysfunction BPH (benign prostatic hyperplasia) CAD (coronary artery disease) Cervical disc disease Chronic obstructive pulmonary disease EMPHYSEMA Dyslipidemia GERD (gastroesophageal reflux disease) HTN (hypertension) Lung nodules 2 Stable, 2 new ones being followed Memory change PER DAUGHTER Neuropathy BLE Surgical History H/O cervical spine surgery 10/17/2018. Anesthesia record not yet available. H/O colonoscopy History of bronchoscopy Hx of cardiac cath TYRA IVONE - 2016, 08/02/2020 Family History Grandmother (Paternal) No problems noted. 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 Beliefs That Will Affect Care: None Current Living Situation: Family Other Information That Helps Us Care for You: No Feels Safe at Home: Yes Safety Concerns: Feels Safe At This Time Assistive Devices: Cane and Walker Review of Systems Review of Systems: All systems reviewed & are unremarkable except as noted in HPI & below Physical Exam Physical Exam: General: no distress, WDWN Head: normocephalic, atraumatic Eyes: conjunctiva non-injected, anicteric ENT: normal inspection external ears, nose, mucous membranes moist Neck: supple, trachea midline Lungs: clear, no respiratory distress, no wheezing/rhonchi/rales CV: RRR, no murmur, no JVD, no pretibial edema Abd: normal BS, soft, non-tender Ext: RUE: +erythema edema to forearm, edema extending to fingers, no discharge, ROM wrist intact with tenderness, distal pulses intact, brisk capillary refill. no cyanosis, no calf tenderness Neuro: A&O x 3, no focal deficits noted, normal affect Skin: warm, dry, RUE as above, +multiple ecchymosis abdomen Results & Data Results & Data ([facility]) Vital Signs (Past 12 Hours) Vital Signs Temp Pulse Pulse Resp BP BP Pulse Ox 08/05/20 11:55 75 20 158/93 H 99 08/05/20 10:51 36.5 C 74 20 170/94 H 98 Laboratory Results Short CBC 08/05/20 Range/Units 10:55 WBC 10.85 H (4.8-10.8) K/uL Hgb 12.0 L (14.0-18.0) g/dL Hct 38.3 L (42-52) % Plt Count 264 (130-400) K/uL BMP 08/05/20 10:55 Sodium 143 Potassium 4.2 Chloride 112 H Carbon Dioxide 26 BUN 15 Creatinine 0.89 Glucose 99 Calcium 8.0 L Cardiac Enzymes 08/05/20 Range/Units 10:55 Troponin I < 0.015 (0-0.045) ng/ml Diagnostic Findings Chest X-Ray 08/05/20 10:48 XR chest 1V portable HISTORY: Atypical Chest Pain COMPARISON: Chest 11/10/2018. FINDINGS: Cervical spinal fusion hardware is again noted. The heart is normal in size. The lungs are clear. No pleural effusions. No pneumothorax. IMPRESSION: No acute process. ACT 112: Negative or not required by law. Electronically signed by: Vikram German M.D. 08/05/2020 11:39 AM Venous Doppler Study 08/05/20 10:54 RIGHT UPPER EXTREMITY VENOUS DOPPLER HISTORY: Right forearm edema. COMPARISON STUDY: None. FINDINGS: The right internal jugular vein is patent. There is normal flow within the right subclavian vein. There is normal flow and compressibility within the right axillary, basilic, brachial, radial, ulnar, and visualized cephalic veins. IMPRESSION: No DVT within the right upper extremity. ACT 112: Negative or not required by law. Electronically signed by: Vikram German M.D. 08/05/2020 11:58 AM ECG Rate (beats per minute): 77 Rhythm: sinus rhythm Findings: + nonspecific-ST abn Code Status & VTE Plan VTE Prophylaxis Plan VTE Prophylaxis will be ordered: Yes Supervising Physician Co-Signing Physician Notes Attending addendum: The patient was seen and examined in medical telemetry unit He is status post cardiac cath on sixth of this month at [facility] and was admitted with chest pressure/pain Still has some chest tightness but denies any shortness of breath with it He complains to have pain swelling of the right forearm Denies any fever and/or chills On examination Some distress due to right forearm pain and swelling and also chest discomfort Blood pressure noted to be very high otherwise unremarkable hemodynamics Chest-clear to auscultate bilaterally Heart-S1-S2, regular Abdomen-benign Extremities-swelling and redness with tenderness and increasing warmth involving the right forearm. Status post cardiac cath through the right radial artery CNSalert, awake and oriented x3 His admission labs, EKG and imaging studies reviewed He has atypical chest pain-we will rule out for any evidence of ACS Could be secondary to pericarditis and/or referred pain from cervical spine Has cellulitis of the right forearm and has been on intravenous ceftriaxone Cardiology consulted Agree with assessment and plan as outlined above by BRUCE Poole Dr
[2020-08-05] MEDS ORDERED: KETOROLAC TROMETHAMINE 15 MG/ML VIAL ONE (13:27)
[2020-08-05] MEDS ORDERED: METOPROLOL TARTRATE 25 MG TAB PO ONE (13:33)
[2020-08-05] MEDS ORDERED: CLOPIDOGREL BISULFATE 75 MG TAB PO ONE (13:33)
--- NOTE | 2020-08-05 14:09 | Cardiology Consultation ---
Date of Consultation August 05, 2020 Assessment & Plan (1) CAD (coronary artery disease): (2) History of DVT (deep vein thrombosis): (3) Cellulitis of right upper extremity: (4) Chest pain: I believe the patient's chest pain is atypical and could be from his cervical radiculopathy. I reviewed his cardiac catheterization films from [facility] done several days ago and he has minor nonobstructive coronary artery disease. It certainly is appropriate to draw cardiac markers. His EKG shows no acute changes. I would treat his cellulitis with antibiotics. We will follow along with you during his hospital stay. History of Present Illness History of Present Illness This is a 74-year-old male patient with a history of coronary artery disease and was last seen in our practice approximately 2 years ago. Recently he has been having chest discomfort. He underwent a nuclear stress test at [facility] and then proceeded to have a cardiac catheterization. The study was performed from the right radial artery. The catheterization films were transmitted to [place] and I was able to review them. The patient has a hyperdominant left system. In the nondominant small right coronary artery there is a 50% mid stenoses. There is also nonobstructive 50% stenoses in the mid LAD otherwise the left system is widely patent. The patient came to our clinic today. He is still having chest pain intermittently but also developed erythema and swelling of the right forearm. He was sent to the emergency department where he has been admitted with a cellulitis of the right forearm and for continued cardiac care. It should be noted that the patient has a history of a cervical radiculopathy that was previously operated on and he had a DVT of the right upper extremity following a PICC line placement after his surgery. He was treated with anticoagulation for several months with resolution of his DVT. In the emergency department he had an ultrasound of the upper extremity performed which failed to show DVT. Past medical history: 1. Coronary artery disease with nonobstructive coronary artery disease by cardiac catheterization 2017 [facility] 2. Cardiac catheterization [facility] for ongoing chest pain 2020 with a hyperdominant left system and minor nonobstructive coronary artery disease. 3. History of abdominal aortic aneurysm, follows with vascular surgery 3. Cervical radiculopathy 4. Tobacco abuse with tobacco associated lung disease 5. History of DVT in 2019 following surgical spine surgery treated with Eliquis and not currently anticoagulated 6. Hypertension 7. Dyslipidemia Allergies Allergy/AdvReac Type Severity Reaction Status Date / Time chlordiazepoxide Allergy Unknown Hives Verified 08/05/20 12:02 [From Librax (with clidinium)] clidinium Allergy Unknown Hives Verified 08/05/20 12:02 [From Librax (with clidinium)] nitroglycerin Allergy Unknown hypotension Verified 08/05/20 12:49 aspirin AdvReac Unknown GI BLEED Verified 08/05/20 12:02 Home Medications Medication Instructions Recorded Confirmed Type finasteride 5 mg PO QPM 10/03/18 08/05/20 History tamsulosin 0.8 mg PO QPM 10/03/18 08/05/20 History albuterol sulfate 2 puff INHALATION QID PRN 10/17/18 08/05/20 History aspirin 81 mg PO DAILY 08/05/20 08/05/20 History atorvastatin 40 mg PO DAILY 08/05/20 08/05/20 History iihfbjimzmw-gvuvxanle-brlcqikq 1 inh INHALATION DAILY 08/05/20 08/05/20 History [Trelegy Ellipta] losartan 50 mg PO DAILY 08/05/20 08/05/20 History omeprazole 40 mg PO BID 08/05/20 08/05/20 History sucralfate 1 g PO QID 08/05/20 08/05/20 History Patient History Medical History Abdominal aortic aneurysm S/P repair [address] scan, chest Ambulatory dysfunction BPH (benign prostatic hyperplasia) CAD (coronary artery disease) Cervical disc disease Chronic obstructive pulmonary disease EMPHYSEMA Dyslipidemia GERD (gastroesophageal reflux disease) HTN (hypertension) Lung nodules 2 Stable, 2 new ones being followed Memory change PER DAUGHTER Neuropathy BLE Surgical History H/O cervical spine surgery 10/17/2018. Anesthesia record not yet available. H/O colonoscopy History of bronchoscopy Hx of cardiac cath TYRA WISEMAN - 2016, 08/02/2020 Family History Grandmother (Paternal) No problems noted. Grandfather (Maternal) Family history of diabetes mellitus Sister Family history of diabetes mellitus Mother Family history of diabetes mellitus Father Heart disease Social History Smoking Status: Former smoker Cigarettes Per Day: 1ppd x 60; Second Hand Exposure: No; Do You Dip or Chew Tobacco: No; Tobacco Cessation Education Requested by Patient: No Hx Alcohol Use: No Hx Substance Use: No Preferred Language: Thai Communication Ability: Effective Database Design Analyst Required: No Beliefs That Will Affect Care: None Current Living Situation: Family Other Information That Helps Us Care for You: No Feels Safe at Home: Yes Safety Concerns: Feels Safe At This Time Assistive Devices: Cane Review of Systems Review of Systems: All systems reviewed & are unremarkable except as noted in HPI & below Nothing additional to add Physical Exam Physical Exam: General: no acute distress and stated age Head: normocephalic, no masses, lesions, tenderness or abnormalities Eyes: conjunctiva are pink and non-injected, sclera clear Neck: supple, no adenopathy, no bruits, normal jugular venous pulse, no hepatojugular reflux Chest: normal shape and normal respiratory effort Lungs: clear to auscultation and percussion Cardiac Exam: - regular rate & rhythm, no murmurs gallops or rubs - normal S1, normal S2 Pulses: 2(+) throughout Abdomen: abdomen soft, non-tender, no abnormal masses and no hepatosplenomegaly Musculoskeletal: no gait disturbance, no joint inflammation, no deforming arthritis Extremities: no edema and no cyanosis Neuro: grossly normal exam Results & Data ([facility]) Vital Signs (Past 12 Hours) Vital Signs Temp Pulse Pulse Resp BP BP Pulse Ox 08/05/20 13:31 77 18 192/98 H 98 08/05/20 11:55 75 20 158/93 H 99 08/05/20 10:51 36.5 C 74 20 170/94 H 98 Laboratory Results Laboratory Results - last 24 hr 08/05/20 08/05/20 08/05/20 10:55 10:55 10:55 WBC 10.85 H RBC 4.91 Hgb 12.0 L Hct 38.3 L MCV 78.0 L MCH 24.4 L MCHC 31.3 L RDW Std Deviation 47.3 H RDW Coeff of Barbara 16.8 H Plt Count 264 MPV 9.5 Immature Gran % (Auto) 0.5 Neut % (Auto) 68.9 Lymph % (Auto) 18.7 Jones % (Auto) 9.7 Eos % (Auto) 1.8 Baso % (Auto) 0.4 Neut # (Auto) 7.48 H Lymph # (Auto) 2.03 Jones # (Auto) 1.05 H Eos # (Auto) 0.20 Baso # (Auto) 0.04 Immature Gran # (Auto) 0.05 H PT 10.6 INR 1.0 APTT 29.4 PTT Ratio 1.1 Sodium 143 Potassium 4.2 Chloride 112 H Carbon Dioxide 26 Anion Gap 5.0 BUN 15 Creatinine 0.89 Est Cr Clr Drug Dosing 79.5 Est GFR ( Amer) 98.3 Est GFR (Non-Af Amer) 84.8 BUN/Creatinine Ratio 16.2 Glucose 99 Calcium 8.0 L Troponin I < 0.015 Lipase 129 COVID-19 Eval Order SARS-CoV-2 (PCR) 08/05/20 08/05/20 11:54 11:54 WBC RBC Hgb Hct MCV MCH MCHC RDW Std Deviation RDW Coeff of Barbara Plt Count MPV Immature Gran % (Auto) Neut % (Auto) Lymph % (Auto) Jones % (Auto) Eos % (Auto) Baso % (Auto) Neut # (Auto) Lymph # (Auto) Jones # (Auto) Eos # (Auto) Baso # (Auto) Immature Gran # (Auto) PT INR APTT PTT Ratio Sodium Potassium Chloride Carbon Dioxide Anion Gap BUN Creatinine Est Cr Clr Drug Dosing Est GFR ( Amer) Est GFR (Non-Af Amer) BUN/Creatinine Ratio Glucose Calcium Troponin I Lipase COVID-19 Eval Order Covid[address] [facility] SARS-CoV-2 (PCR) NEGATIVE Medications Administered Current Inpatient Medications Aspirin (Aspirin 325 Mg Ectab) [facility] Stop: 09/04/20 10:59 Last Admin: 08/05/20 11:09 Dose: Not Given Documented by: Clopidogrel Bisulfate (Clopidogrel Bisulfate 75 Mg Tab) 75 mg PO NOW ONE Stop: 08/05/20 13:34 Metoprolol Tartrate (Metoprolol Tartrate 25 Mg Tab) 25 mg PO ONE ONE Stop: 08/05/20 13:34
[2020-08-05] MEDS ORDERED: ALBUTEROL HFA 8 GM INHALER INH PRN (15:15)
[2020-08-05] MEDS ORDERED: NITROGLYCERIN SL 0.4 MG/TAB TAB SL PRN (15:15)
[2020-08-05] MEDS: cefTRIAXone SODIUM 2,000 MG in DEXTROSE 5% 50 ML IV SCH (16:11)
[2020-08-05] MEDS: SUCRALFATE 1 GM TAB PO SCH ×2 (17:06→20:37)
--- NOTE | 2020-08-05 17:52 | Emergency Department Note ---
History of Present Illness General Chief Complaint: Chest Pain Time Seen by Provider: 08/05/20 10:42 History of Present Illness Provider Complaint: chest pain Onset (ago): week(s) Onset (Weeks): 2 Duration: intermittent and progressively worsening Onset: during exertion Pain Location: substernal Pain Radiation: none Severity: moderate Maximum Pain Intensity: 6 Current Pain Intensity: 6 Quality: + heaviness and + other (pressure) Relieved By: + nitroglycerin and + rest Exacerbated By: + exertion Associated symptoms: + dyspnea (Exertional); no nausea, no vomiting, no d iaphoresis, no syncope, no palpitations, no fever and no cough Treatments prior to arrival: nitroglycerin Patient states he was recently admitted to [facility] where he had a cardiac catheterization but no stents were placed. He states he went to go see his proof sorter today at [facility] due to progressive and consistent we worsening chest pain and they referred him to the emergency department to be admitted. Home Medications Medication Instructions Recorded Confirmed Type finasteride 5 mg PO QPM 10/03/18 08/05/20 History tamsulosin 0.8 mg PO QPM 10/03/18 08/05/20 History albuterol sulfate 2 puff INHALATION QID PRN 10/17/18 08/05/20 History aspirin 81 mg PO DAILY 08/05/20 08/05/20 History atorvastatin 40 mg PO DAILY 08/05/20 08/05/20 History fnpaodyxjnr-lwbqvgqct-mbdthhtd 1 inh INHALATION DAILY 08/05/20 08/05/20 History [Trelegy Ellipta] losartan 50 mg PO DAILY 08/05/20 08/05/20 History omeprazole 40 mg PO BID 08/05/20 08/05/20 History sucralfate 1 g PO QID 08/05/20 08/05/20 History Allergies Allergy/AdvReac Type Severity Reaction Status Date / Time chlordiazepoxide Allergy Unknown Hives Verified 08/05/20 12:02 [From Librax (with clidinium)] clidinium Allergy Unknown Hives Verified 08/05/20 12:02 [From Librax (with clidinium)] nitroglycerin Allergy Unknown hypotension Verified 08/05/20 12:49 aspirin AdvReac Unknown GI BLEED Verified 08/05/20 12:02 Past Med/Surg History Medical History Abdominal aortic aneurysm S/P repair [address] scan, chest Ambulatory dysfunction BPH (benign prostatic hyperplasia) CAD (coronary artery disease) Cervical disc disease Chronic obstructive pulmonary disease EMPHYSEMA Dyslipidemia GERD (gastroesophageal reflux disease) HTN (hypertension) Lung nodules 2 Stable, 2 new ones being followed Memory change PER DAUGHTER Neuropathy BLE Surgical History H/O cervical spine surgery 10/17/2018. Anesthesia record not yet available. H/O colonoscopy History of bronchoscopy Hx of cardiac cath TYRA IVONE - 2016, 08/02/2020 Family History Grandmother (Paternal) No problems noted. Grandfather (Maternal) Family history of diabetes mellitus Sister Family history of diabetes mellitus Mother Family history of diabetes mellitus Father Heart disease Social History Smoking Status: Former smoker Cigarettes Per Day: 1ppd x 60; Second Hand Exposure: No; Do You Dip or Chew Tobacco: No; Tobacco Cessation Education Requested by Patient: No Hx Alcohol Use: No Hx Substance Use: No Preferred Language: Salvadorean Communication Ability: Effective [place] Tribunal Member Required: No Beliefs That Will Affect Care: None Current Living Situation: Family Other Information That Helps Us Care for You: No Feels Safe at Home: Yes Safety Concerns: Feels Safe At This Time Assistive Devices: Cane and Walker Review of Systems A total of 10 systems reviewed and were otherwise negative Physical Exam Vital Signs Vital Signs - 24 hr 08/05/20 10:51 08/05/20 11:55 Temperature 36.5 C Temperature Source Oral Pulse Rate 74 Pulse Rate [Left Finger] 75 Pulse Rhythm Regular Pulse Strength Normal Respiratory Rate 20 20 Respiratory Effort / Characteristics Non-Labored Spontaneous Respiratory Depth Normal Respiratory Pattern Regular Blood Pressure 170/94 H Blood Pressure [Left Arm] 158/93 H Blood Pressure Mean 119 Blood Pressure Mean [Left Arm] 114 Blood Pressure Position Sitting Blood Pressure Position [Left Arm] Sitting Pulse Oximetry 98 99 Oxygen Delivery Method Room Air Sepsis Recent Fever Within 48 Hours No Sepsis New/Unexplained Change in Mental Status No Sepsis Action Taken by Nursing No Action Required Physical Exam GENERAL: He is oriented to person, place, and time. He appears well-developed and well-nourished. He does not appear distressed. HENT: Exam performed. - Head: Normocephalic and atraumatic. - Right Ear: External ear normal. No mastoid tenderness. - Left Ear: External ear normal. No mastoid tenderness. - Mouth/Throat: The oropharynx is clear and moist. No trismus in the jaw. No dental abscesses or uvula swelling. No oropharyngeal exudate or tonsillar absces ses. EYES: Conjunctivae and EOM are normal. Pupils are equal, round, and reactive to light. Right eye exhibits no discharge. Left eye exhibits no discharge. No scleral icterus. NECK: Normal range of motion. Neck supple. No JVD present. No spinous process tenderness present. No carotid bruit present. No rigidity. No tracheal deviation and normal range of motion present. No Brudzinski's sign and no Kernig's sign noted. CV: Normal rate, regular rhythm, normal heart sounds and intact distal pulses. There is no peripheral edema. Palpable radial pulses bue. PULM/CHEST: Effort normal and breath sounds normal. No respiratory distress. No stridor. He has no wheezes. He has no rales. - Chest Wall: He exhibits no tenderness. ABD: The abdomen is soft. Bowel sounds are normal. He has no distension. No mass is present. There is no tenderness. There is no rebound, no guarding, no Mccartney's sign and no tenderness at McBurney's point. Rovsig negative. MUSC/SKEL: Right upper extremity: Swelling of the right upper extremity. Palpable radial pulse. Compartments soft Left upper extremity within normal limits. NEURO: He is alert and oriented to person, place, and time. He has normal strength. No cranial nerve deficit or sensory deficit. Coordination and gait normal. GCS eye subscore is 4. GCS verbal subscore is 5. GCS motor subscore is 6. Cerebellar tests wnl. SKIN: Skin is warm and dry. He is not diaphoretic. PSYCH: He has a normal mood and affect. Behavior is normal. Judgment and thought content normal. Course Course 1042: The patient was evaluated in room C8. A complete history and physical exam was performed Cardiac monitoring: An order was placed for continuous cardiac monitoring. The monitor shows a rate of 80 with sinus rhythm Patient brought paperwork from [facility] with him. The patient was admitted from 10/23/2020 to July 30, 2020. During that time the patient had a cardiac catheterization which did show severe disease 80% in the AV groove portion of the RCA but the cardiology team did not stent that area and stated that there was predominantly nonobstructive coronary artery disease but there is progression of the nondominant RCA disease compared to a previous catheterization in 2017. 1200: Vital signs stable. Labs and imaging within normal limits including a negative ultrasound of the upper extremity. [facility] Administered Medications Ceftriaxone Sodium 2,000 mg/ (Dextrose) 70 mls @ 100 mls/hr IV Q24H [facility]; Protocol Stop: 08/12/20 15:59 Last Infusion: 08/05/20 16:57 Dose: 0 mls/hr Documented by: [id number] Admin: 08/05/20 16:11 Dose: 100 mls/hr Documented by: [id number] Sucralfate (Sucralfate 1 Gm Tab) 1 gm PO QID [facility] Stop: 09/04/20 16:59 Last Admin: 08/05/20 17:06 Dose: 1 gm Documented by: [id number] Discontinued Medications Aspirin (Aspirin 325 Mg Ectab) 325 mg PO QAM [facility] Stop: 09/04/20 10:59 Last Admin: 08/05/20 11:09 Dose: Not Given Documented by: [id number] Clopidogrel Bisulfate (Clopidogrel Bisulfate 75 Mg Tab) 75 mg PO NOW ONE Stop: 08/05/20 13:34 Last Admin: 08/05/20 16:11 Dose: 75 mg Documented by: [id number] Ketorolac Tromethamine (Ketorolac Tromethamine 15 Mg/Ml Vial) Confirm Administered Dose 15 mg .ROUTE .STK-MED ONE Stop: 08/05/20 13:28 Last Admin: 08/05/20 13:30 Dose: 15 mg Documented by: [id number] Metoprolol Tartrate (Metoprolol Tartrate 25 Mg Tab) 25 mg PO ONE ONE Stop: 08/05/20 13:34 Last Admin: 08/05/20 16:11 Dose: 25 mg Documented by: [id number] Medical Decision Making Laboratory Data Result diagrams: 08/05/20 10:55 08/05/20 10:55 Labs: Lab Results 06/09/21 06/09/21 06/09/21 Range/Units 10:55 10:55 10:55 WBC 10.85 H (4.8-10.8) K/uL RBC 4.91 (4.7-6.1) M/uL Hgb 12.0 L (14.0-18.0) g/dL Hct 38.3 L (42-52) % MCV 78.0 L (80-100) fL MCH 24.4 L (25-34) pg MCHC 31.3 L (32-36) g/dL RDW Std Deviation 47.3 H (36.4-46.3) fL RDW Coeff of Barbara 16.8 H (11.5-14.5) % Plt Count 264 (130-400) K/uL MPV 9.5 (7.4-10.4) fL Immature Gran % (Auto) 0.5 % Neut % (Auto) 68.9 % Lymph % (Auto) 18.7 % [facility] % (Auto) 9.7 % Eos % (Auto) 1.8 % Baso % (Auto) 0.4 % Neut # (Auto) 7.48 H (1.4-6.5) K/uL Lymph # (Auto) 2.03 (1.2-3.4) K/uL [facility] # (Auto) 1.05 H (0.11-0.59) K/uL Eos # (Auto) 0.20 (0-0.5) K/uL Baso # (Auto) 0.04 (0-0.2) K/uL Immature Gran # (Auto) 0.05 H (0.00-0.02) K/uL PT 10.6 (9.0-12.0) Seconds INR 1.0 (0.9-1.1) APTT 29.4 (21.0-31.0) Seconds PTT Ratio 1.1 Sodium 143 (136-145) mmol/L Potassium 4.2 (3.5-5.1) mmol/L Chloride 112 H (98-107) mmol/L Carbon Dioxide 26 (21-32) mmol/L Anion Gap 5.0 (3-11) BUN 15 (7-18) mg/dl Creatinine 0.89 (0.6-1.4) mg/dl Est Cr Clr Drug Dosing 79.5 ml/min Est GFR ( Amer) 98.3 ml/min Est GFR (Non-Af Amer) 84.8 ml/min BUN/Creatinine Ratio 16.2 (10-20) Glucose 99 (70-99) mg/dl Calcium 8.0 L (8.5-10.1) mg/dl Troponin I < 0.015 (0-0.045) ng/ml Lipase 129 (73-393) U/L COVID-19 Eval Order SARS-CoV-2 (PCR) (Negative) 08/05/20 08/05/20 Range/Units 11:54 11:54 WBC (4.8-10.8) K/uL RBC (4.7-6.1) M/uL Hgb (14.0-18.0) g/dL Hct (42-52) % MCV (80-100) fL MCH (25-34) pg MCHC (32-36) g/dL RDW Std Deviation (36.4-46.3) fL RDW Coeff of Barbara (11.5-14.5) % Plt Count (130-400) K/uL MPV (7.4-10.4) fL Immature Gran % (Auto) % Neut % (Auto) % Lymph % (Auto) % [facility] % (Auto) % Eos % (Auto) % Baso % (Auto) % Neut # (Auto) (1.4-6.5) K/uL Lymph # (Auto) (1.2-3.4) K/uL [facility] # (Auto) (0.11-0.59) K/uL Eos # (Auto) (0-0.5) K/uL Baso # (Auto) (0-0.2) K/uL Immature Gran # (Auto) (0.00-0.02) K/uL PT (9.0-12.0) Seconds INR (0.9-1.1) APTT (21.0-31.0) Seconds PTT Ratio Sodium (136-145) mmol/L Potassium (3.5-5.1) mmol/L Chloride (98-107) mmol/L Carbon Dioxide (21-32) mmol/L Anion Gap (3-11) BUN (7-18) mg/dl Creatinine (0.6-1.4) mg/dl Est Cr Clr Drug Dosing ml/min Est GFR ( Amer) ml/min Est GFR (Non-Af Amer) ml/min BUN/Creatinine Ratio (10-20) Glucose (70-99) mg/dl Calcium (8.5-10.1) mg/dl Troponin I (0-0.045) ng/ml Lipase (73-393) U/L COVID-19 Eval Order Covid19 at [facility] SARS-CoV-2 (PCR) NEGATIVE (Negative) Imaging Data Chest x-ray: Radiologist's impression: Chest X-Ray 08/05/20 10:48 XR chest 1V portable HISTORY: Atypical Chest Pain COMPARISON: Chest 11/10/2018. FINDINGS: Cervical spinal fusion hardware is again noted. The heart is normal in size. The lungs are clear. No pleural effusions. No pneumothorax. IMPRESSION: No acute process. ACT 112: Negative or not required by law. Electronically signed by: Vikram German M.D. 08/05/2020 11:39 AM Venous Doppler Study 08/05/20 10:54 RIGHT UPPER EXTREMITY VENOUS DOPPLER HISTORY: Right forearm edema. COMPARISON STUDY: None. FINDINGS: The right internal jugular vein is patent. There is normal flow within the right subclavian vein. There is normal flow and compressibility within the right axillary, basilic, brachial, radial, ulnar, and visualized cephalic veins. IMPRESSION: No DVT within the right upper extremity. ACT 112: Negative or not required by law. Electronically signed by: Vikram German M.D. 08/05/2020 11:58 AM [facility] Narrative 1042: The patient was evaluated in room C8. A complete history and physical exam was performed Cardiac monitoring: An order was placed for continuous cardiac monitoring. The monitor shows a rate of 80 with sinus rhythm Patient brought paperwork from [facility] with him. The patient was admitted from 10/23/2020 to July 30, 2020. During that time the patient had a cardiac catheterization which did show severe disease 80% in the AV groove portion of the RCA but the cardiology team did not stent that area and stated that there was predominantly nonobstructive coronary artery disease but there is progression of the nondominant RCA disease compared to a previous catheteriza tion in 2017. 1200: Vital signs stable. Labs and imaging within normal limits including a negative ultrasound of the upper extremity. Patient be admitted to the [facility] team Dr. Kenny. Impression & Plan Chest pain Discharge Plan Visit Data Chief Complaint: Chest Pain ED Provider: Ryan Mack Discharge Problem: Chest pain Patient Disposition: Admitted As Inpatient Discharge Instructions Interventions: ED Discharge Assessment Last Done: 08/05/20 14:35 Discharge Problem: Chest pain Qualifiers: Chest pain type: unspecified Qualified Code(s): R07.9 - Chest pain, unspecified
[2020-08-05] MEDS: ACETAMINOPHEN 325 MG TAB PO PRN (20:36)
[2020-08-05] MEDS: PANTOprazole 40 MG TAB PO SCH (20:38)
[2020-08-05] MEDS: HEPARIN SOD 5,000 UNIT/0.5 ML VIAL SQ SCH (20:38)
[2020-08-05] MEDS: METOPROLOL TARTRATE 25 MG TAB PO SCH (20:38)
[2020-08-05] MEDS ORDERED: FINASTERIDE 5 MG TAB PO SCH (21:00)
[2020-08-05] MEDS ORDERED: TAMSULOSIN HCL 0.4 MG CAP PO SCH (21:00)
[2020-08-06] MEDS: ACETAMINOPHEN 325 MG TAB PO PRN ×2 (01:19→08:32)
[2020-08-06 06:55] LABS: Hematocrit (blood only) 37.6 % (42-52); Hemoglobin 11.7 g/dL (14.0-18.0); Mean Corpuscular Hemoglobin 24.5 pg (25-34); Mean Corpuscular Hgb Conc 31.1 g/dL (32-36); Mean Corpuscular Volume 78.8 fL (80-100); Mean Platelet Volume 9.9 fL (7.4-10.4); Platelet Count 278 K/uL (130-400); RDW Coefficient of Variation 16.8 % (11.5-14.5); RDW Standard Deviation 48.2 fL (36.4-46.3); Red Blood Count 4.77 M/uL (4.7-6.1); White Blood Count 9.43 K/uL (4.8-10.8)
[2020-08-06 07:30] LABS: Calcium 7.9 mg/dl (8.5-10.1); Creatinine Clr Calc Pharmacy 61.3 ml/min; Est GFR (African American) 88.3 ml/min; Est GFR (Non-African American) 76.2 ml/min; Potassium 3.9 mmol/L (3.5-5.1)
[2020-08-06] MEDS: HEPARIN SOD 5,000 UNIT/0.5 ML VIAL SQ SCH (08:30)
[2020-08-06] MEDS: METOPROLOL TARTRATE 25 MG TAB PO SCH (08:31)
[2020-08-06] MEDS: PANTOprazole 40 MG TAB PO SCH (08:31)
[2020-08-06] MEDS: SUCRALFATE 1 GM TAB PO SCH ×2 (08:32→12:35)
[2020-08-06] MEDS ORDERED: CLOPIDOGREL BISULFATE 75 MG TAB PO SCH (09:00)
[2020-08-06] MEDS ORDERED: FLUTICASONE FUROATE 100MCG 14 PUFFS/INHALER INH SCH (09:00)
[2020-08-06] MEDS ORDERED: LOSARTAN POTASSIUM 50 MG TAB PO SCH (09:00)
[2020-08-06] MEDS ORDERED: ATORVASTATIN 40 MG TAB PO SCH (09:00)
[2020-08-06] MEDS ORDERED: ASPIRIN 81 MG ECTAB PO SCH (09:00)
[2020-08-06] MEDS ORDERED: UMECLIDINIUM/VILANTEROL 62.5/25MCG 7 PUFFS/INHALER INH SCH (09:00)
--- NOTE | 2020-08-06 10:10 | Cardiology Progress Note ---
Date of Service August 06, 2020 Assessment & Plan (1) CAD (coronary artery disease): (2) History of DVT (deep vein thrombosis): (3) Cellulitis of right upper extremity: (4) Chest pain: I reviewed the patient's cath films from [facility] and he has minor nonobstructive coronary artery disease. His cardiac markers are negative. I do not believe that his chest and left arm discomfort are due to coronary artery disease. He does have a strong history of cervical spine disease and has been o perated on at least twice. He may be experiencing a cervical radiculopathy that may be treated with anti-inflammatory and nonsteroidals. I do not believe any additional cardiac testing is indicated. His cellulitis looks markedly improved and if he can be switched to oral antibiotics I think he can be discharged to outpatient follow-up. Admission and Anticipated Discharge Date Admission Date: August 05, 2020 Subjective The patient had uneventful night. He has no new complaints today. He did have some chest and left arm discomfort relieved partially with Tylenol. Review of Systems Review of Systems: All systems reviewed & are unremarkable except as noted in Subjective Physical Exam Physical Exam: General: no acute distress and stated age Head: normocephalic, no masses, lesions, tenderness or abnormalities Eyes: conjunctiva are pink and non-injected, sclera clear Neck: supple, no adenopathy, no bruits, normal jugular venous pulse, no hepatojugular reflux Chest: normal shape and normal respiratory effort Lungs: clear to auscultation and percussion Cardiac Exam: - regular rate & rhythm, no murmurs gallops or rubs - normal S1, normal S2 Pulses: 2(+) throughout Abdomen: abdomen soft, non-tender, no abnormal masses and no hepatosplenomegaly Musculoskeletal: no gait disturbance, no joint inflammation, no deforming arthritis Extremities: no edema and no cyanosis Neuro: grossly normal exam Results & Data ([facility]) Vital Signs (Past 12 Hours) Vital Signs Temp Pulse Pulse Resp BP Pulse Ox 08/06/20 08:22 36.6 C 67 18 148/79 H 95 08/06/20 02:55 36.5 C 67 19 119/78 97 08/06/20 00:00 73 08/05/20 22:40 36.7 C 70 17 152/75 H 96 Laboratory Results Laboratory Results - last 24 hr 0608/05/20 08/05/20 10:55 10:55 10:55 WBC 10.85 H RBC 4.91 Hgb 12.0 L Hct 38.3 L MCV 78.0 L MCH 24.4 L MCHC 31.3 L RDW Std Deviation 47.3 H RDW Coeff of Barbara 16.8 H Plt Count 264 MPV 9.5 Immature Gran % (Auto) 0.5 Neut % (Auto) 68.9 Lymph % (Auto) 18.7 [place] % (Auto) 9.7 Eos % (Auto) 1.8 Baso % (Auto) 0.4 Neut # (Auto) 7.48 H Lymph # (Auto) 2.03 [place] # (Auto) 1.05 H Eos # (Auto) 0.20 Baso # (Auto) 0.04 Immature Gran # (Auto) 0.05 H PT 10.6 INR 1.0 APTT 29.4 PTT Ratio 1.1 Sodium 143 Potassium 4.2 Chloride 112 H Carbon Dioxide 26 Anion Gap 5.0 BUN 15 Creatinine 0.89 Est Cr Clr Drug Dosing 79.5 Est GFR ( Amer) 98.3 Est GFR (Non-Af Amer) 84.8 BUN/Creatinine Ratio 16.2 Glucose 99 Calcium 8.0 L Troponin I < 0.015 C-Reactive Protein Triglycerides Cholesterol LDL Cholesterol, Calc VLDL Cholesterol, Calc HDL Cholesterol Cholesterol/HDL Ratio Lipase 129 Nasal Screen MRSA (PCR) COVID-19 Eval Order SARS-CoV-2 (PCR) 08/05/20 08/05/20 08/05/20 11:54 11:54 16:25 WBC RBC Hgb Hct MCV MCH MCHC RDW Std Deviation RDW Coeff of Barbara Plt Count MPV Immature Gran % (Auto) Neut % (Auto) Lymph % (Auto) [place] % (Auto) Eos % (Auto) Baso % (Auto) Neut # (Auto) Lymph # (Auto) [place] # (Auto) Eos # (Auto) Baso # (Auto) Immature Gran # (Auto) PT INR APTT PTT Ratio Sodium Potassium Chloride Carbon Dioxide Anion Gap BUN Creatinine Est Cr Clr Drug Dosing Est GFR ( Amer) Est GFR (Non-Af Amer) BUN/Creatinine Ratio Glucose Calcium Troponin I C-Reactive Protein Triglycerides Cholesterol LDL Cholesterol, Calc VLDL Cholesterol, Calc HDL Cholesterol Cholesterol/HDL Ratio Lipase Nasal Screen MRSA (PCR) Negative COVID-19 Eval Order Covid19 at [facility] SARS-CoV-2 (PCR) NEGATIVE 08/05/20 08/05/20 08/06/20 16:59 22:36 06:12 WBC 9.43 RBC 4.77 Hgb 11.7 L Hct 37.6 L MCV 78.8 L MCH 24.5 L MCHC 31.1 L RDW Std Deviation 48.2 H RDW Coeff of Barbara 16.8 H Plt Count 278 MPV 9.9 Immature Gran % (Auto) Neut % (Auto) Lymph % (Auto) [place] % (Auto) Eos % (Auto) Baso % (Auto) Neut # (Auto) Lymph # (Auto) [place] # (Auto) Eos # (Auto) Baso # (Auto) Immature Gran # (Auto) PT INR APTT PTT Ratio Sodium Potassium Chloride Carbon Dioxide Anion Gap BUN Creatinine Est Cr Clr Drug Dosing Est GFR ( Amer) Est GFR (Non-Af Amer) BUN/Creatinine Ratio Glucose Calcium Troponin I < 0.015 < 0.015 C-Reactive Protein Triglycerides Cholesterol LDL Cholesterol, Calc VLDL Cholesterol, Calc HDL Cholesterol Cholesterol/HDL Ratio Lipase Nasal Screen MRSA (PCR) COVID-19 Eval Order SARS-CoV-2 (PCR) 08/06/20 08/06/20 06:12 06:12 WBC RBC Hgb Hct MCV MCH MCHC RDW Std Deviation RDW Coeff of Barbara Plt Count MPV Immature Gran % (Auto) Neut % (Auto) Lymph % (Auto) [place] % (Auto) Eos % (Auto) Baso % (Auto) Neut # (Auto) Lymph # (Auto) [place] # (Auto) Eos # (Auto) Baso # (Auto) Immature Gran # (Auto) PT INR APTT PTT Ratio Sodium 141 Potassium 3.9 Chloride 111 H Carbon Dioxide 25 Anion Gap 5.0 BUN 14 Creatinine 0.98 Est Cr Clr Drug Dosing 61.3 Est GFR ( Amer) 88.3 Est GFR (Non-Af Amer) 76.2 BUN/Creatinine Ratio 14.0 Glucose 89 Calcium 7.9 L Troponin I C-Reactive Protein 0.55 H Triglycerides 126 Cholesterol 110 LDL Cholesterol, Calc 39 VLDL Cholesterol, Calc 25 HDL Cholesterol 46 Cholesterol/HDL Ratio 2 Lipase Nasal Screen MRSA (PCR) COVID-19 Eval Order SARS-CoV-2 (PCR) Medications Administered Current Inpatient Medications Acetaminophen (Acetaminophen 325 Mg Tab) 650 mg PO Q4H PRN PRN Reason: Pain or Fever Stop: 09/04/20 15:14 Last Admin: 08/06/20 08:32 Dose: 650 mg Documented by: Albuterol (Albuterol Hfa 8 Gm Inhaler) 2 puffs INH QID PRN PRN Reason: Shortness Of Breath Or Wheezin Stop: 09/04/20 15:14 Aspirin (Aspirin 81 Mg Ectab) 81 mg PO DAILY [facility] Stop: 09/05/20 08:59 Last Admin: 08/06/20 08:32 Dose: 81 mg Documented by: Atorvastatin Calcium (Atorvastatin 40 Mg Tab) 40 mg PO DAILY [facility] Stop: 09/05/20 08:59 Last Admin: 08/06/20 08:31 Dose: 40 mg Documented by: Clopidogrel Bisulfate (Clopidogrel Bisulfate 75 Mg Tab) 75 mg PO QAM [facility] Stop: 09/05/20 08:59 Last Admin: 08/06/20 08:31 Dose: 75 mg Documented by: Finasteride (Finasteride 5 Mg Tab) 5 mg PO QPM [facility] Stop: 09/04/20 20:59 Last Admin: 08/05/20 20:38 Dose: 5 mg Documented by: Fluticasone Furoate (Fluticasone Furoate 100mcg 14 Puffs/Inhaler) 1 puffs INH DAILY [facility] Stop: 09/05/20 08:59 Last Admin: 08/06/20 08:31 Dose: 1 puffs Documented by: Heparin Sodium (Porcine) (Heparin Sod 5,000 Unit/0.5 Ml Vial) 5,000 units SQ Q12 [facility] Stop: 09/04/20 20:59 Last Admin: 08/06/20 08:30 Dose: 5,000 units Documented by: Ceftriaxone Sodium 2,000 mg/ (Dextrose) 70 mls @ 100 mls/hr IV Q24H [facility]; Protocol Stop: 08/12/20 15:59 Last Infusion: 08/05/20 16:57 Dose: Infused Documented by: Losartan Potassium (Losartan Potassium 50 Mg Tab) 50 mg PO DAILY [facility] Stop: 09/05/20 08:59 Last Admin: 08/06/20 08:31 Dose: 50 mg Documented by: Metoprolol Tartrate (Metoprolol Tartrate 25 Mg Tab) 25 mg PO BID [facility] Stop: 09/04/20 20:59 Last Admin: 08/06/20 08:31 Dose: 25 mg Documented by: Nitroglycerin (Nitroglycerin Sl 0.4 Mg/Tab Tab) 0.4 mg SL UD PRN PRN Reason: Chest Pain Stop: 09/04/20 15:14 Pantoprazole Sodium (Pantoprazole 40 Mg Tab) 40 mg PO BID [facility] Stop: 09/04/20 20:59 Last Admin: 08/06/20 08:31 Dose: 40 mg Documented by: Sucralfate (Sucralfate 1 Gm Tab) 1 gm PO QID [facility] Stop: 09/04/20 16:59 Last Admin: 08/06/20 08:32 Dose: 1 gm Documented by: Tamsulosin HCl (Tamsulosin Hcl 0.4 Mg Cap) 0.8 mg PO QPM [facility] Stop: 09/04/20 20:59 Last Admin: 08/05/20 20:38 Dose: 0.8 mg Documented by: Umeclidinium/Vilanterol (Umeclidinium/Vilanterol 62.5/25mcg 7 Puffs/Inhaler) 1 puffs INH DAILY [facility] Stop: 09/05/20 08:59 Last Admin: 08/06/20 08:31 Dose: 1 puffs Documented by: (1) Chest pain Chest pain type: unspecified Qualified Code(s): R07.9 - Chest pain, unspecified
--- NOTE | 2020-08-06 12:44 | Hospitalist Progress Note ---
Date of Service August 06, 2020 Assessment & Plan (1) CAD (coronary artery disease): (2) Chest pain: Pt is 74 y/o M with PMH CAD, HTN, dyslipidemia, AAA s/p repair in 2019 at [facility] [place], COPD, h/o upper extremity DVT, GERD presented to ER from cardiology clinic for ongoing chest pressure. H/O pharmacologic stress test on 07/21/2020 at [facility] with EF 53%, normal wall motion, small, mild intensity reversible MPI defect of apex, distal septum and distal inferior myocardium. Since cardiac cath having constant left sided chest pressure and left arm pain H/O cardiac catheterization on 08/02 which showed predominantly nonobstructive CAD, 80% lesion to RCA at AV groove that was not amendable by PCI. Continued constant left-sided chest pressure with intermittent stabbing sensation to chest with SOB, intermittent diaphoresis In ER afebrile, P: 74, BP: 170/94, R: 20, 98% on RA In ER was given 325mg aspirin. Negative initial troponin. EKG with nonspecific ST changes. 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 -Doubt any pericarditis -He can be discharged home this afternoon (3) Cellulitis of right upper extremity: S/P cardiac cath RUE venous doppler negative for DVT -Start Rocephin -MRSA swab-negative -We will give oral Keflex on discharge to finish at total of 10 days of antibiotic (4) HTN (hypertension): In ER BP 170/94 down to 158/93 -Continue losartan -Monitor BP, may need to adjust medications (5) Dyslipidemia: -Continue atorvastatin (6) Chronic obstructive pulmonary disease: No signs acute exacerbation at this time -Continue home inhalers, albuterol as needed (7) History of DVT (deep vein thrombosis): History right upper extremity DVT to subclavian in 2019 during prolonged hospitalization. Was treated with Lovenox Ultrasound did not show any evidence of thrombosis (8) BPH (benign prostatic hyperplasia): -Continue tamsulosin, finasteride (9) GERD (gastroesophageal reflux disease): -Continue PPI, Carafate DVT Prophylaxis -Heparin SQ Full Code as per discussion with pt Follows with Dr Korina Milian for routine care Will be discharged home this afternoon Cardiology will make the appointment as a follow-up Admission and Anticipated Discharge Date Admission Date: August 05, 2020 Subjective 08/06/2020 The patient was seen and examined in medical telemetry unit His chest pain has been decreased a lot Denies any palpitation and/or shortness of breath at rest His right forearm pain and swelling have improved a lot Review of Systems Review of Systems: All systems reviewed and are unremarkable except as noted below Cardiovascular: + chest pain (Minimal precordial pain) and + dyspnea on exertion; no palpitations Physical Exam Physical Exam: Sitting on a chair without any acute distress Constitutional: average body habitus; not ill appearing Eyes: PERRL, conjunctivae normal, anicteric sclerae ENMT: external ear and nose normal, oropharynx normal Neck: trachea midline, no thyromegaly Respiratory: no respiratory distress Auscultation: lungs clear to auscultation bilaterally Cardiovascular: Rate/Rhythm: regular rate and regular rhythm Heart Sounds: no murmur Extremities: no edema Gastrointestinal (Abdomen): Inspection/Auscultation: normal bowel sounds; abdomen not distended Percussion/Palpation: abdomen soft; abdomen nontender Musculoskeletal: No acute arthritis in any joint Neurologic: Alert, awake and oriented x3. No focal sensory and motor deficit appreciated Psychiatric: A+Ox3, euthymic affect Lymphatic: no cervical or axillary lymphadenopathy Results & Data Results & Data ([facility] [place]) Vital Signs (Past 12 Hours) Vital Signs Temp Pulse Resp BP Pulse Ox 08/06/20 11:27 36.6 C 60 16 112/64 96 08/06/20 08:22 36.6 C 67 18 148/79 H 95 08/06/20 02:55 36.5 C 67 19 119/78 97 Laboratory Results Short CBC 08/06/20 Range/Units 06:12 WBC 9.43 (4.8-10.8) K/uL Hgb 11.7 L (14.0-18.0) g/dL Hct 37.6 L (42-52) % Plt Count 278 (130-400) K/uL BMP 08/06/20 06:12 Sodium 141 Potassium 3.9 Chloride 111 H Carbon Dioxide 25 BUN 14 Creatinine 0.98 Glucose 89 Calcium 7.9 L Cardiac Enzymes 08/05/20 08/05/20 Range/Units 16:59 22:36 Troponin I < 0.015 < 0.015 (0-0.045) ng/ml Medications Administered Current Inpatient Medications Acetaminophen (Acetaminophen 325 Mg Tab) 650 mg PO Q4H PRN PRN Reason: Pain or Fever Stop: 09/04/20 15:14 Last Admin: 08/06/20 08:32 Dose: 650 mg Documented by: Albuterol (Albuterol Hfa 8 Gm Inhaler) 2 puffs INH QID PRN PRN Reason: Shortness Of Breath Or Wheezin Stop: 09/04/20 15:14 Aspirin (Aspirin 81 Mg Ectab) 81 mg PO DAILY [facility] Stop: 09/05/20 08:59 Last Admin: 08/06/20 08:32 Dose: 81 mg Documented by: Atorvastatin Calcium (Atorvastatin 40 Mg Tab) 40 mg PO DAILY [facility] Stop: 09/05/20 08:59 Last Admin: 08/06/20 08:31 Dose: 40 mg Documented by: Clopidogrel Bisulfate (Clopidogrel Bisulfate 75 Mg Tab) 75 mg PO QAM [facility] Stop: 09/05/20 08:59 Last Admin: 08/06/20 08:31 Dose: 75 mg Documented by: Finasteride (Finasteride 5 Mg Tab) 5 mg PO QPM [facility] Stop: 09/04/20 20:59 Last Admin: 08/05/20 20:38 Dose: 5 mg Documented by: Fluticasone Furoate (Fluticasone Furoate 100mcg 14 Puffs/Inhaler) 1 puffs INH DAILY [facility] Stop: 09/05/20 08:59 Last Admin: 08/06/20 08:31 Dose: 1 puffs Documented by: Heparin Sodium (Porcine) (Heparin Sod 5,000 Unit/0.5 Ml Vial) 5,000 units SQ Q12 [facility] Stop: 09/04/20 20:59 Last Admin: 08/06/20 08:30 Dose: 5,000 units Documented by: Ceftriaxone Sodium 2,000 mg/ (Dextrose) 70 mls @ 100 mls/hr IV Q24H [facility]; Protocol Stop: 08/12/20 15:59 Last Infusion: 08/05/20 16:57 Dose: Infused Documented by: Losartan Potassium (Losartan Potassium 50 Mg Tab) 50 mg PO DAILY [facility] Stop: 09/05/20 08:59 Last Admin: 08/06/20 08:31 Dose: 50 mg Documented by: Metoprolol Tartrate (Metoprolol Tartrate 25 Mg Tab) 25 mg PO BID [facility] Stop: 09/04/20 20:59 Last Admin: 08/06/20 08:31 Dose: 25 mg Documented by: Nitroglycerin (Nitroglycerin Sl 0.4 Mg/Tab Tab) 0.4 mg SL UD PRN PRN Reason: Chest Pain Stop: 09/04/20 15:14 Pantoprazole Sodium (Pantoprazole 40 Mg Tab) 40 mg PO BID [facility] Stop: 09/04/20 20:59 Last Admin: 08/06/20 08:31 Dose: 40 mg Documented by: Sucralfate (Sucralfate 1 Gm Tab) 1 gm PO QID [facility] Stop: 09/04/20 16:59 Last Admin: 08/06/20 12:35 Dose: 1 gm Documented by: Tamsulosin HCl (Tamsulosin Hcl 0.4 Mg Cap) 0.8 mg PO QPM [facility] Stop: 09/04/20 20:59 Last Admin: 08/05/20 20:38 Dose: 0.8 mg Documented by: Umeclidinium/Vilanterol (Umeclidinium/Vilanterol 62.5/25mcg 7 Puffs/Inhaler) 1 puffs INH DAILY [facility] Stop: 09/05/20 08:59 Last Admin: 08/06/20 08:31 Dose: 1 puffs Documented by: (1) Chest pain Chest pain type: unspecified Qualified Code(s): R07.9 - Chest pain, unspecified
[2020-08-06] MEDS: cefTRIAXone SODIUM 2,000 MG in DEXTROSE 5% 50 ML IV SCH (16:01)
--- NOTE | 2020-08-07 06:01 | Electrocardiogram Report ---
Test Reason : Blood Pressure : / mmHG Vent. Rate : 077 BPM Atrial Rate : 077 BPM P-R Int : 150 ms QRS Dur : 086 ms QT Int : 384 ms P-R-T Axes : 058 077 019 degrees QTc Int : 434 ms Normal sinus rhythm Indeterminate axis Borderline ECG When compared with ECG of 10-OCT-2018 09:16, No significant change Confirmed by Raphael Winn ([id number] on 08/07/2020 6:01:12 AM Referred By: Confirmed By:Raphael Winn
--- NOTE | 2020-08-07 08:33 | Discharge Summary ---
Date of Service August 07, 2020 Admission HPI Per Admitting Provider Pt is 74 y/o M with PMH CAD, HTN, dyslipidemia, AAA s/p repair in [place] at [facility] [place], COPD, h/o upper extremity DVT, GERD presented to ER from cardiology clinic for ongoing chest pressure. Patient reports intermittent left-sided chest pressure and shortness of breath with exertion. He had pharmacologic stress test on 07/21/2020 at [facility] with EF 53%, normal wall motion, small, mild intensity reversible MPI defect of apex, distal septum and distal inferior myocardium. Since cardiac cath having constant left sided chest pressure and sometimes left arm pain but do not occur at same times. He was seen at ER at [facility] and underwent cardiac catheterization on 08/02 which showed predominantly nonobstructive CAD, 80% lesion to RCA at AV groove that was not amendable by PCI. Patient reports has continued constant left-sided chest pressure. He reports will have intermittent stabbing sensation to chest and will have SOB. Intermittent diaphoresis with pain. Patient states following cardiac cath following day noted a lump to right wrist at site of cardiac cath and has since noted progressive swelling to right forearm with erythema and pain. Denies any discharge. Denies any fever or chills. Patient does not have nitroglycerin as he reports history of hypertension in the past from nitroglycerin. In cardiology clinic today patient denied nitro. He did receive 2 sprays of nitro by EMS today and states decreased chest pressure slightly however chest pressure still present. Denies any shortness of breath currently. He does have COPD and uses his albuterol inhaler twice daily. Denies any increased cough. Denies palpitation, vomiting, fever/chills, BIRD, dizziness, syncope, vision changes, neck pain, orthopnea, sore throat, choking, otalgia, rhinorrhea, abdominal pain, paresthesias, weakness, extremity weakness, lower extremity edema, rashes, urinary symptoms. In ER was given 325mg aspirin. Negative initial troponin. EKG with nonspecific ST changes. Pt admitted for further evaluation and treatment. Admission Exam Per Admitting Provider Physical Exam: General: no distress, WDWN Head: normocephalic, atraumatic Eyes: conjunctiva non-injected, anicteric ENT: normal inspection external ears, nose, mucous membranes moist Neck: supple, trachea midline Lungs: clear, no respiratory distress, no wheezing/rhonchi/rales CV: RRR, no murmur, no JVD, no pretibial edema Abd: normal BS, soft, non-tender Ext: RUE: +erythema edema to forearm, edema extending to fingers, no discharge, ROM wrist intact with tenderness, distal pulses intact, brisk capillary refill. no cyanosis, no calf tenderness Neuro: A&O x 3, no focal deficits noted, normal affect Skin: warm, dry, RUE as above, +multiple ecchymosis abdomen Principal Diagnosis Chest pain-likely referred pain from neck with cervical radiculopathy, no ACS, status post cardiac catheterization without significant obstructive disease. Cellulitis of the right forearm Discharge Exam Constitutional average body habitus; not ill appearing Eyes PERRL, conjunctivae normal, anicteric sclerae ENMT external ear and nose normal, oropharynx normal Neck trachea midline, no thyromegaly Respiratory no respiratory distress Auscultation: lungs clear to auscultation bilaterally Cardiovascular Rate/Rhythm: regular rate and regular rhythm Heart Sounds: no murmur Extremities: no edema Gastrointestinal (Abdomen) Inspection/Auscultation: normal bowel sounds; abdomen not distended Percussion/Palpation: abdomen soft; abdomen nontender Psychiatric A+Ox3, euthymic affect Lymphatic no cervical or axillary lymphadenopathy Discharge Data Allergies Allergy/AdvReac Type Severity Reaction Status Date / Time chlordiazepoxide Allergy Unknown Hives Verified 08/05/20 12:02 [From Librax (with clidinium)] clidinium Allergy Unknown Hives Verified 08/05/20 12:02 [From Librax (with clidinium)] nitroglycerin Allergy Unknown hypotension Verified 08/05/20 12:49 aspirin AdvReac Unknown GI BLEED Verified 08/05/20 12:02 Consultations 08/05/20 12:01 ED Decision to Admit Stat 08/05/20 15:15 Consult Cardiology Routine Ordered Studies 08/05/20 10:54 US venous doppler UE RT Stat Hospital Course (1) CAD (coronary artery disease): (2) Chest pain: Pt is 74 y/o M with PMH CAD, HTN, dyslipidemia, AAA s/p repair in 2019 at [facility] [place], COPD, h/o upper extremity DVT, GERD presented to ER from cardiology clinic for ongoing chest pressure. H/O pharmacologic stress test on 07/21/2020 at [facility] with EF 53%, normal wall motion, small, mild intensity reversible MPI defect of apex, distal septum and distal inferior myocardium. Since cardiac cath having constant left sided chest pressure and left arm pain H/O cardiac catheterization on 08/02 which showed predominantly nonobstructive CAD, 80% lesion to RCA at AV groove that was not amendable by PCI. Continued constant left-sided chest pressure with intermittent stabbing sensation to chest with SOB, intermittent diaphoresis In ER afebrile, P: 75, BP: 170/94, R: 20, 98% on RA In ER was given 325mg aspirin. Negative initial troponin. EKG with nonspecific ST changes. 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 -Doubt any pericarditis -He can be discharged home this afternoon (3) Cellulitis of right upper extremity: S/P cardiac cath RUE venous doppler negative for DVT -Start Rocephin -MRSA swab-negative -We will give oral Keflex on discharge to finish at total of 10 days of antibiotic (4) HTN (hypertension): In ER BP 170/94 down to 158/93 -Continue losartan -Monitor BP, may need to adjust medications (5) Dyslipidemia: -Continue atorvastatin (6) Chronic obstructive pulmonary disease: No signs acute exacerbation at this time -Continue home inhalers, albuterol as needed (7) History of DVT (deep vein thrombosis): History right upper extremity DVT to subclavian in 2019 during prolonged hospitalization. Was treated with Lovenox Ultrasound did not show any evidence of thrombosis (8) BPH (benign prostatic hyperplasia): -Continue tamsulosin, finasteride (9) GERD (gastroesophageal reflux disease): -Continue PPI, Carafate DVT Prophylaxis -Heparin SQ Full Code as per discussion with pt Follows with Dr Korina Milian for routine care Will be discharged home this afternoon Cardiology will make the appointment as a follow-up Total Time Total Time Spent Total Time Spent (In Minutes): 35 minutes Total Time Includes: Examination of the Patient, Discharge Planning, Medication Reconciliation and Communication With Other Providers Discharge Plan Discharge Items Patient Disposition: Home - Self-Care Reason For Visit: CHEST PAIN Discharge Diagnosis: Chest pain-likely referred pain from neck with cervical radiculopathy, no ACS, status post cardiac catheterization without significant obstructive disease. Cellulitis of the right forearm Condition on Discharge: Good Activity: Resume your previous activity Non-emergency contact: Primary Care Provider Call non-emergency contact if: you have any medication questions and your sympt oms worsen Follow-up/Referrals: Korina Milian, [Primary Care Provider] - (Date & Time 08/10/2020 12:00 PM Provider Bladimir Story MD Department [facility], [place] ) Diet: Heart Healthy Addtl Attending Provider Instructions: Please take precautions to avoid fall Take Tylenol and local NSAID's gel to control neck pain Try to keep your right upper extremity elevated over the pillow while sleeping and sitting Finish the course of antibiotic Pending Studies at Discharge: No Stand-Alone Forms: My [facility] [employer], Smoking Cessation Medications and DC Order Prescriptions: New clopidogrel 75 mg Tablet 75 mg PO QAM Qty: 30 RF: 0 metoprolol tartrate 25 mg Tablet 25 mg PO BID Qty: 60 RF: 0 nitroglycerin [Nitrostat] 0.4 mg Tablet, Sublingual 0.4 mg sublingual UD PRN (Reason: chest pain) Qty: 30 RF: 0 diclofenac sodium 1 % gel 2 g topical BID Qty: 50 RF: 0 Continued tamsulosin 0.4 mg Capsule 0.8 mg PO QPM RF: 0 finasteride 5 mg Tablet 5 mg PO QPM RF: 0 albuterol sulfate 90 mcg/actuation Hfa Aerosol Inhaler 2 puff INHALATION QID PRN (Reason: Shortness Of Breath Or Wheezing) RF: 0 losartan 50 mg tablet 50 mg PO DAILY RF: 0 atorvastatin 40 mg tablet 40 mg PO DAILY RF: 0 sucralfate 1 gram tablet 1 g PO QID RF: 0 omeprazole 40 mg Capsule,Delayed Release(Dr/Ec) 40 mg PO BID RF: 0 aspirin 81 mg Tablet,Delayed Release (Dr/Ec) 81 mg PO DAILY RF: 0 Trelegy Ellipta 100-62.5-25 mcg blister with device 1 inh INHALATION DAILY RF: 0 Discharge Orders: Discharge Order (Routine); Ordered 08/06/20 Ordered By: Ebony Kenny Admission Data Admit Date/Time: 08/05/20 12:37 Attending Provider: Ebony Kenny Admit Provider: Ebony Kenny Primary Care Provider: Korina Milian Other Providers: Ebony Kenny ; Kishan Cote Other Interventions: Discharge Summary Assessment (RN) Last Done: 08/06/20 15:11
== END 2020-08-06 18:30 | disposition home or self-care (01) ==
LOC: ED 10:38 → 2N 10:38